=== PATIENT | female | born 1955 | race Caucasian/White ===

== ENCOUNTER 2023-03-12 13:03 | Emergency (ER) | payer MEDICARE, OTHER ==
[2023-03-12] MEDS ORDERED: KETOROLAC 15 MG/ML 1 ML VIAL IVP STA (15:09)
[2023-03-12] MEDS ORDERED: SODIUM CHLORIDE 0.9% 500 ML 500 ML IV STA (15:09)
[2023-03-12] MEDS ORDERED: SODIUM CHLORIDE 0.9% 1,000 ML IV STA (15:09)
--- NOTE | 2023-03-12 15:19 | XR ---
EXAMINATION TYPE: XR chest 2V DATE OF EXAM: 03/12/2023 COMPARISON: NONE HISTORY: Shortness of breath TECHNIQUE: Frontal and lateral views of the chest are obtained. FINDINGS: Scattered senescent parenchymal changes noted. Hyperinflation compatible with COPD. Patchy density right medial lung base with elevation right hemidiaphragm may reflect developing pneum onia. Correlate clinically and progress studies recommended. Heart size is stable. Mediastinal structures are stable and grossly unremarkable. No evidence for hilar prominence. Degenerative changes dorsal spine. IMPRESSION: 1. Patchy density right medial lung base with elevation right hemidiaphragm may reflect developing pn eumonia. Correlate clinically and progress studies recommended.
--- NOTE | 2023-03-12 15:20 | ED ---
Recheck HPI - General Chief Complaint: Recheck/Abnormal Lab/Rx Stated Complaint: lower back leg pain Time Seen by Provider: 03/12/23 13:42 Source: patient, family Mode of arrival: wheelchair Limitations: no limitations - History of Present Illness Initial Comments: 67-year-old female history of hypertension and diabetes who presents with complaints of 5 weeks of low back pain. She states that she was seen by a chiropractor and had adjustments done after that she has severe pain radiating down both legs sometimes both sometimes 1. She was seen here about a week ago and x-rays on which shows severe degenerative joint disease in the lower spine and SI joint region. She was sent home with steroids and pain medication but states she's been getting progressively worse not better no improvement with medications she now requires a wheelchair and needs assistance with ambulation were before she needed no. He does have chronic numbness in the right foot area and she's had a rash on her legs which her doctor believes is fungal infection she states for about the last week or 2 she's had some redness going up her right arm and a little bit on the right chest. No fevers chills nausea vomiting sweats no dysuria hematuria no incontinence. MD Complaint: other - Related Data Home Medications Medication Instructions Recorded Confirmed Acetylcysteine [Nac] 500 mg PO DAILY 03/12/23 03/12/23 Diclofenac Sodium [Voltaren] 75 mg PO BID 03/12/23 03/12/23 Magnesium Glycinate 350mg 1,400 mg PO DAILY 03/12/23 03/12/23 Multivit with Calcium,Iron,Min 1 tab PO DAILY 03/12/23 03/12/23 [Women's Multivitamin] [place]-3/Dha/Epa/Fish Oil [Fish Oil 2 cap PO HS 03/12/23 03/12/23 1,000 mg Softgel] Semaglutide [Ozempic] 0.5 mg SQ BRAUN 03/12/23 03/12/23 Thiamine [Vitamin B-1] 100 mg PO DAILY 03/12/23 03/12/23 Tri Active Immune Care Supplement 1 tab PO DAILY 03/12/23 03/12/23 lisinopriL [Zestril] 5 mg PO DAILY 03/12/23 03/12/23 traMADol HCL 50 mg PO TID PRN 03/12/23 03/12/23 Previous Rx's Medication Instructions Recorded HYDROcodone/APAP 7.5-325MG [[place] 1 tab PO Q6HR PRN 3 Days #12 tab 03/05/23 7.5-325] Allergies Allergy/AdvReac Type Severity Reaction Status Date / Time empagliflozin Allergy Nausea & Verified 03/12/23 18:04 [From Jardiance] Vomiting & Diarrhea Penicillins Allergy Unknown Verified 03/12/23 18:04 Childhood Sulfa (Sulfonamide Allergy Unknown Verified 03/12/23 18:04 Antibiotics) Childhood Review of Systems ROS Statement: Those systems with pertinent positive or pertinent negative responses have been documented in the HPI. ROS Other: All systems not noted in ROS Statement are negative. Past Medical History Past Medical History: Diabetes Mellitus, Hyperlipidemia, Hypertension History of Any Multi-Drug Resistant Organisms: None Reported Past Surgical History: Hysterectomy Past Psychological History: No Psychological Hx Reported Smoking Status: Former smoker Past Alcohol Use History: None Reported Past Drug Use History: None Reported General Exam - General Exam Comments Initial Comments: This is a well-developed well-nourished awake alert oriented 4 female Limitations: no limitations General appearance: alert, anxious Head exam: Present: atraumatic, normocephalic, normal inspection Eye exam: Present: normal appearance, PERRL, EOMI. Absent: scleral icterus, conjunctival injection, periorbital swelling ENT exam: Present: mucous membranes dry Neck exam: Present: normal inspection, full ROM, other (No stridor JVD or bruits). Absent: tenderness, meningismus, lymphadenopathy Respiratory exam: Present: normal lung sounds bilaterally. Absent: respiratory distress, wheezes, rales, rhonchi, stridor Cardiovascular Exam: Present: normal rhythm, tachycardia. Absent: systolic murmur, diastolic murmur, rubs, gallop, clicks GI/Abdominal exam: Present: soft, normal bowel sounds. Absent: distended, tenderness, guarding, rebound, rigid Rectal exam: Present: deferred Extremities exam: Present: normal capillary refill, other (Some numbness to the right foot which is consistent with the patient's history she does demonstrate full range of motion of the feet with pain with attempts at lifting the legs.). Absent: full ROM, tenderness, pedal edema, joint swelling, calf tenderness Back exam: Present: normal inspection, tenderness (Tennis over the bilateral SI joint joint region also over the upper gluteus muscles). Absent: full ROM, CVA tenderness (R), CVA tenderness (L) Neurological exam: Present: alert, oriented X3, CN II-XII intact, motor sensory deficit (As stated above) Psychiatric exam: Present: normal affect, normal mood Skin exam: Present: warm, dry, intact, other (Erythematous areas as noted above). Absent: rash Course Vital Signs 03/12/23 03/12/23 13:08 16:30 Temperature 98.2 F Pulse Rate 116 H 114 H Respiratory 20 18 Rate Blood Pressure 147/80 106/55 O2 Sat by Pulse 96 94 L Oximetry Medical Decision Making - Medical Decision Making I did discuss findings with the patient and family initially. CAT scan did show severe degenerative changes patient has had persistent and worsening pain since chiropractic adjustment 4-5 weeks ago. Patient is not ambulatory and not able to perform her ADLs at home. Initially the plan was to admit to this facility however was learned that the spine surgeons are not available for at least 4 days and concern for needs a decompression considered. Patient initially was hesitant to be transferred but she [facility] I did discuss the case with Dr. Banks who agrees except the patient in transfer ER to ER.Was pt. sent in by a medical professional or institution (, PA, SCALLOPER, urgent care, hospital, or snf...) When possible be specific @ -No Did you speak to anyone other than the patient for history (EMS, parent, family, police, friend...)? What history was obtained from this source @ -Family Did you review nursing and triage notes (agree or disagree)? Why? @ -I reviewed and agree with nursing and triage notes Were old charts reviewed (outside hosp., previous admission, EMS record, old EKG, old radiological studies, urgent care reports/EKG's, snf records)? Report findings @ -Previous admission old charts were reviewed Differential Diagnosis (chest pain, altered mental status, abdominal pain women, abdominal pain men, vaginal bleeding, weakness, fever, dyspnea, syncope, headache, dizziness, GI bleed, back pain, seizure, CVA, palpatations, mental health, musculoskeletal)? @ -Degenerative low spine disease. Intractable back pain, sciatica EKG interpreted by me (3pts min.). @ -Not done X-rays interpreted by me (1pt min.). @ -None done CT interpreted by me (1pt min.). @ -Computed tomography scan of lumbar spine and pelvis interpreted by me severe degenerative changes seen L1 to L5 S1 most notably L3 4 showed circumferential disc bulge moderate central stenosis severe left-sided foraminal encroachment also L4 5 moderate circumferential disc bulge graze posteriorly severe central stenosis and severe bilateral foraminal encroachment] U/S interpreted by me (1pt. min.). @ -None done What testing was considered but not performed or refused? (CT, X-rays, U/S, labs)? Why? @ -None What meds were considered but not given or refused? Why? @ -None Did you discuss the management of the patient with other professionals (professionals i.e. , PA, SCALLOPER, lab, RT, psych nurse, sr. social media & mobile manager, job site superintendent, teacher, deputy juvenile officer, case specialist)? Give summary @ -Dr Montanez and Dr. Banks Was smoking cessation discussed for >3mins.? @ -No Was critical care preformed (if so, how long)? @ -No Were there social determinants of health that impacted care today? How? (Homelessness, low income, unemployed, alcoholism, drug addiction, transportation, low edu. Level, literacy, decrease access to med. care, assisted, rehab)? @ -No Was there de-escalation of care discussed even if they declined (Discuss DNR or withdrawal of care, Hospice)? DNR status @ -No What co-morbidities impacted this encounter? (DM, HTN, Smoking, COPD, CAD, Cancer, CVA, ARF, Chemo, Hep., AIDS, mental health diagnosis, sleep apnea, morbid obesity)? @ -Diabetes, hypertension Was patient admitted / discharged? Hospital course, mention meds given and route, prescriptions, significant lab abnormalities, going to OR and other pertinent info. @ -hospital course was transferred to [facility] in [place] for higher level of care Undiagnosed new problem with uncertain prognosis? @ -Severe didn't degenerative change lumbar sacral spine Drug Therapy requiring intensive monitoring for toxicity (Heparin, Nitro, Insulin, Cardizem)? @ -No Were any procedures done? @ -No Diagnosis/symptom? @ -Intractable lumbar pain, central cord stenosis and multiple lumbar disc bulges Acute, or Chronic, or Acute on Chronic? @ -Acute on chronic] Uncomplicated (without systemic symptoms) or Complicated (systemic symptoms)? @ -Complicated Side effects of treatment? @ -No Exacerbation, Progression, or Severe Exacerbation? @ -Severe exacerbation Poses a threat to life or bodily function? How? (Chest pain, [place], CA, pneumonia, PE, COPD, DKA, ARF, appy, cholecystitis, CVA, Diverticulitis, Homicidal, Suicidal, threat to staff... and all critical care pts) @ -Intractable lumbar pain with severe central stenosis severe bilateral foraminal encroachment - Lab Data Result diagrams: 03/12/23 15:01 03/12/23 15:01 Lab Results 03/12/23 03/12/23 03/12/23 Range/Units 15:01 15:01 15:01 WBC 11.2 H (3.8-10.6) k/uL RBC 4.97 (3.80-5.40) m/uL Hgb 15.9 (11.4-16.0) gm/dL Hct 47.7 H (34.0-46.0) % MCV 95.9 (80.0-100.0) fL MCH 32.0 (25.0-35.0) pg MCHC 33.4 (31.0-37.0) g/dL RDW 13.2 (11.5-15.5) % Plt Count 230 (150-450) k/uL MPV 8.1 Neutrophils % 62 % Lymphocytes % 29 % Monocytes % 4 % Eosinophils % 3 % Basophils % 0 % Neutrophils # 7.0 (1.3-7.7) k/uL Lymphocytes # 3.3 (1.0-4.8) k/uL Monocytes # 0.4 (0-1.0) k/uL Eosinophils # 0.3 (0-0.7) k/uL Basophils # 0.0 (0-0.2) k/uL Sodium 136 L (137-145) mmol/L Potassium 5.1 (3.5-5.1) mmol/L Chloride 101 (98-107) mmol/L Carbon Dioxide 23 (22-30) mmol/L Anion Gap 12 mmol/L BUN 36 H (7-17) mg/dL Creatinine 1.53 H (0.52-1.04) mg/dL Est GFR (CKD-EPI)AfAm 41 (>60 ml/min/1.73 sqM) Est GFR (CKD-EPI)NonAf 36 (>60 ml/min/1.73 sqM) Glucose 109 H (74-99) mg/dL Calcium 10.3 H (8.4-10.2) mg/dL Magnesium 2.0 (1.6-2.3) mg/dL Total Bilirubin 0.6 (0.2-1.3) mg/dL AST 37 H (14-36) U/L ALT 34 (4-34) U/L Alkaline Phosphatase 92 (38-126) U/L Creatine Kinase 137 H (30-135) U/L Troponin I (0.000-0.034) ng/mL Total Protein 7.4 (6.3-8.2) g/dL Albumin 4.3 (3.5-5.0) g/dL Lipase 177 (23-300) U/L TSH 0.970 (0.465-4.680) mIU/L Urine Color Yellow Urine Appearance Cloudy H (Clear) Urine pH 7.0 (5.0-8.0) Ur Specific [place] 1.013 (1.001-1.035) Urine Protein Negative (Negative) Urine Glucose (UA) Trace H (Negative) Urine Ketones Negative (Negative) Urine Blood Negative (Negative) Urine Nitrite Negative (Negative) Urine Bilirubin Negative (Negative) Urine Urobilinogen <2.0 (<2.0) mg/dL Ur Leukocyte Esterase Large H (Negative) Urine RBC 3 (0-5) /hpf Urine WBC 26 H (0-5) /hpf Ur Squamous Epith Cells 1 (0-4) /hpf Amorphous Sediment Rare H (None) /hpf Urine Bacteria Moderate H (None) /hpf Urine Mucus Rare H (None) /hpf 03/12/23 Range/Units 15:01 WBC (3.8-10.6) k/uL RBC (3.80-5.40) m/uL Hgb (11.4-16.0) gm/dL Hct (34.0-46.0) % MCV (80.0-100.0) fL MCH (25.0-35.0) pg MCHC (31.0-37.0) g/dL RDW (11.5-15.5) % Plt Count (150-450) k/uL MPV Neutrophils % % Lymphocytes % % Monocytes % % Eosinophils % % Basophils % % Neutrophils # (1.3-7.7) k/uL Lymphocytes # (1.0-4.8) k/uL Monocytes # (0-1.0) k/uL Eosinophils # (0-0.7) k/uL Basophils # (0-0.2) k/uL Sodium (137-145) mmol/L Potassium (3.5-5.1) mmol/L Chloride (98-107) mmol/L Carbon Dioxide (22-30) mmol/L Anion Gap mmol/L BUN (7-17) mg/dL Creatinine (0.52-1.04) mg/dL Est GFR (CKD-EPI)AfAm (>60 ml/min/1.73 sqM) Est GFR (CKD-EPI)NonAf (>60 ml/min/1.73 sqM) Glucose (74-99) mg/dL Calcium (8.4-10.2) mg/dL Magnesium (1.6-2.3) mg/dL Total Bilirubin (0.2-1.3) mg/dL AST (14-36) U/L ALT (4-34) U/L Alkaline Phosphatase (38-126) U/L Creatine Kinase (30-135) U/L Troponin I 0.026 (0.000-0.034) ng/mL Total Protein (6.3-8.2) g/dL Albumin (3.5-5.0) g/dL Lipase (23-300) U/L TSH (0.465-4.680) mIU/L Urine Color Urine Appearance (Clear) Urine pH (5.0-8.0) Ur Specific [place] (1.001-1.035) Urine Protein (Negative) Urine Glucose (UA) (Negative) Urine Ketones (Negative) Urine Blood (Negative) Urine Nitrite (Negative) Urine Bilirubin (Negative) Urine Urobilinogen (<2.0) mg/dL Ur Leukocyte Esterase (Negative) Urine RBC (0-5) /hpf Urine WBC (0-5) /hpf Ur Squamous Epith Cells (0-4) /hpf Amorphous Sediment (None) /hpf Urine Bacteria (None) /hpf Urine Mucus (None) /hpf - Radiology Data Interpreted by me: I did interpret the imaging center degenerative change in the lumbar spine no obvious seems to the pelvis. She did have especially notable L4-L5 moderate circumferential disc bulge gratis posteriorly some severe central stenosis severe by lateral foraminal encroachment Disposition Clinical Impression: Intractable neuropathic pain of lumbosacral origin, Central stenosis of spinal canal, Failure of outpatient treatment Disposition: OTHER INSTITUTION NOT DEFINED Condition: Fair Referrals: Bravo Lazo MD [Primary Care Provider] - 1-2 days Decision Date: 03/12/23 Decision Time: 19:15 - Out of Hospital Transfer - Req. Specs Out of Hospital Transfer - Requested Specifics: Other Emergency Center
[2023-03-12 15:21] LABS: Basophils % (A) 0 %; Eosinophils # (A) 0.3 k/uL (0-0.7); Eosinophils % (A) 3 %; HCT 47.7 % (34.0-46.0); HGB 15.9 gm/dL (11.4-16.0); Lymphocytes # (A) 3.3 k/uL (1.0-4.8); Lymphocytes % (A) 29 %; MCHC 33.4 g/dL (31.0-37.0); MCV 95.9 fL (80.0-100.0); Mean Platelet Volume 8.1; Monocytes # (A) 0.4 k/uL (0-1.0); Monocytes % (A) 4 %; Neutrophils % (A) 62 %; Platelet Count 230 k/uL (150-450); RBC 4.97 m/uL (3.80-5.40); RDW 13.2 % (11.5-15.5); WBC 11.2 k/uL (3.8-10.6)
[2023-03-12 15:25] LABS: Amorphous Sediment,Urine Rare /hpf; Appearance,Urine Cloudy (Clear); Bacteria,Urine Moderate /hpf; Bilirubin,Urine Negative (Negative); Blood,Urine Negative (Negative); Color,Urine Yellow; Glucose,Urine (UA) Trace (Negative); Ketones,Urine Negative (Negative); Leukocyte Esterase,Urine Large (Negative); Mucus,Urine Rare /hpf; Nitrite,Urine Negative (Negative); Protein,Urine Negative (Negative); RBC,Urine 3 /hpf (0-5); Specific Gravity,Urine 1.013 (1.001-1.035); Squamous Epithelial Cell,Urine 1 /hpf (0-4); Urobilinogen,Urine <2.0 mg/dL (<2.0); WBC,Urine 26 /hpf (0-5)
[2023-03-12 15:38] LABS: ALT 34 U/L (4-34); AST 37 U/L (14-36); African American GFR (CKD) 41 (>60 ml/min/1.73 sqM); Albumin 4.3 g/dL (3.5-5.0); Alkaline Phosphatase 92 U/L (38-126); Anion Gap 12 mmol/L; Blood Urea Nitrogen 36 mg/dL (7-17); Calcium 10.3 mg/dL (8.4-10.2); Carbon Dioxide 23 mmol/L (22-30); Chloride 101 mmol/L (98-107); Creatine Kinase 137 U/L (30-135); Glucose 109 mg/dL (74-99); Lipase 177 U/L (23-300); Non-African American GFR(CKD) 36 (>60 ml/min/1.73 sqM); Potassium 5.1 mmol/L (3.5-5.1); Sodium 136 mmol/L (137-145); Total Bilirubin 0.6 mg/dL (0.2-1.3); Total Protein 7.4 g/dL (6.3-8.2)
[2023-03-12 16:37] VITALS: RESP 18
--- NOTE | 2023-03-12 16:56 | CT ---
EXAMINATION TYPE: CT lumbar spine wo con, CT pelvis wo con DATE OF EXAM: 03/12/2023 COMPARISON: HISTORY: bilateral leg pain x 5 weeks unable to ambulate CT DLP: 2671.[address] of the lumbar spine was performed. Bone and soft tissue window settings are submitted as well as coronal and sagittal reconstructions. Unenhanced CT of the pelvis is also submitted. L1-L2: Severe degenerative disc space narrowing and vacuum disc and endplate sclerosis. Moderate circ umferential disc bulge with effacement of the ventral thecal sac and moderate central stenosis. Later al foraminal encroachment. L2-L3: Severe disc desiccation with vacuum disc. Circumferential disc bulge with disc endplate comple x. Moderate central stenosis. Severe left-sided foraminal encroachment. L3-L4: Severe disc desiccation with vacuum disc. Circumferential disc bulge with disc endplate comple x. Moderate central stenosis. Severe left-sided foraminal encroachment. L4-L5: Severe disc desiccation vacuum disc. Moderate circumferential disc bulge greatest posteriorly. Severe central stenosis. Severe bilateral foraminal encroachment. Probable Schmorl node anterior sup erior endplate of L5. L5-S1: Normal disc space height. Mild posterior disc endplate complex. No evidence for central steno sis or foraminal encroachment. No disc herniation protrusion or central stenosis. No facet joint art hropathy. No evidence for foraminal encroachment. No paraspinal masses are identified. Lumbar segments are free if fracture. CT PELVIS: No evidence for fracture or dislocation. Mild degenerative change bilateral hip joint spac es. Degenerative changes sacroiliac joints bilaterally. No destructive masses seen. IMPRESSION: 1. Severe multilevel degenerative disc disease with multilevel central stenosis and foraminal encroac hment as outlined above.
[2023-03-12] MEDS ORDERED: fentaNYL (PF) 50 MCG/ML 2 ML AMP IV STA (19:30)
[2023-03-12 19:39] VITALS: BP 125/80; PULSE 75; TEMP 98.1
== END 2023-03-12 19:56 | disposition other institution (70) ==
LOC: EC 13:03
DX: M48.061 Spinal stenosis, lumbar region without neurogenic claudication (principal); M51.36 Other intervertebral disc degeneration, lumbar region; E11.40 Type 2 diabetes mellitus with diabetic neuropathy, unspecified; I10 Essential (primary) hypertension; Z79.84 Long term (current) use of oral hypoglycemic drugs; Z79.899 Other long term (current) drug therapy; Z88.0 Allergy status to penicillin; Z88.1 Allergy status to other antibiotic agents; Z88.2 Allergy status to sulfonamides; Z87.891 Personal history of nicotine dependence
CPT/HCPCS: 96361 ×4; 96374 ×2; 99285 ×2; 36415; 80053; 84443; 82550; 83690; 83735; 84484; 85025; 81001; 71046; 72192; 72131; J1885

== ENCOUNTER 2023-03-26 11:08 | Emergency (ER) | payer MEDICARE, OTHER ==
[2023-03-26 11:18] VITALS: PULSE 78; RESP 18; TEMP 98.4
--- NOTE | 2023-03-26 11:55 | ED ---
General Adult HPI - General Chief complaint: Skin/Abscess/Foreign Body Stated complaint: Back Infection Time Seen by Provider: 03/26/23 11:20 Source: patient, EMS, RN notes reviewed, old records reviewed Mode of arrival: EMS Limitations: physical limitation - History of Present Illness Initial comments: This is a 67-year-old female who presents emergency Department stating she had surgery on her back on March 14. Patient states since then the wound has been draining which she describes as pus and the wound is not healing well. Patient states they were supposed to take out the ajith seen but since wound isn't healing they sent the patient into the emergency department to be evaluated. Patient states the area around it is tender and she was told it was erythematous. Patient denies any fever chills per patient denies difficulty breathing or shortness of breath. Patient denies any chest pain or palpitations. Patient has abdominal pain patient is not diarrhea. Patient denies any numbness or weakness. Patient states her left leg remains a little weaker than the right but this is unchanged since the surgery. - Related Data Home Medications Medication Instructions Recorded Confirmed Multivit with Calcium,Iron,Min 1 tab PO DAILY 03/12/23 03/26/23 [Women's Multivitamin] [place]-3/Dha/Epa/Fish Oil [Fish Oil 1 cap PO HS 03/12/23 03/26/23 1,000 mg Softgel] Docusate [Colace] 100 mg PO BID 03/26/23 03/26/23 HYDROcodone/APAP 5-325MG [[place] 1 tab PO Q4HR PRN 03/26/23 03/26/23 5-325] Magnesium Oxide [Mag-Ox] 400 mg PO DAILY 03/26/23 03/26/23 Metoprolol Tartrate [Lopressor] 100 mg PO BID 03/26/23 03/26/23 methocarbamoL [Robaxin-750] 750 mg PO TID@0600,1400,2200 03/26/23 03/26/23 Allergies Allergy/AdvReac Type Severity Reaction Status Date / Time empagliflozin Allergy Nausea & Verified 03/12/23 18:04 [From Jardiance] Vomiting & Diarrhea Penicillins Allergy Unknown Verified 03/12/23 18:04 Childhood Sulfa (Sulfonamide Allergy Unknown Verified 03/12/23 18:04 Antibiotics) Childhood Review of Systems ROS Statement: Those systems with pertinent positive or pertinent negative responses have been documented in the HPI. ROS Other: All systems not noted in ROS Statement are negative. Past Medical History Past Medical History: Diabetes Mellitus, Hyperlipidemia, Hypertension History of Any Multi-Drug Resistant Organisms: None Reported Past Surgical History: Back Surgery, Hysterectomy Additional Past Surgical History / Comment(s): Back surgery 03/14/23 Past Psychological History: No Psychological Hx Reported Smoking Status: Former smoker Past Alcohol Use History: None Reported Past Drug Use History: None Reported General Exam - General Exam Comments Initial Comments: GENERAL: Patient is well-developed and well-nourished. Patient is nontoxic and well-hyd rated and is in mild distress. ENT: Neck is soft and supple. No significant lymphadenopathy is noted. Oropharynx is clear. Moist mucous membranes. Neck has full range of motion without eliciting any pain. EYES: The sclera were anicteric and conjunctiva were pink and moist. Extraocular movements were intact and pupils were equal round and reactive to light. Eyelids were unremarkable. PULMONARY: Unlabored respirations. Good breath sounds bilaterally. No audible rales rhonchi or wheezing was noted. CARDIOVASCULAR: There is a regular rate and rhythm without any murmurs gallops or rubs. ABDOMEN: Soft and nontender with normal bowel sounds. SKIN: Skin is clear with no lesions or rashes and otherwise unremarkable. NEUROLOGIC: Patient is alert and oriented x3. Cranial nerves II through XII are grossly intact. Motor and sensory are also intact. Normal speech, volume and content. Symmetrical smile. MUSCULOSKELETAL: Normal extremities with adequate strength and full range of motion. LYMPHATICS: No significant lymphadenopathy is noted PSYCHIATRIC: Normal psychiatric evaluation. Limitations: physical limitation Course Vital Signs 03/26/23 11:10 Temperature 98.4 F Pulse Rate 78 Respiratory 18 Rate Blood Pressure 130/76 O2 Sat by Pulse 99 Oximetry Medical Decision Making - Medical Decision Making EKG as interpreted by myself. EKG shows sinus rhythm at 67 bpm RI interval is a 34 QRSs 93 QT interval 367 QTC is [address] segment patient or depression Was pt. sent in by a medical professional or institution (, PA, HOME DEMONSTRATION AGENT, urgent care, hospital, or long term...) When possible be specific @ -No Did you speak to anyone other than the patient for history (EMS, parent, family, police, friend...)? What history was obtained from this source @ -No Did you review nursing and triage notes (agree or disagree)? Why? @ -I reviewed and agree with nursing and triage notes Were old charts reviewed (outside hosp., previous admission, EMS record, old EKG, old radiological studies, urgent care reports/EKG's, long term records)? Report findings @ -I Reviewed prior charts in prior lab work. Differential Diagnosis (chest pain, altered mental status, abdominal pain women, abdominal pain men, vaginal bleeding, weakness, fever, dyspnea, syncope, headache, dizziness, GI bleed, back pain, seizure, CVA, palpatations, mental health, musculoskeletal)? @ -Dehiscence of wound, cellulitis, abscess, postop pain, EKG interpreted by me (3pts min.). @ -As above X-rays interpreted by me (1pt min.). @ -None done CT interpreted by me (1pt min.). @ -CT Of the lumbar spine showed fluid collection consistent with possible abscess. U/S interpreted by me (1pt. min.). @ -None done What testing was considered but not performed or refused? (CT, X-rays, U/S, labs)? Why? @ -None What meds were considered but not given or refused? Why? @ -None Did you discuss the management of the patient with other professionals (professionals i.e. , PA, HOME DEMONSTRATION AGENT, lab, RT, psych nurse, social insurance specialist, immigration lawyer, teacher, professional security officer, cyanide case hardener)? Give summary @ -I spoke with [facility] and they accepted the transfer this patient with the patient had surgery Was smoking cessation discussed for >3mins.? @ -No Was critical care preformed (if so, how long)? @ -No Were there social determinants of health that impacted care today? How? (Homelessness, low income, unemployed, alcoholism, drug addiction, transportation, low edu. Level, literacy, decrease access to med. care, fci, rehab)? @ -No Was there de-escalation of care discussed even if they declined (Discuss DNR or withdrawal of care, Hospice)? DNR status @ -No What co-morbidities impacted this encounter? (DM, HTN, Smoking, COPD, CAD, Cancer, CVA, ARF, Chemo, Hep., AIDS, mental health diagnosis, sleep apnea, morbid obesity)? @ -None Was patient admitted / discharged? Hospital course, mention meds given and route, prescriptions, significant lab abnormalities, going to OR and other pertinent info. @ -Patient was given antibiotics in the emergency department she was given 2 g Rocephin and started on vancomycin. I spoke with [facility] the patient will be transferred to their facility where she had her surgery. Undiagnosed new problem with uncertain prognosis? @ -No Drug Therapy requiring intensive monitoring for toxicity (Heparin, Nitro, Insulin, Cardizem)? @ -No Were any procedures done? @ -No Diagnosis/symptom? @ -Postop laminectomy abscess Acute, or Chronic, or Acute on Chronic? @ -Acute Uncomplicated (without systemic symptoms) or Complicated (systemic symptoms)? @ -Complicated Side effects of treatment? @ -No Exacerbation, Progression, or Severe Exacerbation? @ -No Poses a threat to life or bodily function? How? (Chest pain, [place], [place], pneumonia, PE, COPD, DKA, ARF, appy, cholecystitis, CVA, Diverticulitis, Homicidal, Suicidal, threat to staff... and all critical care pts) @ -Yes this could lead to sepsis and end organ dysfunction - Lab Data Result diagrams: 03/26/23 12:02 03/26/23 12:02 Lab Results 03/26/23 03/26/23 03/26/23 Range/Units 12:02 12:02 12:02 WBC 11.5 H (3.8-10.6) k/uL RBC 4.31 (3.80-5.40) m/uL Hgb 13.7 (11.4-16.0) gm/dL Hct 40.2 (34.0-46.0) % MCV 93.3 (80.0-100.0) fL MCH 31.8 (25.0-35.0) pg MCHC 34.1 (31.0-37.0) g/dL RDW 12.7 (11.5-15.5) % Plt Count 352 (150-450) k/uL MPV 7.8 Neutrophils % 71 % Lymphocytes % 22 % Monocytes % 4 % Eosinophils % 2 % Basophils % 0 % Neutrophils # 8.2 H (1.3-7.7) k/uL Lymphocytes # 2.6 (1.0-4.8) k/uL Monocytes # 0.4 (0-1.0) k/uL Eosinophils # 0.3 (0-0.7) k/uL Basophils # 0.0 (0-0.2) k/uL PT 10.7 (10.0-12.5) sec INR 1.0 (<1.2) APTT 22.1 (22.0-30.0) sec Sodium 133 L (137-145) mmol/L Potassium 4.3 (3.5-5.1) mmol/L Chloride 98 (98-107) mmol/L Carbon Dioxide 27 (22-30) mmol/L Anion Gap 8 mmol/L BUN 34 H (7-17) mg/dL Creatinine 0.90 (0.52-1.04) mg/dL Est GFR (CKD-EPI)AfAm 78 (>60 ml/min/1.73 sqM) Est GFR (CKD-EPI)NonAf 68 (>60 ml/min/1.73 sqM) Glucose 145 H (74-99) mg/dL Plasma Lactic Acid Yaw (0.7-2.0) mmol/L Calcium 9.8 (8.4-10.2) mg/dL Total Bilirubin 0.4 (0.2-1.3) mg/dL AST 28 (14-36) U/L ALT 31 (4-34) U/L Alkaline Phosphatase 86 (38-126) U/L Total Protein 6.5 (6.3-8.2) g/dL Albumin 3.5 (3.5-5.0) g/dL 03/26/23 Range/Units 12:02 WBC (3.8-10.6) k/uL RBC (3.80-5.40) m/uL Hgb (11.4-16.0) gm/dL Hct (34.0-46.0) % MCV (80.0-100.0) fL MCH (25.0-35.0) pg MCHC (31.0-37.0) g/dL RDW (11.5-15.5) % Plt Count (150-450) k/uL MPV Neutrophils % % Lymphocytes % % Monocytes % % Eosinophils % % Basophils % % Neutrophils # (1.3-7.7) k/uL Lymphocytes # (1.0-4.8) k/uL Monocytes # (0-1.0) k/uL Eosinophils # (0-0.7) k/uL Basophils # (0-0.2) k/uL PT (10.0-12.5) sec INR (<1.2) APTT (22.0-30.0) sec Sodium (137-145) mmol/L Potassium (3.5-5.1) mmol/L Chloride (98-107) mmol/L Carbon Dioxide (22-30) mmol/L Anion Gap mmol/L BUN (7-17) mg/dL Creatinine (0.52-1.04) mg/dL Est GFR (CKD-EPI)AfAm (>60 ml/min/1.73 sqM) Est GFR (CKD-EPI)NonAf (>60 ml/min/1.73 sqM) Glucose (74-99) mg/dL Plasma Lactic Acid Yaw 1.2 (0.7-2.0) mmol/L Calcium (8.4-10.2) mg/dL Total Bilirubin (0.2-1.3) mg/dL AST (14-36) U/L ALT (4-34) U/L Alkaline Phosphatase (38-126) U/L Total Protein (6.3-8.2) g/dL Albumin (3.5-5.0) g/dL Disposition Clinical Impression: Postoperative infection, Status post laminectomy Disposition: OTHER INSTITUTION NOT DEFINED Referrals: Bravo Lazo MD [Primary Care Provider] - 1-2 days Time of Disposition: 14:59 - Out of Hospital Transfer - Req. Specs Out of Hospital Transfer - Requested Specifics: Other Emergency Center ([facility])
[2023-03-26 12:12] LABS: Basophils % (A) 0 %; Eosinophils # (A) 0.3 k/uL (0-0.7); Eosinophils % (A) 2 %; HCT 40.2 % (34.0-46.0); HGB 13.7 gm/dL (11.4-16.0); Lymphocytes # (A) 2.6 k/uL (1.0-4.8); Lymphocytes % (A) 22 %; MCH 31.8 pg (25.0-35.0); MCHC 34.1 g/dL (31.0-37.0); MCV 93.3 fL (80.0-100.0); Mean Platelet Volume 7.8; Monocytes # (A) 0.4 k/uL (0-1.0); Monocytes % (A) 4 %; Neutrophils # (A) 8.2 k/uL (1.3-7.7); Neutrophils % (A) 71 %; Platelet Count 352 k/uL (150-450); RBC 4.31 m/uL (3.80-5.40); RDW 12.7 % (11.5-15.5); WBC 11.5 k/uL (3.8-10.6)
[2023-03-26 12:22] LABS: Partial Thromboplastin Time 22.1 sec (22.0-30.0); Prothrombin Time 10.7 sec (10.0-12.5)
[2023-03-26 12:42] LABS: ALT 31 U/L (4-34); AST 28 U/L (14-36); African American GFR (CKD) 78 (>60 ml/min/1.73 sqM); Albumin 3.5 g/dL (3.5-5.0); Alkaline Phosphatase 86 U/L (38-126); Anion Gap 8 mmol/L; Blood Urea Nitrogen 34 mg/dL (7-17); Calcium 9.8 mg/dL (8.4-10.2); Carbon Dioxide 27 mmol/L (22-30); Chloride 98 mmol/L (98-107); Glucose 145 mg/dL (74-99); Non-African American GFR(CKD) 68 (>60 ml/min/1.73 sqM); Potassium 4.3 mmol/L (3.5-5.1); Sodium 133 mmol/L (137-145); Total Bilirubin 0.4 mg/dL (0.2-1.3); Total Protein 6.5 g/dL (6.3-8.2)
--- NOTE | 2023-03-26 14:13 | CT ---
EXAMINATION TYPE: CT lumbar spine w con DATE OF EXAM: 03/26/2023 COMPARISON: 03/12/2023 HISTORY: recent back sx. poss infection CT DLP: 1501.4 mGycm Automated exposure control for dose reduction was used. CONTRAST: CT scan of the lumbar is performed with IV Contrast, patient injected with 100 mL of Isovue 370. Enhanced CT of the lumbar spine was performed. Bone and soft tissue window settings are submitted as well as coronal and sagittal reconstructions. L1-L2: Severe degenerative disc space narrowing and vacuum disc and endplate sclerosis. Moderate circ umferential disc bulge with effacement of the ventral thecal sac and moderate central stenosis. Later al foraminal encroachment. L2-L3: Severe disc desiccation with vacuum disc. Circumferential disc bulge with disc endplate comple x. Moderate central stenosis. Severe left-sided foraminal encroachment. L3-L4: Postoperative changes of decompressive lumbar laminectomy. Severe degenerative disc disease. P osterior disc bulge. No evidence for residual central stenosis. L4-L5: Postoperative changes of decompressive lumbar laminectomy. Severe degenerative disc disease. P osterior disc bulge. No evidence for residual central stenosis. L5-S1: Normal disc space height. No disc herniation protrusion or central stenosis. No facet joint arthropathy. No evidence for foraminal encroachment. Postoperative alignment is felt to be within normal limits. There is a posterior soft tissue collecti on noted extending from L1-2 through L4-5 with internal air measuring 9.3 cm in craniocaudal dimensio n by 5.4 cm AP dimension. While this could reflect postoperative seroma infected collection is not ex cluded. Skin ajith noted to be in place. IMPRESSION: 1.There is a posterior soft tissue collection noted extending from L1-2 through L4-5 with internal ai r measuring 9.3 cm in craniocaudal dimension by 5.4 cm AP dimension. While this could reflect postope rative seroma infected collection is not excluded. 2. Decompressive laminectomy at L3-4 and L4-5.
[2023-03-26] MEDS ORDERED: cefTRIAXone IN SWFI 1,000 MG/10 ML SYRINGE IVP STA (14:38)
[2023-03-26] MEDS ORDERED: VANCOMYCIN IV PER PHARMACY 1 EACH MISC MISCELLANE PRN (14:39)
[2023-03-26] MEDS ORDERED: VANCOMYCIN 1,500 MG in SODIUM CHLORIDE 0.9% 500 ML 500 ML IVPB ONE (15:00)
[2023-03-26] MEDS ORDERED: MORPHINE SULFATE 2 MG/ML SYRINGE IVP STA (15:48)
[2023-03-26 16:07] VITALS: BP 132/70
[2023-03-27] MEDS ORDERED: VANCOMYCIN 1,500 MG in SODIUM CHLORIDE 0.9% 500 ML 500 ML IVPB SCH (08:00)
== END 2023-03-26 15:56 | disposition other institution (70) ==
LOC: EC 11:08
DX: T81.40XA Infection following a procedure, unspecified, initial encounter (principal); E11.9 Type 2 diabetes mellitus without complications; I10 Essential (primary) hypertension; Z79.899 Other long term (current) drug therapy; Z88.0 Allergy status to penicillin; Z88.2 Allergy status to sulfonamides; Z87.891 Personal history of nicotine dependence; Z88.8 Allergy status to other drugs, medicaments and biological substances
CPT/HCPCS: 36415; 93005; 80053; 83605; 85025; 85610; 85730; 87040; 72132; 99285; 96374; 96375 ×2; J3370; J0696; J2270; Q9967

== ENCOUNTER 2023-05-18 15:57 | Inpatient (IN) | payer MEDICARE, OTHER ==
[2023-05-18] MEDS ORDERED: SODIUM CHLORIDE 0.9% 1,000 ML IV STA (17:03)
[2023-05-18] MEDS ORDERED: MORPHINE SULFATE 4 MG/ML SYRINGE IV STA (17:03)
--- NOTE | 2023-05-18 17:04 | ED ---
Recheck HPI - General Chief Complaint: Back Pain/Injury Stated Complaint: Spinal Leak-sent by Drs Time Seen by Provider: 05/18/23 16:22 Source: patient, RN notes reviewed, old records reviewed Mode of arrival: ambulatory Limitations: no limitations - History of Present Illness Initial Comments: This is a 67-year-old female who presents to the emergency department for evaluation today. Patient presents today to the emergency department for evaluation regards to spinal fluid leaking. Patient is a postoperative lumbar spine surgery with revision and has still had drainage from her surgical site. Patient recently of positive cultures tested for MRSA MD Complaint: abnormal lab -: days(s) Returns Today for: persistent/worsening pain related to initial visit Symptoms Since Prior Visit: worsening pain Associated Symptoms: shortness of breath Treatments Prior to Arrival: Given Pain Meds on - Related Data Home Medications Medication Instructions Recorded Confirmed Multivit with Calcium,Iron,Min 1 tab PO DAILY 03/12/23 05/18/23 [Women's Multivitamin] Metoprolol Tartrate [Lopressor] 100 mg PO Q8H 03/26/23 05/18/23 methocarbamoL [Robaxin-750] 750 mg PO BID 03/26/23 05/18/23 Ascorbic Acid [Vitamin C] 1,000 mg PO DAILY 05/18/23 05/18/23 Cholecalciferol [Vitamin D3 (25 25 mcg PO DAILY 05/18/23 05/18/23 Mcg = 1000 Iu)] acetaZOLAMIDE [Acetazolamide] 250 mg PO BID 05/18/23 05/18/23 traMADol HCL 50 mg PO TID PRN 05/18/23 05/18/23 Allergies Allergy/AdvReac Type Severity Reaction Status Date / Time empagliflozin Allergy Nausea & Verified 05/18/23 18:05 [From Jardiance] Vomiting & Diarrhea Penicillins Allergy Unknown Verified 05/18/23 18:05 Childhood Sulfa (Sulfonamide Allergy Unknown Verified 05/18/23 18:05 Antibiotics) Childhood Review of Systems ROS Statement: Those systems with pertinent positive or pertinent negative responses have been documented in the HPI. ROS Other: All systems not noted in ROS Statement are negative. Past Medical History Past Medical History: Diabetes Mellitus, Hyperlipidemia, Hypertension History of Any Multi-Drug Resistant Organisms: MRSA Date of last positivie culture/infection: 05/04/23 MDRO Source:: Wound-site not specified Past Surgical History: Back Surgery, Hysterectomy Additional Past Surgical History / Comment(s): Back surgery 03/14/23 Past Psychological History: No Psychological Hx Reported Smoking Status: Former smoker Past Alcohol Use History: None Reported Past Drug Use History: None Reported General Exam - General Exam Comments Initial Comments: spinal wound leaking clear fluid, cellulitis Limitations: no limitations General appearance: alert, in no apparent distress, anxious Head exam: Present: atraumatic, normocephalic, normal inspection Eye exam: Present: normal appearance, PERRL, EOMI. Absent: scleral icterus, conjunctival injection, periorbital swelling ENT exam: Present: normal exam, mucous membranes moist Neck exam: Present: normal inspection. Absent: tenderness, meningismus, lymphadenopathy Respiratory exam: Present: normal lung sounds bilaterally. Absent: respiratory distress, wheezes, rales, rhonchi, stridor Cardiovascular Exam: Present: regular rate, normal rhythm, normal heart sounds. Absent: systolic murmur, diastolic murmur, rubs, gallop, clicks GI/Abdominal exam: Present: soft, normal bowel sounds. Absent: distended, tenderness, guarding, rebound, rigid Extremities exam: Present: normal inspection, full ROM, normal capillary refill. Absent: tenderness, pedal edema, joint swelling, calf tenderness Back exam: Present: normal inspection Neurological exam: Present: alert, oriented X3, CN II-XII intact Psychiatric exam: Present: normal affect, normal mood Skin exam: Present: warm, dry, intact, normal color. Absent: rash Course Vital Signs 05/18/23 05/18/23 05/18/23 16:07 18:21 21:15 Temperature 98.3 F Pulse Rate 74 69 67 Respiratory 16 18 18 Rate Blood Pressure 147/83 128/75 109/67 O2 Sat by Pulse 98 95 99 Oximetry 05/18/23 05/19/23 05/19/23 22:57 02:46 07:30 Temperature 97.9 F 98.1 F Pulse Rate 76 75 72 Respiratory 20 18 18 Rate Blood Pressure 139/73 136/86 128/74 O2 Sat by Pulse 98 99 99 Oximetry 05/19/23 05/19/23 05/19/23 08:25 10:16 11:10 Temperature Pulse Rate 70 82 77 Respiratory 20 17 16 Rate Blood Pressure 106/65 95/52 98/66 O2 Sat by Pulse 98 97 98 Oximetry 05/19/23 05/19/23 05/19/23 12:01 13:40 14:14 Temperature 98.5 F Pulse Rate 74 72 70 Respiratory 17 18 18 Rate Blood Pressure 123/79 118/80 123/71 O2 Sat by Pulse 97 96 100 Oximetry 05/19/23 05/19/23 05/19/23 15:05 16:02 17:08 Temperature 98.9 F Pulse Rate 72 67 87 Respiratory 17 18 20 Rate Blood Pressure 119/63 107/68 133/96 O2 Sat by Pulse 97 96 96 Oximetry 05/19/23 18:14 Temperature 98.4 F Pulse Rate 68 Respiratory 18 Rate Blood Pressure 109/65 O2 Sat by Pulse 95 Oximetry - Reevaluation(s) Reevaluation #1: 05/18/23 20:45 medical record is reviewed Reevaluation #2: 05/18/23 20:46 Patient has persistent pain although improving here in the ER Reevaluation #3: 05/18/23 20:47 Patient informed results questions answered Reevaluation #4: 05/18/23 20:45 Was pt. sent in by a medical professional or institution (, PA, BUSINESS DEVELOPMENT PROFESSIONAL, urgent care, hospital, or usp...) When possible be specific @ -no Did you speak to anyone other than the patient for history (EMS, parent, family, police, friend...)? What history was obtained from this source @ -no Did you review nursing and triage notes (agree or disagree)? Why? @ -agree Are old charts reviewed (outside hosp., previous admission, EMS record, old EKG, old radiological studies, urgent care reports/EKG's, usp records)? Report findings @ -yes Differential Diagnosis (chest pain, altered mental status, abdominal pain women, abdominal pain men, vaginal bleeding, weakness, fever, dyspnea, syncope, headache, dizziness, GI bleed, back pain, seizure, CVA, palpatations, mental health, musculoskeletal)? @ -prior EKG interpreted by me (3pts min.). @ -yes X-rays interpreted by me (1pt min.). @ -no CT interpreted by me (1pt min.). @ -yes positive for postoperative infection U/S interpreted by me (1pt. min.). @ -no What testing was considered but not performed or refused? (CT, X-rays, U/S, labs)? Why? @ -none What meds were considered but not given or refused? Why? @ -none Did you discuss the management of the patient with other professionals (professionals i.e. , PA, BUSINESS DEVELOPMENT PROFESSIONAL, lab, RT, psych nurse, social work job titles, hash slinger, teacher, revenue officer, medical case worker)? Give summary @ -no Was smoking cessation discussed for >3mins.? @ -no Was critical care preformed (if so, how long)? @ -no Were there social determinants of health that impacted care today? How? (Homelessness, low income, unemployed, alcoholism, drug addiction, transpor tation, low edu. Level, literacy, decrease access to med. care, nursing home, rehab)? @ -none Was there de-escalation of care discussed even if they declined (Discuss DNR or withdrawal of care, Hospice)? DNR status @ -no What co-morbidities impacted this encounter? (DM, HTN, Smoking, COPD, CAD, Cancer, CVA, ARF, Chemo, Hep., AIDS, mental health diagnosis, sleep apnea, morbid obesity)? @ -none Was patient admitted / discharged? Hospital course, mention meds given and route, prescriptions, significant lab abnormalities, going to OR and other pertinent info. @ - 67 female to the emergency department for evaluation of postoperative infection abscess and surrounding cellulitis positive for MRSA, patient does have computed tomography scan positive for postoperative changes will obtain MRI and orthopedic consult for spine surgery, IV antibiotics and infectious disease Admitted Undiagnosed new problem with uncertain prognosis? @ -no Drug Therapy requiring intensive monitoring for toxicity (Heparin, Nitro, Insulin, Cardizem)? @ -no Were any procedures done? @ -no Diagnosis/symptom? @ -Postoperative infection and abscess Acute, or Chronic, or Acute on Chronic? @ -Acute Uncomplicated (without systemic symptoms) or Complicated (systemic symptoms)? @ -Complicated Side effects of treatment? @ -no Exacerbation, Progression, or Severe Exacerbation? @ -exacerbation Poses a threat to life or bodily function? How? (Chest pain, [place], [place], pneumonia, PE, COPD, DKA, ARF, appy, cholecystitis, CVA, Diverticulitis, Homicidal, Suicidal, threat to staff... and all critical care pts) @ -yes with significant infection - Consultations Consultation #1: spoke with sound who agrees to admit this patient Consultation #2: Dr. Allen for infectious disease did call ahead regarding this patient for orthopedic consult Medical Decision Making - Medical Decision Making 67 female to the emergency department for evaluation of postoperative infection abscess and surrounding cellulitis positive for MRSA, patient does have computed tomography scan positive for postoperative changes will obtain MRI and orthopedic consult for spine surgery, IV antibiotics and infectious disease - Lab Data Result diagrams: 05/26/23 04:21 05/26/23 04:21 Lab Results 05/18/23 05/18/23 05/18/23 Range/Units 17:44 17:44 17:44 WBC 10.3 (3.8-10.6) k/uL RBC 4.99 (3.80-5.40) m/uL Hgb 15.1 (11.4-16.0) gm/dL Hct 47.4 H (34.0-46.0) % MCV 95.0 (80.0-100.0) fL MCH 30.3 (25.0-35.0) pg MCHC 31.9 (31.0-37.0) g/dL RDW 13.1 (11.5-15.5) % Plt Count 429 (150-450) k/uL MPV 7.9 Neutrophils % 73 % Lymphocytes % 19 % Monocytes % 4 % Eosinophils % 3 % Basophils % 1 % Neutrophils # 7.5 (1.3-7.7) k/uL Lymphocytes # 2.0 (1.0-4.8) k/uL Monocytes # 0.4 (0-1.0) k/uL Eosinophils # 0.3 (0-0.7) k/uL Basophils # 0.1 (0-0.2) k/uL Hypochromasia Slight ESR 115 H (0-30) mm/Hr PT 11.3 (10.0-12.5) sec INR 1.0 (<1.2) APTT 23.3 (22.0-30.0) sec Sodium 137 (137-145) mmol/L Potassium 4.3 (3.5-5.1) mmol/L Chloride 104 (98-107) mmol/L Carbon Dioxide 21 L (22-30) mmol/L Anion Gap 12 mmol/L BUN 24 H (7-17) mg/dL Creatinine 1.26 H (0.52-1.04) mg/dL Est GFR (CKD-EPI)AfAm 52 (>60 ml/min/1.73 sqM) Est GFR (CKD-EPI)NonAf 45 (>60 ml/min/1.73 sqM) Glucose 131 H (74-99) mg/dL Plasma Lactic Acid Yaw (0.7-2.0) mmol/L Calcium 10.4 H (8.4-10.2) mg/dL Phosphorus 4.0 (2.5-4.5) mg/dL Magnesium 2.1 (1.6-2.3) mg/dL Total Bilirubin 0.6 (0.2-1.3) mg/dL AST 52 H (14-36) U/L ALT 24 (4-34) U/L Alkaline Phosphatase 79 (38-126) U/L Troponin I (0.000-0.034) ng/mL C-Reactive Protein 4.3 H (<1.0) mg/dL NT-Pro-B Natriuret Pep 554 pg/mL Total Protein 7.3 (6.3-8.2) g/dL Albumin 3.7 (3.5-5.0) g/dL TSH 1.630 (0.465-4.680) mIU/L 05/18/23 05/18/23 Range/Units 17:44 17:44 WBC (3.8-10.6) k/uL RBC (3.80-5.40) m/uL Hgb (11.4-16.0) gm/dL Hct (34.0-46.0) % MCV (80.0-100.0) fL MCH (25.0-35.0) pg MCHC (31.0-37.0) g/dL RDW (11.5-15.5) % Plt Count (150-450) k/uL MPV Neutrophils % % Lymphocytes % % Monocytes % % Eosinophils % % Basophils % % Neutrophils # (1.3-7.7) k/uL Lymphocytes # (1.0-4.8) k/uL Monocytes # (0-1.0) k/uL Eosinophils # (0-0.7) k/uL Basophils # (0-0.2) k/uL Hypochromasia ESR (0-30) mm/Hr PT (10.0-12.5) sec INR (<1.2) APTT (22.0-30.0) sec Sodium (137-145) mmol/L Potassium (3.5-5.1) mmol/L Chloride (98-107) mmol/L Carbon Dioxide (22-30) mmol/L Anion Gap mmol/L BUN (7-17) mg/dL Creatinine (0.52-1.04) mg/dL Est GFR (CKD-EPI)AfAm (>60 ml/min/1.73 sqM) Est GFR (CKD-EPI)NonAf (>60 ml/min/1.73 sqM) Glucose (74-99) mg/dL Plasma Lactic Acid Yaw 0.7 (0.7-2.0) mmol/L Calcium (8.4-10.2) mg/dL Phosphorus (2.5-4.5) mg/dL Magnesium (1.6-2.3) mg/dL Total Bilirubin (0.2-1.3) mg/dL AST (14-36) U/L ALT (4-34) U/L Alkaline Phosphatase (38-126) U/L Troponin I <0.012 (0.000-0.034) ng/mL C-Reactive Protein (<1.0) mg/dL NT-Pro-B Natriuret Pep pg/mL Total Protein (6.3-8.2) g/dL Albumin (3.5-5.0) g/dL TSH (0.465-4.680) mIU/L - EKG Data -: EKG Interpreted by Me (EKG is sinus 68 DE 134 QRS 96 QTc 393) - Radiology Data Radiology results: report reviewed (CT LS spine show postoperative pain changes likely developing infection), image reviewed Disposition Clinical Impression: Postoperative pain, MRSA (methicillin resistant staph aureus) culture positive, Back pain Disposition: HOME SELF-CARE Condition: Good Is patient prescribed a controlled substance at d/c from ED?: No Time of Disposition: 19:30
[2023-05-18] MEDS ORDERED: VANCOMYCIN IV PER PHARMACY 1 EACH MISC MISCELLANE PRN (17:08)
[2023-05-18] MEDS ORDERED: VANCOMYCIN 1,500 MG in SODIUM CHLORIDE 0.9% 500 ML 500 ML IVPB STA (17:16)
[2023-05-18 18:15] LABS: Basophils # (A) 0.1 k/uL (0-0.2); Basophils % (A) 1 %; Eosinophils # (A) 0.3 k/uL (0-0.7); Eosinophils % (A) 3 %; HCT 47.4 % (34.0-46.0); HGB 15.1 gm/dL (11.4-16.0); Hypochromasia Slight; Lymphocytes % (A) 19 %; MCH 30.3 pg (25.0-35.0); MCHC 31.9 g/dL (31.0-37.0); Mean Platelet Volume 7.9; Monocytes # (A) 0.4 k/uL (0-1.0); Monocytes % (A) 4 %; Neutrophils # (A) 7.5 k/uL (1.3-7.7); Neutrophils % (A) 73 %; Platelet Count 429 k/uL (150-450); RBC 4.99 m/uL (3.80-5.40); RDW 13.1 % (11.5-15.5); WBC 10.3 k/uL (3.8-10.6)
[2023-05-18 18:25] LABS: Partial Thromboplastin Time 23.3 sec (22.0-30.0); Prothrombin Time 11.3 sec (10.0-12.5)
[2023-05-18 18:35] LABS: ALT 24 U/L (4-34); AST 52 U/L (14-36); African American GFR (CKD) 52 (>60 ml/min/1.73 sqM); Albumin 3.7 g/dL (3.5-5.0); Alkaline Phosphatase 79 U/L (38-126); Blood Urea Nitrogen 24 mg/dL (7-17); C Reactive Protein 4.3 mg/dL (<1.0); Calcium 10.4 mg/dL (8.4-10.2); Carbon Dioxide 21 mmol/L (22-30); Glucose 131 mg/dL (74-99); Magnesium 2.1 mg/dL (1.6-2.3); Non-African American GFR(CKD) 45 (>60 ml/min/1.73 sqM); Potassium 4.3 mmol/L (3.5-5.1); Sodium 137 mmol/L (137-145); Total Bilirubin 0.6 mg/dL (0.2-1.3); Total Protein 7.3 g/dL (6.3-8.2)
[2023-05-18 18:40] LABS: NT-Pro-B-Type Natriuretic Pept 554 pg/mL
[2023-05-18 19:11] LABS: Anion Gap 12 mmol/L; Chloride 104 mmol/L (98-107)
[2023-05-18] MEDS ORDERED: NALOXONE 0.4 MG/ML 1 ML VIAL IV PRN (19:34)
[2023-05-18] MEDS ORDERED: ONDANSETRON 4 MG/2 ML VIAL IVP PRN (19:34)
[2023-05-18] MEDS: MORPHINE SULFATE 4 MG/ML SYRINGE IV PRN (21:41)
[2023-05-18] MEDS: SODIUM CHLORIDE 0.9% 1,000 ML IV SCH (21:45)
--- NOTE | 2023-05-18 21:52 | CT ---
EXAMINATION TYPE: CT lumbar spine w con CT DLP: 1834.6 mGycm, Automated exposure control for dose reduction was used. DATE OF EXAM: 05/18/2023 8:33 PM COMPARISON: CT lumbar spine 03/26/2023. CLINICAL INDICATION:Female, 67 years old with history of abscess; PHH, lower back pain leaking spinal fluid, r/o MRSA TECHNIQUE: Multiple axial images were obtained from the midportion of T11 through the sacroiliac clem nts. Soft tissue and bone windows in coronal and sagittal planes were obtained and reviewed. 3-D ref ormats of the bones were created on a separate workstation and submitted for review. Contrast used: 80 mL of Isovue 300 Oral contrast used: None. FINDINGS: 5 lumbar type vertebral bodies appear to be present. There is a rudimentary rib on the left at T12. O sseous mineralization appears slightly reduced. No evidence of an acute bony abnormality/osseous dest ructive process. Redemonstration of multilevel degenerative disc disease with marginal osteophytosis and endplate hete rogeneous irregularities with disc space narrowing and vacuum disc at multiple levels. The disc disea se and endplate changes again appear worse at the L1-L2 more than L2-L3 and L3-L4 levels. Similar xu earance of degenerative disc disease changes at L4-L5 with vacuum disc compared to previous, however there appears to be some gas now present in the left anterior aspect of the spinal canal at the mid a spect of L4, which likely originates from an intervertebral disc, either L3-L4 or L4-L5. However the presence of infection cannot be excluded especially given the additional findings below. Canal conten ts are otherwise not well assessed by CT; MRI could be of benefit if clinically warranted. There is redemonstration of a posterior fluid collection which appears to demonstrate at least one si nus tract which extends from the superior aspect of the collection posteriorly to the skin surface ne ar the L1-L2 level. The majority of the collection appears to extend from the tip of the spinous proc ess L1 inferiorly along the tip of the spinous process of L2, then inferiorly and anteriorly into the laminectomy defect, likely at least abutting the spinal canal but it is uncertain if the collection abuts the thecal sac, or if there could be some sort of CSF leak here. The collection overall appears slightly more liquefied centrally than before. There were multiple bubbles of gas within the fluid c ollection superiorly, which appear diminished if not completely resolved. The overall size of the col lection appears slightly reduced. Now the greatest extent is 7.4 cm craniocaudal, 5.3 cm AP, and 3.4 cm transverse at its widest point posterior to the upper margin of L3. This had been 9.3 x 5.3 x 5.3 cm measured in a similar fashion on the prior exam. No definite progressive osseous destruction is seen to suggest active discitis/osteomyelitis. No acut e fracture or significant change in alignment of the spine identified. Multilevel degenerative changes appear otherwise similar to those described on the prior examination; please see level by level description on the prior report. Other: Partially seen tiny right pleural effusion. Mild thickening of the adrenals without discrete m ass. Calcified granulomas in the spleen. Moderate calcification of the abdominal aorta and iliac ladi pascual. No AAA seen. Normal appendix. Moderate degenerative change of the SI joints with some associate d sclerosis. Partial sacralization of L5 on the right again noted. No acute abnormality of the visual ized sacrum and pelvis. IMPRESSION: 1. Multilevel degenerative disc disease with vacuum disc at multiple levels, similar to the prior ex am. 2. Some gas is now present in the left anterior aspect of the spinal canal at the mid aspect of L4, which likely originates from an intervertebral vacuum disc, either L3-L4 or L4-L5. However the presen ce of infection cannot be excluded. 3. Status post laminectomy again noted at L3-L4 and L4-L5 with removal of the spinous processes. 4. Posterior soft tissue fluid collection again present, slightly decreased in size, appears more li quefied centrally with decreased internal gas compared to the prior study. Collection extends into th e laminectomy defect, likely at least abutting the spinal canal but it is uncertain if the collection abuts the thecal sac, or if there could be some sort of CSF leak here. Likely considerations includ e postoperative seroma and abscess. Correlate clinically with fluid sampling.
[2023-05-18] MEDS: HYDROmorphone 1 MG/ML 1 ML SYRINGE IVP PRN (22:52)
[2023-05-19] MEDS: HYDROmorphone 1 MG/ML 1 ML SYRINGE IVP PRN ×3 (02:55→15:07)
[2023-05-19 03:58] LABS: Erythrocyte Sedimentation Rate 115 mm/Hr (0-30)
--- NOTE | 2023-05-19 05:22 | P.HPIM ---
History of Present Illness H&P Date: 05/18/23 Chief Complaint: Surgical site drainage 67-year-old female with diabetes mellitus, hypertension Patient coming in due to ongoing drainage from her surgical site over the lumbar spine that was done 2 months ago. With positive culture for MRSA Patient underwent laminectomy early in March 2023 level of L 35. She was then discharge region seen on the [place] for here on however she didn't notice surgical site drainage for which she had to undergo some testing and go back to the hospital for evaluation as that showed possible collection level of L1 all the way to L5 . Patient was started on empiric antibiotics and sent to [facility] where she had her initial surgery for further evaluation by neurosurgery patient was given Diamox and bedrest incision site monitored pain was controlled and then was discharged again to subacute rehab with Keflex 500 mg twice a day for 5 days leakage stopped and dressings remained dry patient then was discharged home in good condition she claims that about 1 weeks ago when she was home her visiting nurse noticed that the skin looks warm and soaked she took some cultures and grew back MRSA for which she was advised to go to [facility] for evaluation by her neurosurgeon however she declined and decided to come into our facility. She denies any radiculopathy with complaining of a lot of back pain with ongoing drainage clear in color no foul smell denies any fevers chills denies any headache chest pain trouble breathing nausea vomiting changes in bowel or urinary habits Denies smoking illicit drugs or heavy alcohol review of systems Pertinent positives as noted in HPI. All other systems were reviewed and are negative on exam Constitutional: No acute distress, conversant, pleasant Eyes: Anicteric sclerae, moist conjunctiva, Pupils equal round reactive to light ENMT: NC/AT Oropharynx clear, no erythema, or exudates Neck: Supple, no masses, or JVD No carotid bruits No thyromegaly Lungs: Clear to auscultation Clear to percussion Normal respiratory effort, no accessory muscle use Cardiovascular: Heart regular in rate and rhythm, No murmurs, gallops, or rubs No peripheral edema Abdominal: Soft Nontender, no guarding, rebound or rigidity Abdomen moving with respiration Normoactive bowel sounds No hepatomegaly, No splenomegaly No palpable mass No abdominal wall hernia noted Skin: Surgical site with granulation tissue nonhealing wound with clear drainage Extremities: No digital cyanosis No clubbing Pedal pulses intact and symmetrical Radial pulses intact and symmetrical No calf tenderness Psychiatric: Alert and oriented to person, place and time Appropriate affect fair judgement Neuro Muscles Strength 4/5 in all 4 extremities Sensation to light touch grossly present throughout Cranial nerves II-XII grossly intact Lymphatics: no palpable cervical or supraclavicular lymph nodes Past Medical History Past Medical History: Diabetes Mellitus, Hyperlipidemia, Hypertension History of Any Multi-Drug Resistant Organisms: MRSA Date of last positivie culture/infection: 05/04/23 MDRO Source:: Wound-site not specified Past Surgical History: Back Surgery, Hysterectomy Additional Past Surgical History / Comment(s): Back surgery 03/14/23 Past Psychological History: No Psychological Hx Reported Smoking Status: Former smoker Past Alcohol Use History: None Reported Past Drug Use History: None Reported Medications and Allergies Home Medications Medication Instructions Recorded Confirmed Type Multivit with Calcium,Iron,Min 1 tab PO DAILY 03/12/23 05/18/23 History [Women's Multivitamin] Metoprolol Tartrate [Lopressor] 100 mg PO Q8H 03/26/23 05/18/23 History methocarbamoL [Robaxin-750] 750 mg PO BID 03/26/23 05/18/23 History Ascorbic Acid [Vitamin C] 1,000 mg PO DAILY 05/18/23 05/18/23 History Cholecalciferol [Vitamin D3 (25 25 mcg PO DAILY 05/18/23 05/18/23 History Mcg = 1000 Iu)] acetaZOLAMIDE [Acetazolamide] 250 mg PO BID 05/18/23 05/18/23 History traMADol HCL 50 mg PO TID PRN 05/18/23 05/18/23 History Allergies Allergy/AdvReac Type Severity Reaction Status Date / Time empagliflozin Allergy Nausea & Verified 05/18/23 18:05 [From Jardiance] Vomiting & Diarrhea Penicillins Allergy Unknown Verified 05/18/23 18:05 Childhood Sulfa (Sulfonamide Allergy Unknown Verified 05/18/23 18:05 Antibiotics) Childhood Physical Exam Vitals: Vital Signs Temp Pulse Resp BP Pulse Ox 05/18/23 21:15 67 18 109/67 99 05/18/23 18:21 69 18 128/75 95 05/18/23 16:07 98.3 F 74 16 147/83 98 Intake and Output 05/18/23 05/18/23 05/18/23 06:59 14:59 22:59 Other: Weight 87.997 kg Results CBC & Chem 7: 05/18/23 17:44 05/18/23 17:44 Labs: Abnormal Lab Results - Last 24 Hours (Table) 05/18/23 05/18/23 Range/Units 17:44 17:44 Hct 47.4 H (34.0-46.0) % Carbon Dioxide 21 L (22-30) mmol/L BUN 24 H (7-17) mg/dL Creatinine 1.26 H (0.52-1.04) mg/dL Glucose 131 H (74-99) mg/dL Calcium 10.4 H (8.4-10.2) mg/dL AST 52 H (14-36) U/L C-Reactive Protein 4.3 H (<1.0) mg/dL Assessment and Plan Assessment: 67-year-old female diabetes mellitus and hypertension coming in due to nonhealing surgical site over the lumbar spine with granulation tissue and drainage discussed the case with the ED doctor and accepted the admission to rule out surgical site infection with anticipated length of stay 1-2 midnights Patient has received her initial surgery end of March at [facility] however she declined going their and decided to come in for evaluation at our facility Lumbar spine Surgical site nonhealing wound with active drainage Cultures showed MRSA, follow-up cultures from inpatient CT imaging showed multilevel degenerative disease some gas in the left anterior aspect of the spinal canal over the lumbar region, posterior soft tissue fluid collection slightly decreased in size compared to before possible seroma versus abscess Pain control with morphine when necessary Continue with Rocephin 2 g IV piggyback daily and vancomycin dosing by pharmacy Fall precautions Spine surgery consult Continue with acetazolamide due to concerns for CSF leak Diabetes mellitus Insulin sliding scale Hypertension Continue with metoprolol DVT prophylaxis mechanical Full code Blood work overall unremarkable white count 10.3 hemoglobin 15 Sodium 137 potassium 4.3 BUN 24 creatinine 1.2
[2023-05-19] MEDS ORDERED: DEXTROSE 50% SYRINGE 50 ML IVP PRN ×2 (05:25)
[2023-05-19] MEDS: METOPROLOL TARTRATE 50 MG TAB PO SCH ×3 (06:11→21:15)
[2023-05-19 06:47] LABS: Glucose,Whole Blood 164 mg/dL (70-110)
[2023-05-19] MEDS: INSULIN ASPART (NovoLOG) 100 UNIT/ML VIAL SQ SCH ×4 (07:30→20:38)
[2023-05-19] MEDS: acetaZOLAMIDE 250 MG TAB PO SCH ×2 (08:15→21:16)
[2023-05-19] MEDS: SODIUM CHLORIDE 0.9% 1,000 ML IV SCH ×2 (08:16→21:16)
[2023-05-19] MEDS: methocarbamoL 750 MG TAB PO SCH ×2 (08:23→21:15)
[2023-05-19 08:28] LABS: ALT 21 U/L (4-34); AST 30 U/L (14-36); African American GFR (CKD) 57 (>60 ml/min/1.73 sqM); Albumin 3.1 g/dL (3.5-5.0); Alkaline Phosphatase 86 U/L (38-126); Anion Gap 12 mmol/L; Blood Urea Nitrogen 21 mg/dL (7-17); Calcium 9.7 mg/dL (8.4-10.2); Carbon Dioxide 19 mmol/L (22-30); Chloride 106 mmol/L (98-107); Globulin 3.1 g/dL; Glucose 160 mg/dL (74-99); Magnesium 1.9 mg/dL (1.6-2.3); Non-African American GFR(CKD) 49 (>60 ml/min/1.73 sqM); Phosphorus 4.8 mg/dL (2.5-4.5); Potassium 4.1 mmol/L (3.5-5.1); Sodium 137 mmol/L (137-145); Total Bilirubin 0.3 mg/dL (0.2-1.3); Total Protein 6.2 g/dL (6.3-8.2)
[2023-05-19 08:47] LABS: Basophils # (A) 0.1 k/uL (0-0.2); Basophils % (A) 1 %; Eosinophils # (A) 0.2 k/uL (0-0.7); Eosinophils % (A) 3 %; HCT 44.1 % (34.0-46.0); HGB 14.1 gm/dL (11.4-16.0); Hypochromasia Moderate; Lymphocytes # (A) 1.5 k/uL (1.0-4.8); Lymphocytes % (A) 18 %; MCH 30.9 pg (25.0-35.0); MCHC 32.1 g/dL (31.0-37.0); MCV 96.2 fL (80.0-100.0); Mean Platelet Volume 8.8; Monocytes # (A) 0.5 k/uL (0-1.0); Monocytes % (A) 6 %; Neutrophils # (A) 6.1 k/uL (1.3-7.7); Neutrophils % (A) 72 %; Platelet Count 346 k/uL (150-450); RBC 4.58 m/uL (3.80-5.40); RDW 13.3 % (11.5-15.5); WBC 8.5 k/uL (3.8-10.6)
[2023-05-19 13:36] LABS: Glucose,Whole Blood 110 mg/dL (70-110)
--- NOTE | 2023-05-19 15:33 | P.CNOR ---
History of Present Illness - [facility] Consult date: 05/19/23 Consult reason: other (Possible dural leak, history of previous lumbar surgery) History of present illness: Patient is a 67-year-old female presented to [facility] for evaluation of a lumbar spine wound. Patient has a relatively complicated history of lumbar spine. Apparently patient underwent a laminectomy type procedure at [facility] in March 2023. Patient did spend some ti me at rehab in an area, during that time she developed issues with her wound with a constantly aching material. Patient was then transferred back to the hospital for evaluation by the original operating surgeon. No further surgical intervention was done, she was treated for a possible dural leak. Patient was laying flat in a hospital bed for 2 days, mother medications were used. She was then discharged back to rehab on oral antibiotics. Patient did relatively well, she then reported home, which extended for the last week or so. Over the last few days she's noticed the wound opening back up and leaking a yellow-lukas clear fluid. Patient reported the hospital for further evaluation. Patient was evaluated in the emergency room by myself and Dr. Giron. Patient is resting relatively comfortably. Patient does note some discomfort in her low back but nothing severe. Patient states that she continues to have symptoms in her left lower extremity, she has a foot drop as been present since surgery. Patient states that the right lower extremity symptoms are much improved. Patient normally does take care of a granddaughter on her own. She lives alone with minimal assistance. He states that her quality of life is significantly decreased since having this procedure and over the last month or so. She denies any loss of bowel or bladder function at this time. She denies any numbness or tingling to the genital region. She denies any upper extremity pain or paresthesias. Review of Systems Constitutional: Reports as per [facility] Past Medical History Past Medical History: Diabetes Mellitus, Hyperlipidemia, Hypertension History of Any Multi-Drug Resistant Organisms: MRSA Year Discovered:: 05/04/23 MDRO Source:: Wound-site not specified Past Surgical History: Back Surgery, Hysterectomy Additional Past Surgical History / Comment(s): Back surgery 03/14/23 Past Psychological History: No Psychological Hx Reported Smoking Status: Former smoker Past Alcohol Use History: None Reported Past Drug Use History: None Reported Medications and Allergies Home Medications Medication Instructions Recorded Confirmed Type Multivit with Calcium,Iron,Min 1 tab PO DAILY 03/12/23 05/18/23 History [Women's Multivitamin] Metoprolol Tartrate [Lopressor] 100 mg PO Q8H 03/26/23 05/18/23 History methocarbamoL [Robaxin-750] 750 mg PO BID 03/26/23 05/18/23 History Ascorbic Acid [Vitamin C] 1,000 mg PO DAILY 05/18/23 05/18/23 History Cholecalciferol [Vitamin D3 (25 25 mcg PO DAILY 05/18/23 05/18/23 History Mcg = 1000 Iu)] acetaZOLAMIDE [Acetazolamide] 250 mg PO BID 05/18/23 05/18/23 History traMADol HCL 50 mg PO TID PRN 05/18/23 05/18/23 History Allergies Allergy/AdvReac Type Severity Reaction Status Date / Time empagliflozin Allergy Nausea & Verified 05/18/23 18:05 [From Jardiance] Vomiting & Diarrhea Penicillins Allergy Unknown Verified 05/18/23 18:05 Childhood Sulfa (Sulfonamide Allergy Unknown Verified 05/18/23 18:05 Antibiotics) Childhood Physical Examination Gen: AOx3, NAD VSS stable at this time Integument: There is a 12 centimeter wound located in the lower lumbar spine, there is some subcutaneous tissue noted, there is clear yellowish fluid noted. The remaining incision is well-healed, there is no cervical areas of erythema or fluctuance appreciated Palpation: Mild tenderness with palpation of the lower paraspinal lumbar region ROM: Full range of motion in all major muscle groups of the bilateral upper extremities Full range of motion in all major muscle groups of the right lower extremity Range of motion is 10 intact throughout the left lower extremity, patient is unable to dorsiflex Sensory Exam: Senory exam to light touch is intact C5-T1 Senosry exam to light touch is intact L2-S1 Motor: 5/5 strength appreciated in bilateral upper extremities with shoulder elevation, shoulder abduction, wrist extension, wrist flexion, manager hospice, elbow extension, elbow flexion 4/5 strength appreciated in the right lower extremity with hip flexion, knee extension, knee flexion, plantar flexion, dorsiflexion, EHL, FHL 4-/5 strength appreciated in the left lower extremity with hip flexion, knee ex tension, knee flexion 3+/5 strength appreciated in the left lower extremity with plantar flexion, do rsiflexion was unobtainable Special Test: Logroll maneuver reproduces no pain bilaterally Results - Labs Labs: Abnormal Lab Results - Last 24 Hours (Table) 05/18/23 05/18/23 05/19/23 Range/Units 17:44 17:44 06:44 Hct 47.4 H (34.0-46.0) % ESR 115 H (0-30) mm/Hr Carbon Dioxide 21 L (22-30) mmol/L BUN 24 H (7-17) mg/dL Creatinine 1.26 H (0.52-1.04) mg/dL Glucose 131 H (74-99) mg/dL POC Glucose (mg/dL) 164 H (70-110) mg/dL Calcium 10.4 H (8.4-10.2) mg/dL Phosphorus (2.5-4.5) mg/dL AST 52 H (14-36) U/L C-Reactive Protein 4.3 H (<1.0) mg/dL Total Protein (6.3-8.2) g/dL Albumin (3.5-5.0) g/dL 05/19/23 Range/Units 07:16 Hct (34.0-46.0) % ESR (0-30) mm/Hr Carbon Dioxide 19 L (22-30) mmol/L BUN 21 H (7-17) mg/dL Creatinine 1.17 H (0.52-1.04) mg/dL Glucose 160 H (74-99) mg/dL POC Glucose (mg/dL) (70-110) mg/dL Calcium (8.4-10.2) mg/dL Phosphorus 4.8 H (2.5-4.5) mg/dL AST (14-36) U/L C-Reactive Protein (<1.0) mg/dL Total Protein 6.2 L (6.3-8.2) g/dL Albumin 3.1 L (3.5-5.0) g/dL H & H 05/18/23 05/19/23 Range/Units 17:44 07:16 Hgb 15.1 14.1 (11.4-16.0) gm/dL Hct 47.4 H 44.1 (34.0-46.0) % Coagulation 05/18/23 Range/Units 17:44 INR 1.0 (<1.2) Result Diagrams: 05/19/23 07:16 05/19/23 07:16 - Diagnostic results Lumbar MRI with contrast: report reviewed, image reviewed CT Scan - lumbar: report reviewed, image reviewed Assessment and Plan Assessment: History of L3-L5 laminectomy, March 2023 Dural leak Multilevel lumbar spondylosis 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 Giron spent a symptomatic amount of time at bedside today explaining to the patient options for treatment. We did discuss the possibility of transfe rring the patient back to [facility] for continuity of care and for further evaluation of likely surgical intervention. Patient is very adamant she would not like to be transferred back to [facility], she would like to be treated here. Dr. Giron discussed the risk and benefits of a surgical procedure, please see his surgical risk assessment for further detail. Treatment options were discussed with patient, we would like to proceed with a decompression and fusion of L3-L5 with dural repair. Surgery will be scheduled for 05/21/2023. Consent to be obtained prior to surgery Recommending continuation of IV antibiotics before and after surgery Pain control, okay restarting patient's normal pain medication DVT prophylaxis, we'll begin subcu medication 24 hours after surgery Activity restrictions, advised patient she can sit up in bed. Advise her to avoid any excessive lifting, sitting in a low chair, bending and twisting to avoid making dural leak worse. if patient does develop headaches, she was noted to lay flat. Other medical specialty recommendations appreciated Medically optimized for upcoming surgery Further recommendations to follow Time with Patient: Less than 30
--- NOTE | 2023-05-19 16:12 | P.PN ---
Subjective Progress Note Date: 05/19/23 (dayaimnoe charting seen at 0905) Patient is a 67-year-old female with L3-5 lumbar laminectomy in March 2023 with subsequent rehospitalization due to possible CSF leak where she was discharged home on Keflex for 5 days. Patient has since been at the assisted facility, diabetes, and hypertension who presented from the infectious disease office due to continued drainage from her surgical site with cultures positive for MRSA. Dr. Allen felt the patient likely had a CSF leak and that an overt infection based on the type of drainage noted. He had encouraged patient to go back to [facility] where she had surgery performed, but she does not wish to go back to that facility at this time. On arrival to the emergency department her vital signs are within normal limits. Initial laboratory analysis was remarkable for creatinine of 1.26 (baseline 1.1), calcium 10.4. In the ER she was started on ceftriaxone and vancomycin. CT lumbar spine showed multilevel degenerative disc changes with gas now present in the left anterior aspect of the spinal canal at L4, posterior soft tissue fluid collection again present slightly decreased in size appears more liquefied centrally with decre ased internal gas extends from the laminectomy defect at least abutting the spinal canal. Arrangements were made for admission. Orthopedic spine surgery was consulted. Patient seen and examined at bedside. She complains of significant back pain. She has had improvement in her lower extremity weakness since surgery, but it has been very slow coming. She had improvement in her numbness in her right lower extremity but has some continued numbness in her left lower extremity. She denies any chest pain, shortness of breath, nausea, vomiting, diarrhea, or constipation. She reports that her drainage varies depending on how active her and active she is. On days she has therapy she has quite a bit more drainage that on days she does not have therapy. She denies any headache, double vision, blurry vision. Vital signs reviewed General: Nontoxic, no distress, appears at stated age Cardiovascular: S1S2 reg, no murmur, positive posterior tibial pulse bilateral, Lungs: CTA bilateral, no rhonchi, no rales, no accessory muscle use Abdominal: Soft, nontender to palpation, no guarding, no appreciable organomegaly Ext: No gross muscle atrophy, no edema b/l lower extremities, no contractures Neuro: CN II-XI grossly intact, no focal neuro deficits Derm: Midline incision and low back assessed with small opening and clear fluid drainage. Psych: Alert, oriented, appropriate affect Assessment/Plan: Possible dural leak versus infection at postsurgical site of L3-5 laminectomy Multilevel lumbar spondylosis Multilevel lumbar neuroforaminal and central canal stenosis -Case discussed with Dr. Giron. Currently awaiting lumbar spine MRI. - continue with vancomycin and Rocephin, day #2. Monitor creatinine for signs of vancomycin toxicity. - await formal infectious disease consultation. -Continue pain control with morphine 4 mg every 4 hours, Robaxin 750 milligrams twice daily. Discontinue Dilaudid. Add [place] 7.5, 325 mg -Acetazolamide 250 mg oral twice daily Diabetes mellitus type 2 -Patient is not on any medications for diabetes and appears diet controlled -Sliding scale insulin -Check A1c Hypertension Dyslipidemia -Continue with metoprolol 100 mg every 8 hours -Patient is not on any targeted medications for her dyslipidemia -Follow blood pressures Imaging: None new Data Review: Labs reviewed from today include CBC and CMP which are remarkable for BUN 21, creatinine 1.17, and carbon dioxide of 19. Phosphorus slightly elevated at 4.8. Magnesium normal at 1.9. DVT prophylaxis: Heparin Anticipated discharge date: Pending Clinical Course Anticipated discharge place: Pending Clinical Course This dictation was prepared using [employer]™ voice recognition software. Though every attempt is made to correct errors during dictation some may still exist. Objective - Vital Signs Vital signs: Vital Signs Temp 98.9 F 05/19/23 16:02 Pulse 67 05/19/23 16:02 Resp 18 05/19/23 16:02 BP 107/68 05/19/23 16:02 Pulse Ox 96 05/19/23 16:02 FiO2 Intake & Output 05/18/23 05/19/23 05/19/23 18:59 06:59 18:59 Weight 87.997 kg - Labs CBC & Chem 7: 05/19/23 07:16 05/19/23 07:16 Labs: Abnormal Lab Results - Last 24 Hours (Table) 05/18/23 05/18/23 05/19/23 Range/Units 17:44 17:44 06:44 Hct 47.4 H (34.0-46.0) % ESR 115 H (0-30) mm/Hr Carbon Dioxide 21 L (22-30) mmol/L BUN 24 H (7-17) mg/dL Creatinine 1.26 H (0.52-1.04) mg/dL Glucose 131 H (74-99) mg/dL POC Glucose (mg/dL) 164 H (70-110) mg/dL Calcium 10.4 H (8.4-10.2) mg/dL Phosphorus (2.5-4.5) mg/dL AST 52 H (14-36) U/L C-Reactive Protein 4.3 H (<1.0) mg/dL Total Protein (6.3-8.2) g/dL Albumin (3.5-5.0) g/dL 05/19/23 Range/Units 07:16 Hct (34.0-46.0) % ESR (0-30) mm/Hr Carbon Dioxide 19 L (22-30) mmol/L BUN 21 H (7-17) mg/dL Creatinine 1.17 H (0.52-1.04) mg/dL Glucose 160 H (74-99) mg/dL POC Glucose (mg/dL) (70-110) mg/dL Calcium (8.4-10.2) mg/dL Phosphorus 4.8 H (2.5-4.5) mg/dL AST (14-36) U/L C-Reactive Protein (<1.0) mg/dL Total Protein 6.2 L (6.3-8.2) g/dL Albumin 3.1 L (3.5-5.0) g/dL
[2023-05-19 16:46] LABS: Glucose,Whole Blood 110 mg/dL (70-110)
[2023-05-19 20:29] LABS: Glucose,Whole Blood 132 mg/dL (70-110)
[2023-05-19] MEDS: VANCOMYCIN 1,500 MG in SODIUM CHLORIDE 0.9% 500 ML 500 ML IVPB SCH (21:15)
--- NOTE | 2023-05-19 22:34 | P.CONS ---
History of Present Illness - Reason for Consult Consult date: 05/19/23 - History of Present Illness Patient is a 67 y/o F who underwent a L3-L5 laminectomy with Dr. Arroyo on 03/14/23. Patient was ultimately discharged to [facility] [address] in [place] on 03/18. Patient began having surgical incision drainage, redness and pain for a few days, for which the patient was transferred to [facility] for evaluation. Patient did have CT L spine reading as Posterior soft tissue collection L1-L2 throughout L4-L5. Post operative seroma infected collection cannot be excluded per radiologist. Patient was given 1g Rocephin, 1.5g Vancomycin and was transferred to [facility] for further evaluation by Neurosurgery team,On 03/26/23 patient was readmitted to r/o CSF leak s/p L3-5 lami on 03/14/23. Patient was placed on bedrest and given diamox. Incision was monitored with dressing changes as needed. Patient was tolerating diet and pain was controlled with oral medications. Patient was evaluated by PT/OT and recommended return to [facility] when stable. Patient was placed on Keflex 500mg BID x 5 days and dressing remained dry, patient mentioned she continued to have a problem with the drainage after she was discharged from the assisted patient was evaluated by her primary care physician on 05/04/2023 with the patient did have a culture done which grew MRSA, patient was advised local treatment with a Santyl and the patient was sent to [facility] in the outpatient setting for further evaluation in the office the patient was noticed to have clear drainage from her incision with concern for persistent CSF leak patient was advised to go back to [facility] to be seen by her surgeon however the patient refused case was discussed with the hospitalist as well as ER physician and the patient was sent to [facility] ER for further evaluation, patient on arr ival to the hospital was afebrile patient did have a white count of 10.3 creatinine was 1.[address] a [address] of the lumbar spine completed there was some gas in the left anterior aspect of the spinal canal at the mid aspect of L4 which the likely origin is from interventricular vacuum disc however the presence of infection cannot be excluded posterior soft tissue fluid collection again present slightly decreased in size patient was started on ceftriaxone and vancomycin infectious disease was consulted for further management of antibiotic therapy Past Medical History Past Medical History: Diabetes Mellitus, Hyperlipidemia, Hypertension History of Any Multi-Drug Resistant Organisms: MRSA Year Discovered:: 05/04/23 MDRO Source:: Wound-site not specified Past Surgical History: Back Surgery, Hysterectomy Additional Past Surgical History / Comment(s): Back surgery 03/14/23 Past Psychological History: No Psychological Hx Reported Smoking Status: Former smoker Past Alcohol Use History: None Reported Past Drug Use History: None Reported Medications and Allergies Home Medications Medication Instructions Recorded Confirmed Type Multivit with Calcium,Iron,Min 1 tab PO DAILY 03/12/23 05/18/23 History [Women's Multivitamin] Metoprolol Tartrate [Lopressor] 100 mg PO Q8H 03/26/23 05/18/23 History methocarbamoL [Robaxin-750] 750 mg PO BID 03/26/23 05/18/23 History Ascorbic Acid [Vitamin C] 1,000 mg PO DAILY 05/18/23 05/18/23 History Cholecalciferol [Vitamin D3 (25 25 mcg PO DAILY 05/18/23 05/18/23 History Mcg = 1000 Iu)] acetaZOLAMIDE [Acetazolamide] 250 mg PO BID 05/18/23 05/18/23 History traMADol HCL 50 mg PO TID PRN 05/18/23 05/18/23 History Allergies Allergy/AdvReac Type Severity Reaction Status Date / Time empagliflozin Allergy Nausea & Verified 05/18/23 18:05 [From Jardiance] Vomiting & Diarrhea Penicillins Allergy Unknown Verified 05/18/23 18:05 Childhood Sulfa (Sulfonamide Allergy Unknown Verified 05/18/23 18:05 Antibiotics) Childhood Physical Exam Vitals: Vital Signs Temp Pulse Resp BP Pulse Ox 05/19/23 18:14 98.4 F 68 18 109/65 95 05/19/23 17:08 87 20 133/96 96 05/19/23 16:02 98.9 F 67 18 107/68 96 05/19/23 15:05 72 17 119/63 97 05/19/23 14:14 70 18 123/71 100 05/19/23 13:40 72 18 118/80 96 05/19/23 12:01 98.5 F 74 17 123/79 97 05/19/23 11:10 77 16 98/66 98 05/19/23 10:16 82 17 95/52 97 05/19/23 08:25 70 20 106/65 98 05/19/23 07:30 98.1 F 72 18 128/74 99 05/19/23 02:46 97.9 F 75 18 136/86 99 05/18/23 22:57 76 20 139/73 98 Intake and Output 05/19/23 05/19/23 05/19/23 06:59 14:59 22:59 Other: Weight 87.997 kg Results CBC & Chem 7: 05/21/23 06:24 05/21/23 06:24 Labs: Abnormal Lab Results - Last 24 Hours (Table) 05/18/23 05/19/23 05/19/23 Range/Units 17:44 06:44 07:16 ESR 115 H (0-30) mm/Hr Carbon Dioxide 19 L (22-30) mmol/L BUN 21 H (7-17) mg/dL Creatinine 1.17 H (0.52-1.04) mg/dL Glucose 160 H (74-99) mg/dL POC Glucose (mg/dL) 164 H (70-110) mg/dL Phosphorus 4.8 H (2.5-4.5) mg/dL Total Protein 6.2 L (6.3-8.2) g/dL Albumin 3.1 L (3.5-5.0) g/dL 05/19/23 Range/Units 20:28 ESR (0-30) mm/Hr Carbon Dioxide (22-30) mmol/L BUN (7-17) mg/dL Creatinine (0.52-1.04) mg/dL Glucose (74-99) mg/dL POC Glucose (mg/dL) 132 H (70-110) mg/dL Phosphorus (2.5-4.5) mg/dL Total Protein (6.3-8.2) g/dL Albumin (3.5-5.0) g/dL Assessment and Plan Plan: 1patient with a nonhealing wound to the lumbar spine in this patient who did have a history of L3-L5 laminectomy at [facility] on 03/14/2023 subsequently did have a problem with a CSF leak and now with outpatient culture positive for MRSA concerning for possible abscess 2-patient has been eval by orthopedic surgery and planning for surgery 05/21/2023 3-blood cultures obtained results will be followed 4-we will continue patient on vancomycin pharmacy to dose while watching her kidney function closely We will follow on clinical condition and cultures to further adjust medication if needed Thank you for this consultation we will follow the patient along with you Dictation was produced using [employer] software. please excuse any grammatical, word or spelling errors. Time with Patient: Greater than 30
[2023-05-19] MEDS: HEPARIN SODIUM,PORCINE 5,000 UNIT/ML 1 ML VIAL SQ SCH (23:37)
[2023-05-19] MEDS: MORPHINE SULFATE 4 MG/ML SYRINGE IV PRN (23:38)
[2023-05-20 05:44] LABS: Glucose,Whole Blood 142 mg/dL (70-110)
[2023-05-20] MEDS: INSULIN ASPART (NovoLOG) 100 UNIT/ML VIAL SQ SCH ×4 (06:04→21:17)
[2023-05-20] MEDS: METOPROLOL TARTRATE 50 MG TAB PO SCH ×3 (06:12→22:03)
[2023-05-20] MEDS: MORPHINE SULFATE 4 MG/ML SYRINGE IV PRN ×2 (06:13→20:20)
[2023-05-20] MEDS: methocarbamoL 750 MG TAB PO SCH ×2 (08:22→22:03)
[2023-05-20] MEDS: HEPARIN SODIUM,PORCINE 5,000 UNIT/ML 1 ML VIAL SQ SCH ×2 (08:22→15:46)
[2023-05-20 08:27] LABS: African American GFR (CKD) 64 (>60 ml/min/1.73 sqM); Anion Gap 9 mmol/L; Blood Urea Nitrogen 24 mg/dL (7-17); Calcium 9.3 mg/dL (8.4-10.2); Carbon Dioxide 20 mmol/L (22-30); Chloride 109 mmol/L (98-107); Glucose 131 mg/dL (74-99); Non-African American GFR(CKD) 55 (>60 ml/min/1.73 sqM); Sodium 138 mmol/L (137-145)
[2023-05-20 08:29] LABS: Potassium 4.2 mmol/L (3.5-5.1)
[2023-05-20] MEDS: acetaZOLAMIDE 250 MG TAB PO SCH ×2 (10:58→22:03)
[2023-05-20 11:07] LABS: Glucose,Whole Blood 99 mg/dL (70-110)
--- NOTE | 2023-05-20 11:29 | P.PN ---
Subjective Progress Note Date: 05/20/23 Principal diagnosis: Dural leak, possible lumbar spine infection, previous lumbar surgery Patient was evaluated today at bedside, she is resting comfortably in her hospital bed. Patient is eager to have the surgery on 05/21/2023. She denies any bowel or bladder changes. Patient has been evaluated both internal medicine and infectious disease. Preliminary reports of the first blood culture did reveal gram-positive cocci, this was discussed with internal medicine. Patient had IV antibiotics and the hospital. Objective - Vital Signs Vital signs: Vital Signs Temp 98.0 F 05/20/23 07:02 Pulse 77 05/20/23 07:15 Resp 19 05/20/23 07:15 BP 119/78 05/20/23 07:02 Pulse Ox 97 05/20/23 07:02 FiO2 Intake & Output 05/19/23 05/20/23 05/20/23 18:59 06:59 18:59 Weight 87.997 kg Other: Voiding Method Toilet Toilet # Voids 3 1 - Exam Gen: AOx3, NAD VSS stable at this time Integument: There is a 12 centimeter wound located in the lower lumbar spine, there is some subcutaneous tissue noted, there is clear yellowish fluid noted. The remaining incision is well-healed, there is no cervical areas of erythema or fluctuance appreciated Palpation: Mild tenderness with palpation of the lower paraspinal lumbar region ROM: Full range of motion in all major muscle groups of the bilateral upper extremities Full range of motion in all major muscle groups of the right lower extremity Range of motion is 10 intact throughout the left lower extremity, patient is unable to dorsiflex Sensory Exam: Senory exam to light touch is intact C5-T1 Senosry exam to light touch is intact L2-S1 Motor: 5/5 strength appreciated in bilateral upper extremities with shoulder elevation, shoulder abduction, wrist extension, wrist flexion, cigar packer and picker, elbow extension, elbow flexion 4/5 strength appreciated in the right lower extremity with hip flexion, knee extension, knee flexion, plantar flexion, dorsiflexion, EHL, FHL 4-/5 strength appreciated in the left lower extremity with hip flexion, knee extension, knee flexion Plantar flexion, dorsiflexion was unobtainable Special Test: Logroll maneuver reproduces no pain bilaterally - Labs CBC & Chem 7: 05/19/23 07:16 05/20/23 07:59 Labs: Abnormal Lab Results - Last 24 Hours (Table) 05/19/23 05/20/23 05/20/23 Range/Units 20:28 05:43 07:59 Chloride (98-107) mmol/L Carbon Dioxide (22-30) mmol/L BUN (7-17) mg/dL Creatinine (0.52-1.04) mg/dL Glucose (74-99) mg/dL POC Glucose (mg/dL) 132 H 142 H (70-110) mg/dL Hemoglobin A1c 6.4 H (<=6.0) % 05/20/23 Range/Units 07:59 Chloride 109 H (98-107) mmol/L Carbon Dioxide 20 L (22-30) mmol/L BUN 24 H (7-17) mg/dL Creatinine 1.06 H (0.52-1.04) mg/dL Glucose 131 H (74-99) mg/dL POC Glucose (mg/dL) (70-110) mg/dL Hemoglobin A1c (<=6.0) % Microbiology - Last 24 Hours (Table) 05/18/23 17:48 Blood Culture - Preliminary Blood 05/18/23 17:30 Blood Culture Gram Stain - Preliminary Blood Assessment and Plan Assessment: History of L3-L5 laminectomy, March 2023 Dural leak Multilevel lumbar spondylosis Multilevel lumbar neural foraminal and central canal stenosis Multiple medical comorbidities Plan: Continue IV antibiotics before and after surgery Pain control, okay restarting patient's normal pain medication DVT prophylaxis, we'll begin subcu medication 24 hours after surgery Activity restrictions, advised patient she can sit up in bed. Advise her to avoid any excessive lifting, sitting in a low chair, bending and twisting to avoid making dural leak worse. if patient does develop headaches, she was noted to lay flat. Other medical specialty recommendations appreciated Nothing by mouth after midnight Medically optimize for upcoming surgery Further recommendations to follow Time with Patient: Less than 30
[2023-05-20 11:31] VITALS: BMI 34.3
[2023-05-20] MEDS: HYDROcodone/APAP 7.5-325MG 1 EACH TAB PO PRN (15:46)
[2023-05-20] MEDS: SODIUM CHLORIDE 0.9% 1,000 ML IV SCH (15:51)
[2023-05-20 16:50] LABS: Glucose,Whole Blood 161 mg/dL (70-110)
[2023-05-20 17:46] LABS: Crenated RBC 2+; NRBC Per 100 WBC 0.04 X 10*3/uL (0.00-0.01)
--- NOTE | 2023-05-20 19:47 | P.PN ---
Subjective Progress Note Date: 05/20/23 (delayed charting seen at 1038) Patient is a 67-year-old female with L3-5 lumbar laminectomy in March 2023 with subsequent rehospitalization due to possible CSF leak where she was discharged home on Keflex for 5 days. Patient has since been at the long term facility, diabetes, and hypertension who presented from the infectious disease office due to continued drainage from her surgical site with cultures positive for MRSA. Dr. Allne felt the patient likely had a CSF leak and that an overt infection based on the type of drainage noted. He had encouraged patient to go back to [facility] where she had surgery performed, but she does not wish to go back to that facility at this time. On arrival to the emergency department her vital signs are within normal limits. Initial laboratory analysis was remarkable for creatinine of 1.26 (baseline 1.1), calcium 10.4. In the ER she was started on ceftriaxone and vancomycin. CT lumbar spine showed multilevel degenerative disc changes with gas now present in the left anterior aspect of the spinal canal at L4, posterior soft tissue fluid collection again present slightly decreased in size appears more liquefied centrally with decre ased internal gas extends from the laminectomy defect at least abutting the spinal canal. Arrangements were made for admission. Orthopedic spine surgery was consulted. Patient seen and examined at bedside. She is extremely upset and feels that she has a 40% mortality rate for surgery tomorrow. She denies any active chest pain or shortness of breath. She denies any nausea or vomiting. We did discuss her NSQUIP score and concerns of possible need for prolonged immobality after surgery and how this can lead to chorinc debility.We discussed that her cardiovascular risk for surgyer tomorrow is acceptable but I do have concerns about her mcfp prognosis. Her to being admitted to the custodial after her last surgery she was completely independent in all ADLs, IADLs, and was taking care of her house. Currently she requires some helping with dressing of her lower extremities and placing her she was on due to limited bending capabilities. She was participating in physical therapy and was able to do a lot of upper extremity exercises and some lower extremity exercises. She is not having any active chest pain or shortness of breath. Vital signs reviewed General: Nontoxic, no distress, appears at stated age Cardiovascular: S1S2 reg, no murmur, positive posterior tibial pulse bilateral, Lungs: CTA bilateral, no rhonchi, no rales, no accessory muscle use Abdominal: Soft, nontender to palpation, no guarding, no appreciable organomegaly Ext: No gross muscle atrophy, no edema b/l lower extremities, no contractures Neuro: CN II-XI grossly intact, no focal neuro deficits Derm: Midline incision and low back assessed with small opening and clear fluid drainage. 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 - continue with vancomycin and Rocephin, day #3. Monitor creatinine for signs of vancomycin toxicity. -Case discussed with orthopedic physician associate who is aware that 1/2 blood cultures are positive, this may be a contaminant. We will continue with vancomycin and Rocephin. Plan is for OR tomorrow with possible dural repair. -Await further infectious disease recommendations -Continue pain control with morphine 4 mg every 4 hours, Robaxin 750 milligrams twice daily. Discontinue Dilaudid. Add [place] 7.5, 325 mg -Acetazolamide 250 mg oral twice daily NSQUIP, calculated for dural repair with laminectomy - Patient is at above average risk for , serious complication (10%), infection, and myocardial event - Patient does not require and additional testing at this time and is medically optimized for this urgent surgery. Lozada Activity index 3.63 METS + Blood culture 1/2 for GPC - on vanco and rocephin - repeat BC - possible contamination vs true infection. Diabetes mellitus type 2 -Patient is not on any medications for diabetes and appears diet controlled -Sliding scale insulin -A1c 6.4 Hypertension Dyslipidemia -Continue with metoprolol 100 mg every 8 hours -Patient is not on any targeted medications for her dyslipidemia -Follow blood pressures Imaging: None new Data Review: 1/2 blood cultures + for Gram + cocci Labs reviewed from standing that these metabolic profile and hemoglobin A1c which are remarkable for A1c of 6.4, chloride 109, carbon dioxide 20, BUN 24, creatinine 1.06. DVT prophylaxis: Heparin Anticipated discharge date: Pending Clinical Course Anticipated discharge place: Pending Clinical Course This dictation was prepared using [employer] voice recognition software. Though every attempt is made to correct errors during dictation some may still exist. Objective - Vital Signs Vital signs: Vital Signs Temp 97.7 F 05/20/23 13:28 Pulse 69 05/20/23 13:28 Resp 19 05/20/23 13:28 BP 95/61 05/20/23 13:28 Pulse Ox 100 05/20/23 13:28 FiO2 Intake & Output 05/20/23 05/20/23 05/21/23 06:59 18:59 06:59 Weight 87.997 kg 87.997 kg Other: Voiding Method Toilet Toilet # Voids 3 2 - Labs CBC & Chem 7: 05/19/23 07:16 05/20/23 07:59 Labs: Abnormal Lab Results - Last 24 Hours (Table) 05/19/23 05/19/23 05/20/23 Range/Units 07:16 20:28 05:43 Immature Gran # 0.08 H (0.00-0.04) X 10*3/uL NRBC/100 WBC Diff 0.04 H (0.00-0.01) X 10*3/uL Crenated Cell 2+ A Chloride (98-107) mmol/L Carbon Dioxide (22-30) mmol/L BUN (7-17) mg/dL Creatinine (0.52-1.04) mg/dL Glucose (74-99) mg/dL POC Glucose (mg/dL) 132 H 142 H (70-110) mg/dL Hemoglobin A1c (<=6.0) % 05/20/23 05/20/23 05/20/23 Range/Units 07:59 07:59 16:48 Immature Gran # (0.00-0.04) X 10*3/uL NRBC/100 WBC Diff (0.00-0.01) X 10*3/uL Crenated Cell Chloride 109 H (98-107) mmol/L Carbon Dioxide 20 L (22-30) mmol/L BUN 24 H (7-17) mg/dL Creatinine 1.06 H (0.52-1.04) mg/dL Glucose 131 H (74-99) mg/dL POC Glucose (mg/dL) 161 H (70-110) mg/dL Hemoglobin A1c 6.4 H (<=6.0) % Microbiology - Last 24 Hours (Table) 05/18/23 17:48 Blood Culture - Preliminary Blood 05/18/23 17:30 Blood Culture Gram Stain - Preliminary Blood
[2023-05-20] MEDS: VANCOMYCIN 1,500 MG in SODIUM CHLORIDE 0.9% 500 ML 500 ML IVPB SCH (20:21)
[2023-05-20 20:53] LABS: Glucose,Whole Blood 121 mg/dL (70-110)
[2023-05-21] MEDS: HEPARIN SODIUM,PORCINE 5,000 UNIT/ML 1 ML VIAL SQ SCH ×3 (00:45→16:10)
[2023-05-21] MEDS: HYDROcodone/APAP 7.5-325MG 1 EACH TAB PO PRN (05:49)
[2023-05-21] MEDS: METOPROLOL TARTRATE 50 MG TAB PO SCH ×3 (05:50→21:51)
[2023-05-21 06:06] LABS: Glucose,Whole Blood 143 mg/dL (70-110)
[2023-05-21] MEDS ORDERED: droPERidol 5 MG/2 ML VIAL IVP ONE (06:23)
[2023-05-21] MEDS ORDERED: LIDOCAINE 1% (10MG/ML) FOR IV START INTRADERMA PRN (06:23)
[2023-05-21] MEDS ORDERED: DEXAMETHASONE SOD PHOSPHATE 4 MG/ML 1 ML VIAL IV ONE (06:23)
[2023-05-21] MEDS: INSULIN ASPART (NovoLOG) 100 UNIT/ML VIAL SQ SCH ×4 (06:27→22:32)
[2023-05-21 06:39] LABS: HGB 12.8 gm/dL (11.4-16.0); Hypochromasia Marked; MCH 31.2 pg (25.0-35.0); MCHC 32.1 g/dL (31.0-37.0); MCV 97.3 fL (80.0-100.0); Platelet Count 285 k/uL (150-450); RBC 4.11 m/uL (3.80-5.40); RDW 13.2 % (11.5-15.5); WBC 5.7 k/uL (3.8-10.6)
[2023-05-21 06:44] LABS: Prothrombin Time 11.4 sec (10.0-12.5)
--- NOTE | 2023-05-21 07:02 | P.PN ---
Progress Note - Text Progress Note Date: 05/21/23 Spine Surgery Clinical and Risk Review Krys Montiel is a 67 yo female presenting for evaluation of continued lumbar wound drainage. She underwent a lumbar laminectomy in March out of [facility] by an neon glass blower surgeon. She states there were issues in her surgery with a dural tear. She recovered from surgery and was sent back up to [facility] for her aftercare and reahab. She continued to drain from her incision for that recovery time and was sent back to ED where she was then transferred to [facility] for evaluation. Due to her surgeon not being a normal staff there, she was treated conservatively and was placed on bed rest for 5 days and treated with Diamox for her presumed CSF leak. She was then DC back to rehab. She states she has contin ued to drain this whole time and has never gotten better. She states no severe SPRING, N, V, vision changes at this time. She states she has had drop foot since her surgery of which she did not have before she states. She states continued leg pain, paresthesias and back pain. She denies any bowel or bladder issues at this time. No F/C/SOB/CP. It was my pleasure to have seen and examined Krys Montiel. In our visit today we have had a chance to go over subjective complaints, physical examination findings and treatments including the natural course history without intervention and various interventional options. 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 On physical exam, Krys Montiel demonstrates continued copious clear drainge from her lumbar wound. LLE 2/5 DF 3/5 PF. LE weakness b/l with overall 4/5 strengths. Normal DTR. L3-S1 dermatomal changes b/l. I have explained to the patient that as their condition progresses it will cause further neurological deficits and eventual paralysis. Based on the patients imaging, physical exam, and the rapid progression and disabling nature of their symptoms, at this time I recommend surgery in the form or a: Irrigation and debridement lumbar spine with revision dural repair and possible L3-L5 fusion. I discussed the risk and benefits of this procedure at length with Krys Montiel. The patient and family agreed to considered pursuing the procedure abovementioned. Prior to surgery, she should follow up with her PCP (Cardio, ID, IM etc) for clearance. Questions were invited and answered, and the patient wishes to proceed as outlined below. Currently, I am recommendin. Irrigation and debridement lumbar spine with revision dural repair and possible L3-L5 fusion 2. Follow up with PCP for surgical clearance 3. Review of surgical risks and benefits as well as an educational packet on the proposed surgical procedure. Risks: All surgical procedures come with inherent risks, including those related to positioning, anesthesia, intraoperative findings, and postoperative complications. It is important to understand that surgery does not come with any guarantee of a successful outcome as complications and adverse events are always possible. The patient was given a handout in office today discussing the surgical procedure and risks associated with the intervention, both of which were discussed with the patient. These risks include but are not limited to the following: * Experiencing same, different or even worse symptoms in back, neck, arms, or legs compared to before surgery. * Requiring further surgery or other forms of treatment presently or at some time in the future at same or other levels of the intended spine surgery. * On an extreme but fortunately relatively rare basis severe complication such as blindness, stroke, heart attack, temporary and/or permanent nerve injury, paralysis, coma, or may occur, sometimes without known explan ation. * Surgical complications may include but are not limited to risk of infection, fluid accumulation in the surgical dissection site, including a seroma or hematoma, that requires additional surgery, wound drainage, bleeding, new numbness or weakness, vision changes/loss, spinal fluid leakage, non-healing and/or infected incision, headaches, difficulty or inability to swallow, hoarseness, hemopneumothorax, pneumothorax, impotence, retrograde ejaculation, vaginal dryness; injury to nerves, spinal cord, blood vessels, lymphatics or other vital organs (i.e., bowel injury, injury to the great vessels); heterotopic bone formation; complications related to the hardware such as screws, rods, cages including misplaced hardware, device failure, instrumentation at the wrong spine level, hardware fracture/breakage, or hardware loosening; vertebral failure of the spinal column above or below the newly placed hardware; retained surgical instrumentations or devices and the need for further surgery. * Medical risks of the planned spine surgery include but are not limited to generalized Infections to the whole body or local areas outside of the surgical site (sepsis), heart attack, bleeding, anaphylaxis, meningitis, seizure, epilepsy, hearing loss, burn medel, laceration of the head or other areas of the body, bruising, hypersensitivity of the skin, bladder over distension; allergic reaction; shoulder injury related to positioning; fat, blood and air clots to other areas of the body like heart, lungs, brain; failure of internal organs such as lungs, kidneys, liver and excessive bleeding. If blood transfusions are necessary, note that transfusions may cause intolerance reactions such as anaphylaxis or other complex reactions. * Despite best efforts, the results of spine surgery might not heal in terms of bone, soft tissues such as skin, fascia, ligaments, and joints. Additionally, in order to achieve best possible results, spine surgery may be carried out beyond the initially planned levels and involve decompression, fusion including insertion of hardware at levels other than the original intended area of surgical interest change some portions of the procedure in order to ensure the best possible outcomes. * With spine surgery and spinal fusion, there are different off label uses of instrumentation (devices, implants and hardware) as well as biological subs tances (bone morphogenic proteins, demineralized bone matrix) as well as using extra bone from allograft sources (i.e. cadaver bone) or autograft (iliac crest bone, ribs, or the spine itself). The patient has been given information about these practices and their inherent risks and benefits. The patient has had a chance to review all the listed information, has been given print outs detailing this information, and has had all his/her questions answered to their satisfaction. It was my pleasure to have seen and examinedKrys Montiel. In our visit today we have had a chance to go over my understanding of our patient's current condition, the natural course history without intervention and various interventional options. Questions were invited and answered, and the patient wishes to proceed as outlined above. I have seen and examined the patient for 25 minutes and we have spent more than 50% of the time in repeat and detailed counseling about the patient's condition, its natural course history with out and as much as can be predicted with surgery and re-review of various surgical treatment options. In conclusion, Krys Montiel and and family requested we proceed with the above suggested surgery and are willing to accept risks and limitations of the suggested surgery as nature of the disease process and our best attempts at treatment for the condition. Thank you again for allowing us to be part of your patient's care. Please don't hesitate to contact me if you have any further questions. Signed and authenticated by: Zachary Vargas [facility] [address], [address] [address]
[2023-05-21 07:16] LABS: ALT 21 U/L (4-34); AST 25 U/L (14-36); African American GFR (CKD) 67 (>60 ml/min/1.73 sqM); Albumin 2.6 g/dL (3.5-5.0); Alkaline Phosphatase 70 U/L (38-126); Anion Gap 10 mmol/L; Blood Urea Nitrogen 19 mg/dL (7-17); Calcium 8.8 mg/dL (8.4-10.2); Carbon Dioxide 18 mmol/L (22-30); Chloride 112 mmol/L (98-107); Globulin 2.7 g/dL; Glucose 142 mg/dL (74-99); Non-African American GFR(CKD) 58 (>60 ml/min/1.73 sqM); Potassium 3.3 mmol/L (3.5-5.1); Sodium 140 mmol/L (137-145); Total Bilirubin 0.2 mg/dL (0.2-1.3); Total Protein 5.3 g/dL (6.3-8.2)
[2023-05-21] MEDS: SODIUM CHLORIDE 0.9% 1,000 ML IV SCH ×2 (07:57→21:51)
[2023-05-21] MEDS ORDERED: POTASSIUM CHLORIDE ER 20 MEQ TAB.ER PO STA (08:08)
[2023-05-21 11:16] LABS: Glucose,Whole Blood 124 mg/dL (70-110)
[2023-05-21] MEDS: acetaZOLAMIDE 250 MG TAB PO SCH ×2 (12:36→21:49)
[2023-05-21] MEDS: LACTATED RINGERS 1,000 ML IV SCH ×3 (12:36→15:54)
[2023-05-21] MEDS: methocarbamoL 750 MG TAB PO SCH ×2 (12:36→21:50)
--- NOTE | 2023-05-21 15:00 | P.PN ---
Subjective Progress Note Date: 05/21/23 Patient is a 67-year-old female with L3-5 lumbar laminectomy in March 2023 with subsequent rehospitalization due to possible CSF leak where she was discharged home on Keflex for 5 days. [facility], diabetes, and hypertension who presented from the infectious disease office due to continued drainage from her surgical site with cultures positive for MRSA. Dr. Allen felt the patient likely had a CSF leak and that an overt infection based on the type of drainage noted. He had encouraged patient to go back to [facility] where she had surgery performed, but she does not wish to go back to that facility at this time. On arrival to the emergency department her vital signs are within normal limits. Initial laboratory analysis was remarkable for creatinine of 1.26 (baseline 1.1), calcium 10.4. In the ER she was started on ceftriaxone and vancomycin. CT lumbar spine showed multilevel degenerative disc changes with gas now present in the left anterior aspect of the spinal canal at L4, posterior soft tissue fluid collection again p resent slightly decreased in size appears more liquefied centrally with decreased internal gas extends from the laminectomy defect at least abutting the spinal canal. Arrangements were made for admission. Orthopedic spine surgery was consulted. ID has been consulted. One out of 2 blood cultures positive. Repeat blood cultures pending patient pending surgical intervention. Patient seen and examined at bedside. She is concerned about going through surgery again. Still having difficulty moving. Vital signs reviewed General: Nontoxic, no distress, appears at stated age Cardiovascular: S1S2 reg, no murmur, positive posterior tibial pulse bilateral, Lungs: CTA bilateral, no rhonchi, no rales, no accessory muscle use Abdominal: Soft, nontender to palpation, no guarding, no appreciable o rganomegaly Ext: No gross muscle atrophy, no edema b/l lower extremities, no contractures Neuro: CN II-XI grossly intact, no focal neuro deficits Derm: Midline incision and low back assessed with small opening and clear fluid drainage. Psych: Alert, oriented, appropriate affect Assessment/Plan: Patient is at high risk for decompensation, he is close monitoring. 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 - continue with vancomycin and Rocephin, day #4. Monitor creatinine for signs of vancomycin toxicity. -Orthopedics note reviewed, patient pending irrigation and debridement of lumbar spine with revision dura and possible L3 to L5 fusion -ID following -Continue pain control with morphine 4 mg every 4 hours, Robaxin 750 milligrams twice daily. [place] 7.5, 325 mg -Acetazolamide 250 mg oral twice daily NSQUIP, calculated for dural repair with laminectomy - Patient is at above average risk for , serious complication (10%), infe ction, and myocardial event - Patient does not require and additional testing at this time and is medically optimized for this urgent surgery. Lozada Activity index 3.63 METS Bacteremia staph aureus - on vanco and rocephin - repeat BC - possible contamination vs true infection. Diabetes mellitus type 2 -Patient is not on any medications for diabetes and appears diet controlled -Sliding scale insulin, monitor for hypoglycemia -A1c 6.4 Hypertension Dyslipidemia -Continue with metoprolol 100 mg every 8 hours -Patient is not on any targeted medications for her dyslipidemia -Follow blood pressures Hypokalemia -40 meq oral potassium given today -Repeat BMP and magnesium tomorrow Imaging: None new Data Review: WBC 5.7, hemoglobin 12.8, potassium 3.3, creatinine 1.02, blood sugars range b etween 121-143 DVT prophylaxis: Heparin Anticipated discharge date: Pending Clinical Course Anticipated discharge place: Pending Clinical Course Objective - Vital Signs Vital signs: Vital Signs Temp 97.9 F 05/21/23 12:54 Pulse 72 05/21/23 12:54 Resp 19 05/21/23 12:54 BP 147/79 05/21/23 12:54 Pulse Ox 100 05/21/23 12:54 FiO2 Intake & Output 05/20/23 05/21/23 05/21/23 18:59 06:59 18:59 Weight 87.997 kg 87.997 kg Other: Voiding Method Toilet Toilet Toilet # Voids 2 1 1 - Labs CBC & Chem 7: 05/21/23 06:24 05/21/23 06:24 Labs: Abnormal Lab Results - Last 24 Hours (Table) 05/19/23 05/20/23 05/20/23 Range/Units 07:16 16:48 20:52 Immature Gran # 0.08 H (0.00-0.04) X 10*3/uL NRBC/100 WBC Diff 0.04 H (0.00-0.01) X 10*3/uL Crenated Cell 2+ A Potassium (3.5-5.1) mmol/L Chloride (98-107) mmol/L Carbon Dioxide (22-30) mmol/L BUN (7-17) mg/dL Glucose (74-99) mg/dL POC Glucose (mg/dL) 161 H 121 H (70-110) mg/dL Total Protein (6.3-8.2) g/dL Albumin (3.5-5.0) g/dL 05/21/23 05/21/23 05/21/23 Range/Units 06:04 06:24 11:14 Immature Gran # (0.00-0.04) X 10*3/uL NRBC/100 WBC Diff (0.00-0.01) X 10*3/uL Crenated Cell Potassium 3.3 L (3.5-5.1) mmol/L Chloride 112 H (98-107) mmol/L Carbon Dioxide 18 L (22-30) mmol/L BUN 19 H (7-17) mg/dL Glucose 142 H (74-99) mg/dL POC Glucose (mg/dL) 143 H 124 H (70-110) mg/dL Total Protein 5.3 L (6.3-8.2) g/dL Albumin 2.6 L (3.5-5.0) g/dL Microbiology - Last 24 Hours (Table) 05/18/23 17:30 Blood Culture Gram Stain - Preliminary Blood Blood Culture - Preliminary Presumptive Staph aureus 05/18/23 17:48 Blood Culture - Preliminary Blood
[2023-05-21] MEDS ORDERED: ONDANSETRON 4 MG/2 ML VIAL IVP ONE (15:21)
[2023-05-21] MEDS ORDERED: SUCCINYLCHOLINE CHLORIDE 200 MG/10 ML VIAL IV ONE (15:48)
[2023-05-21] MEDS ORDERED: KETAMINE HCL IN 0.9 % NACL 50 MG/5 ML SYRINGE ONE (15:48)
[2023-05-21] MEDS ORDERED: fentaNYL (PF) 50 MCG/ML 2 ML AMP ONE (15:48)
[2023-05-21] MEDS ORDERED: PROPOFOL 10 MG/ML 20 ML VIAL IV ONE (15:48)
[2023-05-21] MEDS ORDERED: HYDROmorphone (PF) 1 MG/ML ONE (15:48)
[2023-05-21] MEDS ORDERED: PHENYLEPHRINE-0.9% NACL SYG 1,000 MCG/10 ML SYRINGE ONE (15:48)
[2023-05-21] MEDS ORDERED: LIDOCAINE 1% INJ 10MG/ML (20 ML MDV) ONE (15:48)
[2023-05-21] MEDS ORDERED: MIDAZOLAM 2 MG/2 ML VIAL ONE (15:48)
[2023-05-21] MEDS ORDERED: ROCURONIUM 10 MG/ML (5 ML VIAL) IV ONE (15:48)
--- NOTE | 2023-05-21 16:04 | P.PN ---
Subjective Progress Note Date: 05/20/23 Principal diagnosis: Reason for follow-up is lumbar surgical site infection and bacteremia Patient is a 67 y/o F who underwent a L3-L5 laminectomy with Dr. Arroyo on 03/14/23. Now admitted to hospital with nonhealing of her lumbar wound drainage outpatient culture positive for MRSA and the patient did have a abnormal CT concerning for a fluid collection and blood cultures came back positive with staph aureus On today's evaluation that is 05/20/2023 the patient continues to be afebrile, the patient is breathing comfortably on room air without need for oxygen, the patient denies having any chest pain or cough and no sputum production, patient denies nausea vomiting or any diarrhea, and no abdominal pain, symptoms of lower back pain controlled with pain medication Patient did have a creatinine 1.06 , no CBC was done today blood culture positive for gram-positive cocci Objective - Vital Signs Vital signs: Vital Signs Temp 98.0 F 05/20/23 07:02 Pulse 77 05/20/23 07:15 Resp 19 05/20/23 07:15 BP 119/78 05/20/23 07:02 Pulse Ox 97 05/20/23 07:02 FiO2 Intake & Output 05/19/23 05/20/23 05/20/23 18:59 06:59 18:59 Weight 87.997 kg 87.997 kg Other: Voiding Method Toilet Toilet # Voids 3 1 - Exam GENERAL DESCRIPTION: An elderly female lying in bed in no distress RESPIRATORY SYSTEM: Unlabored breathing , clear to auscultation anteriorly HEART: S1 S2 regular rate and rhythm , ABDOMEN: Soft , no tenderness EXTREMITIES: No edema feet - Labs CBC & Chem 7: 05/21/23 06:24 05/21/23 06:24 Labs: Abnormal Lab Results - Last 24 Hours (Table) 05/19/23 05/20/23 05/20/23 Range/Units 20:28 05:43 07:59 Chloride (98-107) mmol/L Carbon Dioxide (22-30) mmol/L BUN (7-17) mg/dL Creatinine (0.52-1.04) mg/dL Glucose (74-99) mg/dL POC Glucose (mg/dL) 132 H 142 H (70-110) mg/dL Hemoglobin A1c 6.4 H (<=6.0) % 05/20/23 Range/Units 07:59 Chloride 109 H (98-107) mmol/L Carbon Dioxide 20 L (22-30) mmol/L BUN 24 H (7-17) mg/dL Creatinine 1.06 H (0.52-1.04) mg/dL Glucose 131 H (74-99) mg/dL POC Glucose (mg/dL) (70-110) mg/dL Hemoglobin A1c (<=6.0) % Microbiology - Last 24 Hours (Table) 05/18/23 17:48 Blood Culture - Preliminary Blood 05/18/23 17:30 Blood Culture Gram Stain - Preliminary Blood Assessment and Plan (1) Surgical site infection Current Visit: Yes Status: Acute Code(s): T81.49XA - INFECTION FOLLOWING A PROCEDURE, OTHER SURGICAL SITE, INIT SNOMED Code(s): 32663053 (2) Allergy to multiple antibiotics Current Visit: Yes Status: Acute Code(s): Z88.1 - ALLERGY STATUS TO OTHER ANTIBIOTIC AGENTS SNOMED Code(s): 785995516 (3) MRSA (methicillin resistant staph aureus) culture positive Current Visit: Yes Status: Acute Code(s): Z22.322 - CARRIER OR SUSPECTED CARRIER OF METHICILLIN RESIS STAPH SNOMED Code(s): 429462056 (4) Positive blood culture Current Visit: Yes Status: Acute Code(s): R78.81 - BACTEREMIA SNOMED Code(s): 357371589 Plan: 1patient with a nonhealing wound to the lumbar spine in this patient who did have a history of L3-L5 laminectomy at [facility] on 03/14/2023 subsequently did have a problem with a CSF leak and now with outpatient culture positive for MRSA concerning for possible abscess 2-patient has been eval by orthopedic surgery and planning for surgery 05/21/2023 3-blood cultures positive for staph aureus preliminarily MSSA however the patient outpatient culture was positive for MRSA 4-we will continue patient on vancomycin pharmacy to dose while waiting for finalization on the blood cultures Dictation was produced using [employer] dictation software. please excuse any grammatical, word or spelling errors. Time with Patient: Greater than 30
--- NOTE | 2023-05-21 16:06 | P.PN ---
Subjective Progress Note Date: 05/21/23 Principal diagnosis: Reason for follow-up is lumbar surgical site infection and bacteremia Patient is a 67 y/o F who underwent a L3-L5 laminectomy with Dr. Arroyo on 03/14/23. Now admitted to hospital with nonhealing of her lumbar wound drainage outpatient culture positive for MRSA and the patient did have a abnormal CT concerning for a fluid collection and blood cultures came back positive with staph aureus On today's evaluation that is 05/21/2023, the patient denies any fever or any chills, the patient is breathing comfortably on room air, patient denies chest pain shortness of breath, or cough, patient denies Abdominal pain and denies any nausea/vomiting or diarrhea , the patient still complaining of lower back pain but no worsening Patient did have a white count of 5.7, creatinine 1.02 Objective - Vital Signs Vital signs: Vital Signs Temp 98.0 F 05/21/23 06:58 Pulse 61 05/21/23 07:50 Resp 17 05/21/23 07:50 BP 110/74 05/21/23 06:58 Pulse Ox 98 05/21/23 06:58 FiO2 Intake & Output 05/20/23 05/21/23 05/21/23 18:59 06:59 18:59 Weight 87.997 kg Other: Voiding Method Toilet Toilet Toilet # Voids 2 1 1 - Exam GENERAL DESCRIPTION: An elderly female lying in bed in no distress RESPIRATORY SYSTEM: Unlabored breathing , clear to auscultation anteriorly HEART: S1 S2 regular rate and rhythm , ABDOMEN: Soft , no tenderness EXTREMITIES: No edema feet - Labs CBC & Chem 7: 05/21/23 06:24 05/21/23 06:24 Labs: Abnormal Lab Results - Last 24 Hours (Table) 05/19/23 05/20/23 05/20/23 Range/Units 07:16 16:48 20:52 Immature Gran # 0.08 H (0.00-0.04) X 10*3/uL NRBC/100 WBC Diff 0.04 H (0.00-0.01) X 10*3/uL Crenated Cell 2+ A Potassium (3.5-5.1) mmol/L Chloride (98-107) mmol/L Carbon Dioxide (22-30) mmol/L BUN (7-17) mg/dL Glucose (74-99) mg/dL POC Glucose (mg/dL) 161 H 121 H (70-110) mg/dL Total Protein (6.3-8.2) g/dL Albumin (3.5-5.0) g/dL 05/21/23 05/21/23 05/21/23 Range/Units 06:04 06:24 11:14 Immature Gran # (0.00-0.04) X 10*3/uL NRBC/100 WBC Diff (0.00-0.01) X 10*3/uL Crenated Cell Potassium 3.3 L (3.5-5.1) mmol/L Chloride 112 H (98-107) mmol/L Carbon Dioxide 18 L (22-30) mmol/L BUN 19 H (7-17) mg/dL Glucose 142 H (74-99) mg/dL POC Glucose (mg/dL) 143 H 124 H (70-110) mg/dL Total Protein 5.3 L (6.3-8.2) g/dL Albumin 2.6 L (3.5-5.0) g/dL Microbiology - Last 24 Hours (Table) 05/18/23 17:48 Blood Culture - Preliminary Blood Assessment and Plan (1) Allergy to multiple antibiotics Current Visit: Yes Status: Acute Code(s): Z88.1 - ALLERGY STATUS TO OTHER ANTIBIOTIC AGENTS SNOMED Code(s): 189947667 (2) MRSA (methicillin resistant staph aureus) culture positive Current Visit: Yes Status: Acute Code(s): Z22.322 - CARRIER OR SUSPECTED CARRIER OF METHICILLIN RESIS STAPH SNOMED Code(s): 680478053 (3) Positive blood culture Current Visit: Yes Status: Acute Code(s): R78.81 - BACTEREMIA SNOMED Code(s): 986696387 (4) Surgical site infection Current Visit: Yes Status: Acute Code(s): T81.49XA - INFECTION FOLLOWING A PROCEDURE, OTHER SURGICAL SITE, INIT SNOMED Code(s): 18767842 Plan: 1patient with a nonhealing wound to the lumbar spine in this patient who did have a history of L3-L5 laminectomy at [facility] on 03/14/2023 subsequently did have a problem with a CSF leak and now with outpatient culture positive for MRSA concerning for possible abscess 2-patient has been eval by orthopedic surgery and planning for surgery this afternoon at which time deep culture should be obtained 3-blood cultures positive for staph aureus preliminarily MSSA however the patient outpatient culture was positive for MRSA, blood culture has been repeated document clearance of bacteremia 4-patient will continue with vancomycin pharmacy to dose while waiting for finalization on the blood cultures Dictation was produced using [employer] dictation software. please excuse any grammatical, word or spelling errors. Time with Patient: Less than 30
--- NOTE | 2023-05-21 16:07 | MR ---
EXAMINATION TYPE: MR lumbar spine wo/w con DATE OF EXAM: 05/19/2023 COMPARISON: CT 05/18/2023 HISTORY: Post op infection, possible CSF leak. Surgery 03-13-23. CONTRAST: 8.5 mL intravenous Gadavist. TECHNIQUE: Multiplanar, multisequence images of the lumbar spine were acquired. FINDINGS: There is a large hyperintense T2 signal area within the posterior soft tissues. This extends to the t hecal sac at the L3-4 level. Direct communication however is not confirmed. Possible communication is not excluded posterior to the L4 level, series 901 image 13. There is a large hypodense collection i n the soft tissues which does following pulse sequences CSF. This extends towards the subcutaneous ti ssues, series 901 image 26. Suspicious enhancement is not identified. Wall enhancement is not identif ied. No definite abscess-like collection evident. IMPRESSION: 1. Large fluid type collection posterior paraspinal soft tissues appear intact communication to the s kin surface. Finding can be compatible with CSF leak.
[2023-05-21] MEDS ORDERED: THROMBIN (BOVINE) 5,000 UNIT VIAL TOPICAL ONE (16:35)
[2023-05-21] MEDS ORDERED: GELATIN SPONGE,ABSORB (LARGE) 1 EACH SPONGE TOPICAL ONE (16:35)
[2023-05-21] MEDS ORDERED: GENTAMICIN 80 MG in SODIUM CHLORIDE 0.9% IRRIGATIO 3,000 ML IRRIGATION ONE (16:35)
[2023-05-21] MEDS ORDERED: ceFAZolin 3,000 MG in SODIUM CHLORIDE 0.9% IRRIGATIO 3,000 ML IRRIGATION ONE (16:35)
[2023-05-21] MEDS ORDERED: LACTATED RINGERS 1,000 ML IV ONE ×2 (17:02→19:31)
[2023-05-21] MEDS ORDERED: VANCOMYCIN 1,000 MG VIAL MISCELLANE ONE (19:44)
[2023-05-21] MEDS ORDERED: ONDANSETRON 4 MG/2 ML VIAL IVP PRN (20:28)
[2023-05-21] MEDS ORDERED: NA PHOS,M-B/NA PHOS,DI-BA 133 ML ENEMA RECTAL PRN (20:28)
[2023-05-21] MEDS ORDERED: bisacodyL 10 MG SUPP RECTAL PRN (20:28)
[2023-05-21] MEDS ORDERED: HYDROcodone/APAP 7.5-325MG 1 EACH TAB PO PRN (20:31)
[2023-05-21] MEDS ORDERED: ALBUTEROL NEBULIZED 2.5 MG/3 ML INHALATION ONE (20:40)
--- NOTE | 2023-05-21 20:40 | P.OP ---
Date of Procedure: 05/21/23 Preoperative Diagnosis: All Active Problems Lumbar stenosis with neurogenic claudication (Acute) Acquired foot drop (Acute) Foot drop, left (Acute) Multilevel lumbosacral spondylosis with radiculopathy (Acute) Cerebrospinal fluid leak due to lumbar surgery (Acute) Status post lumbar spine surgery for decompression of spinal cord (Acute) CSF leak (Acute) Postoperative pain (Acute) MRSA (methicillin resistant staph aureus) culture positive (Acute) Back pain (Acute) Surgical site infection (Acute) Allergy to multiple antibiotics (Acute) Positive blood culture (Acute) Postoperative Diagnosis: All Active Problems Lumbar stenosis with neurogenic claudication (Acute) Acquired foot drop (Acute) Foot drop, left (Acute) Multilevel lumbosacral spondylosis with radiculopathy (Acute) Cerebrospinal fluid leak due to lumbar surgery (Acute) Status post lumbar spine surgery for decompression of spinal cord (Acute) CSF leak (Acute) Postoperative pain (Acute) MRSA (methicillin resistant staph aureus) culture positive (Acute) Back pain (Acute) Surgical site infection (Acute) Allergy to multiple antibiotics (Acute) Positive blood culture (Acute) Procedure(s) Performed: REVISION L2-S1 DECOMPRESSION AND FUSION WITH DURAL REPAIR, PSEUDOMENINGOCELE DETAILED BELOW: 22585 ARTHRODESIS, COMBINED POSTERIOR OR POSTEROLATERAL TECHNIQUE WITH POSTERIOR INTERBODY TECHNIQUE INCLUDING LAMINECTOMY AND/OR DISCECTOMY SUFFICIENT TO PREPARE INTERSPACE (OTHER THAN FOR DECOMPRESSION), SINGLE INTERSPACE, LUMBAR 4-5 / ARTHRODESIS, POSTERIOR OR POSTEROLATERAL TECHNIQUE, SINGLE INTERSPACE; LUMBAR 2- 3 90860 Repair of dural/cerebrospinal fluid leak or pseudomeningocele, with laminectomy 39807 LAMINECTOMY, FACETECTOMY, OR FORAMINOTOMY (UNILATERAL OR BILATERAL WITH DECOMPRESSION OF SPINAL CORD, CAUDA EQUINA AND/OR NERVE ROOT[S] [EG, SPINAL OR LATERAL RECESS STENOSIS]), DURING POSTERIOR INTERBODY ARTHRODESIS, LUMBAR; SINGLE VERTEBRAL SEGMENT LUMBAR2 TO LUMBAR 3 29166 POSTERIOR SEGMENTAL INSTRUMENTATION (EG, PEDICLE FIXATION, DUAL RODS WITH MULTIPLE HOOKS AND SUBLAMINAR WIRES); 3 TO 6 VERTEBRAL SEGMENTS 61507 INSERTION OF INTERBODY BIOMECHANICAL DEVICE(S) (EG, SYNTHETIC CAGE, MESH) WITH INTEGRAL ANTERIOR INSTRUMENTATION FOR DEVICE ANCHORING (EG, SCREWS, FLANGES), WHEN PERFORMED, TO INTERVERTEBRAL DISC SPACE IN CONJUNCTION WITH INTERBODY ARTHRODESIS, EACH INTERSPACE LUMBAR 4-5 ----- 97070 X2 ARTHRODESIS, POSTERIOR OR POSTEROLATERAL TECHNIQUE, SINGLE INTERSPACE; EACH ADDITIONAL INTERSPACE LUMBAR 3-4, LUMBAR 5 SACRAL1 47838 X3 LAMINECTOMY, FACETECTOMY, OR FORAMINOTOMY (UNILATERAL OR BILATERAL WITH DECOMPRESSION OF SPINAL CORD, CAUDA EQUINA AND/OR NERVE ROOT[S] [EG, SPINAL OR LATERAL RECESS STENOSIS]), DURING POSTERIOR INTERBODY ARTHRODESIS, LUMBAR; EACH ADDITIONAL SEGMENT, LUMBAR 3-4, LUMBAR 4-5, LUMBAR 5-SACRAL1 63358 Dural graft, spinal 28963 STEREOTACTIC COMPUTER-ASSISTED (NAVIGATIONAL) PROCEDURE; SPINAL CPTMOD 22 THIS CASE TOOK 80% LONGER THAN EXPECTED DUE TO CORMORBID CONDITIONS, HIGH BMI >30, EXTENT OF LUMBAR DISEASE AND HIGH TECHNICALITY OF THE CASE. 68140 CONTINUOUS INTRAOPERATIVE NEUROPHYSIOLOGY MONITORING, FROM OUTSIDE THE OPERATING ROOM (REMOTE OR NEARBY) OR FOR MONITORING OF MORE THAN ONE CASE WHILE IN THE OPERATING ROOM, PER HOUR ALL SCREWS TESTING >20 mA Implants: -RAKESH EVEREST RODS AND SCREWS -LIFE SPINE PRO LIFT CAGE X1 -MAGNATOS Anesthesia: PRIMO Surgeon: Zachary Giron Tilting Head Band Sawyer #1: Neptali Storey (WAS PRESENT AND ASSISTED WITH ALL ASPECTS OF THE CASE FROM POSITION TO CLOSURE) Estimated Blood Loss (ml): 400 IV fluids (ml): 2,500 Urine output (ml): 500 Pathology: other (cultures, pathology L1-2 mass,) Condition: stable Disposition: PACU Indications for Procedure: Krys Montiel is a 67 yo female presenting for evaluation of continued lumbar wound drainage. She underwent a lumbar laminectomy in March out of [facility] by an continuity clerk surgeon. She states there were issues in her surgery with a dural tear. She recovered from surgery and was sent back up to [facility] for her aftercare and reahab. She continued to drain from her incision for that recovery time and was sent back to ED where she was then transferred to [facility] for evaluation. Due to her surgeon not being a normal staff there, she was treated conservatively and was placed on bed rest for 5 days and treated with Diamox for her presumed CSF leak. She was then DC back to rehab. She states she has continued to drain this whole time and has never gotten better. She states no severe SPRING, N, V, vision changes at this time. She states she has had drop foot since her surgery of which she did not have before she states. She states continued leg pain, paresthesias and back pain. She denies any bowel or bladder issues at this time. No F/C/SOB/CP. It was my pleasure to have seen and examined Krys Montiel. In our visit today we have had a chance to go over subjective complaints, physical examination findings and treatments including the natural course history without intervention and various interventional options. 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 On physical exam, Krys Montiel demonstrates continued copious clear drainge from her lumbar wound. LLE 2/5 DF 3/5 PF. LE weakness b/l with overall 4/5 strengths. Normal DTR. L3-S1 dermatomal changes b/l. I have explained to the patient that as their condition progresses it will cause further neurological deficits and eventual paralysis. Based on the patients imaging, physical exam, and the rapid progression and disabling nature of their symptoms, at this time I recommend surgery in the form or a: Irrigation and debridement lumbar spine with revision dural repair and possible L3-L5 fusion. I discussed the risk and benefits of this procedure at length with Krys Montiel. The patient and family agreed to considered pursuing the procedure abovementioned. Prior to surgery, she should follow up with her PCP (Cardio, ID, IM etc) for clearance. Questions were invited and answered, and the patient wishes to proceed as outlined below. Currently, I am recommendin. Irrigation and debridement lumbar spine with revision dural repair and possible L3-L5 fusion Description of Procedure: REVISION L2-S1 DECOMPRESSION AND FUSION WITH DURAL REPAIR, PSEUDOMENINGOCELE The patient was seen and examined in the preoperative area. All preoperative protocols were followed. Informed consent was obtained, risks and benefits of the procedure were discussed at length. Risks including bleeding infection damage to the surrounding tissue and risk of reoperation were discussed with the patient. Risk of anesthesia up to and including was discussed with the patient. These are outlined in the risk review. They were willing to accept these risks and all the risks of surgery. The patient was given a weight-based dose of antibiotics in the form of 3 g Ancef. The patient was seen and evaluated by the anesthesia team who deemed them fit for surgery. The site was marked, the patient was willing to proceed with the procedure. The patient was transferred to the operative suite by the Department of anesthesia. They were then drifted off to sleep by the department anesthesia and GETA was performed. The patient tolerated this well. Montemayor catheter was placed by nursing staff, a-traumatically. Once confirmation of lines and ventilation the patient was transferred to a prone Trios spine table very carefully. The head was secured and stable. X Ray confirmed alignment. All bony prominences including wrists, elbows, axilla, chest, hips, and thighs, and feet were padded very well. Special attention was paid to the genitalia, and these were padded accordingly. SCDs were placed on bilateral lower extremities and were connected. Arms were well padded and placed at 90/90 up and out and well padded. Safety strap and tape placed on the patient. Once in position, again we confirmed good ventilation capabilities and that lines were running appropriately. The patients lumbosacral pelvic was then exposed. Hair was removed for incision. 1010s were placed outlining the incision site. Standard alcohol was used to clean the incision site and allowed to dry. C-arm was used to bio-michelle the patient and confirm level for incision which was marked with a skin marker. Operative briefing was performed with all teams and everyone in agreement to proceed. The patient was then prepped and draped in a normal s terile fashion. Timeout was then performed, and all parties agreed with the procedure to be performed. Midline skin incision was then made over the previously incised area. Dissection taken down to the lumbosacral fascia which was identified and was deficient midline. There was a large area of serous/CSF like material and what apparead to be a pseudomeningocele in this area which was carfully mobilized and decompressed. Pt remained stable through this. The deep elements were then and cleaned with a velez. There was excessive sub-q adipose that was obtrusive and needed to be retracted. Once midline was identified, fasciotomy was made over the SP of L1-S1. Subperiosteal dissection was then taken down over the lamina and facet joints and TPs were exposed and trough made posterolateral. TPs were then decorticated with a high speed maria a for lateral fusion. Dissection was taken out over the sacrum and S1. Wound was irrigated and lateral image with penfield 4 placed at the pars of L4 confirmed levels for operation. SP clamp was then placed for the Kormeli navigation tracker and secured. The wound was then filled with NSS and Z-drape. A 3D Ziehm spin was then obtained and re gistered. Once confirmation of accuracy screws were then placed from L2-S1 using navigation. Navigated high speed maria a was used to make a towing pilot hole followed by a navigated awl-tap passed through the pedicle into the body. A ball tip probe then confirmed within the pedicle. Screw was then measured and placed using a navigated screwdriver. After screws were placed from L2-S1, AP image confirmed safe placement of screws. Screws were then tested, and reliably tested screws tested above 20 mA. We then proceeded to decompression and interbody placement. Starting at L5-S1, laminectomy, complete facetectomy and foraminotomies were performed using high speed bur, Kerrison rongeur. There was exuberant bone formation, osteophytes and scar tissue surrounding these joints as well as the dura. Once exposed the neural elements were inspected and without compression or injury. Good decompression achieved at this level. Meticulous hemostasis then performed. Area was irrigated. We then proceeded to L4-5. At L4-5, revision bilateral laminectomy, complete facetectomy and foraminotomy was performed as described above. Again, exuberant scar tissue was encountered and at this level due to previous surgery. There was dural patch noted midline here as well which was inspected and there was seepage of CSF around it. We teased this off and found further area of dural leak. This was closed with 6-0 prolene stitch. There was also a large disc osteophyte complex that was identified once disc space was found. The dura was carefully dissected off this anteriorly and b/l. Once encountered, the disc space was then accessed in a similar fashion and neural elements protected. Once completed and complete discectomy performed there was good mobility at this level. Cage was then sized and selected. Autograft and allograft was then placed anterior in the disc space and the cage was then inserted and impacted into place under lateral. AP image, as before, was taken to ensure midline placement. The cage was then expanded into position. The cage was tested and was very stable and since it was in safe position without any other issues it was elected to keep the cage in position. The wound was irrigated. Meticulous hemostasis then performed, and attention turned to L3-4. At L3-4 again bilateral laminectomy, facetectomy and foraminotomy were performed. Good decompression achieved. The neural elements were scared at this level; however, it was very unstable. The wound was irrigated, and meticulous hemostasis performed once again. At L2-3 again bilateral laminectomy, facetectomy and foraminotomy were performed. Good decompression achieved. The wound was irrigated, and meticulous hemostasis performed once again. At L1-2 bilateral laminectomy, facetectomy and foraminotomy were performed. Good decompression achieved. There was epidural phlegmon type material that was found here and this was removed to decompress the area as well as send for pathology. Attention was then drawn to letty placement. Rods were selected, measured, cut and bent to appropriate lordosis. They were then secured into pelvic screws b/l. Sequential reduction then done into each screw and set screw placed. Set screws were then final tightened and lateral image showed good lordosis reduction with increase around 10 deg from starting. Once rods were secured, cross links were selected and placed and final tightened. The wound was then irrigated with 3L Ancef irrigation, 3L gentamicin irrigation and 3L NSS. Tisseal was then used to further seal the dural defect along with a fat graft which was sewn in. Surgicel was then placed on the dura, which was inspected and had no further injury. Then, in the posterolateral gutter was placed, MagnatOs. This was impacted into position and surgical placed over it. 2g Vanco powder was then placed deep in the wound. No drains placed due to dural leak. We then proceeded with layered closure. #1 PDS placed in the deep fascia. 0 Vicryl placed in the deep subq, 2-0 placed in the superficial subq and ajith placed in the skin. The wound edges approximated very well. The wound was then cleaned with ETOH and dressed with optifoam dressing, drain sponges and tegaderms. Drains sewed into position. IONM confirmed no changes. The patient was then transferred off the [facility] spine table to their hospital bed a-traumatically. The patient was then extubated and transferred to the PACU in stable condition having tolerated the procedure with no complications.
[2023-05-21 20:41] LABS: Glucose,Whole Blood 197 mg/dL (70-110)
[2023-05-21] MEDS ORDERED: INSULIN ASPART (NovoLOG) 100 UNIT/ML VIAL SQ ONE (20:52)
[2023-05-21] MEDS: HYDROcodone/APAP 10-325MG 1 EACH TAB PO PRN (21:34)
[2023-05-21] MEDS: VANCOMYCIN 1,500 MG in SODIUM CHLORIDE 0.9% 500 ML 500 ML IVPB SCH (21:34)
[2023-05-21 21:52] LABS: Glucose,Whole Blood 193 mg/dL (70-110)
[2023-05-21] MEDS: HYDROmorphone 1 MG/ML 1 ML SYRINGE IVP PRN (23:08)
[2023-05-22] MEDS: HEPARIN SODIUM,PORCINE 5,000 UNIT/ML 1 ML VIAL SQ SCH ×4 (00:09→23:36)
[2023-05-22] MEDS: HYDROcodone/APAP 10-325MG 1 EACH TAB PO PRN ×4 (02:20→21:54)
[2023-05-22] MEDS: SODIUM CHLORIDE 0.9% 1,000 ML IV SCH ×2 (03:55→17:18)
[2023-05-22] MEDS: METOPROLOL TARTRATE 50 MG TAB PO SCH ×3 (05:17→21:53)
[2023-05-22 06:05] LABS: Glucose,Whole Blood 136 mg/dL (70-110)
[2023-05-22 07:27] LABS: ALT 23 U/L (4-34); AST 40 U/L (14-36); African American GFR (CKD) 69 (>60 ml/min/1.73 sqM); Albumin 2.7 g/dL (3.5-5.0); Alkaline Phosphatase 66 U/L (38-126); Anion Gap 9 mmol/L; Blood Urea Nitrogen 20 mg/dL (7-17); Calcium 9.3 mg/dL (8.4-10.2); Carbon Dioxide 19 mmol/L (22-30); Chloride 110 mmol/L (98-107); Globulin 2.8 g/dL; Glucose 122 mg/dL (74-99); Magnesium 1.8 mg/dL (1.6-2.3); Non-African American GFR(CKD) 60 (>60 ml/min/1.73 sqM); Potassium 4.5 mmol/L (3.5-5.1); Sodium 138 mmol/L (137-145); Total Bilirubin 0.4 mg/dL (0.2-1.3); Total Protein 5.5 g/dL (6.3-8.2)
--- NOTE | 2023-05-22 07:32 | FL ---
Intraoperative/procedural fluoroscopic services were provided. Total fluoroscopy time is 27 seconds w ith a total of 4 submitted images to PACS. Please see the operative/procedural note for further detai ls. DAP: 3356.20 mGym2 Gycm2
[2023-05-22] MEDS: INSULIN ASPART (NovoLOG) 100 UNIT/ML VIAL SQ SCH ×4 (08:05→21:53)
[2023-05-22 08:39] LABS: Basophils % (A) 0 %; Eosinophils # (A) 0.1 k/uL (0-0.7); Eosinophils % (A) 0 %; Hypochromasia Marked; Lymphocytes # (A) 1.4 k/uL (1.0-4.8); Lymphocytes % (A) 11 %; MCH 30.9 pg (25.0-35.0); MCHC 31.5 g/dL (31.0-37.0); MCV 97.9 fL (80.0-100.0); Monocytes # (A) 0.5 k/uL (0-1.0); Monocytes % (A) 4 %; Neutrophils # (A) 11.6 k/uL (1.3-7.7); Neutrophils % (A) 85 %; Platelet Count 309 k/uL (150-450); RBC 3.88 m/uL (3.80-5.40); RDW 13.3 % (11.5-15.5); WBC 13.7 k/uL (3.8-10.6)
--- NOTE | 2023-05-22 08:53 | CT ---
EXAMINATION TYPE: CT lumbar spine wo con DATE OF EXAM: 05/22/2023 COMPARISON: 05/18/2023 HISTORY: 67-year-old female s/p lumbar fusion TECHNIQUE: Contiguous axial scanning of the lumbar spine without IV contrast. Coronal and sagittal re constructions performed. CT DLP: 1880.6 mGycm Automated exposure control for dose reduction was used. FINDINGS: Interval placement of L2-S1 posterior lumbar fusion. There is also DISH which extends down through th e T12 or L1 level. Hypertrophic facet arthropathy above the fusion at L1-L2 and also below the fusion at L5-S1. Fixed grade 1 retrolisthesis L2-L3. Remaining alignment is maintained. Vertebral body heights are pre served. Severe degenerative disc disease above the fusion at L1-L2 remains with extensive endplate irregulari ty, questionable endplate erosions and mixed lucency and sclerosis. Findings fairly similar to 2022. Short interval follow-up recommended to ensure stability of these endplate erosions. Air within the paraspinal musculature especially on the left and also along the incisional site poste rior midline redemonstrated. There appears to have been evacuation of most of the abnormal fluid mark ection seen on 12 05/18/2023. Possible small loculated fluid measuring 2.9 x 1.3 cm right paramedian posterior midline at the T11 l evel, refer to sagittal image 30 and axial image 18. Hydropic gallbladder likely due to fasting state. Evidence of prior granulomatous disease within the spleen. Degenerative changes bilateral SI joints. There is a right L5 hemisacralization. IMPRESSION: 1. INTERVAL PLACEMENT OF L2-S1 POSTERIOR LUMBAR FUSION WITH CORRESPONDING LAMINECTOMIES. 2. THERE APPEARS TO HAVE BEEN EVACUATION OF THE ABNORMAL FLUID COLLECTION ALONG THE POSTERIOR MIDLINE SEEN ON 05/18/2023. THE PRESENCE OF METAL HARDWARE ARTIFACT NOW LIMITS DETAILED ASSESSMENT. 3. THERE IS A SMALL RESIDUAL LOCULE OF FLUID ALONG THE RIGHT PARAMEDIAN POSTERIOR MIDLINE MEASURING 2 .9 X 1.3 CM OPPOSITE THE T11 LEVEL. LOCATED WITHIN THE SUBCUTANEOUS ADIPOSE LAYER 4. SEVERE DEGENERATIVE DISC DISEASE WITH ENDPLATE EROSIONS ABOVE THE FUSION AT L1-L2 HAS A SIMILAR AP PEARANCE COMPARED TO 05/18/2023. NO PARASPINAL SOFT TISSUE ABNORMALITY IS SEEN AT THIS LEVEL AND NO P ROGRESSIVE ENDPLATE DESTRUCTION SEEN FROM 4 DAYS PRIOR. INFECTIOUS ETIOLOGY IS CONSIDERED LESS LIKELY FOR THESE REASONS. SHORT INTERVAL FOLLOW-UP CLINICALLY INDICATED. 5. DISH IN THE LOWER THORACIC SPINE EXTENDING DOWN TO THE T12 OR L1 LEVEL. 6. INCIDENTAL RIGHT L5 HEMISACRALIZATION WITH A DEGENERATIVE ASSIMILATION JOINT.
[2023-05-22] MEDS: MAGNESIUM HYDROXIDE 2,400 MG/30 ML CUP PO SCH (09:04)
[2023-05-22] MEDS: SENNOSIDES-DOCUSATE SODIUM 1 EACH TAB PO SCH (09:04)
[2023-05-22] MEDS: acetaZOLAMIDE 250 MG TAB PO SCH ×2 (09:05→21:52)
[2023-05-22] MEDS: methocarbamoL 750 MG TAB PO SCH ×2 (09:06→21:52)
[2023-05-22 11:05] LABS: Glucose,Whole Blood 133 mg/dL (70-110)
--- NOTE | 2023-05-22 11:37 | P.PN ---
Subjective Progress Note Date: 05/22/23 Principal diagnosis: Lumbar stenosis with neurogenic claudication (Acute) Acquired foot drop (Acute) Foot drop, left (Acute) Multilevel lumbosacral spondylosis with radiculopathy (Acute) Cerebrospinal fluid leak due to lumbar surgery Patient was seen at bedside this morning sitting up in chair with legs elevated. Dressing is intact over spine. Patient says she is in a moderate amount of pain to her spine at this time. Patient notes the medication has helped control the pain somewhat. Patient does note that the numbness in her genital region has been easing since surgery. Patient does not note any any other changes since surgery. Patient says she still has footdrop on the left. Patient also says she does have a little bit of weakness in both lower extremities. Patient says she is looking forward to working with therapy. Montemayor is in place. Patient denies any other issues at this time. Objective - Vital Signs Vital signs: Vital Signs Temp 98.0 F 05/22/23 07:08 Pulse 67 05/22/23 07:08 Resp 19 05/22/23 07:08 BP 109/68 05/22/23 07:08 Pulse Ox 100 05/22/23 07:08 FiO2 Intake & Output 05/21/23 05/22/23 05/22/23 18:59 06:59 18:59 Intake Total 2001 575 Output Total 1150 Balance 2001 Weight 87.997 kg 87.997 kg Intake: IV 2001 575 Output: Urine 750 Estimated Blood Loss 400 Other: Voiding Method Toilet Indwelling Catheter # Voids 1 1 - Exam Inspection: Dressing present over the lumbar spine at this time. Negative for any significant/active drainage. Maintain dressing for now. Negative for any open fractures, significant ecchymosis/open wounds. Sensation: Equal, symmetric, bilaterally intact about the upper and lower extremities. Palpation: Moderate tenderness to palpation diffusely throughout lumbar spine near incision. Nontender to palpation throughout rest of exam Range of motion: Patient has full range of motion throughout bilateral upper ext remities on exam. There is some limited range of motion in the bilateral lower extremities and hip flexion/extension and knee flexion/tension secondary to referred pain to the low back and weakness in the lower extremity. Patient is unable to dorsi/plantar flex left ankle due to ongoing foot drop. Motor: 5/5 in all major motor groups in bilateral upper extremities. 4/5 in all major motor groups in right lower extremity. 4-/5 in resisted left hip flexion/extension and left knee flexion/extension. Left ankle motor exam unable to be performed due to foot drop. Special tests: Negative Homans bilaterally. Negative Kaye's bilaterally. Neurovascular status: Radial pulses intact, 2+ bilaterally. Cap refill under 3 seconds in digits of the upper extremities. - Labs CBC & Chem 7: 05/22/23 08:18 05/22/23 06:30 Labs: Abnormal Lab Results - Last 24 Hours (Table) 05/21/23 05/21/23 05/22/23 Range/Units 20:40 21:50 05:56 WBC (3.8-10.6) k/uL Neutrophils # (1.3-7.7) k/uL Chloride (98-107) mmol/L Carbon Dioxide (22-30) mmol/L BUN (7-17) mg/dL Glucose (74-99) mg/dL POC Glucose (mg/dL) 197 H 193 H 136 H (70-110) mg/dL AST (14-36) U/L Total Protein (6.3-8.2) g/dL Albumin (3.5-5.0) g/dL 05/22/23 05/22/23 05/22/23 Range/Units 06:30 08:18 11:04 WBC 13.7 H (3.8-10.6) k/uL Neutrophils # 11.6 H (1.3-7.7) k/uL Chloride 110 H (98-107) mmol/L Carbon Dioxide 19 L (22-30) mmol/L BUN 20 H (7-17) mg/dL Glucose 122 H (74-99) mg/dL POC Glucose (mg/dL) 133 H (70-110) mg/dL AST 40 H (14-36) U/L Total Protein 5.5 L (6.3-8.2) g/dL Albumin 2.7 L (3.5-5.0) g/dL Microbiology - Last 24 Hours (Table) 05/18/23 17:48 Blood Culture - Preliminary Blood 05/20/23 11:44 Blood Culture - Preliminary Blood 05/18/23 17:30 Blood Culture Gram Stain - Preliminary Blood Blood Culture - Preliminary Presumptive Staph aureus Assessment and Plan Assessment: 1. Lumbar stenosis with neurogenic claudication (Acute) Acquired foot drop (Acute) Foot drop, left (Acute) Multilevel lumbosacral spondylosis with radiculopathy (Acute) Cerebrospinal fluid leak due to lumbar surgery Postoperative day 1 status post REVISION L2-S1 DECOMPRESSION AND FUSION WITH DURAL REPAIR, PSEUDOMENINGOCELE Plan: 1. Lumbar stenosis with neurogenic claudication (Acute); Acquired foot drop (A cute); Foot drop, left (Acute); Multilevel lumbosacral spondylosis with radiculopathy (Acute); Cerebrospinal fluid leak due to lumbar surgery - surgery performed yesterday, , 05/21/2023 REVISION L2-S1 DECOMPRESSION AND FUSION WITH DURAL REPAIR, PSEUDOMENINGOCELE. Patient at stable at bedside this morning with dressing in place over spine and Montemayor in place. Pain medication as needed. Recommend PT/OT daily. Antibiotics per ID/medicine. Appreciate other medical specialty recommendations. We'll continue to follow patient during stay in hospital. 2. Appreciate medical and ID management 3. Pain management - Mulberry; Flexeril; Robaxin 4. GI prophylaxis - Dulcolax; milk of magnesia 5. DVT prophylaxis - heparin 6. PT/OT - weightbearing as tolerated with walker and assistance 7. Encourage incentive spirometer use Time with Patient: Less than 30
[2023-05-22] MEDS: HYDROmorphone 1 MG/ML 1 ML SYRINGE IVP PRN ×2 (13:23→18:08)
[2023-05-22] MEDS: CYCLOBENZAPRINE 5 MG TAB PO PRN (13:23)
--- NOTE | 2023-05-22 14:01 | P.PN ---
Subjective Progress Note Date: 05/22/23 Patient is a 67-year-old female with L3-5 lumbar laminectomy in March 2023 with subsequent rehospitalization due to possible CSF leak where she was discharged home on Keflex for 5 days. Patient has since been at the senior care facility, diabetes, and hypertension who presented from the infectious disease office due to continued drainage from her surgical site with cultures positive for MRSA. Dr. Allen felt the patient likely had a CSF leak and that an overt infection based on the type of drainage noted. He had encouraged patient to go back to [facility] where she had surgery performed, but she does not wish to go back to that facility at this time. On arrival to the emergency department her vital signs are within normal limits. Initial laboratory analysis was remarkable for creatinine of 1.26 (baseline 1.1), calcium 10.4. In the ER she was started on ceftriaxone and vancomycin. CT lumbar spine showed multilevel degenerative disc changes with gas now present in the left anterior aspect of the spinal canal at L4, posterior soft tissue fluid collection again present slightly decreased in size appears more liquefied centrally with decreased internal gas extends from the laminectomy defect at least abutting the spinal canal. Arrangements were made for admission. Orthopedic spine surgery was consulted. ID has been consulted. One out of 2 blood cultures positive. Repeat blood cultures negative growth to date. Patient is status post revision L2 to S1 decompression and fusion with dural repair. Patient seen and examined at bedside. No acute events overnight. Montemayor catheter in place. Vital signs reviewed General: Nontoxic, no distress, appears at stated age Cardiovascular: S1S2 reg, no murmur, positive posterior tibial pulse bilateral, Lungs: CTA bilateral, no rhonchi, no rales, no accessory muscle use Abdominal: Soft, nontender to palpation, no guarding, no appreciable organomegaly Ext: No gross muscle atrophy, no edema b/l lower extremities, no contractures Neuro: CN II-XI grossly intact, no focal neuro deficits Derm: Back dressing not observed Psych: Alert, oriented, appropriate affect Assessment/Plan: Possible dural leak versus infection at postsurgical site of L3-5 laminectomy status post revision, decompression, fusion Multilevel lumbar spondylosis Multilevel lumbar neuroforaminal and central canal stenosis Leukocytosis, anticipated outcome of surgery - continue with vancomycin and Rocephin, day #5. Monitor creatinine for signs of vancomycin toxicity. -Orthopedics note reviewed, continue postop care -ID following -Continue pain control with morphine 4 mg every 4 hours, Robaxin 750 milligrams twice daily. Cosby 7.5, 325 mg -Also on bowel regimen -Acetazolamide 250 mg oral twice daily -Repeat CBC and BMP tomorrow Bacteremia staph aureus - on vanco and rocephin - repeat blood cultures negative to date - possible contamination vs true infection. Diabetes mellitus type 2 -Patient is not on any medications for diabetes and appears diet controlled -Sliding scale insulin, monitor for hypoglycemia -A1c 6.4 Hypertension Dyslipidemia -Continue with metoprolol 100 mg every 8 hours -Patient is not on any targeted medications for her dyslipidemia -Follow blood pressures Hypokalemia -Resolved Imaging: None new Data Review: WBC 13.7, hemoglobin 12, sodium 138, creatinine 0.9, blood sugars range between 120-136 DVT prophylaxis: Heparin Anticipated discharge date: Pending Clinical Course Anticipated discharge place: Pending Clinical Course Objective - Vital Signs Vital signs: Vital Signs Temp 98.1 F 05/22/23 13:36 Pulse 67 05/22/23 13:36 Resp 20 05/22/23 13:36 BP 140/89 05/22/23 13:36 Pulse Ox 100 05/22/23 13:36 FiO2 Intake & Output 05/21/23 05/22/23 05/22/23 18:59 06:59 18:59 Intake Total 2001 575 Output Total 1150 Balance 2001 -57 Weight 87.997 kg 87.997 kg Intake: IV 2001 575 Output: Urine 750 Estimated Blood Loss 400 Other: Voiding Method Toilet Indwelling Catheter # Voids 1 1 - Labs CBC & Chem 7: 05/22/23 08:18 05/22/23 06:30 Labs: Abnormal Lab Results - Last 24 Hours (Table) 05/21/23 05/21/23 05/22/23 Range/Units 20:40 21:50 05:56 WBC (3.8-10.6) k/uL Neutrophils # (1.3-7.7) k/uL Chloride (98-107) mmol/L Carbon Dioxide (22-30) mmol/L BUN (7-17) mg/dL Glucose (74-99) mg/dL POC Glucose (mg/dL) 197 H 193 H 136 H (70-110) mg/dL AST (14-36) U/L Total Protein (6.3-8.2) g/dL Albumin (3.5-5.0) g/dL 05/22/23 05/22/23 05/22/23 Range/Units 06:30 08:18 11:04 WBC 13.7 H (3.8-10.6) k/uL Neutrophils # 11.6 H (1.3-7.7) k/uL Chloride 110 H (98-107) mmol/L Carbon Dioxide 19 L (22-30) mmol/L BUN 20 H (7-17) mg/dL Glucose 122 H (74-99) mg/dL POC Glucose (mg/dL) 133 H (70-110) mg/dL AST 40 H (14-36) U/L Total Protein 5.5 L (6.3-8.2) g/dL Albumin 2.7 L (3.5-5.0) g/dL Microbiology - Last 24 Hours (Table) 05/21/23 06:24 Blood Culture - Preliminary Blood 05/18/23 17:48 Blood Culture - Preliminary Blood 05/20/23 11:44 Blood Culture - Preliminary Blood 05/18/23 17:30 Blood Culture Gram Stain - Preliminary Blood Blood Culture - Preliminary Presumptive Staph aureus
--- NOTE | 2023-05-22 15:55 | CDI ---
Documentation Clarification Form Date: 05/22/2023 03:38:16 PM From: Lily Cortez RN CCDS Phone: [phone] Admit Date: 05/18/2023 07:36:00 PM Patient Name: Krys Pérez Visit Number: [id number] Discharge Date: ATTENTION: The Clinical Documentation Specialists (CDI) and [facility] Coding Staff appreciate your assistance in clarifying documentation. Please respond to the clarification below the line at the bottom and electronically sign. The CDI & [facility] Coding staff will review the response and follow-up if needed. Please note: Queries are made part of the Legal Health Record. If you have any questions, please contact the author of this message via ITS. Dr. Akins There is documentation of bacteremia aixa perry, 05/21, Progress note. Bacteremia is considered a lab finding. Additional clarification regarding bacteremia is requested. Patient history/risk factors:67-year-old female Had a L3- L5 lumbar laminectomy in 03/2023 where she was discharged home on Keflex for 5 days due to a possible CSF leak, presents from the infectious disease office due to continued drainage from surgical site with culturesPH positive for MRSA. Clinical Indicators: VVS,05/18: B/P 147/83, 74 Temp 98.3 F Oral, RR 16, SpO2 98% ra WBC, 05/18: 10.3; Neutrophils, 05/18: 7.5 Blood Culture:05/18 Staphylococcus aureus ID Note, 05/21 : Patient has been eval by orthopedic surgery and planning for surgery this aft ernoon at which time deep culture should be obtained. Blood cultures positive for staph aureus preliminarily MSSA however the patient outpatient culture was positive for MRSA, blood culture has been repeated document clearance of bacteremia. Treatment: Antibiotics: 05/18 Ceftriaxone IVPB x 1; 05/18 Vancomycin IVPB x 1; 05/19 Ceftriaxone IVPB Q24HR, 05/19 Vancomycin IVPB Q24HR Please provide additional clarification regarding the etiology/cause and/or clinical significance of the bacteremia: [ ] Bacteremia is related to sepsis [ ] Bacteremia is due to infectious process, please specify: [ x ] Bacteremia is not clinically significant [ ] Other, please specify [ ] Unable to determine (Template Last Revised: August 2020) MTDD
--- NOTE | 2023-05-22 16:28 | P.PN ---
Subjective Progress Note Date: 05/22/23 Principal diagnosis: Reason for follow-up is lumbar surgical site infection and bacteremia Patient is a 67 y/o F who underwent a L3-L5 laminectomy with Dr. Arroyo on 03/14/23. Now admitted to hospital with nonhealing of her lumbar wound drainage outpatient culture positive for MRSA and the patient did have a abnormal CT concerning for a fluid collection and blood cultures came back positive with staph aureus. Patient is status post revision L2-S1 decompression and fusion with dural repair/pseudomeningocele that was completed on 05/21/2023. On today's evaluation that is 05/22/2023 the patient denies having any fever or any chills patient is breathing comfortably on room air denies any chest pain shortness of breath or cough has been complaining of some lower back pain though controlled with the pain medication. Patient did have white count of 13.7, creatinine 0.99, blood culture has been finalized with MSSA blood culture repeat currently pending or cultures pending Objective - Vital Signs Vital signs: Vital Signs Temp 98.0 F 05/22/23 07:08 Pulse 67 05/22/23 07:08 Resp 19 05/22/23 07:08 BP 109/68 05/22/23 07:08 Pulse Ox 100 05/22/23 07:08 FiO2 Intake & Output 05/21/23 05/22/23 05/22/23 18:59 06:59 18:59 Intake Total 2001 575 Output Total 1150 Balance 2001 -57 Weight 87.997 kg 87.997 kg Intake: IV 2001 575 Output: Urine 750 Estimated Blood Loss 400 Other: Voiding Method Toilet Indwelling Catheter # Voids 1 1 - Exam GENERAL DESCRIPTION: An elderly female lying in bed in no distress RESPIRATORY SYSTEM: Unlabored breathing , clear to auscultation anteriorly HEART: S1 S2 regular rate and rhythm , ABDOMEN: Soft , no tenderness EXTREMITIES: No edema feet - Labs CBC & Chem 7: 05/22/23 08:18 05/22/23 06:30 Labs: Abnormal Lab Results - Last 24 Hours (Table) 05/21/23 05/21/23 05/21/23 Range/Units 11:14 20:40 21:50 WBC (3.8-10.6) k/uL Neutrophils # (1.3-7.7) k/uL Chloride (98-107) mmol/L Carbon Dioxide (22-30) mmol/L BUN (7-17) mg/dL Glucose (74-99) mg/dL POC Glucose (mg/dL) 124 H 197 H 193 H (70-110) mg/dL AST (14-36) U/L Total Protein (6.3-8.2) g/dL Albumin (3.5-5.0) g/dL 05/22/23 05/22/23 05/22/23 Range/Units 05:56 06:30 08:18 WBC 13.7 H (3.8-10.6) k/uL Neutrophils # 11.6 H (1.3-7.7) k/uL Chloride 110 H (98-107) mmol/L Carbon Dioxide 19 L (22-30) mmol/L BUN 20 H (7-17) mg/dL Glucose 122 H (74-99) mg/dL POC Glucose (mg/dL) 136 H (70-110) mg/dL AST 40 H (14-36) U/L Total Protein 5.5 L (6.3-8.2) g/dL Albumin 2.7 L (3.5-5.0) g/dL Microbiology - Last 24 Hours (Table) 05/18/23 17:48 Blood Culture - Preliminary Blood 05/20/23 11:44 Blood Culture - Preliminary Blood 05/18/23 17:30 Blood Culture Gram Stain - Preliminary Blood Blood Culture - Preliminary Presumptive Staph aureus Assessment and Plan (1) Allergy to multiple antibiotics Current Visit: Yes Status: Acute Code(s): Z88.1 - ALLERGY STATUS TO OTHER ANTIBIOTIC AGENTS SNOMED Code(s): 365762908 (2) MRSA (methicillin resistant staph aureus) culture positive Current Visit: Yes Status: Acute Code(s): Z22.322 - CARRIER OR SUSPECTED CARRIER OF METHICILLIN RESIS STAPH SNOMED Code(s): 312334004 (3) Positive blood culture Current Visit: Yes Status: Acute Code(s): R78.81 - BACTEREMIA SNOMED Code(s): 207596334 (4) Surgical site infection Current Visit: Yes Status: Acute Code(s): T81.49XA - INFECTION FOLLOWING A PROCEDURE, OTHER SURGICAL SITE, INIT SNOMED Code(s): 71916499 Plan: 1patient with a nonhealing wound to the lumbar spine in this patient who did have a history of L3-L5 laminectomy at [facility] on 03/14/2023 subsequently did have a problem with a CSF leak and now with outpatient culture positive for MRSA concerning for possible abscess 2-patient has been eval by orthopedic surgery and planning for surgery this afternoon at which time deep culture should be obtained 3blood cultures have been finalized as MSSA repeat blood cultures as well as OR cultures are currently pending. 4we will discontinue vancomycin and start the patient on cefazolin 2 g every 8 hour and monitor clinical course closely Dictation was produced using [employer] dictation software. please excuse any grammatical, word or spelling errors. Time with Patient: Less than 30
[2023-05-22 17:13] LABS: Glucose,Whole Blood 146 mg/dL (70-110)
[2023-05-22] MEDS ORDERED: VANCOMYCIN TROUGH DUE 1 EACH MISC MISCELLANE ONE (19:00)
[2023-05-22 19:10] LABS: Glucose,Whole Blood 171 mg/dL (70-110)
[2023-05-22] MEDS: HYDROmorphone 0.5 MG/0.5 ML SYRINGE IVP PRN (23:36)
[2023-05-23] MEDS: HYDROmorphone 1 MG/ML 1 ML SYRINGE IVP PRN ×5 (02:34→20:51)
[2023-05-23 05:34] LABS: Glucose,Whole Blood 135 mg/dL (70-110)
[2023-05-23] MEDS: CYCLOBENZAPRINE 5 MG TAB PO PRN ×2 (05:54→16:25)
[2023-05-23] MEDS: METOPROLOL TARTRATE 50 MG TAB PO SCH ×3 (05:54→21:20)
[2023-05-23] MEDS: HYDROcodone/APAP 10-325MG 1 EACH TAB PO PRN ×3 (05:54→18:50)
[2023-05-23] MEDS: SODIUM CHLORIDE 0.9% 1,000 ML IV SCH (06:27)
[2023-05-23] MEDS: LACTATED RINGERS 1,000 ML IV SCH (06:27)
[2023-05-23 06:39] LABS: African American GFR (CKD) 69 (>60 ml/min/1.73 sqM); Anion Gap 11 mmol/L; Blood Urea Nitrogen 19 mg/dL (7-17); Calcium 9.5 mg/dL (8.4-10.2); Carbon Dioxide 16 mmol/L (22-30); Chloride 113 mmol/L (98-107); Glucose 134 mg/dL (74-99); Non-African American GFR(CKD) 60 (>60 ml/min/1.73 sqM); Potassium 5.1 mmol/L (3.5-5.1); Sodium 140 mmol/L (137-145)
[2023-05-23] MEDS: INSULIN ASPART (NovoLOG) 100 UNIT/ML VIAL SQ SCH ×4 (07:14→21:12)
[2023-05-23] MEDS: HEPARIN SODIUM,PORCINE 5,000 UNIT/ML 1 ML VIAL SQ SCH ×3 (08:04→23:21)
[2023-05-23] MEDS: SENNOSIDES-DOCUSATE SODIUM 1 EACH TAB PO SCH (08:04)
[2023-05-23] MEDS: acetaZOLAMIDE 250 MG TAB PO SCH ×2 (08:04→21:20)
[2023-05-23] MEDS: MAGNESIUM HYDROXIDE 2,400 MG/30 ML CUP PO SCH (08:04)
[2023-05-23] MEDS: methocarbamoL 750 MG TAB PO SCH ×2 (08:04→21:20)
--- NOTE | 2023-05-23 10:18 | P.PN ---
Subjective Progress Note Date: 05/23/23 Principal diagnosis: Dural leak, possible lumbar spine infection, previous lumbar surgery Patient was evaluated today at bedside, she is resting in her hospital bed. Patient is very uncomfortable today with regards to the pain. states that the legs continue to feel better since surgery. She is urinating with no difficulties. She hasn't had a bowel movement since before surgery. She denies headaches, lightheadedness, chest pain or shortness of breath Objective - Vital Signs Vital signs: Vital Signs Temp 98.0 F 05/23/23 07:50 Pulse 70 05/23/23 07:50 Resp 20 05/23/23 07:50 BP 109/70 05/23/23 07:50 Pulse Ox 97 05/23/23 07:50 FiO2 Intake & Output 05/22/23 05/23/23 05/23/23 18:59 06:59 18:59 Output Total 400 500 Balance -400 -500 Output: Urine 400 500 Other: Voiding Method Indwelling Catheter Indwelling Catheter # Voids 1 - Exam Gen: AOx3, NAD VSS stable at this time Integument: There is a 12 centimeter wound located in the lower lumbar spine, there is some subcutaneous tissue noted, there is clear yellowish fluid noted. The remaining incision is well-healed, there is no cervical areas of erythema or fluctuance appreciated Palpation: Mild tenderness with palpation of the lower paraspinal lumbar region ROM: Full range of motion in all major muscle groups of the bilateral upper extre mities Full range of motion in all major muscle groups of the right lower extremity Range of motion is 10 intact throughout the left lower extremity, patient is unable to dorsiflex Sensory Exam: Senory exam to light touch is intact C5-T1 Senosry exam to light touch is intact L2-S1 Motor: 5/5 strength appreciated in bilateral upper extremities with shoulder elevation, shoulder abduction, wrist extension, wrist flexion, engagement specialist, elbow extension, elbow flexion 4/5 strength appreciated in the right lower extremity with hip flexion, knee extension, knee flexion, plantar flexion, dorsiflexion, EHL, FHL 4-/5 strength appreciated in the left lower extremity with hip flexion, knee extension, knee flexion Plantar flexion, dorsiflexion was unobtainable Special Test: Logroll maneuver reproduces no pain bilaterally - Labs CBC & Chem 7: 05/22/23 08:18 05/23/23 05:38 Labs: Abnormal Lab Results - Last 24 Hours (Table) 05/22/23 05/22/23 05/22/23 Range/Units 11:04 17:12 19:09 Chloride (98-107) mmol/L Carbon Dioxide (22-30) mmol/L BUN (7-17) mg/dL Glucose (74-99) mg/dL POC Glucose (mg/dL) 133 H 146 H 171 H (70-110) mg/dL 05/23/23 05/23/23 Range/Units 05:32 05:38 Chloride 113 H (98-107) mmol/L Carbon Dioxide 16 L (22-30) mmol/L BUN 19 H (7-17) mg/dL Glucose 134 H (74-99) mg/dL POC Glucose (mg/dL) 135 H (70-110) mg/dL Microbiology - Last 24 Hours (Table) 05/21/23 16:49 Gram Stain - Preliminary Other - Other Wound Culture - Preliminary 05/21/23 16:49 Gram Stain - Preliminary Other - Other Wound Culture - Preliminary 05/20/23 11:44 Blood Culture - Preliminary Blood 05/18/23 17:30 Blood Culture Gram Stain - Final Blood Blood Culture - Final Staphylococcus aureus 05/21/23 06:24 Blood Culture - Preliminary Blood Assessment and Plan Assessment: Postoperative day #2 status post revision decompression and fusion L3-L5, dural repair Multiple medical comorbidities Plan: Continue IV antibiotics before and after surgery Pain control, will adjust medication DVT prophylaxis, continue subcu medication Activity restrictions, advised patient she can sit up in bed. Advise her to avoid any excessive lifting, sitting in a low chair, bending and twisting to avoid making dural leak worse. if patient does develop headaches, she was noted to lay flat. Other medical specialty recommendations appreciated Regular diet Further recommendations to follow Time with Patient: Less than 30
[2023-05-23 11:12] LABS: Glucose,Whole Blood 158 mg/dL (70-110)
--- NOTE | 2023-05-23 12:43 | P.PN ---
Subjective Progress Note Date: 05/23/23 Patient is a 67-year-old female with L3-5 lumbar laminectomy in March 2023 with subsequent rehospitalization due to possible CSF leak where she was discharged home on Keflex for 5 days. [facility], [facility], and hypertension who presented from the infectious disease office due to continued drainage from her surgical site with cultures positive for MRSA. Dr. Allen felt the patient likely had a CSF leak and that an overt infection based on the type of drainage noted. He had encouraged patient to go back to [facility] where she had surgery performed, but she does not wish to go back to that facility at this time. On arrival to the emergency department her vital signs are within normal limits. Initial laboratory analysis was remarkable for creatinine of 1.26 (baseline 1.1), calcium 10.4. In the ER she was started on ceftriaxone and vancomycin. CT lumbar spine showed multilevel degenerative disc changes with gas now present in the left anterior aspect of the spinal canal at L4, posterior soft tissue fluid collection again present slightly decreased in size appears more liquefied centrally with decreased internal gas extends from the laminectomy defect at least abutting the spinal canal. Arrangements were made for admission. Orthopedic spine surgery was consulted. ID has been consulted. One out of 2 blood cultures positive. Repeat blood cultures negative growth to date. Patient is status post revision L2 to S1 decompression and fusion with dural repair. Patient seen and examined at bedside. No acute events overnight. Montemayor catheter in place. Vital signs reviewed General: Nontoxic, no distress, appears at stated age Cardiovascular: S1S2 reg, no murmur, positive posterior tibial pulse bilateral, Lungs: CTA bilateral, no rhonchi, no rales, no accessory muscle use Abdominal: Soft, nontender to palpation, no guarding, no appreciable organomegaly Ext: No gross muscle atrophy, no edema b/l lower extremities, no contractures Neuro: CN II-XI grossly intact, no focal neuro deficits Derm: Back dressing not observed Psych: Alert, oriented, appropriate affect Assessment/Plan: Possible dural leak versus infection at postsurgical site of L3-5 laminectomy status post revision, decompression, fusion Multilevel lumbar spondylosis 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 [place] 7.5, 325 mg -Also on bowel regimen -Acetazolamide 250 mg oral twice daily -Repeat CBC tomorrow Bacteremia staph aureus - on vanco and rocephin - repeat blood cultures negative to date - possible contamination vs true infection. Diabetes mellitus type 2 -Patient is not on any medications for diabetes and appears diet controlled -Sliding scale insulin, monitor for hypoglycemia -A1c 6.4 Metabolic acidosis -Discontinue normal saline -Repeat BMP tomorrow Hypertension Dyslipidemia -Continue with metoprolol 100 mg every 8 hours -Patient is not on any targeted medications for her dyslipidemia -Follow blood pressures Hypokalemia -Resolved Imaging: None new Data Review: Sodium 140, potassium 5.1, bicarb 16, blood sugars range between 134-171 DVT prophylaxis: Heparin Anticipated discharge date: Pending Clinical Course Anticipated discharge place: Pending Clinical Course Objective - Vital Signs Vital signs: Vital Signs Temp 98.0 F 05/23/23 07:50 Pulse 70 05/23/23 07:50 Resp 20 05/23/23 07:50 BP 109/70 05/23/23 07:50 Pulse Ox 97 05/23/23 07:50 FiO2 Intake & Output 05/22/23 05/23/23 05/23/23 18:59 06:59 18:59 Output Total 400 500 Balance -400 -500 Output: Urine 400 500 Other: Voiding Method Indwelling Catheter Indwelling Catheter # Voids 1 - Labs CBC & Chem 7: 05/22/23 08:18 05/23/23 05:38 Labs: Abnormal Lab Results - Last 24 Hours (Table) 05/22/23 05/22/23 05/23/23 Range/Units 17:12 19:09 05:32 Chloride (98-107) mmol/L Carbon Dioxide (22-30) mmol/L BUN (7-17) mg/dL Glucose (74-99) mg/dL POC Glucose (mg/dL) 146 H 171 H 135 H (70-110) mg/dL 05/23/23 05/23/23 Range/Units 05:38 11:12 Chloride 113 H (98-107) mmol/L Carbon Dioxide 16 L (22-30) mmol/L BUN 19 H (7-17) mg/dL Glucose 134 H (74-99) mg/dL POC Glucose (mg/dL) 158 H (70-110) mg/dL Microbiology - Last 24 Hours (Table) 05/21/23 16:49 Gram Stain - Preliminary Other - Other Wound Culture - Preliminary 05/21/23 16:49 Gram Stain - Preliminary Other - Other Wound Culture - Preliminary 05/20/23 11:44 Blood Culture - Preliminary Blood 05/18/23 17:30 Blood Culture Gram Stain - Final Blood Blood Culture - Final Staphylococcus aureus 05/21/23 06:24 Blood Culture - Preliminary Blood
--- NOTE | 2023-05-23 13:21 | P.PN ---
Subjective Progress Note Date: 05/23/23 Principal diagnosis: Reason for follow-up is lumbar surgical site infection and bacteremia Patient is a 67 y/o F who underwent a L3-L5 laminectomy with Dr. Arroyo on 03/14/23. Now admitted to hospital with nonhealing of her lumbar wound drainage outpatient culture positive for MRSA and the patient did have a abnormal CT concerning for a fluid collection and blood cultures came back positive with staph aureus. Patient is status post revision L2-S1 decompression and fusion with dural repair/pseudomeningocele that was completed on 05/21/2023. On today's evaluation that is 05/23/2023 the patient remains to be afebrile, patient is breathing comfortably on room air without need for any supplemental oxygen, the patient denies any chest pain shortness of breath or cough, the pat ient has been complaining of some lower back pain though controlled with the pain medication. No new symptoms Patient did have white count of 13.7, creatinine 0.99 as of 05/22/2023, blood culture has been finalized with MSSA blood culture repeat currently pending or cultures pending Objective - Vital Signs Vital signs: Vital Signs Temp 98.0 F 05/23/23 07:50 Pulse 70 05/23/23 07:50 Resp 20 05/23/23 07:50 BP 109/70 05/23/23 07:50 Pulse Ox 97 05/23/23 07:50 FiO2 Intake & Output 05/22/23 05/23/23 05/23/23 18:59 06:59 18:59 Output Total 400 500 Balance -400 -500 Output: Urine 400 500 Other: Voiding Method Indwelling Catheter Indwelling Catheter # Voids 1 - Exam GENERAL DESCRIPTION: An elderly female lying in bed in no distress RESPIRATORY SYSTEM: Unlabored breathing , clear to auscultation anteriorly HEART: S1 S2 regular rate and rhythm , ABDOMEN: Soft , no tenderness EXTREMITIES: No edema feet - Labs CBC & Chem 7: 05/22/23 08:18 05/23/23 05:38 Labs: Abnormal Lab Results - Last 24 Hours (Table) 05/22/23 05/22/23 05/23/23 Range/Units 17:12 19:09 05:32 Chloride (98-107) mmol/L Carbon Dioxide (22-30) mmol/L BUN (7-17) mg/dL Glucose (74-99) mg/dL POC Glucose (mg/dL) 146 H 171 H 135 H (70-110) mg/dL 05/23/23 05/23/23 Range/Units 05:38 11:12 Chloride 113 H (98-107) mmol/L Carbon Dioxide 16 L (22-30) mmol/L BUN 19 H (7-17) mg/dL Glucose 134 H (74-99) mg/dL POC Glucose (mg/dL) 158 H (70-110) mg/dL Microbiology - Last 24 Hours (Table) 05/21/23 06:24 Blood Culture - Preliminary Blood 05/21/23 16:49 Gram Stain - Preliminary Other - Other Wound Culture - Preliminary 05/21/23 16:49 Gram Stain - Preliminary Other - Other Wound Culture - Preliminary 05/20/23 11:44 Blood Culture - Preliminary Blood 05/18/23 17:30 Blood Culture Gram Stain - Final Blood Blood Culture - Final Staphylococcus aureus Assessment and Plan (1) Allergy to multiple antibiotics Current Visit: Yes Status: Acute Code(s): Z88.1 - ALLERGY STATUS TO OTHER ANTIBIOTIC AGENTS SNOMED Code(s): 437954169 (2) MRSA (methicillin resistant staph aureus) culture positive Current Visit: Yes Status: Acute Code(s): Z22.322 - CARRIER OR SUSPECTED CARRIER OF METHICILLIN RESIS STAPH SNOMED Code(s): 235227158 (3) Positive blood culture Current Visit: Yes Status: Acute Code(s): R78.81 - BACTEREMIA SNOMED Code(s): 882034764 (4) Surgical site infection Current Visit: Yes Status: Acute Code(s): T81.49XA - INFECTION FOLLOWING A PROCEDURE, OTHER SURGICAL SITE, INIT SNOMED Code(s): 21100390 Plan: 1patient with a nonhealing wound to the lumbar spine in this patient who did have a history of L3-L5 laminectomy at [facility] on 03/14/2023 subsequently did have a problem with a CSF leak and now with outpatient culture positive for MRSA concerning for possible abscess 2-patient has been eval by orthopedic surgery and planning for surgery this afternoon at which time deep culture should be obtained 3blood cultures have been finalized as MSSA repeat blood cultures as well as OR cultures are currently pending. 4patient continue with cefazolin 2 g every 8 hour and monitor clinical course closely, questions and concerns were answered Dictation was produced using [employer] dictation software. please excuse any grammatical, word or spelling errors. Time with Patient: Less than 30
[2023-05-23 17:07] LABS: Glucose,Whole Blood 135 mg/dL (70-110)
[2023-05-23 21:07] LABS: Glucose,Whole Blood 119 mg/dL (70-110)
[2023-05-24] MEDS: HYDROmorphone 1 MG/ML 1 ML SYRINGE IVP PRN ×3 (01:01→08:46)
[2023-05-24] MEDS: HYDROcodone/APAP 10-325MG 1 EACH TAB PO PRN ×4 (03:26→23:54)
[2023-05-24 05:24] LABS: Glucose,Whole Blood 106 mg/dL (70-110)
[2023-05-24] MEDS: METOPROLOL TARTRATE 50 MG TAB PO SCH ×3 (05:32→20:27)
[2023-05-24] MEDS: INSULIN ASPART (NovoLOG) 100 UNIT/ML VIAL SQ SCH ×4 (06:41→20:27)
[2023-05-24] MEDS: LACTATED RINGERS 1,000 ML IV SCH (07:25)
[2023-05-24] MEDS: MAGNESIUM HYDROXIDE 2,400 MG/30 ML CUP PO SCH (08:40)
[2023-05-24] MEDS: acetaZOLAMIDE 250 MG TAB PO SCH ×2 (08:46→20:27)
[2023-05-24] MEDS: HEPARIN SODIUM,PORCINE 5,000 UNIT/ML 1 ML VIAL SQ SCH ×3 (08:46→23:01)
[2023-05-24] MEDS: SENNOSIDES-DOCUSATE SODIUM 1 EACH TAB PO SCH (08:46)
[2023-05-24] MEDS: methocarbamoL 750 MG TAB PO SCH ×2 (08:46→20:27)
[2023-05-24 09:15] LABS: Basophils % (A) 0 %; Eosinophils # (A) 0.1 k/uL (0-0.7); Eosinophils % (A) 1 %; HCT 36.5 % (34.0-46.0); HGB 11.1 gm/dL (11.4-16.0); Hypochromasia Marked; Lymphocytes # (A) 1.6 k/uL (1.0-4.8); Lymphocytes % (A) 16 %; MCH 29.7 pg (25.0-35.0); MCHC 30.4 g/dL (31.0-37.0); MCV 97.8 fL (80.0-100.0); Mean Platelet Volume 8.9; Monocytes # (A) 0.5 k/uL (0-1.0); Monocytes % (A) 5 %; Neutrophils # (A) 7.5 k/uL (1.3-7.7); Neutrophils % (A) 77 %; Platelet Count 261 k/uL (150-450); RBC 3.73 m/uL (3.80-5.40); RDW 13.7 % (11.5-15.5); WBC 9.8 k/uL (3.8-10.6)
[2023-05-24 09:28] LABS: African American GFR (CKD) 74 (>60 ml/min/1.73 sqM); Non-African American GFR(CKD) 64 (>60 ml/min/1.73 sqM)
[2023-05-24 09:32] LABS: African American GFR (CKD) 69 (>60 ml/min/1.73 sqM); Anion Gap 8 mmol/L; Blood Urea Nitrogen 15 mg/dL (7-17); Calcium 8.9 mg/dL (8.4-10.2); Carbon Dioxide 20 mmol/L (22-30); Chloride 107 mmol/L (98-107); Glucose 167 mg/dL (74-99); Non-African American GFR(CKD) 60 (>60 ml/min/1.73 sqM); Potassium 3.6 mmol/L (3.5-5.1); Sodium 135 mmol/L (137-145)
[2023-05-24 11:11] LABS: Glucose,Whole Blood 135 mg/dL (70-110)
--- NOTE | 2023-05-24 11:11 | P.PN ---
Subjective Progress Note Date: 05/24/23 Principal diagnosis: Dural leak, possible lumbar spine infection, previous lumbar surgery Patient was evaluated today at bedside, she is resting in her hospital bed. She is feeling a little better today. Nursing mentioned her dressing became very saturated this morning. She denies headaches, lightheadedness, chest pain or shortness of breath Objective - Vital Signs Vital signs: Vital Signs Temp 98.3 F 05/24/23 06:50 Pulse 63 05/24/23 06:50 Resp 20 05/24/23 06:50 BP 146/69 05/24/23 06:50 Pulse Ox 100 05/24/23 06:50 FiO2 Intake & Output 05/23/23 05/24/23 05/24/23 18:59 06:59 18:59 Output Total 500 Balance -500 Output: Urine 500 Other: Voiding Method Indwelling Catheter Indwelling Catheter Indwelling Catheter - Exam Gen: AOx3, NAD VSS stable at this time Integument: Bandage changed today at bedside, bloody serosanguineous drainage noted. [place] are all in good position Palpation: Mild tenderness with palpation of the lower paraspinal lumbar region ROM: Full range of motion in all major muscle groups of the bilateral upper extremities Full range of motion in all major muscle groups of the right lower extremity Range of motion is 10 intact throughout the left lower extremity, patient is un able to dorsiflex Sensory Exam: [place] exam to light touch is intact C5-T1 [place] exam to light touch is intact L2-S1 Motor: 5/5 strength appreciated in bilateral upper extremities with shoulder elevation, shoulder abduction, wrist extension, wrist flexion, crm manager, elbow extension, elbow flexion 4/5 strength appreciated in the right lower extremity with hip flexion, knee extension, knee flexion, plantar flexion, dorsiflexion, EHL, FHL 4-/5 strength appreciated in the left lower extremity with hip flexion, knee extension, knee flexion Plantar flexion, dorsiflexion was unobtainable Special Test: Logroll maneuver reproduces no pain bilaterally - Labs CBC & Chem 7: 05/24/23 08:25 05/24/23 08:25 Labs: Abnormal Lab Results - Last 24 Hours (Table) 05/23/23 05/23/23 05/23/23 Range/Units 11:12 17:05 21:05 RBC (3.80-5.40) m/uL Hgb (11.4-16.0) gm/dL MCHC (31.0-37.0) g/dL Sodium (137-145) mmol/L Carbon Dioxide (22-30) mmol/L Glucose (74-99) mg/dL POC Glucose (mg/dL) 158 H 135 H 119 H (70-110) mg/dL 05/24/23 05/24/23 Range/Units 08:25 08:25 RBC 3.73 L (3.80-5.40) m/uL Hgb 11.1 L (11.4-16.0) gm/dL MCHC 30.4 L (31.0-37.0) g/dL Sodium 135 L (137-145) mmol/L Carbon Dioxide 20 L (22-30) mmol/L Glucose 167 H (74-99) mg/dL POC Glucose (mg/dL) (70-110) mg/dL Microbiology - Last 24 Hours (Table) 05/21/23 16:49 Gram Stain - Final Other - Other Wound Culture - Final 05/21/23 16:49 Gram Stain - Final Other - Other Wound Culture - Final 05/18/23 17:48 Blood Culture - Final Blood 05/20/23 11:44 Blood Culture - Preliminary Blood 05/21/23 06:24 Blood Culture - Preliminary Blood Assessment and Plan Assessment: Postoperative day #3 status post revision decompression and fusion L3-L5, dural repair Multiple medical comorbidities Plan: Dressing changed today at bedside Continue IV antibiotics DC henriquez today Pain control, continue current medication. Discussed limiting IV narcotics DVT prophylaxis, continue subcu medication Activity restrictions, advised patient she can sit up in bed. Advise her to avoid any excessive lifting, sitting in a low chair, bending and twisting to a void making dural leak worse. if patient does develop headaches, she was noted to lay flat. Other medical specialty recommendations appreciated Regular diet Continue to follow Time with Patient: Less than 30
--- NOTE | 2023-05-24 13:21 | P.PN ---
Subjective Progress Note Date: 05/24/23 Patient is a 67-year-old female with L3-5 lumbar laminectomy in March 2023 with subsequent rehospitalization due to possible CSF leak where she was discharged home on Keflex for 5 days. [facility] has since been at [facility], diabetes, and hypertension who presented from the infectious disease office due to continued drainage from her surgical site with cultures positive for MRSA. Dr. Allen felt the patient likely had a CSF leak and that an overt infection based on the type of drainage noted. He had encouraged patient to go back to [facility] where she had surgery performed, but she does not wish to go back to that facility at this time. On arrival to the emergency department her vital signs are within normal limits. Initial laboratory analysis was remarkable for creatinine of 1.26 (baseline 1.1), calcium 10.4. In the ER she was started on ceftriaxone and vancomycin. CT lumbar spine showed multilevel degenerative disc changes with gas now present in the left anterior aspect of the spinal canal at L4, posterior soft tissue fluid collection again present slightly decreased in size appears more liquefied centrally with decreased internal gas extends from the laminectomy defect at least abutting the spinal canal. Arrangements were made for admission. Orthopedic spine surgery was consulted. ID has been consulted. One out of 2 blood cultures positive. Repeat blood cultures negative growth to date. Patient is status post revision L2 to S1 decompression and fusion with dural repair. Patient seen and examined at bedside. No acute events overnight. Montemayor catheter in place. Vital signs reviewed General: Nontoxic, no distress, appears at stated age, obese Cardiovascular: S1S2 reg, no murmur, positive posterior tibial pulse bilateral Lungs: CTA bilateral, no rhonchi, no rales, no accessory muscle use Abdominal: Soft, nontender to palpation, no guarding, no appreciable organomegaly Ext: No gross muscle atrophy, no edema b/l lower extremities, no contractures Neuro: CN II-XI grossly intact, no focal neuro deficits Derm: Back dressing has some dry crusted blood Psych: Alert, oriented, appropriate affect Assessment/Plan: Surgical site infection status post revision, decompression, fusion Multilevel lumbar spondylosis 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 Diabetes mellitus type 2 -Patient is not on any medications for diabetes and appears diet controlled -Sliding scale insulin, monitor for hypoglycemia -A1c 6.4 Metabolic acidosis, resolving -Normal saline discontinued -Repeat BMP tomorrow Hypertension Dyslipidemia -Continue with metoprolol 100 mg every 8 hours -Patient is not on any targeted medications for her dyslipidemia -Follow blood pressures Hypokalemia -Resolved Imaging: None new Data Review: Sodium 140, potassium 5.1, bicarb 16, blood sugars range between 134-171 DVT prophylaxis: Heparin Anticipated discharge date: 1-2 days, will likely need IV antibiotics Anticipated discharge place: Likely home with home care, patient is able to transfer herself out of the bed Objective - Vital Signs Vital signs: Vital Signs Temp 98.3 F 05/24/23 06:50 Pulse 63 05/24/23 06:50 Resp 20 05/24/23 06:50 BP 146/69 05/24/23 06:50 Pulse Ox 100 05/24/23 06:50 FiO2 Intake & Output 05/23/23 05/24/23 05/24/23 18:59 06:59 18:59 Output Total 500 Balance -500 Output: Urine 500 Other: Voiding Method Indwelling Catheter Indwelling Catheter Indwelling Catheter - Labs CBC & Chem 7: 05/24/23 08:25 05/24/23 08:25 Labs: Abnormal Lab Results - Last 24 Hours (Table) 05/23/23 05/23/23 05/24/23 Range/Units 17:05 21:05 08:25 RBC 3.73 L (3.80-5.40) m/uL Hgb 11.1 L (11.4-16.0) gm/dL MCHC 30.4 L (31.0-37.0) g/dL Sodium (137-145) mmol/L Carbon Dioxide (22-30) mmol/L Glucose (74-99) mg/dL POC Glucose (mg/dL) 135 H 119 H (70-110) mg/dL 05/24/23 05/24/23 Range/Units 08:25 11:10 RBC (3.80-5.40) m/uL Hgb (11.4-16.0) gm/dL MCHC (31.0-37.0) g/dL Sodium 135 L (137-145) mmol/L Carbon Dioxide 20 L (22-30) mmol/L Glucose 167 H (74-99) mg/dL POC Glucose (mg/dL) 135 H (70-110) mg/dL Microbiology - Last 24 Hours (Table) 05/21/23 06:24 Blood Culture - Preliminary Blood 05/21/23 16:49 Gram Stain - Final Other - Other Wound Culture - Final 05/21/23 16:49 Gram Stain - Final Other - Other Wound Culture - Final 05/18/23 17:48 Blood Culture - Final Blood 05/20/23 11:44 Blood Culture - Preliminary Blood
[2023-05-24] MEDS: HYDROmorphone 0.5 MG/0.5 ML SYRINGE IVP PRN ×2 (15:26→20:25)
[2023-05-24] MEDS: CYCLOBENZAPRINE 5 MG TAB PO PRN (15:26)
[2023-05-24 16:53] LABS: Glucose,Whole Blood 144 mg/dL (70-110)
[2023-05-24 19:21] LABS: Glucose,Whole Blood 155 mg/dL (70-110)
[2023-05-25] MEDS: HYDROcodone/APAP 10-325MG 1 EACH TAB PO PRN ×4 (04:00→22:37)
[2023-05-25 05:26] LABS: Glucose,Whole Blood 115 mg/dL (70-110)
[2023-05-25] MEDS: METOPROLOL TARTRATE 50 MG TAB PO SCH ×3 (06:47→21:21)
[2023-05-25] MEDS: INSULIN ASPART (NovoLOG) 100 UNIT/ML VIAL SQ SCH ×4 (06:50→21:21)
[2023-05-25] MEDS: SENNOSIDES-DOCUSATE SODIUM 1 EACH TAB PO SCH (08:40)
[2023-05-25] MEDS: CYCLOBENZAPRINE 5 MG TAB PO PRN ×2 (08:40→21:35)
[2023-05-25] MEDS: MAGNESIUM HYDROXIDE 2,400 MG/30 ML CUP PO SCH (08:43)
[2023-05-25] MEDS: HEPARIN SODIUM,PORCINE 5,000 UNIT/ML 1 ML VIAL SQ SCH ×2 (08:43→16:42)
[2023-05-25] MEDS: methocarbamoL 750 MG TAB PO SCH ×2 (08:44→21:21)
[2023-05-25] MEDS: acetaZOLAMIDE 250 MG TAB PO SCH ×2 (08:44→21:21)
[2023-05-25] MEDS: LACTATED RINGERS 1,000 ML IV SCH (08:49)
[2023-05-25 09:30] LABS: BUN/Creat Ratio 18.33 Ratio (12.00-20.00); Blood Urea Nitrogen 16.5 mg/dL (9.0-27.0); Calcium 8.8 mg/dL (8.7-10.3); Carbon Dioxide 20.7 mmol/L (21.6-31.8); Chloride 106 mmol/L (96-109); Glucose 115 mg/dL (70-110); Potassium 3.5 mmol/L (3.5-5.5); Sodium 137 mmol/L (135-145)
[2023-05-25] MEDS: polyethylene glycoL 3350 17 GM POWD.PACK PO SCH (10:53)
[2023-05-25 11:55] LABS: Glucose,Whole Blood 124 mg/dL (70-110)
[2023-05-25 16:33] LABS: Glucose,Whole Blood 137 mg/dL (70-110)
--- NOTE | 2023-05-25 17:04 | P.PN ---
Subjective Progress Note Date: 05/25/23 (delayed charting seen at 1045) Patient is a 67-year-old female with L3-5 lumbar laminectomy in March 2023 with subsequent rehospitalization due to possible CSF leak where she was discha rged home on Keflex for 5 days. [facility], diabetes, and hypertension who presented from the infectious disease office due to continued drainage from her surgical site with cultures positive for MRSA. Dr. Allen felt the patient likely had a CSF leak and that an overt infection based on the type of drainage noted. He had encouraged patient to go back to [facility] where she had surgery performed, but she does not wish to go back to that facility at this time. On arrival to the emergency department her vital signs are within normal limits. Initial laboratory analysis was remarkable for creatinine of 1.26 (baseline 1.1), calcium 10.4. In the ER she was started on ceftriaxone and vancomycin. CT lumbar spine showed multilevel degenerative disc changes with gas now present in the left anterior aspect of the spinal canal at L4, posterior soft tissue fluid collection again present slightly decreased in size appears more liquefied centrally with decreased internal gas extends from the laminectomy defect at least abutting the spinal canal. Arrangements were made for admission. Orthopedic spine surgery was consulted. Infectious disease was consulted. Patient seen and examined at bedside. She is havign some increased pain today, had a BM with severe straining yesterday and now has some drainage from back wound today. No chest pain, SOB, [place], or vomiting. 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 Leukocytosis, anticipated outcome of surgery, resolved Mild acute blood loss anemia, anticipated outcome assertion -ID following, on IV cefazolin 2 g q8hr -Orthopedics note reviewed, continue current care -Continue pain control with IV Dilaudid as needed, oral [place] as needed, Flexeril as needed, Robaxin 750 milligrams twice daily, monitor for respiratory depression -Acetazolamide 250 mg oral twice daily - follow CBC Constipation -Add MiraLAX 17 g daily -Continue it, to each daily 1 blood culture positive for staph aureus -Continue cefazolin - repeat blood cultures negative to date - possible contamination vs true infection. -Await further ID recs Diabetes mellitus type 2 -Patient is not on any medications for diabetes and appears diet controlled -Sliding scale insulin, monitor for hypoglycemia -A1c 6.4 Metabolic acidosis, resolving -Normal saline discontinued -Repeat BMP tomorrow Hypertension Dyslipidemia -Continue with metoprolol 100 mg every 8 hours -Patient is not on any targeted medications for her dyslipidemia -Follow blood pressures Hypokalemia -Resolved Imaging: None new Data Review: Labs reviewed from today include basic metabolic profile which was essentially unremarkable. DVT prophylaxis: Heparin Anticipated discharge date: Pending clinical course Anticipated discharge place: Pending clinical course This dictation was prepared using [employer] voice recognition software. Though every attempt is made to correct errors during dictation some may still exist. Objective - Vital Signs Vital signs: Vital Signs Temp 98.1 F 05/25/23 14:19 Pulse 76 05/25/23 14:19 Resp 18 05/25/23 14:19 BP 145/83 05/25/23 14:19 Pulse Ox 94 L 05/25/23 14:19 FiO2 Intake & Output 05/24/23 05/25/23 05/25/23 18:59 06:59 18:59 Other: Voiding Method Indwelling Catheter Bedpan Bedpan Diaper Incontinent # Voids 2 1 # Bowel Movements 1 1 - Labs CBC & Chem 7: 05/24/23 08:25 05/25/23 04:36 Labs: Abnormal Lab Results - Last 24 Hours (Table) 05/24/23 05/25/23 05/25/23 Range/Units 19:20 04:36 05:25 Carbon Dioxide 20.7 L (21.6-31.8) mmol/L Glucose 115 H (70-110) mg/dL POC Glucose (mg/dL) 155 H 115 H (70-110) mg/dL 05/25/23 05/25/23 Range/Units 11:51 16:31 Carbon Dioxide (21.6-31.8) mmol/L Glucose (70-110) mg/dL POC Glucose (mg/dL) 124 H 137 H (70-110) mg/dL Microbiology - Last 24 Hours (Table) 05/21/23 16:49 Anaerobic Culture - Preliminary Other - Other 05/21/23 16:49 Anaerobic Culture - Preliminary Other - Other 05/21/23 06:24 Blood Culture - Preliminary Blood
--- NOTE | 2023-05-25 17:49 | P.PN ---
Subjective Progress Note Date: 05/25/23 Principal diagnosis: Dural leak, possible lumbar spine infection, previous lumbar surgery Patient was evaluated today at bedside, she is resting in her hospital bed. Patient is continuing to feel better since. She still hasn't done much with physical therapy. She has had some bloody serosanguineous drainage on the bandage at today. She denies headaches, lightheadedness, chest pain or shortness of breath Objective - Vital Signs Vital signs: Vital Signs Temp 98.1 F 05/25/23 14:19 Pulse 76 05/25/23 14:19 Resp 18 05/25/23 14:19 BP 145/83 05/25/23 14:19 Pulse Ox 94 L 05/25/23 14:19 FiO2 Intake & Output 05/24/23 05/25/23 05/25/23 18:59 06:59 18:59 Other: Voiding Method Indwelling Catheter Bedpan Bedpan Diaper Incontinent # Voids 2 1 # Bowel Movements 1 1 - Exam Gen: AOx3, NAD VSS stable at this time Integument: Skin was cleansed with a chlorhexidine swab, there was mild bloody serosanguineous drainage noted on the bandage. Barb are all in good position and condition. The bandage was applied Palpation: Mild tenderness with palpation of the lower paraspinal lumbar region ROM: Full range of motion in all major muscle groups of the bilateral upper extremities Full range of motion in all major muscle groups of the right lower extremity Range of motion is 10 intact throughout the left lower extremity, patient is unable to dorsiflex Sensory Exam: Senory exam to light touch is intact C5-T1 Senosry exam to light touch is intact L2-S1 Motor: 5/5 strength appreciated in bilateral upper extremities with shoulder elevation, shoulder abduction, wrist extension, wrist flexion, web design instructor, elbow extension, elbow flexion 4/5 strength appreciated in the right lower extremity with hip flexion, knee extension, knee flexion, plantar flexion, dorsiflexion, EHL, FHL 4-/5 strength appreciated in the left lower extremity with hip flexion, knee extension, knee flexion Plantar flexion, dorsiflexion was unobtainable Special Test: Logroll maneuver reproduces no pain bilaterally - Labs CBC & Chem 7: 05/24/23 08:25 05/25/23 04:36 Labs: Abnormal Lab Results - Last 24 Hours (Table) 05/24/23 05/25/23 05/25/23 Range/Units 19:20 04:36 05:25 Carbon Dioxide 20.7 L (21.6-31.8) mmol/L Glucose 115 H (70-110) mg/dL POC Glucose (mg/dL) 155 H 115 H (70-110) mg/dL 05/25/23 05/25/23 Range/Units 11:51 16:31 Carbon Dioxide (21.6-31.8) mmol/L Glucose (70-110) mg/dL POC Glucose (mg/dL) 124 H 137 H (70-110) mg/dL Microbiology - Last 24 Hours (Table) 05/21/23 16:49 Anaerobic Culture - Preliminary Other - Other 05/21/23 16:49 Anaerobic Culture - Preliminary Other - Other 05/21/23 06:24 Blood Culture - Preliminary Blood Assessment and Plan Assessment: Postoperative day #4 status post revision decompression and fusion L3-L5, dural repair Multiple medical comorbidities Plan: Continue to monitor dressing Continue IV antibiotics Pain control, continue current medication. Discussed limiting IV narcotics DVT prophylaxis, continue subcu medication Discussed with patient to continue increasing her activity, hopefully working more with PT tomorrow, possible discharge home with home health care in the next 24-48 hours Other medical specialty recommendations appreciated Regular diet Continue to follow Time with Patient: Less than 30
[2023-05-25 20:27] LABS: Glucose,Whole Blood 182 mg/dL (70-110)
[2023-05-26] MEDS: HEPARIN SODIUM,PORCINE 5,000 UNIT/ML 1 ML VIAL SQ SCH ×4 (00:11→23:45)
[2023-05-26] MEDS: LACTATED RINGERS 1,000 ML IV SCH (01:15)
[2023-05-26] MEDS: CYCLOBENZAPRINE 5 MG TAB PO PRN ×2 (02:14→15:29)
[2023-05-26] MEDS: HYDROcodone/APAP 10-325MG 1 EACH TAB PO PRN ×4 (03:33→20:44)
[2023-05-26 06:27] LABS: Glucose,Whole Blood 145 mg/dL (70-110)
[2023-05-26] MEDS: INSULIN ASPART (NovoLOG) 100 UNIT/ML VIAL SQ SCH ×4 (06:45→20:40)
[2023-05-26] MEDS: METOPROLOL TARTRATE 50 MG TAB PO SCH ×3 (06:48→20:40)
[2023-05-26 08:30] LABS: HCT 36.2 % (37.2-46.3); HGB 11.2 g/dL (12.0-15.0); MCH 29.6 pg (27.0-32.0); MCHC 30.9 g/dL (32.0-37.0); MCV 95.5 FL (80.0-97.0); Mean Platelet Volume 10.9 FL (9.5-12.2); NRBC Per 100 WBC 0 X 10*3/uL (0.00-0.01); Platelet Count 357 X 10*3/uL (140-440); RBC 3.79 X 10*6/uL (4.10-5.20); RDW 13.7 % (11.5-14.5); WBC 10.01 X 10*3/uL (4.50-10.00)
[2023-05-26] MEDS: acetaZOLAMIDE 250 MG TAB PO SCH ×2 (08:37→20:39)
[2023-05-26] MEDS: SENNOSIDES-DOCUSATE SODIUM 1 EACH TAB PO SCH (08:37)
[2023-05-26] MEDS: MAGNESIUM HYDROXIDE 2,400 MG/30 ML CUP PO SCH (08:38)
[2023-05-26] MEDS: methocarbamoL 750 MG TAB PO SCH ×2 (08:38→20:39)
[2023-05-26] MEDS: polyethylene glycoL 3350 17 GM POWD.PACK PO SCH (08:38)
[2023-05-26 09:06] LABS: BUN/Creat Ratio 17.22 Ratio (12.00-20.00); Blood Urea Nitrogen 15.5 mg/dL (9.0-27.0); Calcium 8.8 mg/dL (8.7-10.3); Chloride 106 mmol/L (96-109); Glucose 160 mg/dL (70-110); Potassium 3.5 mmol/L (3.5-5.5); Sodium 138 mmol/L (135-145)
[2023-05-26 10:48] LABS: Glucose,Whole Blood 152 mg/dL (70-110)
--- NOTE | 2023-05-26 11:49 | P.PN ---
Subjective Progress Note Date: 05/26/23 Principal diagnosis: Dural leak, possible lumbar spine infection, previous lumbar surgery Patient was evaluated today at bedside, she is resting in her hospital bed. Patient seems to be improving daily. Discussed with patient today her overall activity level, she was able to sit at the edge of the bed but hasn't moved around much in the room and to the bathroom. She mentioned she does have a brace for her left foot drop, she spoke with her significant other while I was i n the room and they will be bringing it to the hospital later this afternoon. The current dressing is very mild drainage on it at this time. She denies headaches, lightheadedness, chest pain or shortness of breath Objective - Vital Signs Vital signs: Vital Signs Temp 97.6 F 05/26/23 06:55 Pulse 80 05/26/23 06:55 Resp 16 05/26/23 06:55 BP 135/85 05/26/23 06:55 Pulse Ox 91 L 05/26/23 06:55 FiO2 Intake & Output 05/25/23 05/26/23 05/26/23 18:59 06:59 18:59 Other: Voiding Method Bedpan Bedpan Diaper Diaper Incontinent # Voids 1 # Bowel Movements 1 - Exam Gen: AOx3, NAD VSS stable at this time Integument: Current bandages in good position and condition, mild serosanguineous drainage Palpation: Mild tenderness with palpation of the lower paraspinal lumbar region ROM: Full range of motion in all major muscle groups of the bilateral upper extremities Full range of motion in all major muscle groups of the right lower extremity Range of motion is 10 intact throughout the left lower extremity, patient is unable to dorsiflex Sensory Exam: Senory exam to light touch is intact C5-T1 Senosry exam to light touch is intact L2-S1 Motor: 5/5 strength appreciated in bilateral upper extremities with shoulder elevation, shoulder abduction, wrist extension, wrist flexion, stain applicator, elbow extension, elbow flexion 4/5 strength appreciated in the right lower extremity with hip flexion, knee extension, knee flexion, plantar flexion, dorsiflexion, EHL, FHL 4-/5 strength appreciated in the left lower extremity with hip flexion, knee extension, knee flexion Plantar flexion, dorsiflexion was unobtainable Special Test: Logroll maneuver reproduces no pain bilaterally - Labs CBC & Chem 7: 05/26/23 04:21 05/26/23 04:21 Labs: Abnormal Lab Results - Last 24 Hours (Table) 05/25/23 05/25/23 05/25/23 Range/Units 11:51 16:31 20:26 WBC (4.50-10.00) X 10*3/uL RBC (4.10-5.20) X 10*6/uL Hgb (12.0-15.0) g/dL Hct (37.2-46.3) % MCHC (32.0-37.0) g/dL Carbon Dioxide (21.6-31.8) mmol/L Glucose (70-110) mg/dL POC Glucose (mg/dL) 124 H 137 H 182 H (70-110) mg/dL 05/26/23 05/26/23 05/26/23 Range/Units 04:21 04:21 06:26 WBC 10.01 H (4.50-10.00) X 10*3/uL RBC 3.79 L (4.10-5.20) X 10*6/uL Hgb 11.2 L (12.0-15.0) g/dL Hct 36.2 L (37.2-46.3) % MCHC 30.9 L (32.0-37.0) g/dL Carbon Dioxide 21.0 L (21.6-31.8) mmol/L Glucose 160 H (70-110) mg/dL POC Glucose (mg/dL) 145 H (70-110) mg/dL 05/26/23 Range/Units 10:47 WBC (4.50-10.00) X 10*3/uL RBC (4.10-5.20) X 10*6/uL Hgb (12.0-15.0) g/dL Hct (37.2-46.3) % MCHC (32.0-37.0) g/dL Carbon Dioxide (21.6-31.8) mmol/L Glucose (70-110) mg/dL POC Glucose (mg/dL) 152 H (70-110) mg/dL Microbiology - Last 24 Hours (Table) 05/20/23 11:44 Blood Culture - Final Blood Assessment and Plan Assessment: Postoperative day #5 status post revision decompression and fusion L3-L5, dural repair Multiple medical comorbidities Plan: Continue to monitor dressing Continue IV antibiotics, awaiting final culture and sensitivity results. No obvious organisms have been identified. Patient will likely be receiving a PICC line for IV antibiotics for the outpatient setting. Infectious disease recommendations appreciated Pain control, continue current medication. Discussed limiting IV narcotics DVT prophylaxis, continue subcu medication Patient should have her ankle brace later this afternoon, hopeful for patient to get up with walker and ambulate Other medical specialty recommendations appreciated Regular diet Plan for discharge to home with home health care in the next 2448 hours Time with Patient: Less than 30
--- NOTE | 2023-05-26 14:05 | P.PN ---
Subjective Progress Note Date: 05/26/23 (Delayed charting seen at 1030) Patient is a 67-year-old female with L3-5 lumbar laminectomy in March 2023 with subsequent rehospitalization due to possible CSF leak where she was discha rged home on Keflex for 5 days. Patient has since been at the [facility] facility, diabetes, and hypertension who presented from the infectious disease office due to continued drainage from her surgical site with cultures positive for MRSA. Dr. Allen felt the patient likely had a CSF leak and that an overt infection based on the type of drainage noted. He had encouraged patient to go back to [facility] where she had surgery performed, but she does not wish to go back to that facility at this time. On arrival to the emergency department her vital signs are within normal limits. Initial laboratory analysis was remarkable for creatinine of 1.26 (baseline 1.1), calcium 10.4. In the ER she was started on ceftriaxone and vancomycin. CT lumbar spine showed multilevel degenerative disc changes with gas now present in the left anterior aspect of the spinal canal at L4, posterior soft tissue fluid collection again present slightly decreased in size appears more liquefied centrally with decreased internal gas extends from the laminectomy defect at least abutting the spinal canal. Arrangements were made for admission. Orthopedic spine surgery was consulted. Infectious disease was consulted. She was started on IV abx which were later deescalated to cefazolin. MRI of the lumbar spine shows large fluid collection in the posterior paraspinal soft tissues and appears in intact co mmunication to the skin surface compatible a CSF leak. One of 2 blood cultures came positive with MSSA. She was taken to the OR on 05/21 and underwent a dural tear with revision decompression and fusion L3 to L5. Cultures came back negative. Infectious disease recommended a course of IV antibiotics on discharge. Patient seen and examined at bedside. He is hoping to go home tomorrow. She is having only mild drainage from her back. She states her pain is fairly well controlled. She denies any nausea or vomiting. She had 1 bowel movement yesterday which was most easier than the one the day prior. She had some dizziness with standing earlier but this has resolved. No other complaints currently. 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 Leukocytosis, anticipated outcome of surgery, resolved Mild acute blood loss anemia, anticipated outcome assertion -ID following, on IV cefazolin 2 g q8hr -Orthopedics note reviewed, continue current care -Continue pain control with IV Dilaudid as needed, oral [place] as needed, Flexeril as needed, Robaxin 750 milligrams twice daily, monitor for respiratory depression -Acetazolamide 250 mg oral twice daily - follow CBC Constipation - MiraLAX 17 g daily -Senna 2 tabs daily 1 blood culture positive for staph aureus -Continue cefazolin - repeat blood cultures negative to date - possible contamination vs true infection. - D/W Dr allen plan is for PICC line and IV abx Diabetes mellitus type 2 -Patient is not on any medications for diabetes and appears diet controlled -Sliding scale insulin, monitor for hypoglycemia -A1c 6.4 Metabolic acidosis, resolving -Normal saline discontinued -Repeat BMP tomorrow Hypertension Dyslipidemia -Continue with metoprolol 100 mg every 8 hours -Patient is not on any targeted medications for her dyslipidemia -Follow blood pressures Hypokalemia -Resolved Imaging: None new Data Review: Labs reviewed from today include CBC and basic metabolic profile which are remarkable for white blood cell count 10.1, hemoglobin 11.2 Wound culture negative. Repeat blood cultures negative. DVT prophylaxis: Heparin Anticipated discharge date: in AM Anticipated discharge place: home health This dictation was prepared using [employer] voice recognition software. Though every attempt is made to correct errors during dictation some may still exist. Objective - Vital Signs Vital signs: Vital Signs Temp 97.6 F 05/26/23 06:55 Pulse 80 05/26/23 06:55 Resp 16 05/26/23 06:55 BP 135/85 05/26/23 06:55 Pulse Ox 91 L 05/26/23 06:55 FiO2 Intake & Output 05/25/23 05/26/23 05/26/23 18:59 06:59 18:59 Other: Voiding Method Bedpan Bedpan Diaper Diaper Incontinent # Voids 1 # Bowel Movements 1 - Labs CBC & Chem 7: 05/26/23 04:21 05/26/23 04:21 Labs: Abnormal Lab Results - Last 24 Hours (Table) 05/25/23 05/25/23 05/26/23 Range/Units 16:31 20:26 04:21 WBC 10.01 H (4.50-10.00) X 10*3/uL RBC 3.79 L (4.10-5.20) X 10*6/uL Hgb 11.2 L (12.0-15.0) g/dL Hct 36.2 L (37.2-46.3) % MCHC 30.9 L (32.0-37.0) g/dL Carbon Dioxide (21.6-31.8) mmol/L Glucose (70-110) mg/dL POC Glucose (mg/dL) 137 H 182 H (70-110) mg/dL 05/26/23 05/26/23 05/26/23 Range/Units 04:21 06:26 10:47 WBC (4.50-10.00) X 10*3/uL RBC (4.10-5.20) X 10*6/uL Hgb (12.0-15.0) g/dL Hct (37.2-46.3) % MCHC (32.0-37.0) g/dL Carbon Dioxide 21.0 L (21.6-31.8) mmol/L Glucose 160 H (70-110) mg/dL POC Glucose (mg/dL) 145 H 152 H (70-110) mg/dL Microbiology - Last 24 Hours (Table) 05/21/23 06:24 Blood Culture - Final Blood 05/20/23 11:44 Blood Culture - Final Blood
[2023-05-26] MEDS ORDERED: LIDOCAINE 1% INJ 10MG/ML (5 ML VIAL-PF) SQ ONE (14:44)
--- NOTE | 2023-05-26 15:10 | IR ---
PICC LINE PLACEMENT: HISTORY: Infection requiring long-term antibiotic therapy PROCEDURE: Ultrasound and fluoroscopic guidance of PICC line placement. COMPLICATIONS: None ANESTHESIA: 1. 1% Lidocaine locally. FINDINGS/TECHNIQUE: The procedure was explained to the patient. The risks, complications, benefits and alternatives were discussed and any questions were answered. Informed consent was obtained. The patient was placed supine on the fluoroscopic table and prepped and draped in the usual sterile fash ion. Utilizing a 21 gauge needle and sonographic and fluoroscopic guidance, access in the left basi lic vein was achieved and there is placement of a 0.018 guidewire. The vein is patent. A 4-F sheath was placed over the guidewire. The guidewire and dilator were removed and a 4-F. PICC line was plac ed through the sheath with the tip at the level of the SVC. The sheath was removed, the catheter was flushed and sutured into position. The patient was stable throughout the procedure and remained sta ble upon discharge from the Department of Radiology. The vein puncture was patent under ultrasound. A galloway scale image was obtained to document patency of the vein punctured. All elements of the maximal barrier technique were utilized. FLUOROSCOPY TIME: DAP 0.799Gy cm2 IMPRESSION: Successful PICC line placement under ultrasound and fluoroscopic guidance.
--- NOTE | 2023-05-26 15:33 | P.PN ---
Subjective Progress Note Date: 05/26/23 Principal diagnosis: Reason for follow-up is lumbar surgical site infection and bacteremia Patient is a 67 y/o F who underwent a L3-L5 laminectomy with Dr. Arroyo on 03/14/23. Now admitted to hospital with nonhealing of her lumbar wound drainage outpatient culture positive for MRSA and the patient did have a abnormal CT concerning for a fluid collection and blood cultures came back positive with staph aureus. Patient is status post revision L2-S1 decompression and fusion with dural repair/pseudomeningocele that was completed on 05/21/2023. On today's evaluation that is 05/26/2023 patient denies any fever or any chills, patient is breathing comfortably on room air without need for supplemental oxygen but denies any chest pain occasional cough no nausea vomiting abdominal pain or diarrhea. Patient did have white count of 10.01, creatinine 0 point 9 repeat blood as well as or cultures so far negative Objective - Vital Signs Vital signs: Vital Signs Temp 97.6 F 05/26/23 06:55 Pulse 80 05/26/23 06:55 Resp 16 05/26/23 06:55 BP 135/85 05/26/23 06:55 Pulse Ox 91 L 05/26/23 06:55 FiO2 Intake & Output 05/25/23 05/26/23 05/26/23 18:59 06:59 18:59 Other: Voiding Method Bedpan Bedpan Diaper Diaper Incontinent # Voids 1 # Bowel Movements 1 - Exam GENERAL DESCRIPTION: An elderly female lying in bed in no distress RESPIRATORY SYSTEM: Unlabored breathing , clear to auscultation anteriorly HEART: S1 S2 regular rate and rhythm , ABDOMEN: Soft , no tenderness EXTREMITIES: No edema feet - Labs CBC & Chem 7: 05/26/23 04:21 05/26/23 04:21 Labs: Abnormal Lab Results - Last 24 Hours (Table) 05/25/23 05/25/23 05/26/23 Range/Units 16:31 20:26 04:21 WBC 10.01 H (4.50-10.00) X 10*3/uL RBC 3.79 L (4.10-5.20) X 10*6/uL Hgb 11.2 L (12.0-15.0) g/dL Hct 36.2 L (37.2-46.3) % MCHC 30.9 L (32.0-37.0) g/dL Carbon Dioxide (21.6-31.8) mmol/L Glucose (70-110) mg/dL POC Glucose (mg/dL) 137 H 182 H (70-110) mg/dL 05/26/23 05/26/23 05/26/23 Range/Units 04:21 06:26 10:47 WBC (4.50-10.00) X 10*3/uL RBC (4.10-5.20) X 10*6/uL Hgb (12.0-15.0) g/dL Hct (37.2-46.3) % MCHC (32.0-37.0) g/dL Carbon Dioxide 21.0 L (21.6-31.8) mmol/L Glucose 160 H (70-110) mg/dL POC Glucose (mg/dL) 145 H 152 H (70-110) mg/dL Microbiology - Last 24 Hours (Table) 05/21/23 16:49 Anaerobic Culture - Final Other - Other 05/21/23 16:49 Anaerobic Culture - Final Other - Other 05/21/23 06:24 Blood Culture - Final Blood 05/20/23 11:44 Blood Culture - Final Blood Assessment and Plan (1) Allergy to multiple antibiotics Current Visit: Yes Status: Acute Code(s): Z88.1 - ALLERGY STATUS TO OTHER ANTIBIOTIC AGENTS SNOMED Code(s): 427241323 (2) MRSA (methicillin resistant staph aureus) culture positive Current Visit: Yes Status: Acute Code(s): Z22.322 - CARRIER OR SUSPECTED CARRIER OF METHICILLIN RESIS STAPH SNOMED Code(s): 930568386 (3) Positive blood culture Current Visit: Yes Status: Acute Code(s): R78.81 - BACTEREMIA SNOMED Code(s): 891886177 (4) Surgical site infection Current Visit: Yes Status: Acute Code(s): T81.49XA - INFECTION FOLLOWING A PROCEDURE, OTHER SURGICAL SITE, INIT SNOMED Code(s): 25874728 Plan: 1patient with a nonhealing wound to the lumbar spine in this patient who did have a history of L3-L5 laminectomy at [facility] on 03/14/2023 subsequently did have a problem with a CSF leak and now with outpatie nt culture positive for MRSA concerning for possible abscess 2-Patient is status post revision decompression fusion L3-L5 and dural repair 4 cultures are currently pending 3-blood culture with MSSA repeat blood cultures currently pending 4patient remains to be afebrile and the patient is cleared her bacteremia she is able to get a PICC line plan is to continue with cefazolin 2 g every 8 hours x 6 weeks with weekly monitoring of CRP and sed rate and a positive pressure follow-up plan of care were discussed with admitting physician working on discharge possible tomorrow, prescription for outpatient antibiotic was given to the social services aide yesterday Dictation was produced using [employer] dictation software. please excuse any grammatical, word or spelling errors. Time with Patient: Less than 30
[2023-05-26 16:28] LABS: Glucose,Whole Blood 128 mg/dL (70-110)
[2023-05-26 19:37] LABS: Glucose,Whole Blood 171 mg/dL (70-110)
[2023-05-27] MEDS: HYDROcodone/APAP 10-325MG 1 EACH TAB PO PRN ×3 (01:48→21:46)
[2023-05-27] MEDS: LACTATED RINGERS 1,000 ML IV SCH (04:47)
[2023-05-27] MEDS: METOPROLOL TARTRATE 50 MG TAB PO SCH ×3 (05:49→21:45)
[2023-05-27 06:16] LABS: Glucose,Whole Blood 99 mg/dL (70-110)
[2023-05-27] MEDS: INSULIN ASPART (NovoLOG) 100 UNIT/ML VIAL SQ SCH ×4 (06:24→21:46)
[2023-05-27] MEDS: SENNOSIDES-DOCUSATE SODIUM 1 EACH TAB PO SCH (08:54)
[2023-05-27] MEDS: methocarbamoL 750 MG TAB PO SCH ×2 (08:54→21:45)
[2023-05-27] MEDS: HEPARIN SODIUM,PORCINE 5,000 UNIT/ML 1 ML VIAL SQ SCH ×2 (08:55→16:37)
[2023-05-27] MEDS: acetaZOLAMIDE 250 MG TAB PO SCH ×2 (08:55→21:45)
[2023-05-27] MEDS: polyethylene glycoL 3350 17 GM POWD.PACK PO SCH (09:08)
[2023-05-27] MEDS: MAGNESIUM HYDROXIDE 2,400 MG/30 ML CUP PO SCH (09:08)
[2023-05-27 11:22] LABS: Glucose,Whole Blood 112 mg/dL (70-110)
--- NOTE | 2023-05-27 12:34 | P.PN ---
Subjective Progress Note Date: 05/27/23 Principal diagnosis: Dural leak, possible lumbar spine infection, previous lumbar surgery Patient was evaluated today at bedside, she is resting in her hospital bed. Patient was working with physical therapy on it was rounding this morning. I also discussed with nursing is been elected bloody drainage noted on her dressing. Patient did receive her PICC line yesterday. She denies headaches, lightheadedness, chest pain or shortness of breath Objective - Vital Signs Vital signs: Vital Signs Temp 98.5 F 05/27/23 06:55 Pulse 74 05/27/23 06:55 Resp 16 05/27/23 06:55 BP 165/93 05/27/23 06:55 Pulse Ox 97 05/27/23 06:55 FiO2 Intake & Output 05/26/23 05/27/23 05/27/23 18:59 06:59 18:59 Other: Voiding Method Bedpan Diaper # Voids 1 - Exam Gen: AOx3, NAD VSS stable at this time Integument: Barb are all in good position and condition, bloody serosanguineous drainage noted. Palpation: Mild tenderness with palpation of the lower paraspinal lumbar region ROM: Full range of motion in all major muscle groups of the bilateral upper extremities Full range of motion in all major muscle groups of the right lower extremity Range of motion is 10 intact throughout the left lower extremity, patient is unable to dorsiflex Sensory Exam: Senory exam to light touch is intact C5-T1 Senosry exam to light touch is intact L2-S1 Motor: 5/5 strength appreciated in bilateral upper extremities with shoulder elevation, shoulder abduction, wrist extension, wrist flexion, steep tender, elbow extension, elbow flexion 4/5 strength appreciated in the right lower extremity with hip flexion, knee extension, knee flexion, plantar flexion, dorsiflexion, EHL, FHL 4-/5 strength appreciated in the left lower extremity with hip flexion, knee extension, knee flexion Plantar flexion, dorsiflexion was unobtainable Special Test: Logroll maneuver reproduces no pain bilaterally - Labs CBC & Chem 7: 05/26/23 04:21 05/26/23 04:21 Labs: Abnormal Lab Results - Last 24 Hours (Table) 05/26/23 05/26/23 05/27/23 Range/Units 16:27 19:36 11:19 POC Glucose (mg/dL) 128 H 171 H 112 H (70-110) mg/dL Microbiology - Last 24 Hours (Table) 05/21/23 16:49 Anaerobic Culture - Final Other - Other 05/21/23 16:49 Anaerobic Culture - Final Other - Other 05/21/23 06:24 Blood Culture - Final Blood Assessment and Plan Assessment: Postoperative day #6 status post revision decompression and fusion L3-L5, dural repair Multiple medical comorbidities Plan: Continue to monitor dressing Continue IV antibiotics, infectious disease recommendations appreciated Pain control, continue current medication DVT prophylaxis, continue subcu medication Continue PT/OT Other medical specialty recommendations appreciated Regular diet Will monitor compression dressing overnight, reassess in am. Possible CT lumbar spine to evaluate for fluid collection Time with Patient: Less than 30
[2023-05-27] MEDS: CYCLOBENZAPRINE 5 MG TAB PO PRN (12:51)
--- NOTE | 2023-05-27 15:13 | P.PN ---
Subjective Progress Note Date: 05/27/23 (delayed charting seen at 1105) Patient is a 67-year-old female with L3-5 lumbar laminectomy in March 2023 with subsequent rehospitalization due to possible CSF leak where she was discha rged home on Keflex for 5 days. Patient has since been at the long-term facility, diabetes, and hypertension who presented from the infectious disease office due to continued drainage from her surgical site with cultures positive for MRSA. Dr. Allen felt the patient likely had a CSF leak and that an overt infection based on the type of drainage noted. He had encouraged patient to go back to [facility] where she had surgery performed, but she does not wish to go back to that facility at this time. On arrival to the emergency department her vital signs are within normal limits. Initial laboratory analysis was remarkable for creatinine of 1.26 (baseline 1.1), calcium 10.4. In the ER she was started on ceftriaxone and vancomycin. CT lumbar spine showed multilevel degenerative disc changes with gas now present in the left anterior aspect of the spinal canal at L4, posterior soft tissue fluid collection again present slightly decreased in size appears more liquefied centrally with decreased internal gas extends from the laminectomy defect at least abutting the spinal canal. Arrangements were made for admission. Orthopedic spine surgery was consulted. Infectious disease was consulted. She was started on IV abx which were later deescalated to cefazolin. MRI of the lumbar spine shows large fluid collection in the posterior paraspinal soft tissues and appears in intact co mmunication to the skin surface compatible a CSF leak. One of 2 blood cultures came positive with MSSA. She was taken to the OR on 05/21 and underwent a dural tear with revision decompression and fusion L3 to L5. Cultures came back negative. Infectious disease recommended a course of IV antibiotics on discharge. Patient had increased wound drainage on the evening of 05/26 through the morning of 05/27 Patient seen and examined at bedside. She is frustrated that she may not be leaving today due to her increased wound drainage. Her pain is well-controlled. She was reported that she was able to get in and out of the shower. Last bowel movement was yesterday. No chest pain, shortness of breath, headache, lightheadedness. 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 We'll continue to monitor drainage last 24 hours and if continues to be increased over proceed with CT. -Infectious disease don't reviewed: Cefazolin 2 g every 8 hours for 6 weeks with monitoring of ESR and CRP. -Continue pain control with IV Dilaudid as needed, oral [place] as needed, Flexeril as needed, Robaxin 750 milligrams twice daily, monitor for respiratory depression -Acetazolamide 250 mg oral twice daily - follow CBC Constipation - MiraLAX 17 g daily -Senna 2 tabs daily / blood culturea positive for staph aureus-- MSSA bacteremia -Continue cefazolin - repeat blood cultures negative to date - possible contamination vs true infection. Diabetes mellitus type 2 -Patient is not on any medications for diabetes and appears diet controlled -Sliding scale insulin, monitor for hypoglycemia -A1c 6.4 Metabolic acidosis, resolving -Normal saline discontinued -Repeat BMP tomorrow Hypertension Dyslipidemia -Continue with metoprolol 100 mg every 8 hours -Patient is not on any targeted medications for her dyslipidemia -Follow blood pressures Hypokalemia -Resolved Imaging: None new Data Review: None new DVT prophylaxis: Heparin Anticipated discharge date: in 24-[address]: home health This dictation was prepared using Mulu voice recognition software. Though every attempt is made to correct errors during dictation some may still exist. Objective - Vital Signs Vital signs: Vital Signs Temp 98.2 F 05/27/23 14:07 Pulse 74 05/27/23 14:07 Resp 17 05/27/23 14:07 BP 149/82 05/27/23 14:07 Pulse Ox 97 05/27/23 14:07 FiO2 Intake & Output 05/26/23 05/27/23 05/27/23 18:59 06:59 18:59 Other: Voiding Method Bedpan Diaper # Voids 1 - Labs CBC & Chem 7: 05/26/23 04:21 05/26/23 04:21 Labs: Abnormal Lab Results - Last 24 Hours (Table) 05/26/23 05/26/23 05/27/23 Range/Units 16:27 19:36 11:19 POC Glucose (mg/dL) 128 H 171 H 112 H (70-110) mg/dL Microbiology - Last 24 Hours (Table) 05/21/23 16:49 Anaerobic Culture - Final Other - Other 05/21/23 16:49 Anaerobic Culture - Final Other - Other 05/21/23 06:24 Blood Culture - Final Blood
[2023-05-27 16:26] LABS: Glucose,Whole Blood 193 mg/dL (70-110)
[2023-05-27 20:57] LABS: Glucose,Whole Blood 156 mg/dL (70-110)
[2023-05-28] MEDS: HEPARIN SODIUM,PORCINE 5,000 UNIT/ML 1 ML VIAL SQ SCH ×3 (00:29→13:34)
[2023-05-28] MEDS: LACTATED RINGERS 1,000 ML IV SCH (00:29)
[2023-05-28] MEDS: HYDROcodone/APAP 10-325MG 1 EACH TAB PO PRN ×2 (01:48→09:20)
[2023-05-28 05:23] LABS: Glucose,Whole Blood 114 mg/dL (70-110)
[2023-05-28] MEDS: INSULIN ASPART (NovoLOG) 100 UNIT/ML VIAL SQ SCH ×2 (06:00→11:26)
[2023-05-28] MEDS: METOPROLOL TARTRATE 50 MG TAB PO SCH ×2 (06:11→13:35)
[2023-05-28] MEDS: polyethylene glycoL 3350 17 GM POWD.PACK PO SCH (09:13)
[2023-05-28] MEDS: SENNOSIDES-DOCUSATE SODIUM 1 EACH TAB PO SCH (09:14)
[2023-05-28] MEDS: acetaZOLAMIDE 250 MG TAB PO SCH (09:14)
[2023-05-28] MEDS: MAGNESIUM HYDROXIDE 2,400 MG/30 ML CUP PO SCH (09:14)
[2023-05-28] MEDS: methocarbamoL 750 MG TAB PO SCH (09:14)
[2023-05-28 11:11] LABS: Glucose,Whole Blood 112 mg/dL (70-110)
--- NOTE | 2023-05-28 13:19 | P.PN ---
Subjective Progress Note Date: 05/28/23 Principal diagnosis: Dural leak, possible lumbar spine infection, previous lumbar surgery Patient was evaluated today at bedside, she is resting in her hospital bed. Dressing changed did reveal very saturated dressing, computed tomography scan of the lumbar spine was ordered. Dr. Giron was also able to evaluate the patient after computed tomography scan and discuss current situation. She denies headaches, lightheadedness, chest pain or shortness of breath Objective - Vital Signs Vital signs: Vital Signs Temp 98.0 F 05/28/23 07:19 Pulse 64 05/28/23 08:40 Resp 15 05/28/23 08:40 BP 147/72 05/28/23 07:19 Pulse Ox 95 05/28/23 07:19 FiO2 Intake & Output 05/27/23 05/28/23 05/28/23 18:59 06:59 18:59 Weight 87.997 kg Other: Voiding Method Bedpan Bedpan Diaper Diaper # Voids 1 2 - Exam Gen: AOx3, NAD VSS stable at this time Integument: [place] are all in good position and condition, bloody serosanguineous drainage noted. Bandage was applied Palpation: Mild tenderness with palpation of the lower paraspinal lumbar region ROM: Full range of motion in all major muscle groups of the bilateral upper ex tremities Full range of motion in all major muscle groups of the right lower extremity Range of motion is 10 intact throughout the left lower extremity, patient is unable to dorsiflex Sensory Exam: [place] exam to light touch is intact C5-T1 [place] exam to light touch is intact L2-S1 Motor: 5/5 strength appreciated in bilateral upper extremities with shoulder elevation, shoulder abduction, wrist extension, wrist flexion, cardiovascular rn, elbow extension, elbow flexion 4/5 strength appreciated in the right lower extremity with hip flexion, knee extension, knee flexion, plantar flexion, dorsiflexion, EHL, FHL 4-/5 strength appreciated in the left lower extremity with hip flexion, knee extension, knee flexion Plantar flexion, dorsiflexion was unobtainable Special Test: Logroll maneuver reproduces no pain bilaterally - Labs CBC & Chem 7: 05/26/23 04:21 05/26/23 04:21 Labs: Abnormal Lab Results - Last 24 Hours (Table) 05/27/23 05/27/23 05/28/23 Range/Units 16:25 20:53 05:21 POC Glucose (mg/dL) 193 H 156 H 114 H (70-110) mg/dL 05/28/23 Range/Units 11:10 POC Glucose (mg/dL) 112 H (70-110) mg/dL Assessment and Plan Assessment: Postoperative day #7 status post revision decompression and fusion L3-L5, dural repair Multiple medical comorbidities Plan: Continue to monitor dressing, long discussion today about dressing changes while home Continue IV antibiotics, infectious disease recommendations appreciated Pain control, continue current medication DVT prophylaxis, continue subcu medication Continue PT/OT Other medical specialty recommendations appreciated Regular diet After discussion with Dr. Giron patient today at bedside, and review the computed tomography scan, patient will be discharged home. We had a long discussion regarding activity level restrictions, she will take it easy and continue to monitor the incision. Plantar follow-up in office next week for recheck. Patient to contact the office she has any acute questions or issues. Time with Patient: Less than 30
[2023-05-28 13:53] VITALS: BP 160/91; PULSE 78; RESP 17; TEMP 99.1
--- NOTE | 2023-05-28 15:00 | P.DS ---
Providers Date of admission: 05/18/23 19:36 Expected date of discharge: 05/28/23 Attending physician: Ariel Eller MD Consults: 05/18/23 19:34 Consult Physician Routine Consulting Provider: Zachary Giron Consult Reason/Comments: LSspineSx Do you want consulting provider notified?: Yes Consult Physician Routine Consulting Provider: Radha Allen Consult Reason/Comments: known Do you want consulting provider notified?: Yes Primary care physician: Bravo 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 Patient discharged home with Cefazolin 2 g every 8 hours for 6 weeks with monitoring of ESR and CRP to be managed by infectious disease. 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 Constipation Diabetes mellitus type 2. Recommend her healthy and carb consistent diet. Metabolic acidosis, resolved Hypertension. Continue with metoprolol 100 mg every 8 hours Dyslipidemia. Patient is not on any targeted medications for her dyslipidemia, recommend maintaining a heart healthy diet. Hypokalemia. Resolved Hospital Course: Patient is a 67-year-old female with L3-5 lumbar laminectomy in March 2023 with subsequent rehospitalization due to possible CSF leak where she was discharged home on Keflex for 5 days. [facility], diabetes, and hypertension who presented from the infectious disease office due to continued drainage from her surgical site with cultures positive for MRSA. Dr. Allen felt the patient likely had a CSF leak and that an overt infection based on the type of drainage noted. He had encouraged patient to go back to [facility] where she had surgery performed, but she does not wish to go back to that facility at this time. On arrival to the emergency department her vital signs are within normal limits. Initial laboratory analysis was remarkable for creatinine of 1.26 (baseline 1.1), calcium 10.4. In the ER she was started on ceftriaxone and vancomycin. CT lumbar spine showed multilevel degenerative disc changes with gas now present in the left anterior aspect of the spinal canal at L4, posterior soft tissue fluid collection again present slightly decreased in size appears more liquefied centrally with decreased internal gas extends from the laminectomy defect at least abutting the spinal canal. Arrangements were made for admission. Orthopedic spine surgery was consulted. Infectious disease was consulted. She was started on IV abx which were later deescalated to cefazolin. MRI of the lumbar spine shows large fluid collection in the posterior paraspinal soft tissues and appears in intact communication to the skin surface compatible a CSF leak. One of 2 blood cultures came positive with MSSA. She was taken to the OR on 05/21 and underwent a dural tear with revision decompression and fusion L3 to L5. Cultures came back negative. Infectious disease recommended a course of IV antibiotics on discharge. CT lumbar spine showing postsurgical changes with enlarging fluid collection around the surgical bed correlating for signs and symptoms of abscess formation versus seroma, this was reviewed by orthospine surgery. They have cleared patient for discharge at this time recommending outpatient follow-up in our office in completing course of IV antibiotics being managed by infectious disease. Medically, patient is stable at this time, she is requesting discharge home. PICC line in place. Patient being discharged home with home care and [facility] for antibiotics. Patient to follow up outpatient with PCP in 1-2 days, orthospine in 1 week, and infectious disease in 1 week. Physical exam: Patient had increased wound drainage on the evening of 05/26 through the morning of 05/27 Patient seen and examined at bedside. She is frustrated that she may not be leaving today due to her increased wound drainage. Her pain is well-controlled. She was reported that she was able to get in and out of the shower. Last bowel movement was yesterday. No chest pain, shortness of breath, headache, lightheadedness. Vital signs reviewed General: nontoxic, no distress, appears at stated age Cardiovascular: S1S2 reg, no murmur, positive posterior tibial pulse bilateral, Lungs: CTA bilateral, no rhonchi, no rales , no accessory muscle use Abdominal: soft, nontender to palpation, no guarding, no appreciable organomegaly Ext: no gross muscle atrophy, no edema b/l lower extremities, no contractures Neuro: CN II-XI grossly intact, no focal neuro deficits Psych: Alert, oriented, appropriate affect A total of 42 minutes of time were spent preparing this complex discharge summary. Pt was discharged on 05/28/23 at 2:56 PM. Patient was seen independently by Nurse Practitioner. This document was prepared using [employer] dictation software. Please allow for errors in software asset management analyst while rare they do occur. I reviewed the documentation as provided by the KEITH above, who is the original author of this note. I agree with the documented assessment and plan, with the following changes: none Patient Condition at Discharge: Stable Plan - Discharge Summary Discharge Rx Participant: Yes New Discharge Prescriptions: New Sennosides/Docusate Sodium [Senna-S 8.6-50 mg Tablet] 2 each PO DAILY PRN #30 tablet PRN Reason: Constipation polyethylene glycoL 3350 [Miralax] 17 gm PO DAILY PRN #21 packet PRN Reason: Constipation HYDROcodone/APAP 10-325MG [[place] 10-325] 1 tab PO Q6HR PRN 7 Days #28 tab PRN Reason: Pain Continue Cholecalciferol [Vitamin D3 (25 Mcg = 1000 Iu)] 25 mcg PO DAILY Ascorbic Acid [Vitamin C] 1,000 mg PO DAILY Multivit with Calcium,Iron,Min [Women's Multivitamin] 1 tab PO DAILY methocarbamoL [Robaxin-750] 750 mg PO BID Metoprolol Tartrate [Lopressor] 100 mg PO Q8H traMADol HCL 50 mg PO TID PRN PRN Reason: Pain acetaZOLAMIDE [Acetazolamide] 250 mg PO BID Discharge Medication List Multivit with Calcium,Iron,Min [Women's Multivitamin] 1 tab PO DAILY 03/12/23 [History] Metoprolol Tartrate [Lopressor] 100 mg PO Q8H 03/26/23 [History] methocarbamoL [Robaxin-750] 750 mg PO BID 03/26/23 [History] Ascorbic Acid [Vitamin C] 1,000 mg PO DAILY 05/18/23 [History] Cholecalciferol [Vitamin D3 (25 Mcg = 1000 Iu)] 25 mcg PO DAILY 05/18/23 [History] acetaZOLAMIDE [Acetazolamide] 250 mg PO BID 05/18/23 [History] traMADol HCL 50 mg PO TID PRN 05/18/23 [History] HYDROcodone/APAP 10-325MG [[place] 10-325] 1 tab PO Q6HR PRN 7 Days #28 tab 05/28/23 [Rx] Sennosides/Docusate Sodium [Senna-S 8.6-50 mg Tablet] 2 each PO DAILY PRN #30 tablet 05/28/23 [Rx] polyethylene glycoL 3350 [Miralax] 17 gm PO DAILY PRN #21 packet 05/28/23 [Rx] Follow up Appointment(s)/Referral(s): [facility] [NON-STAFF] - 1 Week ([facility] will call you toarrange a visit. ) Bravo Lazo MD [Primary Care Provider] - 1-2 days [facility] [REFERRING] - 1 Week ([facility] will provide your iv abx and supplies) Zachary Giron DO [Doctor of Osteopathic Medicine] - 1 Week Radha Allen MD [STAFF PHYSICIAN] - 1 Week Patient Instructions/Handouts: Hydrocodone/Acetaminophen (By mouth), MRSA (Methicillin-Resistant Staphylococcus Aureus) (DC), Wound Healing and Your Diet (DC) Activity/Diet/Wound Care/Special Instructions: Spine Discharge and Recovery Instructions Dressing: Leave your dressing in place for a total of 5 days post operatively. Then you may remove your dressing and leave open to air. Keep the area clean and if not able to keep area clean, then cover with sterile gauze and tape. Showering: You may shower 3 days after your procedure allowing soap and water to run over incision. Do not scrub. Do not soak. Blot dry. Follow up: Please confirm a follow up appointment with your surgeon 3 weeks post operatively. Please make an appointment to follow up with your PCP in 1-2 weeks after surgery for evaluation 3 phase, 3-week plan POST OP WEEKS 1-3 1. Lifting/carrying/pushing/pulling limited to less than 5 pounds. 2. Do not sit for longer than 15 minutes at one time. Get up and walk around. Prolonged sitting is NOT advised. If you lay down, see if you can tolerate laying down on you front (belly side) 3. Walk for periods of 15 minutes = 1 mile but no longer; do it multiple times times each day. 4. Ice your low back after activity. POST OP WEEKS 3-6 1. Lifting limited to less than 20 pounds. 2. Do not sit for longer than 30 minutes at a time. Frequently change positions. Use a sit-to stand workstation or take frequent breaks from sitting if you have returned to work. 3. Walk for 30 minutes each day. If possible, do these three or more times a day POST OP WEEKS 6+ At your 6-week appointment we will give you a physical therapy referral to focus on a core stabilization and strengthening program. You should also work on leg & buttock strengthening, hamstring & quadriceps stretching, and continue a low impact aerobic activity program such as swimming, walking, or riding a stationary bicycle. During the initial 6 weeks after your surgery, you are at the highest risk of re-injuring your spine. You should generally avoid BLTs (bending, lifting and twisting combination motions) and follow the above guidelines to reduce the chance of reinjury. You can anticipate post op appointments in our office at approximately 3 weeks and 6 weeks after your surgery. INCISION CARE: If your incision is not draining you do NOT need to cover it with a dressing. Keep your incision clean, dry and intact. In most cases, we apply skin glue, ajith or sutures to the incision at the time of surgery. This will be like a crust or have the appearance of a scab and will fall off in time on its own. The stitches or ajith need to be removed at 3 weeks post op appointment. You may begin to shower 3 days after surgery (this allows the glue to hayes well). However, please avoid scrubbing the incision site or peeling off any of the skin glue. This will ensure optimal healing of your incision. Also, during this time avoid soaking the incision area in water - this includes swimming pools, hot tubs or baths. No ointments, lotions or oils on the incision until your surgeon allows. Leave ajith, sutures or glue in place. Neurological dysfunction that comes on suddenly can also be a sign of a stroke. Below some common symptoms of a stroke are listed: B - balance difficulty such as sudden onset walking or leaning to one side - NEW E - eye problem such as sudden double vision or trouble seeing on one side - NEW F - Facial weakness or numbness on one side - NEW A - Arm or leg weakness or numbness on one side - NEW S - Slurred speech or difficulty with word finding - NEW T - Time is BRAIN! Call 911 as soon as you recognize these symptoms Diet: Consume a regular diet rich in vegetables and lean protein such as chicken or fish. You should consume in a ratio of approximately 20% fats|40% carbohydrates|40%protein. Vegetables, sweet potatoes, brown rice or quinoa are examples of good carbohydrates. Chips, white bread, cookies and sweets/sugar are examples of bad carbohydrates. Limit your bad carbs, go wild with good carbs. "Life's Simple 7" Guidelines as per [place] [employer] These will help you reclaim your life after surgery and lead caster helper in your recovery, keeping in mind your restrictions. (1) Get Active. Physical activity can help people lose weight, control high blood pressure and cholesterol, feel emotionally better, and sleep better. (2) Control Cholesterol. Avoid a diet high in saturated fat, trans fat, & cholesterol. Limit whole milk & cream, ice cream, butter, egg yolks, processed meats (like sausage and hot dogs), and fatty meats. Choose healthy foods that are low in saturated fat, trans fat and cholesterol which include: Fruits and vegetables, fiber rich grain products (like whole grain pasta and brown rice), lean meat such as chicken, fish, nuts, seeds, and legumes. (3) Eat Better. Eat small portions. Shop at the grocery with a list and do not stray from it. Tips for a healthy diet include: Limit sodium intake to less than 1500mg daily, avoid prepackaged, processed, and fast foods, choose a diet rich in fruits, vegetables, and whole grain, high fiber foods, and limit saturated & cholesterol in your diet. (4) Manage Blood Pressure. If you have high blood pressure, you should have a cuff at home so that you can check your blood pressure regularly. Be sure you have a good cuff. An arm one is generally better than a wrist one. Bring the cuff to a doctor's appointment to validate that the measurements that your cuff are taking are accurate. Take your blood pressure twice daily when you are sitting down and relaxing. Record the numbers in a log and bring this log with you to your doctors' appointments. (5) Lose Weight if your BMI is above 25. A healthy BMI is between 19-25. To calculate Your BMI, you may use a Standard BMI Calculator on the NIH BMI website: <www.nhlbi.nih.gov/guidelines/obesity/BMI/bmicalc.htm>. Weigh oneself daily. If you are overweight, set a goal to lose weight. A pound a week loss if needed is a good target. (6) Reduce Blood Sugar. Limit foods and liquids with "added sugars." (Added sugars include sucrose, fructose, glucose, maltose, dextrose, high fructose corn syrup, corn syrup, concentrated fruit juice and honey). (7) Stop Smoking. If you smoke, quitting smoking is one of the best things that you can do for your health. Smoking increases your risk of heart attack, stroke, and peripheral vascular disease, which is a build-up of plaque in your arteries. Please discard all the cigarettes and lighters in your house. Have a plan for what you will do when you have the urge to smoke. Direct and second- hand smoke shortens your life as well as the lives of your family, friends and others around you. For your health and the health of those around you, please consider quitting! Proper Bending Body Mechanics: Maintain a wide stance with one foot slightly in front of the other. Keep your back straight. Bend utilizing the strength in your hips and knees. Do not bend at the waist. Maintain the lifted object at your waist-level close to your body. Avoid lifting weight that causes immediately pain or pain anywhere in the body afterwards. Smoking/Nicotine If there was ever one thing that you could do to increase your overall health, decrease your risk of cardiovascular problems by about 39% the second you make the choice, it is to STOP SMOKING. Your body's most instant gratification is the second you stop smoking. We have all heard the studies, read the articles but it is true, smoking is extremely bad for your overall health, and moreover it is detrimental to your bone health. Nicotine, IN ANY FORM, kills bone cells, prevents your body from healing fractures, and significantly prolongs healing after surgery. In spine surgery specifically, it increases your risk of not healing your bones to create a fusion and increases your risk of having a revision surgery due to this up to 60%. I know it is hard. I know it feels impossible. But there are ways. Take control of your life. We are here to help you through it. And when you are ready, ask us and we can direct you to help if you desire. Use the START Plan to Quit Smoking (please visit the Helpguide.org website listed below for more information): S = Set a quit date. Choose a date within the next 2 weeks, so you have enough time to prepare without losing your motivation to quit. If you mainly smoke at work, quit on the weekend, so you have a few days to adjust to the change. T = Tell family, friends, and co-workers that you plan to quit. Let your friends and family in on your plan to quit smoking and tell them you need their support and encouragement to stop. Look for a quit oxana who wants to stop smoking as well. You can help each other get through the rough times. A = Anticipate and plan for the challenges you'll face while quitting. Most people who begin smoking again do so within the first 3 months. You can help yourself make it through by preparing ahead for common challenges, such as nicotine withdrawal and cigarette cravings. R = Remove cigarettes and other tobacco products from your home, car, and work. Throw away all your cigarettes (no emergency pack!), lighters, ashtrays, and matches. Wash your clothes and freshen up anything that smells like smoke. Shampoo your car, clean your drapes and carpet, and steam your furniture. T = Talk to your doctor about getting help to quit. Your doctor can prescribe medication to help with withdrawal and suggest other alternatives. If you can't see a doctor, you can get many products over the counter at your local pharmacy or grocery store, including the nicotine patch, nicotine lozenges, and nicotine gum. Resources for Quitting Smoking: <https://www.[place].gov/documents/[facility]/Quit_Tobacco_Resou rces_for_patients_313480_7.pdf> Supplementation: Take recommended dosages of Vitamin D and Calcium to help fortify your bones and help them to heal. See your health maintenance packet for dosages and recommended levels. DVT/VTE prophylaxis: You will be given compression stockings from the hospital. Wear these daily for the first two weeks after surgery. You may take them off at night. You may be prescribed a medication to help thin your blood. Take this as directed. If you are not prescribed this medication, early and frequent ambulation has been shown to be the best prophylaxis to deep vein thrombosis and sequelae related to this event. CALL ON THURSDAY MORNING TO SCHEDULE APPOINTMENTS Discharge Disposition: HOME WITH HOME HEALTH SERVICES
--- NOTE | 2023-05-28 15:27 | P.PN ---
Subjective Progress Note Date: 05/27/23 Principal diagnosis: Reason for follow-up is lumbar surgical site infection and bacteremia Patient is a 67 y/o F who underwent a L3-L5 laminectomy with Dr. Arroyo on 03/14/23. Now admitted to hospital with nonhealing of her lumbar wound drainage outpatient culture positive for MRSA and the patient did have a abnormal CT concerning for a fluid collection and blood cultures came back positive with staph aureus. Patient is status post revision L2-S1 decompression and fusion with dural repair/pseudomeningocele that was completed on 05/21/2023. On today's evaluation that is 05/27/2023 the patient remains to be afebrile, the patient is breathing comfortably on room air but denies having any chest pain shortness of breath or cough no nausea vomiting no abdominal pain or diarrhea. No new labs has been obtained today Objective - Vital Signs Vital signs: Vital Signs Temp 98.5 F 05/27/23 06:55 Pulse 74 05/27/23 06:55 Resp 16 05/27/23 06:55 BP 165/93 05/27/23 06:55 Pulse Ox 97 05/27/23 06:55 FiO2 Intake & Output 05/26/23 05/27/23 05/27/23 18:59 06:59 18:59 Other: Voiding Method Bedpan Diaper # Voids 1 - Exam GENERAL DESCRIPTION: An elderly female lying in bed in no distress RESPIRATORY SYSTEM: Unlabored breathing , clear to auscultation anteriorly HEART: S1 S2 regular rate and rhythm , ABDOMEN: Soft , no tenderness EXTREMITIES: No edema feet - Labs CBC & Chem 7: 05/26/23 04:21 05/26/23 04:21 Labs: Abnormal Lab Results - Last 24 Hours (Table) 05/26/23 05/26/23 Range/Units 16:27 19:36 POC Glucose (mg/dL) 128 H 171 H (70-110) mg/dL Microbiology - Last 24 Hours (Table) 05/21/23 16:49 Anaerobic Culture - Final Other - Other 05/21/23 16:49 Anaerobic Culture - Final Other - Other 05/21/23 06:24 Blood Culture - Final Blood Assessment and Plan (1) Allergy to multiple antibiotics Current Visit: Yes Status: Acute Code(s): Z88.1 - ALLERGY STATUS TO OTHER ANTIBIOTIC AGENTS SNOMED Code(s): 731544136 (2) MRSA (methicillin resistant staph aureus) culture positive Current Visit: Yes Status: Acute Code(s): Z22.322 - CARRIER OR SUSPECTED CARRIER OF METHICILLIN RESIS STAPH SNOMED Code(s): 627344372 (3) Positive blood culture Current Visit: Yes Status: Acute Code(s): R78.81 - BACTEREMIA SNOMED Code(s): 417897285 (4) Surgical site infection Current Visit: Yes Status: Acute Code(s): T81.49XA - INFECTION FOLLOWING A PROCEDURE, OTHER SURGICAL SITE, INIT SNOMED Code(s): 57328202 Plan: 1patient with a nonhealing wound to the lumbar spine in this patient who did have a history of L3-L5 laminectomy at [facility] on 03/14/2023 subsequently did have a problem with a CSF leak and now with outpatient culture positive for MRSA concerning for possible abscess 2-Patient is status post revision decompression fusion L3-L5 and dural repair 4 cultures are currently pending 3-blood culture with MSSA repeat blood cultures Are so far negative. 4patient seem to have problem with drainage from her lumbar incision and curren tly being worked up for possible leak spine surgery is following the patient continue with the cefazolin Case discussed with the medical team Dictation was produced using [employer] dictation software. please excuse any grammatical, word or spelling errors. Time with Patient: Less than 30
--- NOTE | 2023-05-28 15:31 | P.PN ---
Subjective Progress Note Date: 05/28/23 Principal diagnosis: Reason for follow-up is lumbar surgical site infection and bacteremia Patient is a 67 y/o F who underwent a L3-L5 laminectomy with Dr. Arroyo on 03/14/23. Now admitted to hospital with nonhealing of her lumbar wound drainage outpatient culture positive for MRSA and the patient did have a abnormal CT concerning for a fluid collection and blood cultures came back positive with staph aureus. Patient is status post revision L2-S1 decompression and fusion with dural repair/pseudomeningocele that was completed on 05/21/2023. On today's evaluation that is 05/28/2023 patient continues to be afebrile, the patient is breathing comfortably on room air patient denies having any chest pain shortness of breath or cough the patient lower back pain is currently cont rolled no nausea vomiting and no diarrhea. Patient did have white count of 10.01 and creatinine 0.9 as of 05/26/2023 patient did have a [address] of the lumbosacral spine ordered report is currently pending Objective - Vital Signs Vital signs: Vital Signs Temp 99.1 F 05/28/23 12:30 Pulse 78 05/28/23 12:30 Resp 17 05/28/23 12:30 BP 160/91 05/28/23 12:30 Pulse Ox 98 05/28/23 12:30 FiO2 Intake & Output 05/27/23 05/28/23 05/28/23 18:59 06:59 18:59 Weight 87.997 kg Other: Voiding Method Bedpan Bedpan Diaper Diaper # Voids 1 2 - Exam GENERAL DESCRIPTION: An elderly female lying in bed in no distress RESPIRATORY SYSTEM: Unlabored breathing , clear to auscultation anteriorly HEART: S1 S2 regular rate and rhythm , ABDOMEN: Soft , no tenderness EXTREMITIES: No edema feet - Labs CBC & Chem 7: 05/26/23 04:21 05/26/23 04:21 Labs: Abnormal Lab Results - Last 24 Hours (Table) 05/27/23 05/27/23 05/28/23 Range/Units 16:25 20:53 05:21 POC Glucose (mg/dL) 193 H 156 H 114 H (70-110) mg/dL 05/28/23 Range/Units 11:10 POC Glucose (mg/dL) 112 H (70-110) mg/dL Assessment and Plan (1) Allergy to multiple antibiotics Current Visit: Yes Status: Acute Code(s): Z88.1 - ALLERGY STATUS TO OTHER ANTIBIOTIC AGENTS SNOMED Code(s): 458404651 (2) MRSA (methicillin resistant staph aureus) culture positive Current Visit: Yes Status: Acute Code(s): Z22.322 - CARRIER OR SUSPECTED CARRIER OF METHICILLIN RESIS STAPH SNOMED Code(s): 033588565 (3) Positive blood culture Current Visit: Yes Status: Acute Code(s): R78.81 - BACTEREMIA SNOMED Code(s): 803863647 (4) Surgical site infection Current Visit: Yes Status: Acute Code(s): T81.49XA - INFECTION FOLLOWING A PROCEDURE, OTHER SURGICAL SITE, INIT SNOMED Code(s): 76846833 Plan: 1patient with a nonhealing wound to the lumbar spine in this patient who did have a history of L3-L5 laminectomy at [facility] on 03/14/2023 subsequently did have a problem with a CSF leak and now with outpatient culture positive for MRSA concerning for possible abscess 2-Patient is status post revision decompression fusion L3-L5 and dural repair 4 cultures are currently pending 3-blood culture with MSSA repeat blood cultures Are so far negative. 4patient did have a follow-up with a drainage from her lumbar incision CT of the lumbosacral spine has been ordered reported currently pending we will keep the patient on cefazolin await further recommendation from spine surgery and monitor clinical course closely Dictation was produced using [employer] dictation software. please excuse any grammatical, word or spelling errors. Time with Patient: Less than 30
--- NOTE | 2023-05-28 15:51 | CT ---
EXAMINATION TYPE: CT lumbar spine wo con CT DLP: 1586.6 mGycm, Automated exposure control for dose reduction was used. DATE OF EXAM: 05/28/2023 12:22 PM COMPARISON: 05/22/2023.. CLINICAL INDICATION:Female, 67 years old with history of s/p lumbar fusion, S/P Lumbar Fusion TECHNIQUE: Multiple axial images were obtained from the midportion of T11 through the sacroiliac clem nts. Soft tissue and bone windows in coronal and sagittal planes were obtained and reviewed. Contrast used: mL of , none. Oral contrast used: none. FINDINGS: Post surgical changes to the spine with interval development of fluid collection around the surgical hardware which is poorly evaluated due to streak artifact. On series 202 image 38 collection measures at least 7.5 x 2.3 cm and this extends at least 10.7 cm in caudocranial dimension. Foci of gas in th e surgical bed but has decreased from prior.. Fixation hardware appears intact and extends posteriorly from L2 to S1. Discectomy at L4-L5 is also p resent. Skin ajith and posterior spine are present. Hardware appears intact. There is no evidence of fracture. There is severe degeneration changes throughout the visualized spin e with osteophyte formation, disc space narrowing, Schmorl's nodes, vacuum disc phenomenon. There is mild right hydronephrosis. IMPRESSION: 1. Post surgical changes with enlarging fluid collection around the surgical bed correlate for signs and symptoms of infection such as abscess formation versus seroma. 2. Mild right hydronephrosis correlate for signs and symptoms of obstructive uropathy.
[2023-05-28 16:13] LABS: Glucose,Whole Blood 164 mg/dL (70-110)
== END 2023-05-28 17:25 | disposition home health service (06) | DRG 29 ==
LOC: EC 15:57 → 4SSUR 19:36
PROVIDERS: ADMIT Internal Medicine; ATTEND Internal Medicine
PROC: 0SG1071 Fusion of 2 or more Lumbar Vertebral Joints with Autologous Tissue Substitute, Posterior Approach, Posterior Column, Open Approach (ICD-10-PCS; 2023-05-21)
PROC: 0SG30AJ Fusion of Lumbosacral Joint with Interbody Fusion Device, Posterior Approach, Anterior Column, Open Approach (ICD-10-PCS; 2023-05-21)
PROC: 0SG3071 Fusion of Lumbosacral Joint with Autologous Tissue Substitute, Posterior Approach, Posterior Column, Open Approach (ICD-10-PCS; 2023-05-21)
PROC: 01NB0ZZ Release Lumbar Nerve, Open Approach (ICD-10-PCS; 2023-05-21)
PROC: 01NR0ZZ Release Sacral Nerve, Open Approach (ICD-10-PCS; 2023-05-21)
PROC: 0ST20ZZ Resection of Lumbar Vertebral Disc, Open Approach (ICD-10-PCS; 2023-05-21)
PROC: 00UT07Z Supplement Spinal Meninges with Autologous Tissue Substitute, Open Approach (ICD-10-PCS; 2023-05-21)
PROC: 8E0WXBZ Computer Assisted Procedure of Trunk Region (ICD-10-PCS; 2023-05-21)
PROC: 4A1004G Monitoring of Central Nervous Electrical Activity, Intraoperative, Open Approach (ICD-10-PCS; 2023-05-21)
PROC: 0SG10AJ Fusion of 2 or more Lumbar Vertebral Joints with Interbody Fusion Device, Posterior Approach, Anterior Column, Open Approach (ICD-10-PCS; principal; 2023-05-21 07:30)
PROC: 02HV33Z Insertion of Infusion Device into Superior Vena Cava, Percutaneous Approach (ICD-10-PCS; 2023-05-26)
DX: G97.82 Other postprocedural complications and disorders of nervous system (principal); D62 Acute posthemorrhagic anemia; E87.20 Acidosis, unspecified; G96.09 Other spinal cerebrospinal fluid leak; L03.312 Cellulitis of back [any part except buttock and flank]; T81.41XA Infection following a procedure, superficial incisional surgical site, initial encounter; G96.198 Other disorders of meninges, not elsewhere classified; E11.9 Type 2 diabetes mellitus without complications; I10 Essential (primary) hypertension; E66.9 Obesity, unspecified; B95.62 Methicillin resistant Staphylococcus aureus infection as the cause of diseases classified elsewhere; G89.18 Other acute postprocedural pain; M21.372 Foot drop, left foot; M48.062 Spinal stenosis, lumbar region with neurogenic claudication; M47.27 Other spondylosis with radiculopathy, lumbosacral region; E78.5 Hyperlipidemia, unspecified; M25.78 Osteophyte, vertebrae; E87.6 Hypokalemia; K59.00 Constipation, unspecified; M51.36 Other intervertebral disc degeneration, lumbar region; Y83.8 Other surgical procedures as the cause of abnormal reaction of the patient, or of later complication, without mention of misadventure at the time of the procedure; Z68.34 Body mass index [BMI] 34.0-34.9, adult; Z98.1 Arthrodesis status; Z86.14 Personal history of Methicillin resistant Staphylococcus aureus infection; Z28.310 Unvaccinated for COVID-19; Z87.891 Personal history of nicotine dependence; Z88.1 Allergy status to other antibiotic agents; Z79.899 Other long term (current) drug therapy; Z88.8 Allergy status to other drugs, medicaments and biological substances; Z88.0 Allergy status to penicillin; Z88.2 Allergy status to sulfonamides
CPT/HCPCS: 36415; 36573; 72100; 72131; 72132; 72158; 80048; 80053; 80202; 82565; 83036; 83605; 83735; 83880; 84100; 84443; 84484; 85025; 85027; 85610; 85652; 85730; 86140; 86850; 86900; 86901; 87040; 87070; 87075; 87077; 87186; 87205; 88307; 88311; 88341; 88342; 93005; 96361; 96365; 96366; 96367; 96375; 96376; 99285

== ENCOUNTER → 2024-06-29 | Day surgery (SDC) | payer MEDICARE, OTHER ==
[2024-06-29] MEDS: diazePAM 5 MG TAB PO STA (08:46)
[2024-06-29 09:26] VITALS: TEMP 98.5
--- NOTE | 2024-06-29 11:17 | FL ---
EXAMINATION TYPE: FL myelogram lumbosacral DATE OF EXAM: 06/29/2024 COMPARISON: Correlation CT 05/28/2023 HISTORY: 68-year-old female M43.26, M54.9, ongoing back pain and difficulty walking, history of 2 maria del carmen or lumbar surgeries in 2022. COMPLICATIONS: None The patient and the patient's vital signs were monitored by qualified independent radiology personnel . TECHNIQUE: The procedure and potential risks were explained to patient and an informed consent was obtained with teach back. Site and side was verified. A time out was performed. The patient was placed prone on the fluoroscopy table. Possible 6 lumbar type vertebral bodies. In th e event of anatomic variation, there seems to be L3-S1 posterior fusion change. Clinically correlate. With this numbering convention, the L4-L5 level was localized and the skin was marked and was preppe d and draped in the usual sterile fashion. Lidocaine was used for local anesthesia. Utilizing fluoroscopic guidance a 5 inch 22-gauge spinal nee dle was placed through the skin and into the subarachnoid space. Clear, colorless cerebral spinal fluid was visualized. Subsequently, a total of 12 mL Isovue M200 was administered into the intrathecal space. The patient tolerated the procedure well and was sent to the CT suite for CT scan to be performed aft er a 30 minute wait. The estimated blood loss was minimal. The patient's condition was unchanged following the procedure. Fluoroscopy time: 1 minute 14 seconds Total images: 3. Total dose:50 mGycm2. IMPRESSION: Successful myelogram injection for CT. [facility], , 06/29/2024 11:15 AM
--- NOTE | 2024-06-29 11:24 | CT ---
EXAMINATION TYPE: CT lumbar spine w con DATE OF EXAM: 06/29/2024 And MRI lumbar spine May 19, 2023 COMPARISON: Prior CT lumbar spine May 28, 2023 CLINICAL INDICATION: Female, 68 years old with history of M43.26, M54.9; [facility], CT post myelogram. Pain . TECHNIQUE:CT scan of the lumbar is performed with IV Contrast, patient injected with 10 mL of Isovue M200. CT DLP: 897 mGycm Automated exposure control for dose reduction was used. FINDINGS: Enhanced CT of the lumbar spine was performed. Bone and soft tissue window settings are submitted as well as coronal and sagittal reconstructions. We'll assume hypoplastic bilateral T12 rib similar to most recent CT report. There is persistent post erior interpedicular rods and screws bilaterally transfixing L2-S1 levels. Artifact from metallic nikole dware makes evaluation suboptimal. There is persistent right-sided step-off of L2 relative to L1 and coronal images. Successful myelogram with contrast opacification of the thecal canal. Vertebral body heights are preserved. There is severe narrowing with endplate sclerosis and moderate to severe spurr ing at the L1-L2 level redemonstrated. There is persistent [id number] narrowing at the L2-L3 and severe narrowing at the L3-L4 level. Metallic disc material anterior L4-L5 level is redemonstrate d. Axial images show anterior spinal canal effacement at the L1-L2 level due to posterior spur disc comp vasu on image 45 correlating with sagittal image 44. Axial images at L2-L3 level show left-sided posterior decompression changes similar to prior. Mild ef facement anterior thecal sac due to spur disc complex on sagittal images. Axial images at L3-L4 level show left-sided posterior decompression changes. Mild effacement of theca l sac due to posterior spurring. Axial images at L4-L5 and L5-S1 levels show moderate to advanced facet arthropathy. Artifact degradat ion is present. IMPRESSION: Long segment surgical hardware redemonstrated. Alignment is stable. Multilevel degenerati ve changes are again seen as detailed above. Left Posterior decompression changes in the mid lumbar s pine are redemonstrated. [facility], , 06/29/2024 11:22 AM
[2024-06-29 15:38] VITALS: RESP 20
[2024-06-29 15:39] VITALS: BP 142/85; PULSE 86
== END ==
LOC: RADPROMAIN 08:24
PROVIDERS: ATTEND Orthopaedic Surgery
DX: M47.816 Spondylosis without myelopathy or radiculopathy, lumbar region (principal); M43.26 Fusion of spine, lumbar region
CPT/HCPCS: 62304; 72132; J2003; Q9966

== ENCOUNTER 2024-10-09 11:14 | Inpatient (IN) | payer MEDICARE, OTHER ==
--- NOTE | 2024-10-09 11:41 | ED ---
Female Urogenital HPI - General Source: patient, EMS, RN notes reviewed Limitations: no limitations <Ofe Rubin - Last Filed: 10/09/24 19:03> <Mae - Last Filed: 10/11/24 08:54> - General Stated complaint: UTI Time Seen by Provider: 10/09/24 11:18 - History of Present Illness Initial comments: Patient is a 69-year-old female with past medical history of diabetes and hypertension who presents to the emergency department for a suspected UTI. Tanika long is a poor historian. Per significant other about 3 weeks ago patient became "not herself." He states that she was becoming more confused, weaker, and began having incontinence. They went to PCP about a week ago who diagnosed her with a UTI and prescribed her Macrobid which she has been taking as prescribed. He states that her granddaughter is her primary medical team qualifications examiner and is in charge of all of her medications but he believes that she has not missed any doses. Patient does report that she has had frequency and urgency as well as incontinence which requires wearing briefs. She does also report low back pain that started last week. She is unsure if she had any hematuria. She denies fever/chills, nausea/vomiting, dysuria, abdominal pain, chest pain, shortness of breath, melena/hematochezia. (Ofe Rubin) - Related Data Home Medications Medication Instructions Recorded Confirmed Metoprolol Tartrate [Lopressor] 100 mg PO DAILY 03/26/23 10/09/24 Diclofenac Sodium [Voltaren] 75 mg PO BID 06/29/24 10/09/24 Nitrofurantoin Monohyd/M-Cryst 100 mg PO Q12HR 10/09/24 10/09/24 [Macrobid] Semaglutide [Ozempic] 2 mg SQ Q7D 10/09/24 10/09/24 acetaZOLAMIDE [Diamox] 250 mg PO BID 10/09/24 10/09/24 Allergies Allergy/AdvReac Type Severity Reaction Status Date / Time empagliflozin Allergy Nausea & Verified 10/09/24 16:08 [From Jardiance] Vomiting & Diarrhea Penicillins Allergy Unknown Verified 10/09/24 16:08 Childhood Sulfa (Sulfonamide Allergy Unknown Verified 10/09/24 16:08 Antibiotics) Childhood Review of Systems ROS Other: All systems not noted in ROS Statement are negative. <Ofe Rubin - Last Filed: 10/09/24 19:03> ROS Other: All systems not noted in ROS Statement are negative. <Mae Doan - Last Filed: 10/11/24 08:54> ROS Statement: Those systems with pertinent positive or pertinent negative responses have been documented in the HPI. Past Medical History Past Medical History: Diabetes Mellitus, Hyperlipidemia, Hypertension Additional Past Medical History / Comment(s): patient states not a diabetic anymore; Left foot drop History of Any Multi-Drug Resistant Organisms: MRSA Date of last positivie culture/infection: 05/04/23 MDRO Source:: Wound-site not specified Past Surgical History: Back Surgery, Hysterectomy Additional Past Surgical History / Comment(s): Back surgery 03/14/23 L2 -S1 Revision decompression and Fusion Past Psychological History: No Psychological Hx Reported Smoking Status: Former smoker Past Alcohol Use History: None Reported Past Drug Use History: None Reported <Ofe Rubin - Last Filed: 10/09/24 19:03> General Exam Limitations: no limitations General appearance: alert, in no apparent distress Head exam: Present: atraumatic Eye exam: Present: normal appearance, EOMI Respiratory exam: Present: rhonchi. Absent: respiratory distress, wheezes, rales, accessory muscle use Cardiovascular Exam: Present: regular rate, normal rhythm, normal heart sounds. Absent: systolic murmur, diastolic murmur GI/Abdominal exam: Present: soft, tenderness, normal bowel sounds. Absent: distended, rebound Neurological exam: Present: alert, altered (baseline oriented x2) Psychiatric exam: Present: normal affect, normal mood Skin exam: Present: dry <Ofe Rubin - Last Filed: 10/09/24 19:03> Course Vital Signs 10/09/24 10/09/24 10/09/24 11:18 14:10 15:50 Temperature 97.4 F L Pulse Rate 88 89 75 Respiratory 17 18 17 Rate Blood Pressure 140/68 150/94 136/65 O2 Sat by Pulse 97 97 97 Oximetry 10/09/24 10/09/24 10/09/24 18:26 19:35 20:23 Temperature 98.6 F Pulse Rate 78 73 78 Respiratory 18 17 17 Rate Blood Pressure 161/92 155/109 181/94 O2 Sat by Pulse 96 96 Oximetry 10/09/24 10/09/24 10/10/24 21:14 23:32 00:06 Temperature 97.5 F L Pulse Rate 75 76 77 Respiratory 17 17 18 Rate Blood Pressure 173/94 173/87 O2 Sat by Pulse 96 Oximetry Medical Decision Making - Lab Data Result diagrams: 10/09/24 11:42 10/09/24 11:42 <Ofe Rubin - Last Filed: 10/09/24 19:03> - Lab Data Result diagrams: 10/09/24 11:42 10/11/24 03:14 <Mae Doan - Last Filed: 10/11/24 08:54> - Medical Decision Making Was pt. sent in by a medical professional or institution (, PA, FILM DEVELOPER, urgent care, hospital, or correction...) When possible be specific @ -No Did you speak to anyone other than the patient for history (EMS, parent, family, police, friend...)? What history was obtained from this source @ -No Did you review nursing and triage notes (agree or disagree)? Why? @ -I reviewed and agree with nursing and triage notes Were old charts reviewed (outside hosp., previous admission, EMS record, old EKG, old radiological studies, urgent care reports/EKG's, correction records)? Report findings @ -No old charts were reviewed Differential Diagnosis? @ -Differential Altered Mental Status: Hypoglycemia, DKA, hypercapnia, ETOH, overdose, CO poisoning, trauma, myxedema coma, HTN encephalopathy, infection, encephalitis, psychosis, intercranial hemorrhage, hepatic encephalopathy, meningitis, CVA, this is not meant to be an all-inclusive list EKG interpreted by me (3pts min.). @ -None done X-rays interpreted by me (1pt min.). @ -No acute pulmonary process CT interpreted by me (1pt min.). @ -No intracranial mass or bleed U/S interpreted by me (1pt. min.). @ -None done What testing was considered but not performed or refused? (CT, X-rays, U/S, labs)? Why? @ -None What meds were considered but not given or refused? Why? @ -None Did you discuss the management of the patient with other professionals (professionals i.e. , PA, FILM DEVELOPER, lab, RT, psych nurse, social and political studies professor, rocket engine mechanic, teacher, upscale security officer, case operator)? Give summary @ -No Was smoking cessation discussed for >3mins.? @ -No Was critical care preformed (if so, how long)? @ -No Were there social determinants of health that impacted care today? How? (Homelessness, low income, unemployed, alcoholism, drug addiction, transportation, low edu. Level, literacy, decrease access to med. care, fci, rehab)? @ -No Was there de-escalation of care discussed even if they declined (Discuss DNR or withdrawal of care, Hospice)? DNR status @ -No What co-morbidities impacted this encounter? (DM, HTN, Smoking, COPD, CAD, Cancer, CVA, ARF, Chemo, Hep., AIDS, mental health diagnosis, sleep apnea, morbid obesity)? @ -Diabetes, hypertension, smoking Was patient admitted / discharged? Hospital course, mention meds given and route, prescriptions, significant lab abnormalities, going to OR and other pertinent info. @ -Patient is a 69-year-old female with a history of diabetes and hypertension presenting for frequency/urgency as well as altered mental status. Her significant other present at bedside states that she has been this way for about 3 weeks. A CBC, CMP, urinalysis, TSH/T4 chest x-ray, brain CT were obtained. WBCs 13.67, creatinine 1.58, calcium 15.1, ALT 35. Troponin, BNP, TSH were unremarkable. Urinalysis demonstrated trace protein, small blood, large l eukocyte esterase, RBCs, WBCs, bacteria. Patient was given 1 L 0.9% saline and started on maintenance fluids at 130 cc/h. Brain CT showed no acute intracranial hemorrhage or midline shift. Chest x-ray showed chronic changes without new acute pulmonary process. Nephrology was consulted due to hyp ercalcemia and SHARON. PTH, 125 vitamin D, 25 vitamin D were ordered for hypercalcemia workup. Internal medicine was then consulted for admission to inpatient. Dr. Doan spoke with Dr. Rosales. Undiagnosed new problem with uncertain prognosis? @ -No Drug Therapy requiring intensive monitoring for toxicity (Heparin, Nitro, Insulin, Cardizem)? @ -No Were any procedures done? @ -No Diagnosis/symptom? @ -Altered mental status, UTI, SHARON Acute, or Chronic, or Acute on Chronic? @ -Subacute Uncomplicated (without systemic symptoms) or Complicated (systemic symptoms)? @ -Default Side effects of treatment? @ -No Exacerbation, Progression, or Severe Exacerbation? @ -No Poses a threat to life or bodily function? How? (Chest pain, USA, AR, pneumonia, PE, COPD, DKA, ARF, appy, cholecystitis, CVA, Diverticulitis, Homicidal, Suicidal, threat to staff... and all critical care pts) @ -Possible, SHARON/hypercalcemia/altered mental status (Ofe Rubin) I personally saw the patient and performed the critical portion of the service. I discussed the patient care with the resident physician. I directed management, care planning and final disposition of the patient. This includes, but not limited to, review of all lab work, radiological studies, EKG's, consultations, vital signs, and nursing notes. EKG interpreted by me (3pts min.) @Sinus rhythm, rate 79 bpm normal axis, no significant ST elevations or depressions, no arrhythmia, intervals within acceptable limits X-Rays interpreted by me (1 pt min.) Personally reviewed chest x-ray, I see no evidence of consolidations or pneumothorax I agree with radiologist interpretation CT interpreted by me ( 1pt min.) Personally reviewed CT brain, I see no evidence of hemorrhage or mass effect I agree with radiologist interpretation U/S interpreted by me (1 pt min.) @ [none] Critical care time of 35 minutes minutes excluding separately billable procedures was spent in conjunction with critical care activities provided by the Resident and Attending simultaneously. I was present during [no procedures] for all critical portions of the procedure and as immediately available to furnish service during the entire procedure. (Mae Doan) - Lab Data Lab Results 10/09/24 10/09/24 10/09/24 Range/Units 11:42 11:42 11:42 WBC 13.67 H (4.50-10.00) 10*3/uL RBC 4.47 (4.10-5.20) 10*6/uL Hgb 13.6 (12.0-15.0) g/dL Hct 41.7 (37.2-46.3) % MCV 93.3 (80.0-97.0) fL MCH 30.4 (27.0-32.0) pg MCHC 32.6 (32.0-37.0) g/dL Plt Count 265 (140-440) 10*3/uL MPV 12.0 (9.5-12.2) fL Immature Gran % (Auto) 0.5 % Neutrophils % 79.7 % Lymphocytes % 12.1 % Monocytes % 5.8 % Eosinophils % 1.4 % Basophils % 0.5 % Immature Gran # 0.07 H (0.00-0.04) 10*3/uL Neutrophils # 10.90 H (1.80-7.70) 10*3/uL Lymphocytes # 1.65 (0.90-5.00) 10*3/uL Monocytes # 0.79 (0.20-1.00) 10*3/uL Eosinophils # 0.19 (0.04-0.35) 10*3/uL Basophils # 0.07 (0.00-0.10) 10*3/uL PT (10.0-12.5) sec INR (<1.2) APTT (22.0-30.0) sec Sodium 140 (137-145) mmol/L Potassium 3.9 (3.5-5.1) mmol/L Chloride 101 (98-107) mmol/L Carbon Dioxide 27 (22-30) mmol/L Anion Gap 12 mmol/L BUN 65 H (7-17) mg/dL Creatinine 1.58 H (0.52-1.04) mg/dL Est GFR (CKD-EPI)AfAm 39 (>60 ml/min/1.73 sqM) Est GFR (CKD-EPI)NonAf 34 (>60 ml/min/1.73 sqM) Glucose 98 (74-99) mg/dL Calcium 15.1 H* (8.4-10.2) mg/dL Total Bilirubin 0.7 (0.2-1.3) mg/dL AST 32 (14-36) U/L ALT 35 H (4-34) U/L Alkaline Phosphatase 100 (38-126) U/L Troponin I (0.000-0.034) ng/mL NT-Pro-B Natriuret Pep pg/mL Total Protein 6.8 (6.3-8.2) g/dL Albumin 3.9 (3.5-5.0) g/dL Vitamin D 25-Hydroxy (30.0-100.0) ng/mL TSH (0.465-4.680) mIU/L PTH Intact (14.0-72.0) pg/mL Urine Color Yellow Urine Appearance Turbid H (Clear) Urine pH 5.0 (5.0-8.0) Ur Specific Jennings 1.021 (1.001-1.035) Urine Protein Trace H (Negative) Urine Glucose (UA) Negative (Negative) Urine Ketones Negative (Negative) Urine Blood Small H (Negative) Urine Nitrite Negative (Negative) Urine Bilirubin Negative (Negative) Urine Urobilinogen <2.0 (<2.0) mg/dL Ur Leukocyte Esterase Large H (Negative) Urine RBC 22 H (0-5) /hpf Urine WBC >182 H (0-5) /hpf Urine WBC Clumps Many H (None) /hpf Ur Squamous Epith Cells 3 (0-4) /hpf Calcium Oxalate Crystal Occasional H (None) /hpf Urine Bacteria Many H (None) /hpf Urine Mucus Many H (None) /hpf 10/09/24 10/09/24 10/09/24 Range/Units 11:42 11:42 11:42 WBC (4.50-10.00) 10*3/uL RBC (4.10-5.20) 10*6/uL Hgb (12.0-15.0) g/dL Hct (37.2-46.3) % MCV (80.0-97.0) fL MCH (27.0-32.0) pg MCHC (32.0-37.0) g/dL Plt Count (140-440) 10*3/uL MPV (9.5-12.2) fL Immature Gran % (Auto) % Neutrophils % % Lymphocytes % % Monocytes % % Eosinophils % % Basophils % % Immature Gran # (0.00-0.04) 10*3/uL Neutrophils # (1.80-7.70) 10*3/uL Lymphocytes # (0.90-5.00) 10*3/uL Monocytes # (0.20-1.00) 10*3/uL Eosinophils # (0.04-0.35) 10*3/uL Basophils # (0.00-0.10) 10*3/uL PT (10.0-12.5) sec INR (<1.2) APTT (22.0-30.0) sec Sodium (137-145) mmol/L Potassium (3.5-5.1) mmol/L Chloride (98-107) mmol/L Carbon Dioxide (22-30) mmol/L Anion Gap mmol/L BUN (7-17) mg/dL Creatinine (0.52-1.04) mg/dL Est GFR (CKD-EPI)AfAm (>60 ml/min/1.73 sqM) Est GFR (CKD-EPI)NonAf (>60 ml/min/1.73 sqM) Glucose (74-99) mg/dL Calcium (8.4-10.2) mg/dL Total Bilirubin (0.2-1.3) mg/dL AST (14-36) U/L ALT (4-34) U/L Alkaline Phosphatase (38-126) U/L Troponin I (0.000-0.034) ng/mL NT-Pro-B Natriuret Pep 193 pg/mL Total Protein (6.3-8.2) g/dL Albumin (3.5-5.0) g/dL Vitamin D 25-Hydroxy 78.3 (30.0-100.0) ng/mL TSH 2.070 (0.465-4.680) mIU/L PTH Intact 14.7 (14.0-72.0) pg/mL Urine Color Urine Appearance (Clear) Urine pH (5.0-8.0) Ur Specific Jennings (1.001-1.035) Urine Protein (Negative) Urine Glucose (UA) (Negative) Urine Ketones (Negative) Urine Blood (Negative) Urine Nitrite (Negative) Urine Bilirubin (Negative) Urine Urobilinogen (<2.0) mg/dL Ur Leukocyte Esterase (Negative) Urine RBC (0-5) /hpf Urine WBC (0-5) /hpf Urine WBC Clumps (None) /hpf Ur Squamous Epith Cells (0-4) /hpf Calcium Oxalate Crystal (None) /hpf Urine Bacteria (None) /hpf Urine Mucus (None) /hpf 10/09/24 10/09/24 Range/Units 13:29 13:29 WBC (4.50-10.00) 10*3/uL RBC (4.10-5.20) 10*6/uL Hgb (12.0-15.0) g/dL Hct (37.2-46.3) % MCV (80.0-97.0) fL MCH (27.0-32.0) pg MCHC (32.0-37.0) g/dL Plt Count (140-440) 10*3/uL MPV (9.5-12.2) fL Immature Gran % (Auto) % Neutrophils % % Lymphocytes % % Monocytes % % Eosinophils % % Basophils % % Immature Gran # (0.00-0.04) 10*3/uL Neutrophils # (1.80-7.70) 10*3/uL Lymphocytes # (0.90-5.00) 10*3/uL Monocytes # (0.20-1.00) 10*3/uL Eosinophils # (0.04-0.35) 10*3/uL Basophils # (0.00-0.10) 10*3/uL PT 12.3 (10.0-12.5) sec INR 1.1 (<1.2) APTT 21.5 L (22.0-30.0) sec Sodium (137-145) mmol/L Potassium (3.5-5.1) mmol/L Chloride (98-107) mmol/L Carbon Dioxide (22-30) mmol/L Anion Gap mmol/L BUN (7-17) mg/dL Creatinine (0.52-1.04) mg/dL Est GFR (CKD-EPI)AfAm (>60 ml/min/1.73 sqM) Est GFR (CKD-EPI)NonAf (>60 ml/min/1.73 sqM) Glucose (74-99) mg/dL Calcium (8.4-10.2) mg/dL Total Bilirubin (0.2-1.3) mg/dL AST (14-36) U/L ALT (4-34) U/L Alkaline Phosphatase (38-126) U/L Troponin I <0.012 (0.000-0.034) ng/mL NT-Pro-B Natriuret Pep pg/mL Total Protein (6.3-8.2) g/dL Albumin (3.5-5.0) g/dL Vitamin D 25-Hydroxy (30.0-100.0) ng/mL TSH (0.465-4.680) mIU/L PTH Intact (14.0-72.0) pg/mL Urine Color Urine Appearance (Clear) Urine pH (5.0-8.0) Ur Specific Jennings (1.001-1.035) Urine Protein (Negative) Urine Glucose (UA) (Negative) Urine Ketones (Negative) Urine Blood (Negative) Urine Nitrite (Negative) Urine Bilirubin (Negative) Urine Urobilinogen (<2.0) mg/dL Ur Leukocyte Esterase (Negative) Urine RBC (0-5) /hpf Urine WBC (0-5) /hpf Urine WBC Clumps (None) /hpf Ur Squamous Epith Cells (0-4) /hpf Calcium Oxalate Crystal (None) /hpf Urine Bacteria (None) /hpf Urine Mucus (None) /hpf Disposition Time of Disposition: 15:56 <Ofe Rubin - Last Filed: 10/09/24 19:03> <Mae Doan - Last Filed: 10/11/24 08:54> Clinical Impression: Urinary tract infection, Acute kidney injury Disposition: ADMITTED IP TO THIS HOSP Condition: Stable
[2024-10-09 12:20] LABS: Appearance,Urine Turbid (Clear); Bacteria,Urine Many /hpf; Bilirubin,Urine Negative (Negative); Blood,Urine Small (Negative); Calcium Oxalate Crystals,Urine Occasional /hpf; Color,Urine Yellow; Glucose,Urine (UA) Negative (Negative); Ketones,Urine Negative (Negative); Leukocyte Esterase,Urine Large (Negative); Mucus,Urine Many /hpf; Nitrite,Urine Negative (Negative); Protein,Urine Trace (Negative); RBC,Urine 22 /hpf (0-5); Specific Gravity,Urine 1.021 (1.001-1.035); Squamous Epithelial Cell,Urine 3 /hpf (0-4); Urobilinogen,Urine <2.0 mg/dL (<2.0); WBC,Urine >182 /hpf (0-5)
[2024-10-09 13:04] LABS: Basophils # (A) 0.07 10*3/uL (0.00-0.10); Basophils % (A) 0.5 %; Eosinophils # (A) 0.19 10*3/uL (0.04-0.35); Eosinophils % (A) 1.4 %; HCT 41.7 % (37.2-46.3); HGB 13.6 g/dL (12.0-15.0); Lymphocytes # (A) 1.65 10*3/uL (0.90-5.00); Lymphocytes % (A) 12.1 %; MCH 30.4 pg (27.0-32.0); MCHC 32.6 g/dL (32.0-37.0); MCV 93.3 fL (80.0-97.0); Monocytes # (A) 0.79 10*3/uL (0.20-1.00); Monocytes % (A) 5.8 %; Neutrophils % (A) 79.7 %; Platelet Count 265 10*3/uL (140-440); RBC 4.47 10*6/uL (4.10-5.20); RDW 14.4 % (11.5-14.5); WBC 13.67 10*3/uL (4.50-10.00)
[2024-10-09 13:17] LABS: ALT 35 U/L (4-34); African American GFR (CKD) 39 (>60 ml/min/1.73 sqM); Albumin 3.9 g/dL (3.5-5.0); Anion Gap 12 mmol/L; Blood Urea Nitrogen 65 mg/dL (7-17); Carbon Dioxide 27 mmol/L (22-30); Chloride 101 mmol/L (98-107); Glucose 98 mg/dL (74-99); Non-African American GFR(CKD) 34 (>60 ml/min/1.73 sqM); Sodium 140 mmol/L (137-145); Total Bilirubin 0.7 mg/dL (0.2-1.3); Total Protein 6.8 g/dL (6.3-8.2)
[2024-10-09 13:43] LABS: AST 32 U/L (14-36); Alkaline Phosphatase 100 U/L (38-126); Potassium 3.9 mmol/L (3.5-5.1)
[2024-10-09 13:47] LABS: Calcium 15.1 mg/dL (8.4-10.2)
--- NOTE | 2024-10-09 14:02 | CT ---
EXAMINATION TYPE: CT brain wo con DATE OF EXAM: 10/09/2024 COMPARISON: NONE CLINICAL INDICATION: Female, 69 years old with history of AMS x 3 weeks, ams x 3 weeks TECHNIQUE: CT scan of the head is performed without contrast. CT DLP: 1098.4 mGycm. Automated Exposure Control for Dose Reduction was Utilized. FINDINGS: There is no acute intracranial hemorrhage or midline shift identified. There is mild to m oderate diffuse ventricular and sulcal prominence consistent with diffuse age-related cerebral atroph y. There is mild low-attenuation in the periventricular white matter consistent with chronic small v essel ischemic change. The globes are intact and the visualized sinuses are clear. IMPRESSION: No acute intracranial hemorrhage or midline shift. [facility], , 10/09/2024 2:00 PM
--- NOTE | 2024-10-09 14:03 | XR ---
EXAMINATION TYPE: XR chest 2V DATE OF EXAM: 10/09/2024 CLINICAL INDICATION: Female, 69 years old with history of Weakness, TECHNIQUE: Frontal and lateral views of the chest are obtained. COMPARISON: Chest x-ray March 12, 2023 FINDINGS: Persistent elevated right hemidiaphragm and linear scarring in the right middle lobe. Ther e is no suspicious new focal air space opacity, pleural effusion, or pneumothorax seen. The cardiac silhouette size is stable and within normal limits. Multilevel spurring in thoracic spine is redemons trated. IMPRESSION: Chronic changes without new acute pulmonary process. [facility], , 10/09/2024 2:01 PM
[2024-10-09] MEDS: cefTRIAXone IN SWFI 1,000 MG/10 ML SYRINGE IVP STA (14:09)
[2024-10-09 14:32] LABS: NT-Pro-B-Type Natriuretic Pept 193 pg/mL
[2024-10-09 14:50] LABS: INR 1.1 (<1.2); Partial Thromboplastin Time 21.5 sec (22.0-30.0); Prothrombin Time 12.3 sec (10.0-12.5)
[2024-10-09] MEDS: SODIUM CHLORIDE 0.9% 1,000 ML IV ONE (15:46)
[2024-10-09] MEDS: SODIUM CHLORIDE 0.9% 1,000 ML IV SCH (15:49)
[2024-10-09] MEDS ORDERED: NALOXONE 0.4 MG/ML 1 ML VIAL IV PRN (16:14)
[2024-10-09] MEDS ORDERED: ALPRAZolam 0.25 MG TAB PO PRN (16:25)
[2024-10-09] MEDS ORDERED: ONDANSETRON 4 MG/2 ML VIAL IVP PRN (16:25)
[2024-10-09] MEDS: METOPROLOL TARTRATE 50 MG TAB PO SCH (22:08)
[2024-10-10] MEDS: ENOXAPARIN 30 MG/0.3 ML SYRINGE SQ SCH (08:56)
[2024-10-10] MEDS: PANTOPRAZOLE 40 MG TABLET PO SCH (08:56)
[2024-10-10] MEDS ORDERED: ENOXAPARIN 40 MG/0.4 ML SYRINGE SQ SCH (09:00)
--- NOTE | 2024-10-10 10:46 | P.NPCON ---
History of Present Illness - Reason for Consult acute renal failure - History of Present Illness Reason for consultation: Acute kidney injury and hypercalcemia History of present illness: Patient is a 69-year-old female seen in renal consultation for acute kidney injury and hypercalcemia. Patient's creatinine in July 2023 was 0.9 and 1.2 dated November 25, 2023. This admission her creatinine was 1.58. Calcium was elevated at 15.1. Patient came to the hospital due to generalized weakness. Patient states she was recently diagnosed with UTI and was given antibiotics to be taken outpatient. Patient states she only took 1 dose and was subsequently brought to the hospital due to progressive weakness. She denies any nausea vomiting or diarrhea. She denies gross hematuria or dysuria. No fever or chills. She does admit to taking Voltaren on a daily basis. She denies use of calcium supplements. She denies history of malignancy. She does admit to taking vitamin D supplement at home but is unsure of the dose. She is currently receiving IV fluids. Labs from today are pending. Vital signs are stable. General: No acute distress. HEENT: Head exam is unremarkable. LUNGS: No audible rhonchi or wheezes. HEART: Rate and Rhythm are regular. ABDOMEN: Nontender. EXTREMITITES: No edema. Past Medical History Past Medical History: Diabetes Mellitus, Hyperlipidemia, Hypertension Additional Past Medical History / Comment(s): patient states not a diabetic anymore; Left foot drop History of Any Multi-Drug Resistant Organisms: MRSA Date of last positivie culture/infection: 05/04/23 MDRO Source:: Wound-site not specified Past Surgical History: Back Surgery, Hysterectomy Additional Past Surgical History / Comment(s): Back surgery 03/14/23 L2 -S1 Revision decompression and Fusion Past Psychological History: No Psychological Hx Reported Smoking Status: Former smoker Past Alcohol Use History: None Reported Past Drug Use History: None Reported Medications and Allergies Home Medications Medication Instructions Recorded Confirmed Type Metoprolol Tartrate [Lopressor] 100 mg PO DAILY 03/26/23 10/09/24 History Diclofenac Sodium [Voltaren] 75 mg PO BID 06/29/24 10/09/24 History Nitrofurantoin Monohyd/M-Cryst 100 mg PO Q12HR 10/09/24 10/09/24 History [Macrobid] Semaglutide [Ozempic] 2 mg SQ Q7D 10/09/24 10/09/24 History acetaZOLAMIDE [Diamox] 250 mg PO BID 10/09/24 10/09/24 History Allergies Allergy/AdvReac Type Severity Reaction Status Date / Time empagliflozin Allergy Nausea & Verified 10/09/24 16:08 [From Jardiance] Vomiting & Diarrhea Penicillins Allergy Unknown Verified 10/09/24 16:08 Childhood Sulfa (Sulfonamide Allergy Unknown Verified 10/09/24 16:08 Antibiotics) Childhood Physical Exam Vitals: Vital Signs Temp Pulse Pulse Resp BP BP Pulse Ox 10/10/24 07:36 97.6 F 92 16 158/83 95 10/10/24 00:52 98.0 F 86 18 167/97 98 10/10/24 00:06 97.5 F L 77 18 173/87 96 10/09/24 23:32 76 17 10/09/24 21:14 75 17 173/94 10/09/24 20:23 78 17 181/94 96 10/09/24 19:35 98.6 F 73 17 155/109 10/09/24 18:26 78 18 161/92 96 10/09/24 15:50 75 17 136/65 97 10/09/24 14:10 89 18 150/94 97 10/09/24 11:18 97.4 F L 88 17 140/68 97 Intake and Output 10/09/24 10/10/24 10/10/24 22:59 06:59 14:59 Intake Total 540 Output Total 200 Balance 340 Intake: Oral 540 Output: Urine 200 Other: # Voids 2 Weight 95.2 kg Results - Lab Results Most recent lab results Calcium 15.1 mg/dL (8.4-10.2) H* 10/09/24 11:42 10/09/24 11:42 10/09/24 11:42 Assessment and Plan Plan: Assessment: 1. Acute kidney injury secondary to hypercalcemia induced ATN, NSAIDs and infection. Creatinine 1.58 on admission. Creatinine 1.2 dated November 25, 2023 and 0.9 dated July 28, 2023. 2. Hypercalcemia secondary to volume contraction and vitamin D supplementation. PTH low at 14.7. Vitamin D 78.3. TSH normal. 3. UTI on antibiotics. Plan: Maintain IV fluids. Avoid calcium and vitamin D supplementation. Check calcitriol level and SPEP with immunofixation. Follow-up morning labs. Thank you for the consultation. I will continue to follow the patient with you during her hospital stay.
[2024-10-10 11:23] LABS: ALT 25 U/L (4-34); AST 26 U/L (14-36); African American GFR (CKD) 50 (>60 ml/min/1.73 sqM); Albumin/Globulin Ratio 1.3; Alkaline Phosphatase 87 U/L (38-126); Anion Gap 8 mmol/L; Blood Urea Nitrogen 54 mg/dL (7-17); Calcium 12.6 mg/dL (8.4-10.2); Carbon Dioxide 23 mmol/L (22-30); Chloride 112 mmol/L (98-107); Globulin 2.4 g/dL; Glucose 76 mg/dL (74-99); Magnesium 2.1 mg/dL (1.6-2.3); Non-African American GFR(CKD) 44 (>60 ml/min/1.73 sqM); Potassium 3.1 mmol/L (3.5-5.1); Sodium 143 mmol/L (137-145); Total Bilirubin 0.4 mg/dL (0.2-1.3); Total Protein 5.4 g/dL (6.3-8.2)
[2024-10-10] MEDS ORDERED: QUEtiapine 25 MG TAB PO PRN (13:20)
--- NOTE | 2024-10-10 13:27 | P.HPIM ---
History of Present Illness 69-year-old female was brought in because of altered mental status patient has baseline dementia her baseline mental status is alert oriented x 2-3. Patient is presently 2-3 but when when she came to the hospital she was quite a bit c onfused with generalized weakness found to have elevated calcium of 15.1 and elevated serum creatinine of 1.58 patient was started on IV fluids. Patient denied any symptoms of UTI although her urine is significantly abnormal with highly elevated white count in the urine of febrile 180. Patient denied any fever chills patient does take diclofenac on daily basis patient baseline creatinine is around 1.2. Chest x-ray showed some chronic changes without any acute cardiopulmonary process although patient has some rhonchi on exam. Brain CT did not show any acute abnormality either. REVIEW OF SYSTEMS: All other systems are negative except those mentioned in the HPI PHYSICAL EXAMINATION: GENERAL: The patient is alert and oriented x2-3, not in any acute distress. Well developed, well nourished. HEENT: Pupils are round and equally reacting to light. EOMI. No scleral icterus. No conjunctival pallor. Normocephalic, atraumatic. No pharyngeal erythema. No thyromegaly. CARDIOVASCULAR: S1 and S2 present. No murmurs, rubs, or gallops. PULMONARY: Chest is clear to auscultation, no wheezing or crackles. ABDOMEN: Soft, nontender, nondistended, normoactive bowel sounds. No palpable organomegaly. MUSCULOSKELETAL: No joint swelling or deformity. EXTREMITIES: No cyanosis, clubbing, or pedal edema. NEUROLOGICAL: Gross neurological examination did not reveal any focal deficits. SKIN: No rashes. Assessment and plan -Altered mental status: Most probably metabolic encephalopathy from hypercalcemia and acute renal failure. Although I cannot completely rule out toxic encephalopathy secondary to significantly elevated serum white count as well as white count in the urine. Will continue the antibiotic for now awaiting urine cultures urine cultures are negative, will discontinue antibiotics. - Hypercalcemia PTH and vitamin D levels are within normal patient takes vitamin D supplementation patient's elevated serum calcium is probably secondary to severe dehydration other workup including immunofixation tests are still pending at this time. Continue with normal saline at 130 cc/h replace potassium as needed - Acute renal failure secondary to prerenal azotemia vasomotor nephropathy - Dementia - Leukocytosis due to assessment #1 -Type 2 diabetes mellitus - Hypertension for above-mentioned chronic problems patient was resumed on appropriate home medications DVT prophylaxis: Lovenox text Past Medical History Past Medical History: Diabetes Mellitus, Hyperlipidemia, Hypertension Additional Past Medical History / Comment(s): patient states not a diabetic anymore; Left foot drop History of Any Multi-Drug Resistant Organisms: MRSA Date of last positivie culture/infection: 05/04/23 MDRO Source:: Wound-site not specified Past Surgical History: Back Surgery, Hysterectomy Additional Past Surgical History / Comment(s): Back surgery 03/14/23 L2 -S1 Revision decompression and Fusion Past Psychological History: No Psychological Hx Reported Smoking Status: Former smoker Past Alcohol Use History: None Reported Past Drug Use History: None Reported Medications and Allergies Home Medications Medication Instructions Recorded Confirmed Type Metoprolol Tartrate [Lopressor] 100 mg PO DAILY 03/26/23 10/09/24 History Diclofenac Sodium [Voltaren] 75 mg PO BID 06/29/24 10/09/24 History Nitrofurantoin Monohyd/M-Cryst 100 mg PO Q12HR 10/09/24 10/09/24 History [Macrobid] Semaglutide [Ozempic] 2 mg SQ Q7D 10/09/24 10/09/24 History acetaZOLAMIDE [Diamox] 250 mg PO BID 10/09/24 10/09/24 History Allergies Allergy/AdvReac Type Severity Reaction Status Date / Time empagliflozin Allergy Nausea & Verified 10/09/24 16:08 [From Jardiance] Vomiting & Diarrhea Penicillins Allergy Unknown Verified 10/09/24 16:08 Childhood Sulfa (Sulfonamide Allergy Unknown Verified 10/09/24 16:08 Antibiotics) Childhood Physical Exam Vitals: Vital Signs Temp Pulse Pulse Resp BP BP Pulse Ox 10/10/24 07:36 97.6 F 92 16 158/83 95 10/10/24 00:52 98.0 F 86 18 167/97 98 10/10/24 00:06 97.5 F L 77 18 173/87 96 10/09/24 23:32 76 17 10/09/24 21:14 75 17 173/94 10/09/24 20:23 78 17 181/94 96 10/09/24 19:35 98.6 F 73 17 155/109 10/09/24 18:26 78 18 161/92 96 10/09/24 15:50 75 17 136/65 97 10/09/24 14:10 89 18 150/94 97 Intake and Output 10/09/24 10/10/24 10/10/24 22:59 06:59 14:59 Intake Total 540 Output Total 200 Balance 340 Intake: Oral 540 Output: Urine 200 Other: # Voids 2 Weight 95.2 kg Results CBC & Chem 7: 10/09/24 11:42 10/10/24 10:36 Labs: Abnormal Lab Results - Last 24 Hours (Table) 10/09/24 10/09/24 10/10/24 Range/Units 11:42 13:29 10:36 APTT 21.5 L (22.0-30.0) sec Potassium 3.1 L (3.5-5.1) mmol/L Chloride 112 H (98-107) mmol/L BUN 65 H 54 H (7-17) mg/dL Creatinine 1.58 H 1.28 H (0.52-1.04) mg/dL Calcium 15.1 H* 12.6 H (8.4-10.2) mg/dL ALT 35 H (4-34) U/L Total Protein 5.4 L (6.3-8.2) g/dL Albumin 3.0 L (3.5-5.0) g/dL Thrombosis Risk Factor Assmnt - Choose All That Apply Any of the Below Risk Factors Present?: Yes Each Factor Represents 1 point: Obesity (BMI >25) Other Risk Factors: Yes Each Risk Factor Represents 2 Points: Age 61-74 years Thrombosis Risk Factor Assessment Total Risk Factor Score: 3 Thrombosis Risk Factor Assessment Level: Moderate Risk
[2024-10-10] MEDS: ZOLEDRONIC ACID 4 MG in SODIUM CHLORIDE 0.9% 100 ML IV ONE (15:41)
[2024-10-10] MEDS: POTASSIUM CHLORIDE ER 20 MEQ TAB.ER PO STA (15:41)
[2024-10-10] MEDS: ACETAMINOPHEN TAB 325 MG TAB PO PRN (16:07)
[2024-10-10 18:09] LABS: Protein, Total 5.4 g/dL (6.2-8.2)
[2024-10-10] MEDS: ZINC OXIDE PASTE (Z-GUARD) 1 APPLIC TOPICAL PRN (18:15)
[2024-10-11 08:31] LABS: ALT 31 U/L (8-44); AST 31 U/L (13-35); Alkaline Phosphatase 92 U/L (41-126); Calcium 10.6 mg/dL (8.7-10.3); Carbon Dioxide 20.4 mmol/L (21.6-31.8); Chloride 116 mmol/L (96-109); Glucose 74 mg/dL (70-110); Magnesium 1.8 mg/dL (1.5-2.4); Potassium 3.5 mmol/L (3.5-5.5); Sodium 146 mmol/L (135-145); Total Bilirubin <0.2 mg/dL (0.3-1.2)
[2024-10-11] MEDS: ENOXAPARIN 40 MG/0.4 ML SYRINGE SQ SCH (09:05)
--- NOTE | 2024-10-11 10:35 | P.PN ---
Subjective Patient is seen in follow-up for acute kidney injury. Renal function improved. Calcium level also trending down. Nonoliguric. No active complaints. Vital signs are stable. General: No acute distress. HEENT: Head exam is unremarkable. LUNGS: No audible rhonchi or wheezes. HEART: Rate and Rhythm are regular. Kartha ABDOMEN: Nontender. EXTREMITITES: No edema. Objective - Vital Signs Vital signs: Vital Signs Temp 97.7 F 10/11/24 07:35 Pulse 83 10/11/24 07:35 Resp 18 10/11/24 07:35 BP 155/84 10/11/24 07:35 Pulse Ox 98 10/11/24 07:35 FiO2 Intake & Output 10/10/24 10/11/24 10/11/24 18:59 06:59 18:59 Intake Total 240 Output Total 400 750 Balance -400 -510 Intake: Oral 240 Output: Urine 400 750 Other: Voiding Method External Catheter External Catheter External Catheter - Labs CBC & Chem 7: 10/09/24 11:42 10/11/24 03:14 Labs: Abnormal Lab Results - Last 24 Hours (Table) 10/10/24 10/10/24 10/11/24 Range/Units 10:36 10:36 03:14 Sodium 146 H (135-145) mmol/L Potassium 3.1 L (3.5-5.1) mmol/L Chloride 112 H 116 H (98-107) mmol/L Carbon Dioxide 20.4 L (21.6-31.8) mmol/L BUN 54 H 41.0 H (7-17) mg/dL Creatinine 1.28 H (0.52-1.04) mg/dL BUN/Creatinine Ratio 41.00 H (12.00-20.00) Ratio Calcium 12.6 H 10.6 H (8.4-10.2) mg/dL Total Bilirubin <0.2 L (0.3-1.2) mg/dL Total Protein 5.4 L 5.0 L (6.3-8.2) g/dL Total Protein (PEP) 5.4 L (6.2-8.2) g/dL Albumin 3.0 L 3.0 L (3.5-5.0) g/dL Albumin/Globulin Ratio 1.50 L (1.60-3.17) Ratio Microbiology - Last 24 Hours (Table) 10/09/24 11:42 Urine Culture - Preliminary Urine,Voided Gram Neg Bacilli Assessment and Plan Plan: Assessment: 1. Acute kidney injury secondary to hypercalcemia induced ATN, NSAIDs and infection. Creatinine 1.58 on admission and is improved to 1.0 today. Creatinine 1.2 dated November 25, 2023 and 0.9 dated July 28, 2023. 2. Hypercalcemia secondary to volume contraction and vitamin D supplementation. Improved. PTH low at 14.7. Vitamin D 78.3. TSH normal. 3. UTI on antibiotics. Urine culture positive for gram-negative bacilli. 4. Hypokalemia from poor intake and hypercalcemia induced diuresis. 5. Mild hypernatremia from lack of oral water intake. Plan: Change IV fluids to D5W. Encouraged oral intake, including free water. Avoid calcium and vitamin D supplementation. Follow-up pending workup for hypercalcemia. Status post Zometa given October 10, 2024.
[2024-10-11] MEDS: DEXTROSE 5% IN WATER 1,000 ML IV SCH (11:34)
[2024-10-11] MEDS: POTASSIUM CHLORIDE ER 20 MEQ TAB.ER PO STA (11:34)
[2024-10-11 13:28] VITALS: BMI 37.1
[2024-10-11] MEDS: DICLOFENAC SODIUM GEL 100 GM TUBE TOPICAL PRN (14:56)
--- NOTE | 2024-10-12 05:26 | P.PN ---
Subjective Progress Note Date: 10/11/24 69-year-old female was brought in because of altered mental status patient has baseline dementia her baseline mental status is alert oriented x 2-3. Patient is presently 2-3 but when when she came to the hospital she was quite a bit confused with generalized weakness found to have elevated calcium of 15.1 and elevated serum creatinine of 1.58 patient was started on IV fluids. Patient denied any symptoms of UTI although her urine is significantly abnormal with highly elevated white count in the urine of febrile 180. Patient denied any fever chills patient does take diclofenac on daily basis patient baseline creatinine is around 1.2. Chest x-ray showed some chronic changes without any acute cardiopulmonary process although patient has some rhonchi on exam. Brain CT did not show any acute abnormality either. 10/11/2024 Patient is evaluated today resting in bed family at the bedside. Calcium better at 10.6, has received dose of zometa and remains on IV fluids. Urine culture showing gram negative bacilli. Patient remains on IV ceftriaxone. Pending final urine culture. REVIEW OF SYSTEMS: All other systems are negative except those mentioned in the HPI PHYSICAL EXAMINATION: GENERAL: The patient is alert and oriented x2-3, not in any acute distress. Well developed, well nourished. HEENT: Pupils are round and equally reacting to light. EOMI. No scleral icterus. No conjunctival pallor. Normocephalic, atraumatic. No pharyngeal erythema. No thyromegaly. CARDIOVASCULAR: S1 and S2 present. No murmurs, rubs, or gallops. PULMONARY: Chest is clear to auscultation, no wheezing or crackles. ABDOMEN: Soft, nontender, nondistended, normoactive bowel sounds. No palpable organomegaly. MUSCULOSKELETAL: No joint swelling or deformity. EXTREMITIES: No cyanosis, clubbing, or pedal edema. NEUROLOGICAL: Gross neurological examination did not reveal any focal deficits. SKIN: No rashes. Rash under the right breast and bilateral groin and abdominal folds. Assessment and plan - Altered mental status: Most probably metabolic encephalopathy from hypercalcemia and acute renal failure. - Urinary tract infection, POA - Hypercalcemia PTH and vitamin D levels are within normal patient takes vitamin D supplementation patient's elevated serum calcium is probably secondary to severe dehydration other workup including immunofixation tests are still pending at this time. - Hypernatremia - Acute renal failure secondary to prerenal azotemia vasomotor nephropathy - Dementia - Intertrigo in groin and abdominal folds - Leukocytosis due to assessment #1 -Type 2 diabetes mellitus - Hypertension for above-mentioned chronic problems patient was resumed on appropriate home medications DVT prophylaxis: Lovenox Full Code Plan Change fluids to dextrose 5% in water at 50 mls Repeat labs in AM; monitor electrolytes and renal function Nephrology following Continue to hold NSAID Add voltaren gel Continue ceftriaxone pending final urine culture Continue nystatin /zinc paste to the areas of excoriation PT/OT consultation Possible D/C in the next 24 hours The impression and plan of care has been dictated by Meaghan Springer Nurse Practitioner as directed. Dr. Arlette MD I have performed a history and physical examination and medical decision making of this patient, discussed the same with the dictator, and agree with the dictators assessment and plan as written, documented as a scribe. Based on total visit time, I have performed more than 50% of this visit. Objective - Vital Signs Vital signs: Vital Signs Temp 98.0 F 10/12/24 00:27 Pulse 91 10/12/24 00:27 Resp 17 10/12/24 00:27 BP 167/90 10/12/24 00:27 Pulse Ox 96 10/12/24 00:27 FiO2 Intake & Output 10/11/24 10/11/24 10/12/24 06:59 18:59 06:59 Intake Total 240 Output Total 750 500 Balance -510 -500 Weight 95.2 kg Intake: Oral 240 Output: Urine 750 500 Other: Voiding Method External Catheter External Catheter External Catheter # Voids 1 # Bowel Movements 2 1 - Labs CBC & Chem 7: 10/09/24 11:42 10/11/24 03:14 Labs: Abnormal Lab Results - Last 24 Hours (Table) 10/11/24 Range/Units 03:14 Sodium 146 H (135-145) mmol/L Chloride 116 H (96-109) mmol/L Carbon Dioxide 20.4 L (21.6-31.8) mmol/L BUN 41.0 H (9.0-27.0) mg/dL BUN/Creatinine Ratio 41.00 H (12.00-20.00) Ratio Calcium 10.6 H (8.7-10.3) mg/dL Total Bilirubin <0.2 L (0.3-1.2) mg/dL Total Protein 5.0 L (6.2-8.2) g/dL Albumin 3.0 L (3.8-4.9) g/dL Albumin/Globulin Ratio 1.50 L (1.60-3.17) Ratio Microbiology - Last 24 Hours (Table) 10/09/24 11:42 Urine Culture - Final Urine,Voided Klebsiella pneumoniae Assessment and Plan Time with Patient: Less than 30
[2024-10-12 08:20] LABS: BUN/Creat Ratio 31.67 Ratio (12.00-20.00); Blood Urea Nitrogen 28.5 mg/dL (9.0-27.0); Calcium 9.6 mg/dL (8.7-10.3); Carbon Dioxide 20.4 mmol/L (21.6-31.8); Chloride 115 mmol/L (96-109); Glucose 99 mg/dL (70-110); Magnesium 1.7 mg/dL (1.5-2.4); Potassium 3.5 mmol/L (3.5-5.5); Sodium 144 mmol/L (135-145)
[2024-10-12] MEDS: NYSTATIN 100,000 UNIT/GM POWD 15 GM TOPICAL SCH (09:34)
[2024-10-12] MEDS ORDERED: Magnesium Replacement Protocol 1 EACH MISC MISCELLANE PRN (10:07)
--- NOTE | 2024-10-12 10:13 | P.PN ---
Subjective Patient is seen in follow-up for acute kidney injury. Renal function improved. Calcium level also trending down. Nonoliguric. No active complaints. Vital signs are stable. General: No acute distress. HEENT: Head exam is unremarkable. LUNGS: No audible rhonchi or wheezes. HEART: Rate and Rhythm are regular. ABDOMEN: Nontender. EXTREMITITES: No edema. Objective - Vital Signs Vital signs: Vital Signs Temp 99.4 F 10/12/24 07:21 Pulse 98 10/12/24 07:21 Resp 18 10/12/24 07:21 BP 169/96 10/12/24 07:21 Pulse Ox 95 10/12/24 07:21 FiO2 Intake & Output 10/11/24 10/12/24 10/12/24 18:59 06:59 18:59 Output Total 500 600 Balance -500 -600 Weight 95.2 kg Output: Urine 500 600 Other: Voiding Method External Catheter External Catheter External Catheter # Voids 1 # Bowel Movements 2 1 - Labs CBC & Chem 7: 10/09/24 11:42 10/12/24 03:42 Labs: Abnormal Lab Results - Last 24 Hours (Table) 10/12/24 Range/Units 03:42 Chloride 115 H (96-109) mmol/L Carbon Dioxide 20.4 L (21.6-31.8) mmol/L BUN 28.5 H (9.0-27.0) mg/dL BUN/Creatinine Ratio 31.67 H (12.00-20.00) Ratio Microbiology - Last 24 Hours (Table) 10/09/24 11:42 Urine Culture - Final Urine,Voided Klebsiella pneumoniae Assessment and Plan Plan: Assessment: 1. Acute kidney injury secondary to hypercalcemia induced ATN, NSAIDs and infection. Creatinine 1.58 on admission and is improved to 0.9 today. Creatinine 1.2 dated November 25, 2023 and 0.9 dated July 28, 2023. 2. Hypercalcemia secondary to volume contraction and vitamin D supplementation. Improved. PTH low at 14.7. Vitamin D 78.3. TSH normal. 3. UTI on antibiotics. Urine culture positive for Klebsiella. 4. Hypokalemia from poor intake and hypercalcemia induced diuresis. 5. Mild hypernatremia from lack of oral water intake. Better. Plan: Maintain D5W for another day. Encouraged oral intake, including free water. Avoid calcium and vitamin D supplementation. Follow-up pending workup for hypercalcemia. Status post Zometa given October 10, 2024. Replace potassium.
[2024-10-12] MEDS: MAGNESIUM SULFATE-D5W PMX 1 GM in DEXTROSE/WATER 1 100ML.BAG IVPB ONE (10:49)
[2024-10-12] MEDS: POTASSIUM CHLORIDE ER 20 MEQ TAB.ER PO STA (10:50)
[2024-10-12 13:12] LABS: Albumin 2.79 g/dL (3.80-4.90); Gamma Globulin 0.66 g/dL (0.70-1.50)
[2024-10-12 13:54] VITALS: BP 173/111; PULSE 77; RESP 17; TEMP 97.9
== END 2024-10-12 14:11 | disposition home health service (06) | DRG 682 ==
LOC: EC 11:14 → 4SSUR 17:50
PROVIDERS: ADMIT Internal Medicine; ATTEND Internal Medicine
DX: N17.0 Acute kidney failure with tubular necrosis (principal); G93.41 Metabolic encephalopathy; F03.90 Unspecified dementia, unspecified severity, without behavioral disturbance, psychotic disturbance, mood disturbance, and anxiety; E11.9 Type 2 diabetes mellitus without complications; I10 Essential (primary) hypertension; N39.0 Urinary tract infection, site not specified; E87.0 Hyperosmolality and hypernatremia; E78.5 Hyperlipidemia, unspecified; E83.52 Hypercalcemia; E87.6 Hypokalemia; L30.4 Erythema intertrigo; R32 Unspecified urinary incontinence; Z87.891 Personal history of nicotine dependence; B96.1 Klebsiella pneumoniae [K. pneumoniae] as the cause of diseases classified elsewhere; Z90.710 Acquired absence of both cervix and uterus; Z86.14 Personal history of Methicillin resistant Staphylococcus aureus infection; Z79.899 Other long term (current) drug therapy; Z88.0 Allergy status to penicillin; Z88.2 Allergy status to sulfonamides; Z88.8 Allergy status to other drugs, medicaments and biological substances; R35.0 Frequency of micturition
CPT/HCPCS: 36415; 70450; 71046; 80048; 80053; 81001; 82306; 82652; 83735; 83880; 83970; 84165; 84443; 84484; 85025; 85610; 85730; 86334; 87077; 87086; 87186; 93005; 96361; 96374; 99285

== ENCOUNTER 2024-12-08 15:11 | Inpatient (IN) | payer MEDICARE, OTHER ==
[2024-12-08] MEDS: SODIUM CHLORIDE 0.9% 1,000 ML IV ONE ×2 (15:51→17:29)
[2024-12-08 16:01] LABS: Basophils # (A) 0.05 10*3/uL (0.00-0.10); Basophils % (A) 0.4 %; Eosinophils # (A) 0.13 10*3/uL (0.04-0.35); Eosinophils % (A) 0.9 %; HCT 42.2 % (37.2-46.3); HGB 14.3 g/dL (12.0-15.0); Lymphocytes # (A) 1.55 10*3/uL (0.90-5.00); Lymphocytes % (A) 10.9 %; MCH 31.0 pg (27.0-32.0); MCHC 33.9 g/dL (32.0-37.0); MCV 91.3 fL (80.0-97.0); Monocytes # (A) 0.77 10*3/uL (0.20-1.00); Monocytes % (A) 5.4 %; Neutrophils # (A) 11.64 10*3/uL (1.80-7.70); Neutrophils % (A) 81.8 %; Platelet Count 269 10*3/uL (140-440); RBC 4.62 10*6/uL (4.10-5.20); RDW 14.4 % (11.5-14.5); WBC 14.22 10*3/uL (4.50-10.00)
--- NOTE | 2024-12-08 16:12 | XR ---
Chest, 2 view. CLINICAL INDICATION: Female, 69 years old with history of Weakness COMPARISON: 10/09/2024 TECHNIQUE: PA and lateral views the chest are obtained. FINDINGS: There is stable moderate elevation right hemidiaphragm and mild right lower lobe interstitial change or atelectasis. The left lung is clear. There is no lung consolidation. There is no pleural effusion or pneumothorax. The heart, pulmonary vasculature, mediastinum and caesar appear normal. The osseous structures are intact. IMPRESSION: No acute cardiopulmonary disease with no interval change. [facility], , 12/08/2024 4:10 PM
[2024-12-08 16:19] LABS: ALT 15 U/L (4-34); AST 20 U/L (14-36); African American GFR (CKD) 25 (>60 ml/min/1.73 sqM); Albumin 3.9 g/dL (3.5-5.0); Alkaline Phosphatase 101 U/L (38-126); Anion Gap 17 mmol/L; Blood Urea Nitrogen 99 mg/dL (7-17); Calcium 11.6 mg/dL (8.4-10.2); Carbon Dioxide 29 mmol/L (22-30); Chloride 85 mmol/L (98-107); Glucose 138 mg/dL (74-99); Magnesium 2.3 mg/dL (1.6-2.3); Non-African American GFR(CKD) 22 (>60 ml/min/1.73 sqM); Sodium 131 mmol/L (137-145); Total Protein 6.6 g/dL (6.3-8.2)
[2024-12-08 16:21] LABS: Potassium 2.5 mmol/L (3.5-5.1)
[2024-12-08 16:27] LABS: NT-Pro-B-Type Natriuretic Pept 1230 pg/mL
[2024-12-08] MEDS ORDERED: NALOXONE 0.4 MG/ML 1 ML VIAL IV PRN (17:19)
--- NOTE | 2024-12-08 17:19 | ED ---
General Adult HPI - General Chief complaint: Recheck/Abnormal Lab/Rx Stated complaint: Abn Labs Time Seen by Provider: 12/08/24 15:23 Source: patient Mode of arrival: wheelchair Limitations: no limitations - History of Present Illness Initial comments: 69-year-old female with past medical history of diabetes, hypertension, hyperlipidemia who presents to the emergency department with abnormal labs. Patient was seen by her home care nurse today. Vitals were obtained and laboratory studies were conducted. Patient did have a low blood pressure. Laboratory studies were remarkable for a hypokalemia. She was called by her primary care doctor to let her know that she had to go into the hospital for treatment. Patient admits to lack of appetite. States she is on Ozempic and it has caused her to lose a significant amount of weight. She states that she has not been eating or drinking much recently. She continues to take her acetazola mide. She admits to poor oral intake. Admits to some right shoulder pain. No chest pain or difficulty breathing. No lower extremity edema. No abdominal pain. No changes in her bowel or bladder habits. No other alleviating, precipitating or modifying factors - Related Data Home Medications Medication Instructions Recorded Confirmed Metoprolol Tartrate [Lopressor] 100 mg PO DAILY 03/26/23 12/08/24 Semaglutide [Ozempic] 2 mg SQ FR 10/09/24 12/08/24 acetaZOLAMIDE [Diamox] 250 mg PO BID 10/09/24 12/08/24 Vitamin B Complex 1 cap PO DAILY 12/08/24 12/08/24 Vitamin C (Unknown Dose) 1 dose PO DAILY 12/08/24 12/08/24 Allergies Allergy/AdvReac Type Severity Reaction Status Date / Time empagliflozin Allergy Rash/Hives Verified 12/08/24 18:03 [From Jardiance] Penicillins Allergy Unknown Verified 12/08/24 18:03 Childhood Sulfa (Sulfonamide Allergy Unknown Verified 12/08/24 18:03 Antibiotics) Childhood Review of Systems ROS Statement: Those systems with pertinent positive or pertinent negative responses have been documented in the HPI. ROS Other: All systems not noted in ROS Statement are negative. Past Medical History Past Medical History: Diabetes Mellitus, Hyperlipidemia, Hypertension Additional Past Medical History / Comment(s): patient states not a diabetic anymore; Left foot drop History of Any Multi-Drug Resistant Organisms: MRSA Date of last positivie culture/infection: 05/04/23 MDRO Source:: Wound-site not specified Past Surgical History: Back Surgery, Hysterectomy Additional Past Surgical History / Comment(s): Back surgery 03/14/23 L2 -S1 Revision decompression and Fusion Past Psychological History: No Psychological Hx Reported Smoking Status: Former smoker Past Alcohol Use History: None Reported Past Drug Use History: None Reported General Exam Limitations: no limitations General appearance: alert, in no apparent distress Head exam: Present: atraumatic, normocephalic, normal inspection Eye exam: Present: normal appearance, PERRL, EOMI. Absent: scleral icterus, conjunctival injection, periorbital swelling ENT exam: Present: normal exam, mucous membranes moist Neck exam: Present: normal inspection. Absent: tenderness, meningismus, lymphadenopathy Respiratory exam: Present: normal lung sounds bilaterally. Absent: respiratory distress, wheezes, rales, rhonchi, stridor Cardiovascular Exam: Present: regular rate, normal rhythm, normal heart sounds. Absent: systolic murmur, diastolic murmur, rubs, gallop, clicks GI/Abdominal exam: Present: soft, normal bowel sounds. Absent: distended, tenderness, guarding, rebound, rigid Extremities exam: Present: normal inspection, full ROM, normal capillary refill. Absent: tenderness, pedal edema, joint swelling, calf tenderness Back exam: Present: normal inspection Neurological exam: Present: alert, oriented X3, CN II-XII intact Psychiatric exam: Present: normal affect, normal mood Skin exam: Present: warm, dry, intact, normal color. Absent: rash Course Vital Signs 12/08/24 12/08/24 12/08/24 15:12 15:35 17:21 Temperature 97.4 F L Pulse Rate 91 84 82 Respiratory 18 16 18 Rate Blood Pressure 74/56 82/56 109/72 O2 Sat by Pulse 98 100 97 Oximetry 12/08/24 18:00 Temperature Pulse Rate 84 Respiratory 16 Rate Blood Pressure 107/72 O2 Sat by Pulse 97 Oximetry Medical Decision Making - Medical Decision Making Was pt. sent in by a medical professional or institution (, PA, ANNEALER HELPER, urgent care, hospital, or assisted...) When possible be specific @ -Patient was sent in by her primary care doctor Did you speak to anyone other than the patient for history (EMS, parent, family, police, friend...)? What history was obtained from this source @ -I spoke with the for history Did you review nursing and triage notes (agree or disagree)? Why? @ -I reviewed and agree with nursing and triage notes Were old charts reviewed (outside hosp., previous admission, EMS record, old EKG, old radiological studies, urgent care reports/EKG's, assisted records)? Report findings @ -I reviewed patient's discharge summary from October 12 where she was hospitalized for SHARON and hypercalcemia Differential Diagnosis (chest pain, altered mental status, abdominal pain women, abdominal pain men, vaginal bleeding, weakness, fever, dyspnea, syncope, headache, dizziness, GI bleed, back pain, seizure, CVA, palpatations, mental health, musculoskeletal)? @ -Differential Weakness: Hypoglycemia, shock, sepsis, hyponatremia, anemia, infection, NM, ETOH, adverse medicine reaction, overdose, stroke, this is not meant to be an all-inclusive list. EKG interpreted by me (3pts min.). @ -Yes and demonstrates sinus rhythm with a rate of 84. IN interval 132. QRS 104. QTc of 398. No acute ST segment elevation. Mild ST depression V3 through V6 X-rays interpreted by me (1pt min.). @ -Yes which demonstrates no signs of pulmonary edema CT interpreted by me (1pt min.). @ -None done U/S interpreted by me (1pt. min.). @ -None done What testing was considered but not performed or refused? (CT, X-rays, U/S, labs)? Why? @ -None What meds were considered but not given or refused? Why? @ -None Did you discuss the management of the patient with other professionals (professionals i.e. , PA, ANNEALER HELPER, lab, RT, psych nurse, social worker delinquency prevention, bomb squad commander, teacher, chief green officer, housing case manager)? Give summary @ -Spoke with Dr. Forte for admission Was smoking cessation discussed for >3mins.? @ -No Was critical care preformed (if so, how long)? @ -No Were there social determinants of health that impacted care today? How? (Homelessness, low income, unemployed, alcoholism, drug addiction, transportation, low edu. Level, literacy, decrease access to med. care, care home, rehab)? @ -No Was there de-escalation of care discussed even if they declined (Discuss DNR or withdrawal of care, Hospice)? DNR status @ -No What co-morbidities impacted this encounter? (DM, HTN, Smoking, COPD, CAD, Cancer, CVA, ARF, Chemo, Hep., AIDS, mental health diagnosis, sleep apnea, morbid obesity)? @ -Diabetes mellitus, congestive heart failure Was patient admitted / discharged? Hospital course, mention meds given and route, prescriptions, significant lab abnormalities, going to OR and other pertinent info. @ -Upon arrival patient seen and evaluated in bed 19. Thorough history and physical exam was performed. Patient placed on continuous pulse ox and cardiac monitoring. Twelve-lead EKG is obtained. Laboratory studies are conducted. Patient arrives and is hypotensive and therefore she is given a liter bolus of normal saline. Chest x-ray was performed which demonstrates no signs of pulmonary edema and therefore the patient was given a second liter. Laboratory studies are reviewed. Patient has critically low potassium level. This is replaced with 20 mEq IV and 40 mEq by mouth. Patient does have improvement in her blood pressure. At this time the patient will be admitted for her acute kidney injury. I spoke with Dr. Forte for the admission Undiagnosed new problem with uncertain prognosis? @ -No Drug Therapy requiring intensive monitoring for toxicity (Heparin, Nitro, Insulin, Cardizem)? @ -No Were any procedures done? @ -No Diagnosis/symptom? @ -Acute hypotension, acute hypokalemia, SHARON Acute, or Chronic, or Acute on Chronic? @ -Acute Uncomplicated (without systemic symptoms) or Complicated (systemic symptoms)? @ -Complicated Side effects of treatment? @ -No Exacerbation, Progression, or Severe Exacerbation? @ -No Poses a threat to life or bodily function? How? (Chest pain, USA, NM, pneumonia, PE, COPD, DKA, ARF, appy, cholecystitis, CVA, Diverticulitis, Homicidal, Suicidal, threat to staff... and all critical care pts) @ -No - Lab Data Result diagrams: 12/08/24 15:47 12/08/24 20:22 Lab Results 12/08/24 12/08/24 12/08/24 Range/Units 15:47 15:47 15:47 WBC 14.22 H (4.50-10.00) 10*3/uL RBC 4.62 (4.10-5.20) 10*6/uL Hgb 14.3 (12.0-15.0) g/dL Hct 42.2 (37.2-46.3) % MCV 91.3 (80.0-97.0) fL MCH 31.0 (27.0-32.0) pg MCHC 33.9 (32.0-37.0) g/dL Plt Count 269 (140-440) 10*3/uL MPV 12.2 (9.5-12.2) fL Immature Gran % (Auto) 0.6 % Neutrophils % 81.8 % Lymphocytes % 10.9 % Monocytes % 5.4 % Eosinophils % 0.9 % Basophils % 0.4 % Immature Gran # 0.08 H (0.00-0.04) 10*3/uL Neutrophils # 11.64 H (1.80-7.70) 10*3/uL Lymphocytes # 1.55 (0.90-5.00) 10*3/uL Monocytes # 0.77 (0.20-1.00) 10*3/uL Eosinophils # 0.13 (0.04-0.35) 10*3/uL Basophils # 0.05 (0.00-0.10) 10*3/uL Sodium 131 L (137-145) mmol/L Potassium 2.5 L* (3.5-5.1) mmol/L Chloride 85 L (98-107) mmol/L Carbon Dioxide 29 (22-30) mmol/L Anion Gap 17 mmol/L BUN 99 H (7-17) mg/dL Creatinine 2.28 H (0.52-1.04) mg/dL Est GFR (CKD-EPI)AfAm 25 (>60 ml/min/1.73 sqM) Est GFR (CKD-EPI)NonAf 22 (>60 ml/min/1.73 sqM) Glucose 138 H (74-99) mg/dL Plasma Lactic Acid Yaw 1.8 (0.7-2.0) mmol/L Calcium 11.6 H (8.4-10.2) mg/dL Magnesium 2.3 (1.6-2.3) mg/dL Total Bilirubin 0.6 (0.2-1.3) mg/dL AST 20 (14-36) U/L ALT 15 (4-34) U/L Alkaline Phosphatase 101 (38-126) U/L Troponin I (0.000-0.034) ng/mL NT-Pro-B Natriuret Pep 1230 pg/mL Total Protein 6.6 (6.3-8.2) g/dL Albumin 3.9 (3.5-5.0) g/dL 12/08/24 Range/Units 15:47 WBC (4.50-10.00) 10*3/uL RBC (4.10-5.20) 10*6/uL Hgb (12.0-15.0) g/dL Hct (37.2-46.3) % MCV (80.0-97.0) fL MCH (27.0-32.0) pg MCHC (32.0-37.0) g/dL Plt Count (140-440) 10*3/uL MPV (9.5-12.2) fL Immature Gran % (Auto) % Neutrophils % % Lymphocytes % % Monocytes % % Eosinophils % % Basophils % % Immature Gran # (0.00-0.04) 10*3/uL Neutrophils # (1.80-7.70) 10*3/uL Lymphocytes # (0.90-5.00) 10*3/uL Monocytes # (0.20-1.00) 10*3/uL Eosinophils # (0.04-0.35) 10*3/uL Basophils # (0.00-0.10) 10*3/uL Sodium (137-145) mmol/L Potassium (3.5-5.1) mmol/L Chloride (98-107) mmol/L Carbon Dioxide (22-30) mmol/L Anion Gap mmol/L BUN (7-17) mg/dL Creatinine (0.52-1.04) mg/dL Est GFR (CKD-EPI)AfAm (>60 ml/min/1.73 sqM) Est GFR (CKD-EPI)NonAf (>60 ml/min/1.73 sqM) Glucose (74-99) mg/dL Plasma Lactic Acid Yaw (0.7-2.0) mmol/L Calcium (8.4-10.2) mg/dL Magnesium (1.6-2.3) mg/dL Total Bilirubin (0.2-1.3) mg/dL AST (14-36) U/L ALT (4-34) U/L Alkaline Phosphatase (38-126) U/L Troponin I <0.012 (0.000-0.034) ng/mL NT-Pro-B Natriuret Pep pg/mL Total Protein (6.3-8.2) g/dL Albumin (3.5-5.0) g/dL Disposition Clinical Impression: Acute kidney injury, Hypokalemia, Hypotension Disposition: ADMITTED IP TO THIS [facility] Condition: Stable Is patient prescribed a controlled substance at d/c from ED?: No Time of Disposition: 17:18 Decision to Admit Reason: Admit from EC Decision Date: 12/08/24 Decision Time: 17:19
[2024-12-08] MEDS: POTASSIUM CHLORIDE ER 20 MEQ TAB.ER PO STA (17:22)
[2024-12-08] MEDS: POTASSIUM CHLORIDE 20 MEQ in WATER FOR INJECTION 1 100ML.BAG IVPB STA (17:26)
[2024-12-08] MEDS ORDERED: DEXTROSE 50% SYRINGE 50 ML IVP PRN ×2 (17:52)
[2024-12-08] MEDS ORDERED: VANCOMYCIN IV PER PHARMACY 1 EACH MISC MISCELLANE PRN (18:13)
--- NOTE | 2024-12-08 18:28 | P.HPIM ---
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 She had a visiting nurse checking her blood work today, was noted to have low blood pressure and was advised to come to the ED for further evaluation of abnormal labs, specifically low potassium. She states that she has been having on and off weakness over the past 4 days, significantly decreased appetite over the past 8 weeks, 1-1/2 weeks ago she had couple days of throwing up, no associated abdominal pain, symptoms resolved now. She reports chills but no fevers, denies shortness of breath, does have chronic on and off cough that is unchanged, no chest pain, again, no abdominal pain, no wounds, no rashes no sinus pressure, She was started on Ozempic 3 years ago, however, over the past 8 weeks she lost 65 pounds. She denies any diarrhea or constipation. Patient is mostly com plaining of her chronic lower back pain that she takes anti-inflammatory twice a day. Patient states that her home blood pressure is being checked twice daily by with the family hours, systolic is usually in the 90s and she continue with her blood pressure medication. Patient hypotensive 74/56, afebrile, heart rate in 90s, satting well on room air. Patient received 2 L of NS, blood pressure improved to 109/72. Lab work significant for leukocytosis 14.2, normal hemoglobin, platelet count, sodium low 131, potassium low 2.5, chloride low 85, creatinine significantly elevated 2.28, BUN high 99, glucose 138, lactic acid normal, calcium elevated 11.6, normal liver enzymes and bilirubin, negative troponin, 8 adjusted BNP negative, chest x-ray showed chronically elevated right-sided hemidiaphragm. Patient was admitted for hypotension, severe hypokalemia, SIRS positive, suspicion for adrenal insufficiency started on IV steroids, broad-spectrum antibiotics, blood and urine cultures ordered. Pertinent positives and negatives as discussed in HPI, a complete review of systems was performed and all other systems are negative. Patient seen and examined at bedside. Vital signs reviewed General: Ill-appearing Derm: warm, dry Head: atraumatic, normocephalic, symmetric Eyes: EOMI, no lid lag, anicteric sclera, pupils equal round reactive to light ENT: Nose and ears atraumatic Neck: No thyromegaly, supple Mouth: no lip lesion, mucus membranes moist Cardiovascular: S1S2 reg, no murmur, no edema Lungs: clear to auscultation bilateral, no rhonchi, no rales, no wheeze, no accessory muscle use Abdominal: soft, nontender to palpation, no guarding, no appreciable organomegaly Ext: no gross muscle atrophy, muscle strength muscle strength 5 out of 5 in all 4 extremities, no contractures Neuro: CN II-XII grossly intact Psych: Alert, oriented, appropriate affect Assessment/Plan: Meets SIRS criteria with hypotension, leukocytosis, heart rate in the 90s on admission, no source of infection identified so far, UA pending Hypertension Hypokalemia Hyponatremia Hypercalcemia Suspect adrenal crisis SHARON secondary to decreased oral intake, ATN in the settings of low blood press ure Malnutrition, poor oral intake - Will empirically provide with IV hydrocortisone 100 mg bolus followed by 50 mg every 6 hours, stat cortisol and ACTH ordered to be obtained before initiation of steroids, will check TSH -Consult nephrology -Pharmacy to dose vancomycin, start cefepime 2 g daily SOT 12/08/2024, monitor daily BMP - Continue NS at 130 cc/h - Continue telemetry - Procalcitonin, CK ordered and pending - Urinalysis ordered and pending will add urine cultures and blood cultures due to hypotension and leukocytosis -Strict intake and output, will order renal ultrasound - Potassium was replaced in the ER with 40 mEq oral and 20 mEq IV, will order recheck potassium for this evening and monitor BMP daily -Avoid NSAIDs and other nephrotoxins -PT OT, RD consulted -Maintain fall precautions -Hold home metoprolol 100 daily, acetazolamide 250 twice daily - Recommend age-appropriate cancer screening, follow-up with PCP regarding possible discontinuation of Ozempic Type II DM not on insulin -Continue with SSI, Accu-Cheks, hypoglycemia precautions Chronic lower back pain: Will provide with Tylenol Hypertension, now hypotensive Dyslipidemia -Hold home medications as above -will not continue BP meds at discharge The patient is admitted with an anticipated greater than 2 midnight stay as inpatient status for evaluation of SHARON, hyperkalemia, hypertension. CODE STATUS: Full code DVT prophylaxis: SCD Anticipated discharge date: TBD Anticipated discharge place: TBD A total of 50 minutes was spent on the care of this complex patient more than 50% of the time was spent in counseling and care coordination. Past Medical History Past Medical History: Diabetes Mellitus, Hyperlipidemia, Hypertension Additional Past Medical History / Comment(s): patient states not a diabetic anymore; Left foot drop History of Any Multi-Drug Resistant Organisms: MRSA Date of last positivie culture/infection: 05/04/23 MDRO Source:: Wound-site not specified Past Surgical History: Back Surgery, Hysterectomy Additional Past Surgical History / Comment(s): Back surgery 03/14/23 L2 -S1 Teodoro ion decompression and Fusion Past Psychological History: No Psychological Hx Reported Smoking Status: Former smoker Past Alcohol Use History: None Reported Past Drug Use History: None Reported Medications and Allergies Home Medications Medication Instructions Recorded Confirmed Type Metoprolol Tartrate [Lopressor] 100 mg PO DAILY 03/26/23 12/08/24 History Semaglutide [Ozempic] 2 mg SQ FR 10/09/24 12/08/24 History acetaZOLAMIDE [Diamox] 250 mg PO BID 10/09/24 12/08/24 History Vitamin B Complex 1 cap PO DAILY 12/08/24 12/08/24 History Vitamin C (Unknown Dose) 1 dose PO DAILY 12/08/24 12/08/24 History Allergies Allergy/AdvReac Type Severity Reaction Status Date / Time empagliflozin Allergy Rash/Hives Verified 12/08/24 18:03 [From Jardiance] Penicillins Allergy Unknown Verified 12/08/24 18:03 Childhood Sulfa (Sulfonamide Allergy Unknown Verified 12/08/24 18:03 Antibiotics) Childhood Physical Exam Vitals: Vital Signs Temp Pulse Resp BP Pulse Ox 12/08/24 17:21 82 18 109/72 97 12/08/24 15:35 84 16 82/56 100 12/08/24 15:12 97.4 F L 91 18 74/56 98 Intake and Output 12/08/24 12/08/24 12/08/24 06:59 14:59 22:59 Other: Weight 74.843 kg Results CBC & Chem 7: 12/08/24 15:47 12/08/24 15:47 Labs: Abnormal Lab Results - Last 24 Hours (Table) 12/08/24 12/08/24 Range/Units 15:47 15:47 WBC 14.22 H (4.50-10.00) 10*3/uL Immature Gran # 0.08 H (0.00-0.04) 10*3/uL Neutrophils # 11.64 H (1.80-7.70) 10*3/uL Sodium 131 L (137-145) mmol/L Potassium 2.5 L* (3.5-5.1) mmol/L Chloride 85 L (98-107) mmol/L BUN 99 H (7-17) mg/dL Creatinine 2.28 H (0.52-1.04) mg/dL Glucose 138 H (74-99) mg/dL Calcium 11.6 H (8.4-10.2) mg/dL
[2024-12-08] MEDS: CEFEPIME 2 GM in SODIUM CHLORIDE 0.9% 50 ML IVPB SCH (18:34)
[2024-12-08] MEDS: SODIUM CHLORIDE 0.9% 1,000 ML IV SCH (19:23)
[2024-12-08 19:43] LABS: RSV Not Detected (Not Detectd)
--- NOTE | 2024-12-08 19:47 | US ---
EXAMINATION TYPE: US renals and bladder DATE OF EXAM: 12/08/2024 COMPARISON: NONE CLINICAL INDICATION: Female, 69 years old with history of SHARON; SHARON Limited due to body habitus and unique wel gas. TECHNIQUE: Grayscale imaging of the bilateral kidneys and urinary bladder: FINDINGS: EXAM MEASUREMENTS: Right Kidney: 8.4 x 3.9 x 3.7 cm Left Kidney: 9.7 x 5.1 x 4.2 cm Right Kidney: No hydronephrosis or masses seen Left Kidney Anechoic area mid pole 1.4 x 1.3 x 1.3 cm. Bladder: Not fully distended. Bilateral Jets seen: no There is no evidence for hydronephrosis at this point in time. No nephrolithiasis is seen. Left otto al midpole simple cyst. No solid renal masses are identified. Corticomedullary differentiation is ma intained. The urinary bladder is underdistended and not well-visualized. IMPRESSION: No hydronephrosis or nephrolithiasis. [facility], , 12/08/2024 7:44 PM
[2024-12-08] MEDS: HYDROCORTISONE SUCCINATE 100 MG/2 ML VIAL IV STA (21:36)
[2024-12-08] MEDS: VANCOMYCIN 1,250 MG in SODIUM CHLORIDE 0.9% 250 ML IVPB ONE (21:59)
[2024-12-08] MEDS: CEFEPIME 1 GM in SODIUM CHLORIDE 0.9% 50 ML IVPB SCH (21:59)
[2024-12-08 22:24] LABS: Glucose,Whole Blood 97 mg/dL (70-110)
[2024-12-08] MEDS: INSULIN LISPRO (HumaLOG) 100 UNIT/ML 10 mL VL SQ SCH (22:24)
[2024-12-08] MEDS: POTASSIUM CHLORIDE ER 20 MEQ TAB.ER PO SCH (23:26)
[2024-12-08] MEDS: HYDROCORTISONE SUCCINATE 100 MG/2 ML VIAL IV SCH (23:30)
[2024-12-09] MEDS: POTASSIUM CHLORIDE 10 MEQ in WATER FOR INJECTION 1 100ML.BAG IVPB SCH (02:05)
[2024-12-09 02:55] LABS: Procalcitonin 0.56 ng/mL (0.02-0.50)
[2024-12-09 02:57] LABS: Creatine Kinase 16.0 U/L (26-186)
[2024-12-09 03:26] LABS: Bacteria,Urine Many /hpf; Bilirubin,Urine Negative (Negative); Blood,Urine Moderate (Negative); Calcium Oxalate Crystals,Urine Rare /hpf; Color,Urine Yellow; Glucose,Urine (UA) Negative (Negative); Ketones,Urine Negative (Negative); Leukocyte Esterase,Urine Large (Negative); Mucus,Urine Rare /hpf; Nitrite,Urine Negative (Negative); PH, Urine 5.5 (5.0-8.0); Protein,Urine Trace (Negative); RBC,Urine 9 /hpf (0-5); Specific Gravity,Urine 1.020 (1.001-1.035); Squamous Epithelial Cell,Urine 5 /hpf (0-4); Urobilinogen,Urine 2.0 mg/dL (<2.0); WBC,Urine 27 /hpf (0-5)
[2024-12-09] MEDS: ACETAMINOPHEN TAB 325 MG TAB PO PRN (04:09)
[2024-12-09 07:55] LABS: Glucose,Whole Blood 127 mg/dL (70-110)
[2024-12-09 07:58] LABS: Basophils # (A) 0.02 10*3/uL (0.00-0.10); Basophils % (A) 0.3 %; Eosinophils # (A) 0.01 10*3/uL (0.04-0.35); Eosinophils % (A) 0.1 %; HCT 36.9 % (37.2-46.3); HGB 11.8 g/dL (12.0-15.0); Lymphocytes # (A) 0.61 10*3/uL (0.90-5.00); Lymphocytes % (A) 8.3 %; MCH 30.8 pg (27.0-32.0); MCHC 32.0 g/dL (32.0-37.0); Monocytes # (A) 0.25 10*3/uL (0.20-1.00); Monocytes % (A) 3.4 %; Neutrophils # (A) 6.44 10*3/uL (1.80-7.70); Neutrophils % (A) 87.2 %; Platelet Count 161 10*3/uL (140-440); RBC 3.83 10*6/uL (4.10-5.20); RDW 14.6 % (11.5-14.5); WBC 7.38 10*3/uL (4.50-10.00)
[2024-12-09 08:14] LABS: African American GFR (CKD) 44 (>60 ml/min/1.73 sqM); Anion Gap 10 mmol/L; Blood Urea Nitrogen 79 mg/dL (7-17); Calcium 9.4 mg/dL (8.4-10.2); Carbon Dioxide 22 mmol/L (22-30); Chloride 102 mmol/L (98-107); Glucose 107 mg/dL (74-99); Magnesium 2.0 mg/dL (1.6-2.3); Non-African American GFR(CKD) 38 (>60 ml/min/1.73 sqM); Potassium 3.3 mmol/L (3.5-5.1); Sodium 134 mmol/L (137-145)
[2024-12-09 08:16] LABS: MCV 96.3 fL (80.0-97.0)
[2024-12-09] MEDS: CEFEPIME 2 GM in SODIUM CHLORIDE 0.9% 100 ML IVPB SCH (09:06)
--- NOTE | 2024-12-09 09:49 | P.NPCON ---
History of Present Illness - Reason for Consult acute renal failure - History of Present Illness Reason for consultation: Acute kidney injury History of present illness: Patient is a 69-year-old female seen in renal consultation for acute kidney injury. Patient's baseline creatinine has been at 1 and was elevated at 2.28 on admission. It is improved to 1.4 today. Patient states she had blood work done outpatient and was noted for low potassium level and was advised to go to the hospital. Potassium level was 2.5 on admission and has been replaced. It was up to 3.3 this morning. She was also taking a diuretic at home. Patient states oral intake for past 2 days has been poor. She had 2 episodes of vomiting last week. Patient is educated on GLP-1 antagonist now for about 2 years and has los t over 60 pounds of weight. Patient states she was a diabetic in the past but not anymore. Denies history of coronary artery disease. She does admit to taking NSAIDs. No hydronephrosis noted on kidney ultrasound. Denies diarrhea. Admits to good urine output. No gross hematuria or dysuria. Vital signs are stable. General: No acute distress. HEENT: Head exam is unremarkable. LUNGS: No audible rhonchi or wheezes. HEART: Rate and Rhythm are regular. ABDOMEN: Nontender. EXTREMITITES: No edema. Past Medical History Past Medical History: Diabetes Mellitus, Hyperlipidemia, Hypertension Additional Past Medical History / Comment(s): patient states not a diabetic anymore; Left foot drop History of Any Multi-Drug Resistant Organisms: MRSA Date of last positivie culture/infection: 05/04/23 MDRO Source:: Wound-site not specified Past Surgical History: Back Surgery, Hysterectomy Additional Past Surgical History / Comment(s): Back surgery 03/14/23 L2 -S1 Revision decompression and Fusion Past Psychological History: No Psychological Hx Reported Smoking Status: Former smoker Past Alcohol Use History: None Reported Past Drug Use History: None Reported Medications and Allergies Home Medications Medication Instructions Recorded Confirmed Type Metoprolol Tartrate [Lopressor] 100 mg PO DAILY 03/26/23 12/08/24 History Semaglutide [Ozempic] 2 mg SQ FR 10/09/24 12/08/24 History acetaZOLAMIDE [Diamox] 250 mg PO BID 10/09/24 12/08/24 History Vitamin B Complex 1 cap PO DAILY 12/08/24 12/08/24 History Vitamin C (Unknown Dose) 1 dose PO DAILY 12/08/24 12/08/24 History Allergies Allergy/AdvReac Type Severity Reaction Status Date / Time empagliflozin Allergy Rash/Hives Verified 12/08/24 18:03 [From Jardiance] Penicillins Allergy Unknown Verified 12/08/24 18:03 Childhood Sulfa (Sulfonamide Allergy Unknown Verified 12/08/24 18:03 Antibiotics) Childhood Physical Exam Vitals: Vital Signs Temp Pulse Resp BP Pulse Ox 12/09/24 08:58 97.1 F L 82 18 118/71 100 12/09/24 06:00 97.8 F 84 18 110/62 99 12/09/24 05:00 97.8 F 85 16 106/79 97 12/09/24 03:00 98.1 F 84 16 102/67 97 12/09/24 01:30 87 18 101/67 98 12/09/24 00:00 85 14 109/72 98 12/08/24 22:00 83 18 102/68 96 12/08/24 18:00 84 16 107/72 97 12/08/24 17:21 82 18 109/72 97 12/08/24 15:35 84 16 82/56 100 12/08/24 15:12 97.4 F L 91 18 74/56 98 Intake and Output 12/08/24 12/09/24 12/09/24 22:59 06:59 14:59 Output Total 150 Balance -150 Output: Urine 150 Other: Weight 74.843 kg Results - Lab Results Most recent lab results Calcium 9.4 mg/dL (8.4-10.2) 12/09/24 07:20 Magnesium 2.0 mg/dL (1.6-2.3) 12/09/24 07:20 12/09/24 07:20 12/09/24 07:20 Assessment and Plan Plan: Assessment: 1. Acute kidney injury secondary to ATN secondary to hypovolemia. Further worsened with use of diuretic. Creatinine 2.28 on admission is 1.42 today. No hydronephrosis noted on ultrasound. Baseline creatinine near 1. 2. Hypokalemia from poor intake and GI losses. Replaced. Better. Magnesium normal. 3. Hypovolemic hyponatremia improved with IV fluids. 4. History of diabetes. Plan: Decrease rate of normal saline to 80 cc an hour. Potassium replaced. Avoid nephrotoxins. Repeat labs in the morning.
[2024-12-09] MEDS: POTASSIUM CHLORIDE ER 20 MEQ TAB.ER PO STA (10:03)
[2024-12-09 12:14] LABS: Glucose,Whole Blood 102 mg/dL (70-110)
--- NOTE | 2024-12-09 13:01 | P.PN ---
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 She had a visiting nurse checking her blood work today, was noted to have low blood pressure and was advised to come to the ED for further evaluation of abnormal labs, specifically low potassium. She states that she has been having on and off weakness over the past 4 days, s ignificantly decreased appetite over the past 8 weeks, 1-1/2 weeks ago she had couple days of throwing up, no associated abdominal pain, symptoms resolved now. She reports chills but no fevers, denies shortness of breath, does have chronic on and off cough that is unchanged, no chest pain, again, no abdominal pain, no wounds, no rashes no sinus pressure, She was started on Ozempic 3 years ago, however, over the past 8 weeks she lost 65 pounds. She denies any diarrhea or constipation. Patient is mostly complaining of her chronic lower back pain that she takes anti-inflammatory twice a day. Patient states that her home blood pressure is being checked twice daily by with the family hours, systolic is usually in the 90s and she continue with her blood pressure medication. Patient hypotensive 74/56, afebrile, heart rate in 90s, satting well on room air. Patient received 2 L of NS, blood pressure improved to 109/72. Lab work significant for leukocytosis 14.2, normal hemoglobin, platelet count, sodium low 131, potassium low 2.5, chloride low 85, creatinine significantly elevated 2.28, BUN high 99, glucose 138, lactic acid normal, calcium elevated 11.6, normal liver enzymes and bilirubin, negative troponin, 8 adjusted BNP negative, chest x-ray showed chronically elevated right-sided hemidiaphragm. Patient was admitted for hypotension, severe hypokalemia, SIRS positive, suspicion for adrenal insufficiency started on IV steroids, broad-spectrum antibiotics, blood and urine cultures ordered. 12/09: Patient was seen examined in the ER, she states that she feels better, however, she is tired from lack of sleep. Denies chest pain, shortness of breath, abdominal pain. She remains afebrile with improving blood pressure now in 110s over 60s. Her procalcitonin is +0.56, TSH 0.7, cortisol obtained on admission 16.0, CK16, Cepheid negative. WBC count normalized, hemoglobin dropp ed from 14.3-11.8, no reported bleeding, possible hemodilution, we will monitor, sodium improved to 134, potassium improved to 3.3, replaced by night team, creatinine improving 1.42, A1c 5.0, calcium normalized 9.4, magnesium normal 2.0. UA with bacteriuria, pyuria WBC 27, hematuria, positive leukocyte esterase. Nephrology following, decreased rate of normal saline to 80 cc/h. Pertinent positives and negatives as discussed above, a complete review of systems was performed and all other systems are negative. Vitals Signs Reviewed. General: Ill-appearing Derm: warm, dry Head: atraumatic, normocephalic, symmetric Eyes: EOMI, no lid lag, anicteric sclera, pupils equal round reactive to light ENT: Nose and ears atraumatic Neck: No thyromegaly, supple Mouth: no lip lesion, mucus membranes moist Cardiovascular: S1S2 reg, no murmur, no edema Lungs: clear to auscultation bilateral, no rhonchi, no rales, no wheeze, no accessory muscle use Abdominal: soft, nontender to palpation, no guarding, no appreciable organomegaly Ext: no gross muscle atrophy, muscle strength muscle strength 5 out of 5 in all 4 extremities, no contractures Neuro: CN II-XII grossly intact Psych: Alert, oriented, appropriate affect Assessment/Plan: Meets SIRS criteria with hypotension, leukocytosis, heart rate in the 90s on admission, no source of infection identified so far, UA pending Hypotension, improving Hypokalemia Hyponatremia Hypercalcemia, resolved Suspect adrenal crisis SHARON secondary to decreased oral intake, ATN in the settings of low blood pressure Malnutrition, poor oral intake - Continue hydrocortisone 50 mg every 6 hours, will as above, ACTH ordered and pending, TSH as above -Consult nephrology, appreciate recommendations -Pharmacy to dose vancomycin, continue t cefepime 2 g daily SOT 12/08/2024, monitor daily BMP, blood and urine cultures pending, Cepheid negative, procalcitonin slightly above normal. - Continue NS at 80 cc/h - Continue telemetry -Strict intake and output - Potassium replaced by 19 -Avoid NSAIDs and other nephrotoxins -PT OT, RD consulted -Maintain fall precautions -Hold home metoprolol 100 daily, acetazolamide 250 twice daily - Recommend age-appropriate cancer screening, follow-up with PCP regarding possible discontinuation of Ozempic Type II DM not on insulin -Continue with SSI, Accu-Cheks, hypoglycemia precautions Chronic lower back pain: Will provide with Tylenol Hypertension, now hypotensive Dyslipidemia -Hold home medications as above -will not continue BP meds at discharge CODE STATUS: Full code DVT prophylaxis: SCD Anticipated discharge date: TBD Anticipated discharge place: TBD Objective - Vital Signs Vital signs: Vital Signs Temp 97.1 F L 12/09/24 08:58 Pulse 85 12/09/24 12:54 Resp 20 12/09/24 12:54 BP 115/66 12/09/24 12:54 Pulse Ox 100 12/09/24 12:54 FiO2 Intake & Output 12/08/24 12/09/24 12/09/24 18:59 06:59 18:59 Output Total 150 Balance -150 Weight 74.843 kg Output: Urine 150 - Labs CBC & Chem 7: 12/09/24 07:20 12/09/24 07:20 Labs: Abnormal Lab Results - Last 24 Hours (Table) 12/08/24 12/08/24 12/08/24 Range/Units 15:47 15:47 17:54 WBC 14.22 H (4.50-10.00) 10*3/uL RBC (4.10-5.20) 10*6/uL Hgb (12.0-15.0) g/dL Hct (37.2-46.3) % MPV (9.5-12.2) fL Immature Gran # 0.08 H (0.00-0.04) 10*3/uL Neutrophils # 11.64 H (1.80-7.70) 10*3/uL Lymphocytes # (0.90-5.00) 10*3/uL Eosinophils # (0.04-0.35) 10*3/uL Sodium 131 L (137-145) mmol/L Potassium 2.5 L* (3.5-5.1) mmol/L Chloride 85 L (98-107) mmol/L BUN 99 H (7-17) mg/dL Creatinine 2.28 H (0.52-1.04) mg/dL Glucose 138 H (74-99) mg/dL POC Glucose (mg/dL) (70-110) mg/dL Calcium 11.6 H (8.4-10.2) mg/dL Creatine Kinase 16 L (26-186) U/L Procalcitonin (0.02-0.50) ng/mL Urine Appearance (Clear) Urine Protein (Negative) Urine Blood (Negative) Ur Leukocyte Esterase (Negative) Urine RBC (0-5) /hpf Urine WBC (0-5) /hpf Ur Squamous Epith Cells (0-4) /hpf Calcium Oxalate Crystal (None) /hpf Urine Bacteria (None) /hpf Urine Mucus (None) /hpf 12/08/24 12/08/24 12/09/24 Range/Units 20:22 20:22 02:01 WBC (4.50-10.00) 10*3/uL RBC (4.10-5.20) 10*6/uL Hgb (12.0-15.0) g/dL Hct (37.2-46.3) % MPV (9.5-12.2) fL Immature Gran # (0.00-0.04) 10*3/uL Neutrophils # (1.80-7.70) 10*3/uL Lymphocytes # (0.90-5.00) 10*3/uL Eosinophils # (0.04-0.35) 10*3/uL Sodium (137-145) mmol/L Potassium 2.6 L* (3.5-5.1) mmol/L Chloride (98-107) mmol/L BUN (7-17) mg/dL Creatinine (0.52-1.04) mg/dL Glucose (74-99) mg/dL POC Glucose (mg/dL) (70-110) mg/dL Calcium (8.4-10.2) mg/dL Creatine Kinase (26-186) U/L Procalcitonin 0.56 H (0.02-0.50) ng/mL Urine Appearance Cloudy H (Clear) Urine Protein Trace H (Negative) Urine Blood Moderate H (Negative) Ur Leukocyte Esterase Large H (Negative) Urine RBC 9 H (0-5) /hpf Urine WBC 27 H (0-5) /hpf Ur Squamous Epith Cells 5 H (0-4) /hpf Calcium Oxalate Crystal Rare H (None) /hpf Urine Bacteria Many H (None) /hpf Urine Mucus Rare H (None) /hpf 12/09/24 12/09/24 12/09/24 Range/Units 07:20 07:20 07:54 WBC (4.50-10.00) 10*3/uL RBC 3.83 L (4.10-5.20) 10*6/uL Hgb 11.8 L (12.0-15.0) g/dL Hct 36.9 L (37.2-46.3) % MPV 12.7 H (9.5-12.2) fL Immature Gran # 0.05 H (0.00-0.04) 10*3/uL Neutrophils # (1.80-7.70) 10*3/uL Lymphocytes # 0.61 L (0.90-5.00) 10*3/uL Eosinophils # 0.01 L (0.04-0.35) 10*3/uL Sodium 134 L (137-145) mmol/L Potassium 3.3 L (3.5-5.1) mmol/L Chloride (98-107) mmol/L BUN 79 H (7-17) mg/dL Creatinine 1.42 H (0.52-1.04) mg/dL Glucose 107 H (74-99) mg/dL POC Glucose (mg/dL) 127 H (70-110) mg/dL Calcium (8.4-10.2) mg/dL Creatine Kinase (26-186) U/L Procalcitonin (0.02-0.50) ng/mL Urine Appearance (Clear) Urine Protein (Negative) Urine Blood (Negative) Ur Leukocyte Esterase (Negative) Urine RBC (0-5) /hpf Urine WBC (0-5) /hpf Ur Squamous Epith Cells (0-4) /hpf Calcium Oxalate Crystal (None) /hpf Urine Bacteria (None) /hpf Urine Mucus (None) /hpf
[2024-12-09] MEDS: VANCOMYCIN 1,250 MG in SODIUM CHLORIDE 0.9% 250 ML IVPB ONE (14:06)
[2024-12-09 17:32] LABS: Glucose,Whole Blood 111 mg/dL (70-110)
[2024-12-09 21:13] LABS: Glucose,Whole Blood 98 mg/dL (70-110)
[2024-12-09 21:45] LABS: ACTH 3.8 pg/mL (0.00-45.99)
[2024-12-10 05:45] LABS: Glucose,Whole Blood 100 mg/dL (70-110)
[2024-12-10] MEDS: VANCOMYCIN 1,250 MG in SODIUM CHLORIDE 0.9% 250 ML IVPB SCH (05:47)
[2024-12-10 08:46] LABS: African American GFR (CKD) 58 (>60 ml/min/1.73 sqM); Anion Gap 9 mmol/L; Blood Urea Nitrogen 68 mg/dL (7-17); Calcium 9.1 mg/dL (8.4-10.2); Carbon Dioxide 19 mmol/L (22-30); Chloride 111 mmol/L (98-107); Glucose 83 mg/dL (74-99); Non-African American GFR(CKD) 51 (>60 ml/min/1.73 sqM); Potassium 4.4 mmol/L (3.5-5.1); Sodium 139 mmol/L (137-145)
--- NOTE | 2024-12-10 09:46 | P.PN ---
Subjective Patient is seen in follow-up for acute kidney injury. Renal function improved. Potassium level normal. Oral intake fair. Admits to good urine output. Vital signs are stable. General: No acute distress. HEENT: Head exam is unremarkable. LUNGS: No audible rhonchi or wheezes. HEART: Rate and Rhythm are regular. ABDOMEN: Nontender. EXTREMITITES: No edema. Objective - Vital Signs Vital signs: Vital Signs Temp 98 F 12/10/24 00:00 Pulse 87 12/10/24 04:00 Resp 20 12/10/24 04:00 BP 105/67 12/10/24 04:00 Pulse Ox 97 12/10/24 04:00 FiO2 Intake & Output 12/09/24 12/10/24 12/10/24 18:59 06:59 18:59 Output Total 300 500 Balance -300 -500 Weight 74.843 kg Output: Urine 300 500 Other: Voiding Method Incontinent External Catheter - Labs CBC & Chem 7: 12/09/24 07:20 12/10/24 07:42 Labs: Abnormal Lab Results - Last 24 Hours (Table) 12/09/24 12/09/24 12/10/24 Range/Units 07:20 17:31 07:42 Chloride 111 H (98-107) mmol/L Carbon Dioxide 19 L (22-30) mmol/L BUN 68 H (7-17) mg/dL Creatinine 1.13 H (0.52-1.04) mg/dL POC Glucose (mg/dL) 111 H (70-110) mg/dL Cortisol 70.0 H (3.1-22.4) UG/DL Microbiology - Last 24 Hours (Table) 12/08/24 18:17 Blood Culture - Preliminary Blood Assessment and Plan Plan: Assessment: 1. Acute kidney injury secondary to ATN secondary to hypovolemia. Further worsened with use of diuretic. Creatinine 2.28 on admission is 1.13 today. No hydronephrosis noted on ultrasound. Baseline creatinine near 1. 2. Hypokalemia from poor intake and GI losses. Replaced. Better. Magnesium normal. 3. Hypovolemic hyponatremia improved with IV fluids. 4. History of diabetes. 5. Metabolic acidosis secondary to IV fluids. 6. Hypercalcemia secondary to volume contraction. Resolved. Plan: Decrease rate of normal saline to 50 cc an hour. Encouraged oral intake. Avoid nephrotoxins. Repeat labs in the morning.
[2024-12-10 12:36] VITALS: BMI 29.2
--- NOTE | 2024-12-10 12:58 | CT ---
EXAMINATION TYPE: CT brain wo con DATE OF EXAM: 12/10/2024 12:25 PM COMPARISON: 10/09/2024.. CLINICAL INDICATION: Female, 69 years old with history of AMS, AMS/CONFUSIO N TECHNIQUE: Brain: Axial CT images of the brain were obtained with coronal and sagittal reformats created and rev iewed. Contrast used: None. Oral contrast used: None. CT DLP: 1097.8 mGycm, Automated exposure control for dose reduction was used. FINDINGS: Brain: Extra-axial spaces: No abnormal extra-axial fluid collections. Ventricular system: Dilatation in proportion to cerebral atrophy. Cerebral parenchyma: Cerebral atrophy. No acute intraparenchymal hemorrhage or mass effect. The galloway -white junction is well differentiated. Scattered hypoattenuating areas are seen within the white mat ter. Cerebellum: Unremarkable. Mass effect: No evidence of midline shift. Intracranial vasculature: Atherosclerotic calcifications of the intracranial vessels. Soft tissues: Normal. Calvarium/osseous structures: No depressed skull fracture. Paranasal sinuses and mastoid air cells: Mild scattered paranasal sinus disease. Visualized orbits: Orbital contents are intact. IMPRESSION: 1. No acute intracranial process. 2. Nonspecific white matter changes, likely secondary to chronic small vessel ischemic disease. [facility], , 12/10/2024 12:56 PM
[2024-12-10 13:03] LABS: Glucose,Whole Blood 77 mg/dL (70-110)
--- NOTE | 2024-12-10 13:09 | P.PN ---
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 She had a visiting nurse checking her blood work today, was noted to have low blood pressure and was advised to come to the ED for further evaluation of abnormal labs, specifically low potassium. She states that she has been having on and off weakness over the past 4 days, s ignificantly decreased appetite over the past 8 weeks, 1-1/2 weeks ago she had couple days of throwing up, no associated abdominal pain, symptoms resolved now. She reports chills but no fevers, denies shortness of breath, does have chronic on and off cough that is unchanged, no chest pain, again, no abdominal pain, no wounds, no rashes no sinus pressure, She was started on Ozempic 3 years ago, however, over the past 8 weeks she lost 65 pounds. She denies any diarrhea or constipation. Patient is mostly complaining of her chronic lower back pain that she takes anti-inflammatory twice a day. Patient states that her home blood pressure is being checked twice daily by with the family hours, systolic is usually in the 90s and she continue with her blood pressure medication. Patient hypotensive 74/56, afebrile, heart rate in 90s, satting well on room air. Patient received 2 L of NS, blood pressure improved to 109/72. Lab work significant for leukocytosis 14.2, normal hemoglobin, platelet count, sodium low 131, potassium low 2.5, chloride low 85, creatinine significantly elevated 2.28, BUN high 99, glucose 138, lactic acid normal, calcium elevated 11.6, normal liver enzymes and bilirubin, negative troponin, 8 adjusted BNP negative, chest x-ray showed chronically elevated right-sided hemidiaphragm. Patient was admitted for hypotension, severe hypokalemia, SIRS positive, suspicion for adrenal insufficiency started on IV steroids, broad-spectrum antibiotics, blood and urine cultures ordered. Her procalcitonin is +0.56, TSH 0.7, cortisol obtained on admission 16.0, CK16, Cepheid negative, A1c 5.0, UA with bacteriuria, pyuria WBC 27, hematuria, positive leukocyte esterase. 12/10: Seen and examined in the ER, patient was lethargic, falls quickly back to sleep during conversation, only said that she feels okay and she does not have abdominal pain. Ordered ABG, CT head and no acute process identified. Discussed with RN. She is afebrile with heart rate in 80s, blood pressure stable around 106 over 70s. CBC pending, sodium and potassium normalized, creatinine continues to improve 1.13, glucose in 100s, magnesium WNL, ammonia less than 9. ACTH 3.8. Nephrology decreased IV fluids to 50 cc/h. Discussed with RN Pertinent positives and negatives as discussed above, a complete review of systems was performed and all other systems are negative. Vitals Signs Reviewed. General: Ill-appearing, lethargic Derm: warm, dry Head: atraumatic, normocephalic, symmetric Eyes: EOMI, no lid lag, anicteric sclera, pupils equal round reactive to light ENT: Nose and ears atraumatic Neck: No thyromegaly, supple Mouth: no lip lesion, mucus membranes moist Cardiovascular: S1S2 reg, no murmur, no edema Lungs: clear to auscultation bilateral, no rhonchi, no rales, no wheeze, no accessory muscle use Abdominal: soft, nontender to palpation, no guarding, no appreciable organome violet Ext: no gross muscle atrophy, muscle strength muscle strength 5 out of 5 in all 4 extremities, no contractures Neuro: CN II-XII grossly intact Psych: Lethargic, alert Assessment/Plan: Meets SIRS criteria with hypotension, leukocytosis, heart rate in the 90s on admission, no source of infection identified so far, UA pending Hypotension, improving Hypokalemia Hyponatremia Hypercalcemia, resolved Suspect adrenal crisis SHARON secondary to decreased oral intake, ATN in the settings of low blood pressure Malnutrition, poor oral intake - Start hydrocortisone taper, 50 mg IV every 12 hours, will further decrease if blood pressure remains stable -Recommend outpatient ACTH stimulation test, -Consult nephrology, appreciate recommendations -Pharmacy to dose vancomycin, continue t cefepime 2 g daily SOT 12/08/2024, monitor daily BMP, blood and urine cultures pending, Cepheid negative, procalcit onin slightly above normal. - Continue NS at 50 cc/h - Continue telemetry -Strict intake and output - Potassium replaced by 19 -Avoid NSAIDs and other nephrotoxins -PT OT, RD consulted -Maintain fall precautions -Hold home metoprolol 100 daily, acetazolamide 250 twice daily - Recommend age-appropriate cancer screening, follow-up with PCP regarding possible discontinuation of Ozempic Encephalopathy, acute - CT head as above, ABG ordered and pending, ammonia negative Type II DM not on insulin -Continue with SSI, Accu-Cheks, hypoglycemia precautions Chronic lower back pain: Will provide with Tylenol Hypertension, now hypotensive Dyslipidemia -Hold home medications as above -will not continue BP meds at discharge CODE STATUS: Full code DVT prophylaxis: SCD Anticipated discharge date: TBD Anticipated discharge place: TBD Objective - Vital Signs Vital signs: Vital Signs Temp 98 F 12/10/24 00:00 Pulse 87 12/10/24 04:00 Resp 20 12/10/24 04:00 BP 105/67 12/10/24 04:00 Pulse Ox 97 12/10/24 04:00 FiO2 Intake & Output 12/09/24 12/10/24 12/10/24 18:59 06:59 18:59 Output Total 300 500 Balance -300 -500 Weight 74.843 kg 74.843 kg Output: Urine 300 500 Other: Voiding Method Incontinent External Catheter - Labs CBC & Chem 7: 12/09/24 07:20 12/10/24 07:42 Labs: Abnormal Lab Results - Last 24 Hours (Table) 12/09/24 12/09/24 12/10/24 Range/Units 07:20 17:31 07:42 Chloride 111 H (98-107) mmol/L Carbon Dioxide 19 L (22-30) mmol/L BUN 68 H (7-17) mg/dL Creatinine 1.13 H (0.52-1.04) mg/dL POC Glucose (mg/dL) 111 H (70-110) mg/dL Cortisol 70.0 H (3.1-22.4) UG/DL Microbiology - Last 24 Hours (Table) 12/09/24 02:01 Urine Culture - Preliminary Urine,Clean Catch 12/08/24 18:17 Blood Culture - Preliminary Blood
[2024-12-10 17:42] LABS: Glucose,Whole Blood 98 mg/dL (70-110)
[2024-12-10] MEDS ORDERED: ZINC OXIDE PASTE (Z-GUARD) 1 APPLIC TOPICAL PRN (19:11)
[2024-12-10 20:38] LABS: Glucose,Whole Blood 112 mg/dL (70-110)
[2024-12-10] MEDS: HYDROCORTISONE SUCCINATE 100 MG/2 ML VIAL IV SCH (23:35)
[2024-12-11 07:18] LABS: Glucose,Whole Blood 144 mg/dL (70-110)
[2024-12-11 07:34] LABS: Basophils # (A) 0.03 10*3/uL (0.00-0.10); Basophils % (A) 0.4 %; Eosinophils # (A) 0.02 10*3/uL (0.04-0.35); Eosinophils % (A) 0.3 %; HCT 37.7 % (37.2-46.3); HGB 11.8 g/dL (12.0-15.0); Lymphocytes # (A) 0.71 10*3/uL (0.90-5.00); Lymphocytes % (A) 10.3 %; MCH 30.5 pg (27.0-32.0); MCHC 31.3 g/dL (32.0-37.0); MCV 97.4 fL (80.0-97.0); Monocytes # (A) 0.35 10*3/uL (0.20-1.00); Monocytes % (A) 5.1 %; Neutrophils # (A) 5.71 10*3/uL (1.80-7.70); Neutrophils % (A) 82.7 %; Platelet Count 236 10*3/uL (140-440); RBC 3.87 10*6/uL (4.10-5.20); RDW 15.9 % (11.5-14.5); WBC 6.90 10*3/uL (4.50-10.00)
[2024-12-11 07:51] LABS: African American GFR (CKD) 65 (>60 ml/min/1.73 sqM); Anion Gap 6 mmol/L; Blood Urea Nitrogen 55 mg/dL (7-17); Calcium 9.2 mg/dL (8.4-10.2); Carbon Dioxide 20 mmol/L (22-30); Chloride 115 mmol/L (98-107); Glucose 162 mg/dL (74-99); Magnesium 2.0 mg/dL (1.6-2.3); Non-African American GFR(CKD) 56 (>60 ml/min/1.73 sqM); Potassium 4.8 mmol/L (3.5-5.1); Sodium 141 mmol/L (137-145)
--- NOTE | 2024-12-11 11:19 | P.PN ---
Subjective Patient is seen in follow-up for acute kidney injury. Renal function improved. Potassium level normal. Oral intake fair. Admits to good urine output. Vital signs are stable. General: No acute distress. HEENT: Head exam is unremarkable. LUNGS: No audible rhonchi or wheezes. HEART: Rate and Rhythm are regular. ABDOMEN: Nontender. EXTREMITITES: No edema. Objective - Vital Signs Vital signs: Vital Signs Temp 98.3 F 12/11/24 06:16 Pulse 79 12/11/24 06:16 Resp 18 12/11/24 06:16 BP 126/78 12/11/24 06:16 Pulse Ox 99 12/11/24 06:16 FiO2 Intake & Output 12/10/24 12/11/24 12/11/24 18:59 06:59 18:59 Intake Total 200 Output Total 251 500 Balance -51 -500 Weight 74.843 kg Intake: Intake, IV Titration 200 Amount Sodium Chloride 0.9% 1, 200 000 ml @ 50 mls/hr IV . Q20H [facility] Rx#:[id number] Output: Urine 250 500 Stool 1 Other: Voiding Method Diaper External Catheter Diaper Incontinent Incontinent External Catheter External Catheter # Voids 1 - Labs CBC & Chem 7: 12/11/24 06:36 12/11/24 06:36 Labs: Abnormal Lab Results - Last 24 Hours (Table) 12/10/24 12/11/24 12/11/24 Range/Units 20:37 06:36 06:36 RBC 3.87 L (4.10-5.20) 10*6/uL Hgb 11.8 L (12.0-15.0) g/dL MCV 97.4 H (80.0-97.0) fL MCHC 31.3 L (32.0-37.0) g/dL RDW 15.9 H (11.5-14.5) % Immature Gran # 0.08 H (0.00-0.04) 10*3/uL Lymphocytes # 0.71 L (0.90-5.00) 10*3/uL Eosinophils # 0.02 L (0.04-0.35) 10*3/uL Chloride 115 H (98-107) mmol/L Carbon Dioxide 20 L (22-30) mmol/L BUN 55 H (7-17) mg/dL Glucose 162 H (74-99) mg/dL POC Glucose (mg/dL) 112 H (70-110) mg/dL 12/11/24 Range/Units 07:17 RBC (4.10-5.20) 10*6/uL Hgb (12.0-15.0) g/dL MCV (80.0-97.0) fL MCHC (32.0-37.0) g/dL RDW (11.5-14.5) % Immature Gran # (0.00-0.04) 10*3/uL Lymphocytes # (0.90-5.00) 10*3/uL Eosinophils # (0.04-0.35) 10*3/uL Chloride (98-107) mmol/L Carbon Dioxide (22-30) mmol/L BUN (7-17) mg/dL Glucose (74-99) mg/dL POC Glucose (mg/dL) 144 H (70-110) mg/dL Microbiology - Last 24 Hours (Table) 12/09/24 02:01 Urine Culture - Preliminary Urine,Clean Catch Gram Neg Bacilli 12/08/24 18:17 Blood Culture - Preliminary Blood Assessment and Plan Plan: Assessment: 1. Acute kidney injury secondary to ATN secondary to hypovolemia. Further worsened with use of diuretic. Creatinine 2.28 on admission is 1.03 today. No hydronephrosis noted on ultrasound. Baseline creatinine near 1. 2. Hypokalemia from poor intake and GI losses. Replaced. Better. Magnesium normal. 3. Hypovolemic hyponatremia improved with IV fluids. 4. History of diabetes. 5. Metabolic acidosis secondary to IV fluids. 6. Hypercalcemia secondary to volume contraction. Resolved. 7. Gram-negative UTI on antibiotics. Plan: Hep-Lock IV fluids. Encouraged oral intake. Avoid nephrotoxins.
[2024-12-11 12:18] LABS: Glucose,Whole Blood 125 mg/dL (70-110)
--- NOTE | 2024-12-11 13:07 | P.PN ---
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 She had a visiting nurse checking her blood work today, was noted to have low blood pressure and was advised to come to the ED for further evaluation of abnormal labs, specifically low potassium. She states that she has been having on and off weakness over the past 4 days, s ignificantly decreased appetite over the past 8 weeks, 1-1/2 weeks ago she had couple days of throwing up, no associated abdominal pain, symptoms resolved now. She reports chills but no fevers, denies shortness of breath, does have chronic on and off cough that is unchanged, no chest pain, again, no abdominal pain, no wounds, no rashes no sinus pressure, She was started on Ozempic 3 years ago, however, over the past 8 weeks she lost 65 pounds. She denies any diarrhea or constipation. Patient is mostly complaining of her chronic lower back pain that she takes anti-inflammatory twice a day. Patient states that her home blood pressure is being checked twice daily by with the family hours, systolic is usually in the 90s and she continue with her blood pressure medication. Patient hypotensive 74/56, afebrile, heart rate in 90s, satting well on room air. Patient received 2 L of NS, blood pressure improved to 109/72. Lab work significant for leukocytosis 14.2, normal hemoglobin, platelet count, sodium low 131, potassium low 2.5, chloride low 85, creatinine significantly elevated 2.28, BUN high 99, glucose 138, lactic acid normal, calcium elevated 11.6, normal liver enzymes and bilirubin, negative troponin, 8 adjusted BNP negative, chest x-ray showed chronically elevated right-sided hemidiaphragm. Patient was admitted for hypotension, severe hypokalemia, SIRS positive, suspicion for adrenal insufficiency started on IV steroids, broad-spectrum antibiotics, blood and urine cultures ordered. Her procalcitonin is +0.56, TSH 0.7, cortisol obtained on admission 16.0, CK16, Cepheid negative, A1c 5.0, UA with bacteriuria, pyuria WBC 27, hematuria, positive leukocyte esterase. Urine cultures growing gram-negative bacilli, MRSA swab pending. 12/10: Seen and examined in the ER, patient was lethargic, falls quickly back to sleep during conversation, only said that she feels okay and she does not have abdominal pain. , CT head and no acute process identified. Her mentation started improving in the afternoon 12/11: Seen and examined at bedside, no acute events overnight, patient looks significantly better, she states that she feels good and has no active complaints at this time. She is afebrile with heart rate in 70s, her blood pressure continued to improve 120s over 70s, will change Solu-Cortef to 15 daily instead of twice daily. Continued on broad-spectrum antibiotics well MRSA swab and cultures pending. She has no leukocytosis, hemoglobin 11.8, kidney function normalized, glucose controlled, sodium and potassium WNL. IV fluids stopped. Pertinent positives and negatives as discussed above, a complete review of systems was performed and all other systems are negative. Vitals Signs Reviewed. General: Not in acute distress Derm: warm, dry Head: atraumatic, normocephalic, symmetric Eyes: EOMI, no lid lag, anicteric sclera, pupils equal round reactive to light ENT: Nose and ears atraumatic Neck: No thyromegaly, supple Mouth: no lip lesion, mucus membranes moist Cardiovascular: S1S2 reg, no murmur, no edema Lungs: clear to auscultation bilateral, no rhonchi, no rales, no wheeze, no accessory muscle use Abdominal: soft, nontender to palpation, no guarding, no appreciable organomegaly Ext: no gross muscle atrophy, muscle strength muscle strength 5 out of 5 in all 4 extremities, no contractures Neuro: CN II-XII grossly intact Psych: Lethargic, alert Assessment/Plan: Meets SIRS criteria with hypotension, leukocytosis, heart rate in the 90s on adm ission, likely due to UTI Hypotension, improving Hypokalemia Hyponatremia Hypercalcemia, resolved Suspect adrenal crisis SHARON secondary to decreased oral intake, ATN in the settings of low blood pressu re, left Malnutrition, poor oral intake - Continue hydrocortisone taper, 50 mg IV daily, will further decrease if blood pressure remains stable -Recommend outpatient ACTH stimulation test, -Consult nephrology, appreciate recommendations -Pharmacy to dose vancomycin, continue t cefepime 2 g daily SOT 12/08/2024, monitor daily BMP, blood and urine cultures pending, Cepheid negative, procalcitonin slightly above normal. - Continue NS at 50 cc/h - Continue telemetry -Strict intake and output -Avoid NSAIDs and other nephrotoxins -PT OT, RD consulted -Maintain fall precautions -Hold home metoprolol 100 daily, acetazolamide 250 twice daily - Recommend age-appropriate cancer screening, follow-up with PCP regarding possible discontinuation of Ozempic Encephalopathy, acute, resolved - CT head as above, ABG ordered and pending, ammonia negative Type II DM not on insulin -Continue with SSI, Accu-Cheks, hypoglycemia precautions Chronic lower back pain: Will provide with Tylenol Hypertension, now hypotensive Dyslipidemia -Hold home medications as above CODE STATUS: Full code DVT prophylaxis: SCD Anticipated discharge date: TBD Anticipated discharge place: TBD Objective - Vital Signs Vital signs: Vital Signs Temp 98.3 F 12/11/24 06:16 Pulse 79 12/11/24 06:16 Resp 18 12/11/24 06:16 BP 126/78 12/11/24 06:16 Pulse Ox 99 12/11/24 06:16 FiO2 Intake & Output 12/10/24 12/11/24 12/11/24 18:59 06:59 18:59 Intake Total 200 Output Total 251 500 Balance -51 -500 Weight 74.843 kg Intake: Intake, IV Titration 200 Amount Sodium Chloride 0.9% 1, 200 000 ml @ 50 mls/hr IV . Q20H [facility] Rx#:[id number] Output: Urine 250 500 Stool 1 Other: Voiding Method Diaper External Catheter Diaper Incontinent Incontinent External Catheter External Catheter # Voids 1 - Labs CBC & Chem 7: 12/11/24 06:36 12/11/24 06:36 Labs: Abnormal Lab Results - Last 24 Hours (Table) 12/10/24 12/11/24 12/11/24 Range/Units 20:37 06:36 06:36 RBC 3.87 L (4.10-5.20) 10*6/uL Hgb 11.8 L (12.0-15.0) g/dL MCV 97.4 H (80.0-97.0) fL MCHC 31.3 L (32.0-37.0) g/dL RDW 15.9 H (11.5-14.5) % Immature Gran # 0.08 H (0.00-0.04) 10*3/uL Lymphocytes # 0.71 L (0.90-5.00) 10*3/uL Eosinophils # 0.02 L (0.04-0.35) 10*3/uL Chloride 115 H (98-107) mmol/L Carbon Dioxide 20 L (22-30) mmol/L BUN 55 H (7-17) mg/dL Glucose 162 H (74-99) mg/dL POC Glucose (mg/dL) 112 H (70-110) mg/dL 12/11/24 12/11/24 Range/Units 07:17 12:17 RBC (4.10-5.20) 10*6/uL Hgb (12.0-15.0) g/dL MCV (80.0-97.0) fL MCHC (32.0-37.0) g/dL RDW (11.5-14.5) % Immature Gran # (0.00-0.04) 10*3/uL Lymphocytes # (0.90-5.00) 10*3/uL Eosinophils # (0.04-0.35) 10*3/uL Chloride (98-107) mmol/L Carbon Dioxide (22-30) mmol/L BUN (7-17) mg/dL Glucose (74-99) mg/dL POC Glucose (mg/dL) 144 H 125 H (70-110) mg/dL Microbiology - Last 24 Hours (Table) 12/09/24 02:01 Urine Culture - Preliminary Urine,Clean Catch Gram Neg Bacilli 12/08/24 18:17 Blood Culture - Preliminary Blood
[2024-12-11 17:22] LABS: Glucose,Whole Blood 139 mg/dL (70-110)
[2024-12-11] MEDS: NYSTATIN 100,000 UNIT/GM POWD 15 GM TOPICAL SCH (17:44)
[2024-12-11 20:50] LABS: Glucose,Whole Blood 130 mg/dL (70-110)
[2024-12-12 05:52] LABS: African American GFR (CKD) 76 (>60 ml/min/1.73 sqM); Anion Gap 6 mmol/L; Blood Urea Nitrogen 44 mg/dL (7-17); Calcium 9.7 mg/dL (8.4-10.2); Carbon Dioxide 22 mmol/L (22-30); Chloride 117 mmol/L (98-107); Glucose 108 mg/dL (74-99); Non-African American GFR(CKD) 65 (>60 ml/min/1.73 sqM); Potassium 4.1 mmol/L (3.5-5.1); Sodium 145 mmol/L (137-145)
[2024-12-12] MEDS: VANCOMYCIN TROUGH DUE 1 EACH MISC MISCELLANE ONE (06:13)
[2024-12-12 07:27] LABS: Glucose,Whole Blood 101 mg/dL (70-110)
[2024-12-12 08:22] LABS: Basophils # (A) 0.07 X 10*3/uL (0.00-0.10); Basophils % (A) 0.9 %; Eosinophils # (A) 0.38 X 10*3/uL (0.04-0.35); Eosinophils % (A) 4.6 %; HCT 37.2 % (37.2-46.3); HGB 11.3 g/dL (12.0-15.0); Immature Grans, Automated 1.80 %; Lymphocytes # (A) 1.31 X 10*3/uL (0.90-5.00); Lymphocytes % (A) 15.9 %; MCH 29.8 pg (27.0-32.0); MCHC 30.4 g/dL (32.0-37.0); MCV 98.2 FL (80.0-97.0); Monocytes # (A) 0.73 X 10*3/uL (0.20-1.00); Monocytes % (A) 8.9 %; NRBC Per 100 WBC 0 X 10*3/uL (0.00-0.01); Neutrophils # (A) 5.59 X 10*3/uL (1.80-7.70); Neutrophils % (A) 67.9 %; Platelet Count 230 X 10*3/uL (140-440); RBC 3.79 X 10*6/uL (4.10-5.20); RDW 16.1 % (11.5-14.5); WBC 8.23 X 10*3/uL (4.50-10.00)
[2024-12-12] MEDS: HYDROCORTISONE SUCCINATE 100 MG/2 ML VIAL IV SCH (09:27)
--- NOTE | 2024-12-12 12:04 | P.PN ---
Subjective Patient is seen for follow-up for acute kidney injury. Renal function has improved. Creatinine decreased to 0.9 mg/dL. Status post IV fluids. Objective - Vital Signs Vital signs: Vital Signs Temp 97.7 F 12/12/24 07:26 Pulse 111 H 12/12/24 11:25 Resp 22 12/12/24 07:26 BP 119/85 12/12/24 11:25 Pulse Ox 99 12/12/24 07:26 FiO2 Intake & Output 12/11/24 12/12/24 12/12/24 18:59 06:59 18:59 Intake Total 650 1050 Output Total 600 Balance 650 450 Intake: Intake, IV Titration 650 Amount Cefepime 2 gm In Sodium 100 Chloride 0.9% 100 ml @ 25 mls/hr IVPB Q12HR [facility] Rx #:[id number] Sodium Chloride 0.9% 1, 300 000 ml @ 50 mls/hr IV . Q20H [facility] Rx#:[id number] Vancomycin 1,250 mg In 250 Sodium Chloride 0.9% 250 ml @ 125 mls/hr IVPB Q16H [facility] Rx#:[id number] Other 1050 Output: Urine 600 Other: Voiding Method Diaper Diaper Diaper Incontinent External Catheter External Catheter External Catheter # Voids 2 # Bowel Movements 1 - Exam Patient is awake, comfortable, no acute distress Examination of the heart S1 and S2 Examination of the lungs bilateral breath sounds are heard Abdomen is soft nontender Examination lower extremity shows no significant edema - Labs CBC & Chem 7: 12/12/24 04:55 12/12/24 04:55 Labs: Abnormal Lab Results - Last 24 Hours (Table) 12/11/24 12/11/24 12/11/24 Range/Units 12:17 17:20 20:48 RBC (4.10-5.20) X 10*6/uL Hgb (12.0-15.0) g/dL MCV (80.0-97.0) FL MCHC (32.0-37.0) g/dL RDW (11.5-14.5) % Immature Gran # (0.00-0.04) X 10*3/uL Eosinophils # (0.04-0.35) X 10*3/uL Chloride (98-107) mmol/L BUN (7-17) mg/dL Glucose (74-99) mg/dL POC Glucose (mg/dL) 125 H 139 H 130 H (70-110) mg/dL 12/12/24 12/12/24 Range/Units 04:55 04:55 RBC 3.79 L (4.10-5.20) X 10*6/uL Hgb 11.3 L (12.0-15.0) g/dL MCV 98.2 H (80.0-97.0) FL MCHC 30.4 L (32.0-37.0) g/dL RDW 16.1 H (11.5-14.5) % Immature Gran # 0.15 H (0.00-0.04) X 10*3/uL Eosinophils # 0.38 H (0.04-0.35) X 10*3/uL Chloride 117 H (98-107) mmol/L BUN 44 H (7-17) mg/dL Glucose 108 H (74-99) mg/dL POC Glucose (mg/dL) (70-110) mg/dL Microbiology - Last 24 Hours (Table) 12/09/24 02:01 Urine Culture - Final Urine,Clean Catch Klebsiella pneumoniae 12/08/24 18:17 Blood Culture - Preliminary Blood 12/10/24 11:29 Blood Culture - Preliminary Blood Assessment and Plan Assessment: 1. Acute kidney injury secondary to ATN secondary to hypovolemia. Further worsened with use of diuretic. Creatinine 2.28 on admission is 0.9 today. No hydronephrosis noted on ultrasound. Baseline creatinine near 1. 2. Hypokalemia from poor intake and GI losses. Replaced. Better. Magnesium normal. 3. Hypovolemic hyponatremia improved with IV fluids. 4. History of diabetes. 5. Metabolic acidosis secondary to IV fluids. 6. Hypercalcemia secondary to volume contraction. Resolved. 7. Gram-negative UTI on antibiotics. Plan: Encouraged increased oral intake Continue off of IV fluids Continue to avoid nephrotoxic agents.
[2024-12-12 12:28] LABS: Glucose,Whole Blood 170 mg/dL (70-110)
--- NOTE | 2024-12-12 15:02 | CDI ---
Documentation Clarification Form Date: 12/12/2024 02:33:00 PM From: Eloisa Venegas RN, CCDS Phone: [phone] Admit Date: 12/08/2024 05:19:00 PM Patient Name: Krys Pérez Visit Number: [id number] Discharge Date: ATTENTION: The Clinical Documentation Specialists (CDI) and [facility] Coding Staff appreciate your assistance in clarifying documentation. Please respond to the clarification below the line at the bottom and electronically sign. The CDI & [facility] Coding staff will review the response and follow-up if needed. Please note: Queries are made part of the Legal Health Record. If you have any questions, please contact the author of this message via ITS. Doctor. Quin Forte Malnutrition is documented in the Medicine H/P and subsequent progress note. Additional clarification regarding the severity of malnutrition is requested. History/Risk Factors: Diabetes Mellitus, Hyperlipidemia, Hypertension, Dementia Clinical Indicators: 69-year-old female present for evaluation of abnormal labs and was noted to have low blood pressure. Current BMI: 29.2 5 ft. 3 in She has poor, no intakes recorded Cr 1.13, bun 68 Decreased ability to consume sufficient energy. Intakes< / =75% of est needs for > / =mo, wt. loss> / = 7.5 % within 3 mos. Patient reported significantly decreased PO intakes / appetite [employer], 18.9% wt. loss documented EMR verified by pt. per h/p RD Consult Assessment: Malnutrition Chronic, Severe Treatment: General / healthful diet Ensure TID WM Monitor PO, document intakes weight, I/Os. May benefit from nutrition support if PO intakes do no improve within 72 hours. Please clarify the severity of malnutrition, if known: [ ] Mild Protein-Calorie Malnutrition [ ] Moderate Protein-Calorie Malnutrition [x ] Severe Protein-Calorie Malnutrition [ ] Other condition, please specify [ ] Unable to Determine (Template Last Revised: December 2022) LOLYD
--- NOTE | 2024-12-12 15:56 | P.PN ---
Subjective Progress Note Date: 12/12/24 Patient was seen and examined. Ideal extremely lightheaded standing up this morning. Denies urinary complaints. CBC and BMP significant for RBC 3.79, Hg 11.3, MCV 98.2, Cl 117, BUN 44, glu 108. UCx Klebsiella pneumoniae. Antibiotics include Cefepime 2g IV BID. General: non toxic, no distress, appears at stated age Derm: warm, dry Head: atraumatic, normocephalic, symmetric Eyes: EOMI, no lid lag, anicteric sclera Mouth: no lip lesion, mucus membranes moist Cardiovascular: S1S2 tachy, no murmur Lungs: Decreased BS bilateral, no rhonchi, no rales , no accessory muscle use Ext: no gross muscle atrophy, no edema, no contractures Neuro: no focal neuro deficits Psych: Alert, oriented, appropriate affect Based on my assessment of this patient, this patient meets a high complexity level of care. Positional lightheadedness possibly POTS: Orthostats ordered this morning showing 32 BPM HR increase without drop in BP. Start NS at 100 cc/hr. Thigh high COSMO stocking ordered. Start Midodrine 5 mg PO BID. Fall precautions. Telemetry monitoring. Repeat orthostats in the AM. Fall precautions. PT and OT on board. Hypotension and SHARON likely due to severe dehydration: IV hydration as above. Hold Metoprolol and Diamox. Concerns for adrenal insufficiency: ACTH 3.8. Cortisol 16-70. Continue SoluCortef 50 mg IV QD. Wean as BP tolerates. UTI: UCx as above. Continue Cefepime 2g IV BID (D4). SIRS: Procal 0.56. Antibiotics and IVF as above. DM: ISS + Accuchecks ACHS along with hypoglycemic precautions. Resolved: HypoNa, HypoK, HyperCa, Encephalopathy CODE STATUS: FULL CODE DVT Prophylaxis: Heparin SQ GI Prophylaxis: Designated medical POA if patient is not able to make medical decisions for themselves: I have reviewed the following customer service and sales consultant notes: Nephro I have reviewed the results of the following tests: CBC, BMP, UCx. I have ordered the following tests: I have discussed the care of this patient with the following independent historian: Family. I have independently interpreted the following test below: I have discussed the management of this patient with the following physician: Objective - Vital Signs Vital signs: Vital Signs Temp 97.1 F L 12/12/24 12:27 Pulse 111 H 12/12/24 12:27 Resp 22 12/12/24 12:27 BP 132/83 12/12/24 12:27 Pulse Ox 97 12/12/24 12:27 FiO2 Intake & Output 12/11/24 12/12/24 12/12/24 18:59 06:59 18:59 Intake Total 650 1050 Output Total 600 Balance 650 450 Weight 74.843 kg Intake: Intake, IV Titration 650 Amount Cefepime 2 gm In Sodium 100 Chloride 0.9% 100 ml @ 25 mls/hr IVPB Q12HR [facility] Rx #:[id number] Sodium Chloride 0.9% 1, 300 000 ml @ 50 mls/hr IV . Q20H [facility] Rx#:[id number] Vancomycin 1,250 mg In 250 Sodium Chloride 0.9% 250 ml @ 125 mls/hr IVPB Q16H [facility] Rx#:[id number] Other 1050 Output: Urine 600 Other: Voiding Method Diaper Diaper Diaper Incontinent External Catheter External Catheter External Catheter # Voids 2 # Bowel Movements 1 - Labs CBC & Chem 7: 12/12/24 04:55 12/12/24 04:55 Labs: Abnormal Lab Results - Last 24 Hours (Table) 12/11/24 12/11/24 12/12/24 Range/Units 17:20 20:48 04:55 RBC (4.10-5.20) X 10*6/uL Hgb (12.0-15.0) g/dL MCV (80.0-97.0) FL MCHC (32.0-37.0) g/dL RDW (11.5-14.5) % Immature Gran # (0.00-0.04) X 10*3/uL Eosinophils # (0.04-0.35) X 10*3/uL Chloride 117 H (98-107) mmol/L BUN 44 H (7-17) mg/dL Glucose 108 H (74-99) mg/dL POC Glucose (mg/dL) 139 H 130 H (70-110) mg/dL 12/12/24 12/12/24 Range/Units 04:55 12:27 RBC 3.79 L (4.10-5.20) X 10*6/uL Hgb 11.3 L (12.0-15.0) g/dL MCV 98.2 H (80.0-97.0) FL MCHC 30.4 L (32.0-37.0) g/dL RDW 16.1 H (11.5-14.5) % Immature Gran # 0.15 H (0.00-0.04) X 10*3/uL Eosinophils # 0.38 H (0.04-0.35) X 10*3/uL Chloride (98-107) mmol/L BUN (7-17) mg/dL Glucose (74-99) mg/dL POC Glucose (mg/dL) 170 H (70-110) mg/dL Microbiology - Last 24 Hours (Table) 12/09/24 02:01 Urine Culture - Final Urine,Clean Catch Klebsiella pneumoniae 12/08/24 18:17 Blood Culture - Preliminary Blood 12/10/24 11:29 Blood Culture - Preliminary Blood
--- NOTE | 2024-12-12 16:21 | CDI ---
Documentation Clarification Form Date: 12/12/2024 03:06:20 PM From: Eloisa Venegas RN, CCDS Phone: [phone] Admit Date: 12/08/2024 05:19:00 PM Patient Name: Krys Pérez Visit Number: [id number] Discharge Date: ATTENTION: The Clinical Documentation Specialists (CDI) and [facility] Coding Staff appreciate your assistance in clarifying documentation. Please respond to the clarification below the line at the bottom and electronically sign. The CDI & [facility] Coding staff will review the response and follow-up if needed. Please note: Queries are made part of the Legal Health Record. If you have any questions, please contact the author of this message via ITS. Doctor. Quin Forte Encephalopathy is documented in the progress note starting on 12/10/24 Additional clarification regarding the type of encephalopathy is requested. History/Risk Factors: Diabetes Mellitus, Hyperlipidemia, Hypertension, Dementia Clinical Indicators: 69-year-old female present for evaluation of abnormal labs and was noted to have low blood pressure. 12/08 Labs: WBC 14.22, K+ 2.5, NA+ 131, BUN 99 CR 2.28, 12/09 UA (02:01) Leukocyte Esterase 12/09 Urine culture Klebsiella pneumoniae 12/10 CT Brain W/O Contrast: No acute intracranial process. Nonspecific white matter changes, likely secondary to chronic small vessel ischemic disease. Treatment: Cardiac /Telemetry Monitoring Neuro assessment per protocol Cefepime HCL 2 GM IVPB Q 12 HRS 12/09-12/12 Vancomycin (PTD 1,250 MG IVPB Q 16 HRS 12/10-12/12>> change to q 24 HRS Please clarify the type of encephalopathy, if known: [ x] Metabolic Encephalopathy [ ] Other, please specify [ ] Unable to determine (Template Last Revised: August 2020) MTDD
[2024-12-12 17:09] LABS: Glucose,Whole Blood 135 mg/dL (70-110)
[2024-12-12] MEDS: SODIUM CHLORIDE 0.9% 1,000 ML IV SCH (17:27)
[2024-12-12] MEDS: MIDODRINE 5 MG TAB PO SCH (17:33)
[2024-12-12 20:03] LABS: Glucose,Whole Blood 97 mg/dL (70-110)
[2024-12-12] MEDS: HEPARIN SODIUM,PORCINE 5,000 UNIT/ML 1 ML VIAL SQ SCH (21:07)
[2024-12-13 05:21] LABS: African American GFR (CKD) >90 (>60 ml/min/1.73 sqM); Non-African American GFR(CKD) 83 (>60 ml/min/1.73 sqM)
[2024-12-13] MEDS: VANCOMYCIN 1,250 MG in SODIUM CHLORIDE 0.9% 250 ML IVPB SCH (07:00)
[2024-12-13 07:51] LABS: Glucose,Whole Blood 96 mg/dL (70-110)
--- NOTE | 2024-12-13 11:29 | P.EPCON ---
Electrophysiology Consult - EP Consult Electrophysiology Consult: Please see full dictation by nurse practitioner Cardiology was consulted for possible tilt table test Patient was evaluated Patient admitted with hypotension. The patient states that her blood pressure was very low and she was hypokalemic at home We have documented low blood pressures in the 70s and 80s in the supine position, in the chart A tilt table test is not indicated for patients with known symptomatic hypotension. It is a contraindication She is receiving IV fluids at this time and is supine and she has resting supine sinus tachycardia This is not POTS either No indication for tilt table testing and the above clinical scenarios Tilt table testing should not be performed in such clinical scenarios Thank you for the consult
--- NOTE | 2024-12-13 11:53 | P.CRDCN ---
History of Present Illness Consult date: 12/13/24 Reason for Consult (text): Orthostatic, POTS, indication for tilt table test History of present illness: This is 69-year-old female with no previous cardiac history and does not follow with a patients transporter. She has a past medical history of diabetes, hypertension, hyperlipidemia. Patient states she was brought into the hospital because her potassium was low and her blood pressure was low. Patient had a home care nurse that evaluated her and found that her potassium and blood pressure was low and recommended her go to the hospital for further evaluation. Patient has had decreased appetite and has also been on Ozempic. She has lost a significant amount of weight due to the Ozempic. She has not been drinking very much and was still taking Diamox. She denies chest pain no shortness of breath. She denies any diarrhea. She has never been on dialysis before. She states she felt it was a sudden onset of symptoms. She presented with a blood pressure of 74/56. Blood pressure currently 121/81, heart rate 104, pulse ox 98% on room air. -EKG: Sinus rhythm with nonspecific ST-T wave changes. -Chest x-ray: No acute process. -CT brain: No acute process. -Renal ultrasound: No hydronephrosis, no nephrolithiasis. -Laboratory studies: WBC initially 14 and now 8.2, hemoglobin 9.3, BUN 44, creatinine 0.91 improved from 2.28 on 12/08. Troponin negative x 1. Cepheid viral panel not detected. -Home cardiac medications: Lopressor 100 mg daily, also on Diamox and Ozempic. Review Of Systems: At the time of my exam: CONSTITUTIONAL: Denies fever or chills. Reports generalized weakness HEENT: Denies blurred vision, vision changes, or eye pain. Denies hemoptysis CARDIOVASCULAR: Denies chest pain. Denies orthopnea. Denies PND. Denies palpitations RESPIRATORY: Denies shortness of breath. GASTROINTESTINAL: Denies abdominal pain. Denies nausea or vomiting. HEMATOLOGIC: Denies bleeding disorders. GENITOURINARY: Denies any blood in urine. SKIN: Denies puritis. Denies rash. Physical examination: Gen: This is 69-year-old female appears to be ill, no acute respiratory distress. VS: reviewed HEENT: Head is atraumatic, normocephalic. Pupils equal, round. Sclerae is anicteric. NECK: Supple. No JVD. LUNGS: Clear to auscultation. No wheezes or rhonchi. No intercostal retractions. HEART: Regular rate and rhythm. ABDOMEN: Soft No tenderness. EXTREMITIES: No pedal edema. No calf tenderness. NEUROLOGICAL: Patient is awake, alert and oriented x3. Assessment: Acute kidney injury Hypokalemia Hypotension Diabetes Hypertension history Hyperlipidemia UTI Plan: Continue current cardiac medications No indication for tilt table test Cardiology will sign off this case and follow on an as-needed basis. Please reconsult for any new concerns. Thank you kindly for this consultation. Nurse practitioner note has been reviewed, I agree with documented findings and plan of care. Patient was seen and examined. Past Medical History Past Medical History: Diabetes Mellitus, Hyperlipidemia, Hypertension Additional Past Medical History / Comment(s): patient states not a diabetic anymore; Left foot drop History of Any Multi-Drug Resistant Organisms: MRSA Date of last positivie culture/infection: 05/04/23 MDRO Source:: Wound-site not specified Past Surgical History: Back Surgery, Hysterectomy Additional Past Surgical History / Comment(s): Back surgery 03/14/23 L2 -S1 Revision decompression and Fusion Past Psychological History: No Psychological Hx Reported Smoking Status: Former smoker Past Alcohol Use History: None Reported Past Drug Use History: None Reported Medications and Allergies Home Medications Medication Instructions Recorded Confirmed Type Metoprolol Tartrate [Lopressor] 100 mg PO DAILY 03/26/23 12/08/24 History Semaglutide [Ozempic] 2 mg SQ FR 10/09/24 12/08/24 History acetaZOLAMIDE [Diamox] 250 mg PO BID 10/09/24 12/08/24 History Vitamin B Complex 1 cap PO DAILY 12/08/24 12/08/24 History Vitamin C (Unknown Dose) 1 dose PO DAILY 12/08/24 12/08/24 History Allergies Allergy/AdvReac Type Severity Reaction Status Date / Time empagliflozin Allergy Rash/Hives Verified 12/08/24 18:03 [From Jardiance] Penicillins Allergy Unknown Verified 12/08/24 18:03 Childhood Sulfa (Sulfonamide Allergy Unknown Verified 12/08/24 18:03 Antibiotics) Childhood Physical Exam Vitals: Vital Signs Temp Pulse Pulse Pulse Resp BP BP 12/13/24 08:30 98.2 F 104 H 17 121/81 07/08/25 01:58 98.4 F 98 18 126/84 12/12/24 19:08 98.3 F 110 H 16 125/86 12/12/24 17:33 127/84 12/12/24 12:27 97.1 F L 111 H 22 BP Pulse Ox 12/13/24 08:30 98 12/13/24 01:58 98 12/12/24 19:08 99 12/12/24 17:33 12/12/24 12:27 132/83 97 Intake and Output 12/12/24 12/13/24 12/13/24 22:59 06:59 14:59 Intake Total 120 Output Total 700 425 Balance -700 -305 Intake: Oral 120 Output: Urine 600 425 Emesis 100 Other: Voiding Method Diaper Diaper External Catheter # Bowel Movements 1 Results 12/12/24 04:55 12/13/24 04:24 Comprehensive Metabolic Panel 12/13/24 Range/Units 04:24 Creatinine 0.75 (0.52-1.04) mg/dL Current Medications Generic Name Dose Route Start Last Admin Trade Name Sondra PRN Reason Stop Dose Admin Acetaminophen 650 mg 12/08/24 18:12 12/09/24 14:08 Acetaminophen Tab 325 Mg Tab PO 650 mg Q6HR PRN Administration Fever and/ or Pain Dextrose/Water 25 ml 12/08/24 17:52 Dextrose 50% Syringe 50 Ml IVP PER PROTOCOL PRN Hypoglycemia Protocol Dextrose/Water 50 ml 12/08/24 17:52 Dextrose 50% Syringe 50 Ml IVP PER PROTOCOL PRN Hypoglycemia Protocol Heparin Sodium (Porcine) 5,000 unit 12/12/24 21:00 12/13/24 08:45 Heparin Sodium,Porcine 5,000 Unit/Ml 1 Ml Vial SQ 5,000 unit Q12HR ARLEY Administration Hydrocortisone Sodium Succinate 50 mg 12/12/24 09:00 12/13/24 09:17 Hydrocortisone Succinate 100 Mg/2 Ml Vial IV 50 mg DAILY ARLEY Administration Cefepime HCl 2 gm/ Sodium 100 mls @ 25 mls/hr 12/09/24 09:00 12/13/24 08:51 Chloride IVPB 25 mls/hr Q12HR ARLEY Administration Vancomycin HCl 1,250 mg/ 250 mls @ 125 mls/hr 12/13/24 06:00 12/13/24 07:00 Sodium Chloride IVPB 125 mls/hr Q24H ARLEY Administration Sodium Chloride 1,000 mls @ 100 mls/hr 12/12/24 15:45 12/13/24 09:17 Saline 0.9% IV 100 mls/hr .Q10H ARLEY Administration Insulin Human Lispro 0 unit 12/08/24 21:00 12/13/24 09:12 Insulin Lispro (Humalog) 100 Unit/Ml 10 Ml Vl SQ Not Given ACHS ARLEY Protocol Midodrine 5 mg 12/12/24 17:30 12/13/24 09:17 Midodrine 5 Mg Tab PO 5 mg AC-BID ARLEY Administration Miscellaneous Information 0 each 12/14/24 05:00 Vancomycin Trough Due 1 Each Misc MISCELLANE 12/14/24 05:01 DIRECTED ONE Naloxone HCl 0.2 mg 12/08/24 17:19 Naloxone 0.4 Mg/Ml 1 Ml Vial IV Q2M PRN Opioid Reversal Nystatin 1 applic 12/11/24 16:00 12/13/24 08:54 Nystatin 100,000 Unit/Gm Powd 15 Gm TOPICAL 1 applic TID ARLEY Administration Protocol Ondansetron HCl 4 mg 12/13/24 02:20 Ondansetron 4 Mg/2 Ml Vial IVP Q8HR PRN Nausea And Vomiting Petrolatum 1 applic 12/10/24 19:11 Zinc Oxide Paste (Z-Guard) 1 Applic TOPICAL Q2HR PRN Wound Healing Protocol Intake and Output 12/12/24 12/13/24 12/13/24 22:59 06:59 14:59 Intake Total 120 Output Total 700 425 Balance -700 -305 Intake: Oral 120 Output: Urine 600 425 Emesis 100 Other: Voiding Method Diaper Diaper External Catheter # Bowel Movements 1 12/12/24 04:55 12/13/24 04:24
--- NOTE | 2024-12-13 11:59 | P.PN ---
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 She had a visiting nurse checking her blood work today, was noted to have low blood pressure and was advised to come to the ED for further evaluation of abnormal labs, specifically low potassium. She reports significant weight loss over the past 2 months due to poor appetite. In the ED she underwent extensive evaluation. BP 74/56, HR 91, T 97.4F, RR 18, 98% on RA. CBC, CMP significant for WBC 14.22, Na 131, K 2.6, Cl 85m BUN 99, Cr 2.28, glu 138, Lactic acid 1.8, Ca 11.6, Mag 2.3, CPK 16, Trop < 0.012, BNP 1230, TSH 0.743, ACTH 3.8, Cortisol 16, Procal 0.56, UA large LE with 27 WBC and 5 Sq Epi cells. CXR, Renal US, Brain CT all showed no acute process. EKG showed NSR with rate of 84. Patient was started on IV hydration and Vancomycin/Cefepime for concerns for sepsis and admitted for further workup and management. BP improved with IV hydration. Metoprolol and Acetazolamide was held. Orthostats were performed on 12/12 due to persistent positional lightheadedness showing no drop in BP but a > 30 BPM increase in HR. She was stated on Midodrine and thigh high COSMO hose. EP was consulted for possible tilt table test, tilt table test not indicated, unlikely to be POTS. Nephrology consulted for SHARON. Electrolytes and renal function improved with replacement and IV hydration. Blood cultures came back negative. UCx grew Klebsiella pneumoniae. Vancomycin and Cefepime switched to Rocephin. Given her hyponatremia, hypokalemia and hypotension, there was concerns for adrenal insufficiency. She was started on SoluCortef and weaned down. 12/13 Patient was seen and examined. [place] extremely lightheaded standing up this morning. Denies urinary complaints. Renal function wnl. Antibiotics include Cefepime 2g IV BID. General: non toxic, no distress, appears at stated age Derm: warm, dry Head: atraumatic, normocephalic, symmetric Eyes: EOMI, no lid lag, anicteric sclera Mouth: no lip lesion, mucus membranes moist Cardiovascular: S1S2 tachy, no murmur Lungs: Decreased BS bilateral, no rhonchi, no rales , no accessory muscle use Ext: no gross muscle atrophy, no edema, no contractures Neuro: no focal neuro deficits Psych: Alert, oriented, appropriate affect Based on my assessment of this patient, this patient meets a high complexity level of care. Positional lightheadedness possibly POTS: Orthostats + 12/12. Continue NS at 100 cc/hr. Thigh high COSMO stocking ordered. Midodrine 5 mg PO BID. Fall precautions. Telemetry monitoring. Repeat Orthostats ordered discussed with RN. Fall precautions. PT and OT on board. Hypotension and SHARON likely due to severe dehydration: IV hydration as above. Hold Metoprolol and Diamox. Concerns for adrenal insufficiency: ACTH 3.8. Cortisol 16-70. Continue SoluCort ef 50 mg IV QD. Wean as BP tolerates. UTI: UCx as above. Switched Cefepime to Rocephin 2g IV QD to complete a total of 7 days. SIRS: Procal 0.56. Antibiotics and IVF as above. DM: ISS + Accuchecks ACHS along with hypoglycemic precautions. Resolved: HypoNa, HypoK, HyperCa, Encephalopathy CODE STATUS: FULL CODE DVT Prophylaxis: Heparin SQ GI Prophylaxis: Designated medical POA if patient is not able to make medical decisions for themselves: I have reviewed the following solar energy consultant and designer notes: Nephro, EP I have reviewed the results of the following tests: Renal function I have ordered the following tests: I have discussed the care of this patient with the following independent historian: RN. I have independently interpreted the following test below: I have discussed the management of this patient with the following physician: Objective - Vital Signs Vital signs: Vital Signs Temp 98.2 F 12/13/24 08:30 Pulse 104 H 12/13/24 08:30 Resp 17 12/13/24 08:30 BP 121/81 12/13/24 08:30 Pulse Ox 98 12/13/24 08:30 FiO2 Intake & Output 12/12/24 12/13/24 12/13/24 18:59 06:59 18:59 Intake Total 120 Output Total 600 525 Balance -600 -405 Weight 74.843 kg Intake: Oral 120 Output: Urine 600 425 Emesis 100 Other: Voiding Method Diaper Diaper Diaper External Catheter External Catheter # Bowel Movements 1 - Labs CBC & Chem 7: 12/12/24 04:55 12/13/24 04:24 Labs: Abnormal Lab Results - Last 24 Hours (Table) 12/12/24 12/12/24 Range/Units 12:27 17:08 POC Glucose (mg/dL) 170 H 135 H (70-110) mg/dL Microbiology - Last 24 Hours (Table) 12/10/24 11:29 Blood Culture - Preliminary Blood 12/09/24 02:01 Urine Culture - Final Urine,Clean Catch Klebsiella pneumoniae
[2024-12-13 14:19] LABS: Glucose,Whole Blood 140 mg/dL (70-110)
--- NOTE | 2024-12-13 14:25 | CA ---
Transthoracic Echo Report Name: Krys Pérez Age: 69 Gender: F : 1955 Exam Date: 12/13/2024 10:32 Exam Location: [facility] Ht (in): 63 Wt (lb): 165 Ordering Physician: Arielle Mcintyre MD Attending/Referring Phys: Director Digital Mago Mirza RDCS Procedure CPT: Indications: Hypotension Cardiac Hx: Technical Quality: Fair Contrast 1: Total Dose (mL): Contrast 2: Total Dose (mL): MEASUREMENTS (Male / Female) Normal Values 2D ECHO LV Diastolic Diameter PLAX 3.2 cm 4.2 - 5.9 / 3.9 - 5.3 cm LV Systolic Diameter PLAX 2.2 cm IVS Diastolic Thickness 1.2 cm 0.6 - 1.0 / 0.6 - 0.9 cm LVPW Diastolic Thickness 1.3 cm 0.6 - 1.0 / 0.6 - 0.9 cm LV Relative Wall Thickness 0.8 RV Internal Dim ED PLAX 4.2 cm LA Systolic Diameter LX 3.3 cm 3.0 - 4.0 / 2.7 - 3.8 cm LV Diastolic Volume MOD BP 47.9 cm??? 67 - 155 / 56 - 104 cm??? LV Systolic Volume MOD BP 23.5 cm??? 22 - 58 / 19 - 49 cm??? LV Ejection Fraction MOD BP 50.8 % >= 55 % LV Cardiac Index MOD BP 1514.0 cm???/min???m??? LV Diastolic Volume MOD 4C 57.1 cm??? LV Systolic Volume MOD 4C 23.9 cm??? LV Ejection Fraction MOD 4C 58.2 % LV Cardiac Index MOD 4C 2067.2 cm???/min???m??? LV Diastolic Length 4C 6.8 cm LV Systolic Length 4C 5.8 cm LV Diastolic Volume MOD 2C 40.0 cm??? LV Systolic Volume MOD 2C 22.1 cm??? LV Ejection Fraction MOD 2C 44.7 % LV Cardiac Index MOD 2C 1112.1 cm???/min???m??? LV Diastolic Length 2C 6.7 cm LV Systolic Length 2C 6.2 cm M-MODE Aortic Root Diameter MM 2.9 cm LA Systolic Diameter MM 3.4 cm LA Ao Ratio MM 1.1 AV Cusp Separation MM 1.3 cm DOPPLER AV Peak Velocity 237.7 cm/s AV Peak Gradient 22.6 mmHg AV Mean Velocity 179.8 cm/s AV Mean Gradient 14.0 mmHg AV Velocity Time Integral 45.4 cm LVOT Peak Velocity 112.6 cm/s LVOT Peak Gradient 5.1 mmHg LVOT Velocity Time Integral 20.8 cm MV Peak Velocity 125.4 cm/s MV Peak Gradient 6.3 mmHg MV Mean Velocity 87.8 cm/s MV Mean Gradient 3.4 mmHg MV Velocity Time Integral 30.8 cm Mitral E Point Velocity 122.2 cm/s Mitral A Point Velocity 140.2 cm/s Mitral E to A Ratio 0.9 MV Deceleration Time 265.4 ms MV E' Velocity 7.5 cm/s Mitral E to MV E' Ratio 16.4 TR Peak Velocity 266.6 cm/s TR Peak Gradient 28.4 mmHg FINDINGS Left Ventricle Left ventricular ejection fraction is estimated at 55-60 %. Mildly increased septal wall thickness. Mildly increased posterior wall thickness. Normal left ventricular systolic function with no obvious regional wall motion abnormalities. Left ventricular cavity size normal. Right Ventricle Normal right ventricular size and function. Right ventricular systolic pressure within normal limits. Right Atrium Normal right atrial size. Left Atrium Normal left atrial size. Mitral Valve Mitral valve thickened. Mitral annular calcification. Moderate mitral regurgitation. No mitral stenosis. Aortic Valve Trileaflet aortic valve. Mild aortic stenosis with a peak gradient of 23 mmHg and a mean gradient of 14 mmHg. No aortic regurgitation. Tricuspid Valve Structurally normal tricuspid valve. Moderate tricuspid regurgitation. No tricuspid stenosis. Pulmonic Valve Structurally normal pulmonic valve. Trace pulmonic regurgitation. No pulmonic stenosis. Pericardium No pericardial or pleural effusion. Aorta Normal size aortic root and proximal ascending aorta. CONCLUSIONS Reason: Hypotension presyncope Normal LV size and function Mitral annular calcification Very mild aortic stenosis No pericardial effusion Previewed by: Dr. David Padilla MD (Electronically Signed) Final Date: 13 December 2024 14:24
[2024-12-13 17:14] LABS: Glucose,Whole Blood 137 mg/dL (70-110)
[2024-12-13 20:13] LABS: Glucose,Whole Blood 91 mg/dL (70-110)
[2024-12-13] MEDS: ONDANSETRON 4 MG/2 ML VIAL IVP PRN (20:18)
[2024-12-14] MEDS: VANCOMYCIN TROUGH DUE 1 EACH MISC MISCELLANE ONE (05:46)
[2024-12-14 05:54] LABS: African American GFR (CKD) >90 (>60 ml/min/1.73 sqM); Anion Gap 5 mmol/L; Blood Urea Nitrogen 30 mg/dL (7-17); Calcium 9.0 mg/dL (8.4-10.2); Carbon Dioxide 21 mmol/L (22-30); Chloride 114 mmol/L (98-107); Glucose 72 mg/dL (74-99); Non-African American GFR(CKD) >90 (>60 ml/min/1.73 sqM); Potassium 4.8 mmol/L (3.5-5.1); Sodium 140 mmol/L (137-145)
[2024-12-14 06:09] LABS: Glucose,Whole Blood 73 mg/dL (70-110)
[2024-12-14 07:08] LABS: Glucose,Whole Blood 75 mg/dL (70-110)
[2024-12-14] MEDS ORDERED: METOPROLOL TARTRATE 12.5 MG TAB PO SCH (10:30)
[2024-12-14] MEDS: METOPROLOL TARTRATE 25 MG TAB PO SCH (11:09)
--- NOTE | 2024-12-14 11:50 | P.PN ---
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 She had a visiting nurse checking her blood work today, was noted to have low blood pressure and was advised to come to the ED for further evaluation of abnormal labs, specifically low potassium. She reports significant weight loss over the past 2 months due to poor appetite. In the ED she underwent extensive evaluation. BP 74/56, HR 91, T 97.4F, RR 18, 98% on RA. CBC, CMP significant for WBC 14.22, Na 131, K 2.6, Cl 85m BUN 99, Cr 2.28, glu 138, Lactic acid 1.8, Ca 11.6, Mag 2.3, CPK 16, Trop < 0.012, BNP 1230, TSH 0.743, ACTH 3.8, Cortisol 16, Procal 0.56, UA large LE with 27 WBC and 5 Sq Epi cells. CXR, Renal US, Brain CT all showed no acute process. EKG showed NSR with rate of 84. Patient was started on IV hydration and Vancomycin/Cefepime for concerns for sepsis and admitted for further workup and management. BP improved with IV hydration. Metoprolol and Acetazolamide was held. Orthostats were performed on 12/12 due to persistent positional lightheadedness showing no drop in BP but a > 30 BPM increase in HR. She was stated on Midodrine and thigh high COSMO hose. EP was consulted for possible tilt table test, tilt table test not indicated, unlikely to be POTS. Nephrology consulted for SHARON. Electrolytes and renal function improved with replacement and IV hydration. Blood cultures came back negative. UCx grew Klebsiella pneumoniae. Vancomycin and Cefepime switched to Rocephin. Given her hyponatremia, hypokalemia and hypotension, there was concerns for adrenal insufficiency. She was started on SoluCortef and weaned down. 12/13 Patient was seen and examined. [place] extremely lightheaded standing up this morning. Denies urinary complaints. Renal function wnl. Antibiotics include Cefepime 2g IV BID. 12/14 Patient was seen and examined. Improved lightheadedness. We will add Metoprolol 25 mg PO BID due to her tachycardia. Repeat Orthostats ordered. Now agreeable for SNF. BMP shows Cl 114, bicarb 21, BUN 30, glu 72. Echo shows EF 55-60%, mild LV thickness, mild . General: non toxic, no distress, appears at stated age Derm: warm, dry Head: atraumatic, normocephalic, symmetric Eyes: EOMI, no lid lag, anicteric sclera Mouth: no lip lesion, mucus membranes moist Cardiovascular: S1S2 tachy, no murmur Lungs: Decreased BS bilateral, no rhonchi, no rales , no accessory muscle use Ext: no gross muscle atrophy, no edema, no contractures Neuro: no focal neuro deficits Psych: Alert, oriented, appropriate affect Based on my assessment of this patient, this patient meets a high complexity level of care. Positional lightheadedness possibly POTS: Orthostats + 7/7. Continue NS at 100 cc/hr. Thigh high COSMO stocking. Midodrine 5 mg PO BID. Fall precautions. Telemetry monitoring. Repeat Orthostats ordered discussed with RN. Fall precautions. PT and OT on board. Tachycardia: May be related to reflex tachycardia from abruptly stopping Metoprolol. Start Metoprolol 25 mg PO BID. Concerns for adrenal insufficiency: ACTH 3.8. Cortisol 16-70. Decreased SoluCortef from 50 to 25 mg IV QD. Wean as BP tolerates. UTI: UCx as above. Rocephin 2g IV QD (D5/7). SIRS: Procal 0.56. Antibiotics and IVF as above. DM: ISS + Accuchecks ACHS along with hypoglycemic precautions. Resolved: HypoNa, HypoK, HyperCa, Encephalopathy, Hypotension and SHARON Anticipate DC in 1-2 days if HR improves. Plans for SNF on discharge. CODE STATUS: FULL CODE DVT Prophylaxis: Heparin SQ GI Prophylaxis: Designated medical POA if patient is not able to make medical decisions for themselves: I have reviewed the following oncology consultant notes: Nephro, EP, Cardiology I have reviewed the results of the following tests: BMP, Echo. I have ordered the following tests: I have discussed the care of this patient with the following independent historian: RN. Case management. I have independently interpreted the following test below: I have discussed the management of this patient with the following physician: Objective - Vital Signs Vital signs: Vital Signs Temp 98.0 F 12/14/24 07:48 Pulse 92 12/14/24 07:48 Resp 17 12/14/24 07:48 BP 135/86 12/14/24 07:48 Pulse Ox 99 12/14/24 07:48 FiO2 Intake & Output 12/13/24 12/14/24 12/14/24 18:59 06:59 18:59 Intake Total 360 Output Total 600 400 Balance -600 -400 360 Intake: Oral 360 Output: Urine 600 400 Other: Voiding Method Diaper Diaper External Catheter - Labs CBC & Chem 7: 12/12/24 04:55 12/14/24 05:09 Labs: Abnormal Lab Results - Last 24 Hours (Table) 12/13/24 12/13/24 12/14/24 Range/Units 14:18 17:08 05:09 Chloride 114 H (98-107) mmol/L Carbon Dioxide 21 L (22-30) mmol/L BUN 30 H (7-17) mg/dL Glucose 72 L (74-99) mg/dL POC Glucose (mg/dL) 140 H 137 H (70-110) mg/dL Microbiology - Last 24 Hours (Table) 12/08/24 18:17 Blood Culture - Final Blood 12/10/24 11:29 Blood Culture - Preliminary Blood
[2024-12-14 12:20] LABS: Glucose,Whole Blood 124 mg/dL (70-110)
[2024-12-14 17:11] LABS: Glucose,Whole Blood 118 mg/dL (70-110)
[2024-12-14 20:22] LABS: Glucose,Whole Blood 87 mg/dL (70-110)
[2024-12-15 07:07] LABS: Glucose,Whole Blood 76 mg/dL (70-110)
[2024-12-15 07:50] VITALS: RESP 17
[2024-12-15] MEDS: HYDROCORTISONE SUCCINATE 100 MG/2 ML VIAL IV SCH (09:04)
--- NOTE | 2024-12-15 11:13 | P.DS ---
Providers Date of admission: 12/08/24 17:19 Attending physician: Tim Diaz Consults: 12/08/24 18:27 Consult Physician Routine Consulting Provider: Clay Miranda Consult Reason/Comments: SHARON, hypokalemia Do you want consulting provider notified?: Yes 12/13/24 10:11 Consult Physician Routine Consulting Provider: Ochoa Jackson Consult Reason/Comments: Orthostats, POTS? indication for tilt table? 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 Patient had a visiting nurse checking her blood work and she was found to have low blood pressure so was told to come into the ED. Patient also reporting having significant weight loss over the past 2 months due to poor appetite. In the ED patient blood pressure was 74/56. WBC count was 14.22. Sodium was 131. Potassium 2.6. Creatinine 2.28. Calcium 11.6. Patient's UA was positive for UTI. Patient was admitted to the medicine service. Patient was started on IV antibiotics and IV fluids. Urine culture grew Klebsiella pneumonia. Patient was initially on vancomycin and cefepime and then was switched to Rocephin. Patient was treated with 6 days of IV antibiotics. Patient will be discharged on 1 more day of Ceftin. Patient also found to be orthostatic positive. Patient was treated with IV fluids. She was also started on midodrine. Also had compression stockings put on. Patient's orthostatics then improved. Patien t's sodium level also improved with the fluids. Patient's hypokalemia resolved after repleting the potassium. Initially it was thought that patient had adrenal insufficiency so she had been started on IV hydrocortisone. However her cortisol level was within normal limits. ACTH was also checked and was also within normal limits. On discharge I will taper down the hydrocortisone. Patient will need 3 more days of 20 mg of Cortef and then can be discontinued. At the time of discharge patient reported that she felt well. She reported that her dizziness was improving. Discussed with binder caser who said bed available at intermediate facility. Patient is stable for discharge. I will discontinue patient's Ozempic and acetazolamide as it could be the etiology of her poor appetite and acute kidney injury. Patient's hemoglobin A1c was 5.1 so no need to replace Ozempic with another diabetic medication. Patient seen and examined at bedside.[] Vital signs reviewed and stable. General: [non toxic], [no distress], [appears at stated age] Appears chronically debilitated Derm: [warm], [dry] Head: [atraumatic], [normocephalic], [symmetric] Eyes: [EOMI], [no lid lag], [anicteric sclera] Mouth: [no lip lesion], [mucus membranes moist] Cardiovascular: [S1S2 reg], [no murmur], [positive posterior tibial pulse bilateral], Lungs: [CTA bilateral], [no rhonchi, no rales] , [no accessory muscle use] Abdominal: [soft], [ nontender to palpation], [no guarding], [no appreciable organomegaly] Ext: [no gross muscle atrophy], [no edema], [no contractures] Neuro: [ CN II-XI grossly intact], [no focal neuro deficits] Psych: [Alert], [oriented], [appropriate affect] A total of [33] minutes of time were spent preparing this complex discharge summary . Patient discharged on [12/15/2024] Patient Condition at Discharge: Stable Plan - Discharge Summary New Discharge Prescriptions: New Metoprolol Tartrate [Lopressor] 25 mg PO BID tab Nystatin 100,000 Unit/gm Powd [Mycostatin Powder] 1 applic TOPICAL TID 7 Days each Cefuroxime [Ceftin] 250 mg PO BID 1 Days #2 tab Hydrocortisone [Cortef] 20 mg PO DAILY #3 tablet Midodrine [ProAmatine] 5 mg PO AC-BID tab Continue Vitamin C (Unknown Dose) 1 dose PO DAILY Vitamin B Complex 1 cap PO DAILY Discontinued Metoprolol Tartrate [Lopressor] 100 mg PO DAILY acetaZOLAMIDE [Diamox] 250 mg PO BID Semaglutide [Ozempic] 2 mg SQ FR Discharge Medication List Vitamin B Complex 1 cap PO DAILY 12/08/24 [History] Vitamin C (Unknown Dose) 1 dose PO DAILY 12/08/24 [History] Cefuroxime [Ceftin] 250 mg PO BID 1 Days #2 tab 12/15/24 [Rx] Hydrocortisone [Cortef] 20 mg PO DAILY #3 tablet 12/15/24 [Rx] Metoprolol Tartrate [Lopressor] 25 mg PO BID tab 12/15/24 [Rx] Midodrine [ProAmatine] 5 mg PO AC-BID tab 12/15/24 [Rx] Nystatin 100,000 Unit/gm Powd [Mycostatin Powder] 1 applic TOPICAL TID 7 Days each 12/15/24 [Rx] Follow up Appointment(s)/Referral(s): Sebastien Escalante,Home Care [NON-STAFF] - 1 Week Bravo Lazo MD [Primary Care Provider] - 1-2 days Discharge Disposition: TRANSFER TO SNF/ECF
[2024-12-15 12:14] LABS: Glucose,Whole Blood 75 mg/dL (70-110)
[2024-12-15 12:45] VITALS: BP 124/69; PULSE 88; TEMP 98
== END 2024-12-15 14:30 | DRG 682 ==
LOC: EC 15:11 → 3SCARD 17:19 → 5NMEDONC 12-10 13:41
PROVIDERS: ADMIT Student in an Organized Health Care Education/Training Program; ATTEND Student in an Organized Health Care Education/Training Program
DX: N17.0 Acute kidney failure with tubular necrosis (principal); E43 Unspecified severe protein-calorie malnutrition; G93.41 Metabolic encephalopathy; E87.20 Acidosis, unspecified; E27.40 Unspecified adrenocortical insufficiency; B96.1 Klebsiella pneumoniae [K. pneumoniae] as the cause of diseases classified elsewhere; E86.0 Dehydration; E11.9 Type 2 diabetes mellitus without complications; F03.90 Unspecified dementia, unspecified severity, without behavioral disturbance, psychotic disturbance, mood disturbance, and anxiety; I10 Essential (primary) hypertension; N39.0 Urinary tract infection, site not specified; E87.1 Hypo-osmolality and hyponatremia; Z68.29 Body mass index [BMI] 29.0-29.9, adult; R63.0 Anorexia; T50.995A Adverse effect of other drugs, medicaments and biological substances, initial encounter; E78.5 Hyperlipidemia, unspecified; E83.52 Hypercalcemia; E86.1 Hypovolemia; E87.5 Hyperkalemia; E87.6 Hypokalemia; G89.29 Other chronic pain; M47.816 Spondylosis without myelopathy or radiculopathy, lumbar region; I95.9 Hypotension, unspecified; R31.9 Hematuria, unspecified; Z87.891 Personal history of nicotine dependence; Z79.899 Other long term (current) drug therapy; Z88.1 Allergy status to other antibiotic agents; Z88.0 Allergy status to penicillin; Z88.2 Allergy status to sulfonamides; Z11.52 Encounter for screening for COVID-19; Z98.1 Arthrodesis status; Z86.14 Personal history of Methicillin resistant Staphylococcus aureus infection; Z79.85 Long-term (current) use of injectable non-insulin antidiabetic drugs
CPT/HCPCS: 36415; 70450; 71046; 76770; 80048; 80053; 80202; 81001; 82024; 82140; 82533; 82550; 82565; 83036; 83605; 83735; 83880; 84132; 84145; 84443; 84484; 85025; 87040; 87077; 87086; 87186; 87636; 93005; 93306; 96361; 96365; 96366; 96367; 96368; 96375; 96376; 99285